=== PATIENT | male | born 1945 | race Caucasian/White ===

== ENCOUNTER 2018-01-04 12:03 | Day surgery (SDC) | payer MEDICARE, OTHER, SELFPAY ==
--- NOTE | 2018-01-04 | PATH_ITS ---
[facility] Accession Number: [id number] . 01 Material submitted: . PART A: TRANSVERSE COLON POLYP AT 80CM PART B: ANAL LESION BIOPSIES . 02 Diagnosis: A. Biopsy Transverse Colon Polyp at 80 cm: Sessile serrated adenoma. . B. Biopsy Designated Anal Lesion: Fragments of rectal mucosa with changes consistent with prolapsed inflammatory polyp, negative for atypia. MRV/01/05/2018 . 02 Electronically signed: . Austin Mojica MD, Pathologist NPI- [id number] . 01 Gross description: . Received two formalin-filled containers, both labeled with the patient's name: . A. In a container labeled transverse colon polyp at 80, are two 0.5-0.8 cm portions of tissue, entirely submitted in cassette A. B. In a container labeled anal, are five less than 0.1 cm to 0.4 cm portions of tissue, entirely submitted in cassette B. ([id number]) /FRR . 02 Pathologist provided ICD-10: D12.3 . 02 CPT . 286279, [id number] Performed at: 01 [facility] [address] [facility], [place], [place] [id number] MD Alfonso Briceño MD Phone: [phone] Performed at: 02 [facility] [address] [place], [place] [id number] MD Diego Bowers MD Phone: [phone]
[2018-01-04] MEDS: SODIUM CHLORIDE 0.9% 1,000 ML 200 ML IV (12:29)
[2018-01-04 12:36] VITALS: BP 153/82; PULSE 44; RESP 16; TEMP 36.8; O2SAT 97; BMI 33.2
--- NOTE | 2018-01-04 12:50 | PM.PREOP ---
Pre-operative Note Interval Note Pre-op Check: Yes History & Physical Reviewed by Physician and Yes Exam Performed Changes: No H&P completed within 30 days and has changed as indicated here:: Patient seen and examined once again today. History physical examination dated December 06, 2017 has not changed and is on the chart. INR today is 1.0. He has stopped the Lovenox as directed in time for the procedure. Proceed with colonoscopy today as planned. ASA Class (for procedural sedation): II
[2018-01-04 13:49] VITALS: BP 159/82; PULSE 45; RESP 16; TEMP 36.1; O2SAT 99
[2018-01-04] MEDS: MIDAZOLAM 5 MG/5 ML VIAL IV (13:49)
[2018-01-04] MEDS: fentaNYL 250 MCG/5 ML INJ IV (13:49)
--- NOTE | 2018-01-04 13:50 | P.OP.ENDO_ITS ---
Operative Date/Time/Diagnoses Date of procedure: 01/04/18 Time of procedure: 13:46 Pre-op diagnosis: Rectal bleeding and personal history colon polyps Post-op diagnosis: other (Pandiverticulosis and colon polyps) Procedure & Clinicians Study performed: 1. Sedation per surgeon 2. Colonoscopy with hot snare polypectomy and cold forceps biopsies Same procedure as scheduled: Yes Indications: 72-year-old male who recently presented with bright red blood per rectum on anticoagulation therapy. He also has a personal history of colon polyps. Colonoscopy was recommended. Surgeon: Elan Son Procedure Notes SCOAP/Timeout: Yes Procedure in detail: After obtaining informed consent, the patient was brought to the GI suite and placed in the left lateral decubitus position on the examination table. After placement of appropriate monitors, the patient was given incremental doses of Versed and Fentanyl until an appropriate level of sedation was achieved. A time out was held per SCOAP protocol. A digital rectal examination was performed and did not reveal any masses or obstructing lesions. The colonoscope was gently passed into the patient's anus and the entire colon navigated to the level of the cecum with minimal difficulty. Once in the cecum, the scope was withdrawn being sure to go before and beyond all mucosal folds and prominences and get an excellent examination. The findings are noted above. At the level of the rectal vault, the scope was retroflexed and the internal anal canal was examined. The scope was straightened and air aspirated from the colon. The instrument was removed from the patient's body and the procedure was concluded. The patient was allowed to awaken from sedation without difficulty and taken to the post-anesthesia care unit in good condition. Scope withdrawal time: 16:47 min Sedation minutes: 38 Findings: diverticulosis, internal hemorrhoids (Grade 2), polyp (Transverse colon polyp at 80 cm) and other findings (Polypoid lesion at anal canal, biopsied) Specimen(s): other (1. Transverse colon polyp at 80 cm 2. Anal lesion biopsies ) Complications: none Recommendations: Colonscopy in 5 years and High fiber diet Plan for aftercare: 1. Discharge home 2. Follow up in surgery Clinic in 1 week to review results 3. Restart anticoagulation tomorrow Follow up: weeks (One week with Dr. Son) Disposition: PACU
[2018-01-04 13:53] VITALS: BP 148/78; PULSE 43; RESP 11; O2SAT 99
[2018-01-04 14:01] VITALS: BP 145/71; PULSE 40; RESP 16; TEMP 36.1; O2SAT 99
== END 2018-01-04 14:17 | disposition home or self-care (01) ==
PROVIDERS: PCP Family Medicine; Visit Provider Surgery
PROC: 0DJD8ZZ Inspection of Lower Intestinal Tract, Via Natural or Artificial Opening Endoscopic (ICD-10-PCS; CPT 45378; principal; 2018-01-04 13:00)
DX: K62.1 Rectal polyp (principal); Z86.010 Personal history of colon polyps; K57.30 Diverticulosis of large intestine without perforation or abscess without bleeding; K64.1 Second degree hemorrhoids; D12.3 Benign neoplasm of transverse colon; Z79.01 Long term (current) use of anticoagulants; I48.91 Unspecified atrial fibrillation
CPT/HCPCS: 45385; 45380; 88305; 99152; 99153; J2250; J3010

== ENCOUNTER → 2018-02-06 09:17 | Outpatient (CLI) | payer MEDICARE, OTHER, SELFPAY ==
[2018-02-06 10:03] LABS: Add Manual Diff / Slide Review NO; Basophils Percent Auto 0.8 % (0-2); Eosinophils Percent Auto 3.4 % (2-4); Hematocrit 37.7 % (41-53); Hemoglobin 12.8 g/dL (13.5-17.5); Lymphocytes Percent Auto 29.5 % (25-40); Mean Corpuscular Hemoglobin 29.3 PG (26-34); Monocytes Percent Auto 8.3 % (3-14); Neutrophils Absolute Auto 3000 /uL (3000-5900); Platelet Count 179 X10^3/uL (150-400); Red Blood Cell Count 4.38 X10^6/uL (4.5-5.9); Red Cell Distribution Width 14.7 % (11.6-14.8); White Blood Cell Count 5.2 X10^3/uL (4.5-11.0)
[2018-02-06 10:47] LABS: Alanine Aminotransferase 37 IU/L (21-72); Albumin 3.9 g/dL (3.5-5.0); Albumin Globulin Ratio 1.6 (1.0-2.8); Alkaline Phosphatase 68 U/L (38-126); Aspartate Aminotransferase 38 IU/L (17-59); BUN Creatinine Ratio 22.5 (6-22); Bilirubin Total 0.7 mg/dL (0.2-1.3); Blood Urea Nitrogen 18 mg/dL (9-20); Calcium 9.1 mg/dL (8.4-10.2); Carbon Dioxide 29 mmol/L (22-32); Chloride 104 mmol/L (98-107); Cholesterol 107 mg/dL (140-199); Estimated Glomerular Filt Rate > 60.0 mL/min (>60); Globulin 2.5 g/dL (1.7-4.1); Glucose 94 mg/dL (80-110); HDL Cholesterol 61 mg/dL (40-60); HEMOLYSIS < 15 (0-50); LDL Cholesterol Calculated 38 mg/dL (<100); Potassium 4.2 mmol/L (3.4-5.1); Sodium 144 mmol/L (137-145); Total Protein 6.4 g/dL (6.3-8.2); Triglycerides 41 mg/dL (35-150)
[2018-02-06 11:12] LABS: Thyroid Stimulating Hormone 0.65 uIU/mL (0.47-4.68)
[2018-02-06 11:15] LABS: Prostate Specific Antigen Scrn 1.46 ng/mL (0.1-4.0)
== END ==
PROVIDERS: PCP Family Medicine; Visit Provider Family Medicine
DX: I10 Essential (primary) hypertension (principal)
CPT/HCPCS: 36415; 80053; 80061; 84443; 85025; G0103

== ENCOUNTER 2018-10-24 16:30 | Emergency (ER) | payer MEDICARE, OTHER, SELFPAY ==
[2018-10-24 16:42] VITALS: BP 132/94; PULSE 71; RESP 16; TEMP 37; O2SAT 97; BMI 34.7
--- NOTE | 2018-10-24 16:47 | ED.ABDPAIN ---
HPI - Abdominal Pain <NIC Matos - Last Filed: 10/24/18 21:05> General Chief Complaint: Abdominal Pain Stated Complaint: SAYS HIS KIDNEYS ARE SORE Time Seen by Provider: 10/24/18 16:47 Source: patient Limitations: no limitations History of Present Illness HPI narrative: 71-year-old male with a history of TIA and blood thinner use, presents to the emergency department complaining of dull achy 6/10 left flank pain for the past 3-4 days that is worse with bending over and going upstairs. Denies radiation of pain. Associated increased shortness of breath when walking up stairs. Patient also reports swelling in his lower legs however he states that this is normal for for him and has not increased over the past few days. Denies long trips or recent illness. Denies dysuria, chest pain, dizziness, syncope, cough, fevers, chills, blood in urine, nausea, vomiting, change in stools. Related Data Home Medications Medication Instructions Recorded Confirmed MULTIVITAMIN/MINERALS (ICAPS PLUS) 1 tab PO AMAC #0 04/04/17 02/13/18 calcium citrate [Calcitrate] 200 mg PO ACHS #0 04/04/17 02/13/18 cyanocobalamin (vitamin B-12) 1 tab PO SEE INSTRUCTIONS #0 04/04/17 02/13/18 [Vitamin B-12] vitamin B complex [B 1 tab PO AMAC #0 04/04/17 02/13/18 Complex-Vitamin B12] apixaban [Eliquis] 5 mg BID #0 08/15/17 02/13/18 lisinopril 10 mg PO QDAY #0 08/15/17 02/13/18 acetaminophen 500 mg tablet 1,000 mg PO BID #0 02/13/18 02/13/18 Previous Rx's Medication Instructions Recorded hydrocortisone acetate 25 mg 25 mg MT BID PRN #12 each 11/21/17 rectal suppository enoxaparin 100 mg/mL subcutaneous 100 mg SUBCUT .q 12 h #8 ml 12/06/17 syringe tamsulosin 0.4 mg PO DAILY #10 cap 10/24/18 Allergies Allergy/AdvReac Type Severity Reaction Status Date / Time No Known Drug Allergies Allergy Unknown Verified 10/24/18 16:42 [NO KNOWN DRUG ALLERGIES] Review of Systems <NIC Matos - Last Filed: 10/24/18 21:05> Review of Systems REVIEW OF SYSTEMS: GENERAL: Denies fever or chills. HENT: No head trauma, hearing loss or sore throat. EYES: No loss of vision, double vision, eye pain, or irritation. CARDIOVASCULAR: No chest pain or syncope. RESPIRATORY: See HPI. GASTROINTESTINAL: No nausea, vomiting, diarrhea, or constipation. GENITOURINARY: Complains of left foot pain, see HPI MUSCULOSKELETAL: No pain, weakness, or deformities. INTEGUMENTARY: No rash, lesions, or pruritus. NEURO: No numbness, tingling, memory loss, or confusion. PSYCH: No behavior or mood changes. PFSH <NIC Matos - Last Filed: 10/24/18 21:05> Medical History Constipation (Acute) Hemorrhoids (Acute) Personal history of colonic polyps (Acute) Transient ischemic attack (Acute) Afib (Chronic) HTN (hypertension) (Chronic) Hyperlipidemia (Chronic) Sleep apnea (Chronic) Anal fistula (Resolved) Surgical History History of colonoscopy (Acute) History of esophagogastroduodenoscopy (EGD) (Acute) History of angioplasty (~2013) History of gastric bypass History of knee replacement History of knee replacement Family History Father Hypertension Cancer Social History marital status: household members: spouse Smoking Status: Never smoker alcohol intake: never substance use type: does not use Family History Father Hypertension Cancer Social History marital status: household members: spouse Smoking Status: Never smoker alcohol intake: never substance use type: does not use Exam <NIC Matos - Last Filed: 10/24/18 21:05> Initial Vital Signs Initial Vital Signs: Vital Signs Temperature 98.6 F 10/24/18 16:42 Pulse Rate 71 10/24/18 16:42 Respiratory Rate 16 10/24/18 16:42 Blood Pressure 132/94 H 10/24/18 16:42 Pulse Oximetry 97 10/24/18 16:42 PHYSICAL EXAMINATION: GENERAL: Well groomed, alert, and cooperative Answers questions promptly and appropriately. Vital signs noted. HENT: Normocephalic, atraumatic. EYES: Conjunctiva pink, sclera white, no periorbital swelling. NECK: Full range of motion. CHEST: Normal to inspection and without deformities. CARDIOVASCULAR: S1 and S2 sounds normal. Regular rate and rhythm, no murmurs, clicks, or bruits. No pedal edema. RESPIRATORY: Normal respiratory rate, trachea midline, airway patent. No stridor, nasal flaring or accessory muscle use. Lungs are clear in all ramirez without wheeze, rhonchi, or crackles. GASTROINTESTINAL: Bowel sounds normoactive. Abdomen is soft and non-tender. No organomegaly. Left flank tenderness with palpation. MUSCULOSKELETAL: Normal gait and coordination. Equal tone and mass bilaterally. No spinal tenderness or deformities. EXTREMITIES: CMS intact. Full range of motion and 5/5 strength to upper and lower extremities SKIN: Warm, dry, soft, appropriate color for ethnicity. No lesions, rashes, or wounds. NEURO: Alert and Oriented X 3. Good coordination. No ataxia, or sensory deficits, or cognitive issues. PSYCH: Appropriate affect and mood. <Gutierrez Rankin DO - Last Filed: 10/29/18 19:23> Initial Vital Signs Initial Vital Signs: Vital Signs Temperature 98.6 F 10/24/18 16:42 Pulse Rate 71 10/24/18 16:42 Respiratory Rate 16 10/24/18 16:42 Blood Pressure 132/94 H 10/24/18 16:42 Pulse Oximetry 97 10/24/18 16:42 Course <NIC Matos - Last Filed: 10/24/18 21:05> Orders Ordered: ED Orders 10/24/18 16:41 B Type Natriuretic Peptide Stat Complete Blood Count AUTO DIFF Stat Comprehensive Metabolic Panel Stat Lipase Stat Partial Thromboplastin Time Stat Prothrombin Time INR Stat Troponin & CK Cardiac Panel Stat 10/24/18 16:53 CT kidney ureter bladder (KUB) Stat EKG-12 Lead Stat Consultations Consultation #1: Patient staffed Dr. Rankin. Vital Signs - 8 hr 10/24/18 16:42 Temperature 98.6 F Pulse Rate 71 Respiratory Rate 16 Blood Pressure 132/94 H Pulse Oximetry 97 <Gutierrez Rankin DO - Last Filed: 10/29/18 19:23> Orders Ordered: ED Orders 10/24/18 16:41 B Type Natriuretic Peptide Stat Complete Blood Count AUTO DIFF Stat Comprehensive Metabolic Panel Stat Lipase Stat Partial Thromboplastin Time Stat Prothrombin Time INR Stat Troponin & CK Cardiac Panel Stat 10/24/18 16:53 CT kidney ureter bladder (KUB) Stat EKG-12 Lead Stat Vital Signs - 8 hr 10/24/18 16:42 Temperature 98.6 F Pulse Rate 71 Respiratory Rate 16 Blood Pressure 132/94 H Pulse Oximetry 97 MDM - Abdominal Pain <NIC Matos - Last Filed: 10/24/18 21:05> Medical Records Attestation: I reviewed the patient's medical records. Lab Data Attestation: I reviewed the patient's lab results. Result diagrams: 10/24/18 16:41 10/24/18 16:41 Lab Results 10/24/18 10/24/18 10/24/18 Range/Units 16:41 16:41 16:41 WBC 6.0 (4.5-11.0) X10^3/uL RBC 4.43 L (4.5-5.9) X10^6/uL Hgb 12.5 L (13.5-17.5) g/dL Hct 37.6 L (41-53) % MCV 84.9 (80-100) fL MCH 28.1 (26-34) PG MCHC 33.1 (30-36) % RDW 15.9 H (11.6-14.8) % Plt Count 205 (150-400) X10^3/uL Neut % (Auto) 56.0 (50-75) % Lymph % (Auto) 32.1 (25-40) % Leslie % (Auto) 8.6 (3-14) % Eos % (Auto) 2.4 (2-4) % Baso % (Auto) 0.9 (0-2) % Neut # (Auto) 3400 (0186-8416) /uL Lymph # (Auto) 1900 (5461-6947) /uL Leslie # (Auto) 500 (0-900) /uL Eos # (Auto) 100 (0-450) /uL Baso # (Auto) 100 (0-100) /uL PT 12.1 (10.1-12.7) SECONDS INR 1.1 (0.9-1.3) APTT 35 (26.4-36.2) SECONDS Sodium 141 (137-145) mmol/L Potassium 4.4 (3.4-5.1) mmol/L Chloride 107 (98-107) mmol/L Carbon Dioxide 26 (22-32) mmol/L BUN 21 H (9-20) mg/dL Creatinine 0.90 (0.66-1.25) mg/dL Estimated GFR > 60.0 (>60) mL/min BUN/Creatinine Ratio 23.3 H (6-22) Glucose 96 (80-110) mg/dL Calcium 9.4 (8.4-10.2) mg/dL Total Bilirubin 0.7 (0.2-1.3) mg/dL AST 36 (17-59) IU/L ALT 31 (21-72) IU/L Alkaline Phosphatase 64 (38-126) U/L Total Creatine Kinase (55-170) U/L CK-MB (CK-2) (<2.37) ng/mL CK-MB (CK-2) Rel Index (1.5-5.0) % Troponin I (0.01-0.034) ng/mL B-Natriuretic Peptide < 100 (<100) Total Protein 6.8 (6.3-8.2) g/dL Albumin 4.2 (3.5-5.0) g/dL Globulin 2.6 (1.7-4.1) g/dL Albumin/Globulin Ratio 1.6 (1.0-2.8) Lipase 138 (23-300) U/L 10/24/18 Range/Units 16:41 WBC (4.5-11.0) X10^3/uL RBC (4.5-5.9) X10^6/uL Hgb (13.5-17.5) g/dL Hct (41-53) % MCV (80-100) fL MCH (26-34) PG MCHC (30-36) % RDW (11.6-14.8) % Plt Count (150-400) X10^3/uL Neut % (Auto) (50-75) % Lymph % (Auto) (25-40) % Leslie % (Auto) (3-14) % Eos % (Auto) (2-4) % Baso % (Auto) (0-2) % Neut # (Auto) (5624-3012) /uL Lymph # (Auto) (2213-7122) /uL Leslie # (Auto) (0-900) /uL Eos # (Auto) (0-450) /uL Baso # (Auto) (0-100) /uL PT (10.1-12.7) SECONDS INR (0.9-1.3) APTT (26.4-36.2) SECONDS Sodium (137-145) mmol/L Potassium (3.4-5.1) mmol/L Chloride (98-107) mmol/L Carbon Dioxide (22-32) mmol/L BUN (9-20) mg/dL Creatinine (0.66-1.25) mg/dL Estimated GFR (>60) mL/min BUN/Creatinine Ratio (6-22) Glucose (80-110) mg/dL Calcium (8.4-10.2) mg/dL Total Bilirubin (0.2-1.3) mg/dL AST (17-59) IU/L ALT (21-72) IU/L Alkaline Phosphatase (38-126) U/L Total Creatine Kinase 314 H (55-170) U/L CK-MB (CK-2) 2.19 (<2.37) ng/mL CK-MB (CK-2) Rel Index 0.7 L (1.5-5.0) % Troponin I < 0.012 (0.01-0.034) ng/mL B-Natriuretic Peptide (<100) Total Protein (6.3-8.2) g/dL Albumin (3.5-5.0) g/dL Globulin (1.7-4.1) g/dL Albumin/Globulin Ratio (1.0-2.8) Lipase (23-300) U/L Imaging Data CT KUB: Radiologist's impression: [address] [address] [address] Scan Report Signed Patient: Ian Rubin Jr [facility]#: [id number] : 6Acct:[id number] Age/Sex: 73 / MDate of Service: 10/24/18 Loc: ED Accession Number: [id number] Procedure: CT kidney ureter bladder (KUB) Ordering Provider: Maggi Hernandez PROCEDURE: CT KIDNEY URETER BLADDER (KUB) INDICATIONS: Significant Left flank tenderness. TECHNIQUE: Noncontrast 5 mm thick sections acquired from the diaphragms to the symphysis. 5 mm thick coronal and sagittal reformats were then performed. For radiation dose reduction, the following was used: automated exposure control, adjustment of mA and/or kV according to patient size. COMPARISON: None. FINDINGS: Image quality: Excellent. Lung bases: There is minimal dependent atelectasis. A pleural-based calcified nodule in the medial right lower lobe likely represents sequela of prior granulomatous disease. Heart size is normal. There is a small hiatal hernia. Urinary system: The kidneys demonstrate no hydronephrosis. No definite renal stones demonstrated along the expected course of the ureters. The ureters are normal in caliber. There are 2 small punctate nonobstructing left renal stones. The urinary bladder demonstrates mild bladder wall thickening and trabeculation with multiple bladder diverticula. The findings are compatible with sequelae of chronic bladder outlet obstruction. There are a few dependent calcifications within the bladder as well as within a right postero-lateral diverticulum compatible with bladder stones. There is enlargement of the prostate. Other solid organs: Noncontrast evaluation of the liver demonstrates no focal hepatic lesions. The gallbladder appears within normal limits without calcified gallstones. Pancreas is normal in contours. Spleen is normal in size. No adrenal nodules. Peritoneum and bowel: There are postsurgical changes along the stomach suggestive of a gastric bypass. Small bowel loops are normal in caliber and wall thickness. There is colonic diverticulosis with minimal fat stranding and wall thickening along the proximal sigmoid colon which may reflect a mild diverticulitis. There is mild concentric bowel wall thickening at the anorectal junction with distention of the lumen which is incompletely evaluated in the absence of intravenous contrast. There is mild adjacent fat stranding. No free fluid or air. Nodes and vessels: No retroperitoneal or mesenteric adenopathy by size criteria. Aorta and inferior vena cava are normal in caliber. Abdominal wall: No ventral hernias. Pelvis: No free pelvic fluid. No inguinal hernias or adenopathy. Bones: No suspicious bony lesions. No vertebral body compression fractures. IMPRESSION: 1. Left nephrolithiasis without evidence of obstructive uropathy. 2. Bladder wall thickening and trabeculation with bilateral bladder diverticula. The findings are compatible with sequela of chronic bladder outlet obstruction. Associated dependent calcifications within the bladder are suggestive of urinary stones related to stasis. 3. Colonic diverticulosis with suggestion of mild diverticulitis in the proximal sigmoid colon. 4. Concentric bowel wall thickening at the anorectal junction with distention of the lumen and mild associated fat stranding. The findings are equally evaluated in the absence of intravenous contrast. Recommend further evaluation with clinical exam and consider further evaluation with colonoscopy. Dictated by: Alfonso Torres M.D. on 10/24/2018 at 17:27 Approved by: Alfonso Torres M.D. on 10/24/2018 at 17:36 ECG Data Attestation: I personally reviewed and interpreted this ECG as follows: Interpretation: No axis deviation, rate 61, P are 182, QTC 395. Normal sinus rhythm no ST elevation or ST depression, no T-wave inversion. No ectopy. EKG also reviewed by Chucho. [facility] Narrative Medical decision making narrative: Suspect patient's pain is most likely caused from the kidney stones seen on CT due to location of pain of the left flank. However it is possible that musculoskeletal strain may also be causing pain as patient reports doing work on the bathtub while bending over for multiple hours. Spoke with patient about incidental finding of mild diverticulitis, however we did decide to treat patient as patient was not symptomatic (no abdominal pain, no change in stool pattern, no fever, no elevated white blood cells). Also discussed with patient about bladder outlet syndrome, prescribed tamsulosin to help with this as well. Shortness of breath is most likely due to increased pain while walking up the stairs as this exacerbates pain for history, less likely cardiac in nature due to normal enzymes and normal EKG as well as lack of other symptoms such as chest pain, diaphoresis, dizziness, also less likely PE due to lack of tachycardia, lack of tachypnea, lack of increasing risk factors such as long trips, and patient is currently on anticoagulation. Follow-up instructions given to discuss all of these findings with primary care provider. Strict return precautions given. <Gutierrez Rankin, - Last Filed: 10/29/18 19:23> Lab Data Lab Results 10/24/18 10/24/18 10/24/18 Range/Units 16:41 16:41 16:41 WBC 6.0 (4.5-11.0) X10^3/uL RBC 4.43 L (4.5-5.9) X10^6/uL Hgb 12.5 L (13.5-17.5) g/dL Hct 37.6 L (41-53) % MCV 84.9 (80-100) fL MCH 28.1 (26-34) PG MCHC 33.1 (30-36) % RDW 15.9 H (11.6-14.8) % Plt Count 205 (150-400) X10^3/uL Neut % (Auto) 56.0 (50-75) % Lymph % (Auto) 32.1 (25-40) % Leslie % (Auto) 8.6 (3-14) % Eos % (Auto) 2.4 (2-4) % Baso % (Auto) 0.9 (0-2) % Neut # (Auto) 3400 (9795-2732) /uL Lymph # (Auto) 1900 (9020-1091) /uL Leslie # (Auto) 500 (0-900) /uL Eos # (Auto) 100 (0-450) /uL Baso # (Auto) 100 (0-100) /uL PT 12.1 (10.1-12.7) SECONDS INR 1.1 (0.9-1.3) APTT 35 (26.4-36.2) SECONDS Sodium 141 (137-145) mmol/L Potassium 4.4 (3.4-5.1) mmol/L Chloride 107 (98-107) mmol/L Carbon Dioxide 26 (22-32) mmol/L BUN 21 H (9-20) mg/dL Creatinine 0.90 (0.66-1.25) mg/dL Estimated GFR > 60.0 (>60) mL/min BUN/Creatinine Ratio 23.3 H (6-22) Glucose 96 (80-110) mg/dL Calcium 9.4 (8.4-10.2) mg/dL Total Bilirubin 0.7 (0.2-1.3) mg/dL AST 36 (17-59) IU/L ALT 31 (21-72) IU/L Alkaline Phosphatase 64 (38-126) U/L Total Creatine Kinase (55-170) U/L CK-MB (CK-2) (<2.37) ng/mL CK-MB (CK-2) Rel Index (1.5-5.0) % Troponin I (0.01-0.034) ng/mL B-Natriuretic Peptide < 100 (<100) Total Protein 6.8 (6.3-8.2) g/dL Albumin 4.2 (3.5-5.0) g/dL Globulin 2.6 (1.7-4.1) g/dL Albumin/Globulin Ratio 1.6 (1.0-2.8) Lipase 138 (23-300) U/L 10/24/18 Range/Units 16:41 WBC (4.5-11.0) X10^3/uL RBC (4.5-5.9) X10^6/uL Hgb (13.5-17.5) g/dL Hct (41-53) % MCV (80-100) fL MCH (26-34) PG MCHC (30-36) % RDW (11.6-14.8) % Plt Count (150-400) X10^3/uL Neut % (Auto) (50-75) % Lymph % (Auto) (25-40) % Leslie % (Auto) (3-14) % Eos % (Auto) (2-4) % Baso % (Auto) (0-2) % Neut # (Auto) (4114-3995) /uL Lymph # (Auto) (4415-2727) /uL Leslie # (Auto) (0-900) /uL Eos # (Auto) (0-450) /uL Baso # (Auto) (0-100) /uL PT (10.1-12.7) SECONDS INR (0.9-1.3) APTT (26.4-36.2) SECONDS Sodium (137-145) mmol/L Potassium (3.4-5.1) mmol/L Chloride (98-107) mmol/L Carbon Dioxide (22-32) mmol/L BUN (9-20) mg/dL Creatinine (0.66-1.25) mg/dL Estimated GFR (>60) mL/min BUN/Creatinine Ratio (6-22) Glucose (80-110) mg/dL Calcium (8.4-10.2) mg/dL Total Bilirubin (0.2-1.3) mg/dL AST (17-59) IU/L ALT (21-72) IU/L Alkaline Phosphatase (38-126) U/L Total Creatine Kinase 314 H (55-170) U/L CK-MB (CK-2) 2.19 (<2.37) ng/mL CK-MB (CK-2) Rel Index 0.7 L (1.5-5.0) % Troponin I < 0.012 (0.01-0.034) ng/mL B-Natriuretic Peptide (<100) Total Protein (6.3-8.2) g/dL Albumin (3.5-5.0) g/dL Globulin (1.7-4.1) g/dL Albumin/Globulin Ratio (1.0-2.8) Lipase (23-300) U/L Discharge Plan Departure Patient Disposition: Home Clinical Impression: Renal calculi Discharge Date/Time: 10/24/18 18:39 Interventions: ED Discharge Assessment Last Done: 10/24/18 18:39 Instructions: DI for Kidney Stones Activity Restrictions/Additional Instructions: Thank you for entrusting me with your care today. As discussed, 2 very small kidney stones were found on her CT scan, this might be the cause your pain. I prescribed a medication to help you pass your kidney stones as well as to treat the incidental bladder outlet syndrome seen on CT. Please strain your urine to attempt to collect your stone. Follow up with your primary care provider in the next week. Also as discussed he did not want anything stronger for pain other than Tylenol, and monitor your bowel movements and continues to take your Metamucil as there were incidental findings diverticula on your CT. Return to the emergency department for fevers, chills, increased pain, uncontrollable vomiting, blood in her stool, shortness of breath that is worsening, or syncope. Prescriptions: New tamsulosin 0.4 mg capsule 0.4 mg PO DAILY Qty: 10 RF: 0 No Action calcium citrate [Calcitrate] 200 MG tablet 200 mg PO ACHS Qty: 0 RF: 0 MULTIVITAMIN/MINERALS (ICAPS PLUS) 1 tab PO AMAC Qty: 0 RF: 0 vitamin B complex [B Complex-Vitamin B12] 1 EACH tablet 1 tab PO AMAC Qty: 0 RF: 0 cyanocobalamin (vitamin B-12) [Vitamin B-12] 5,000 MCG tablet, sublingual 1 tab PO SEE INSTRUCTIONS Qty: 0 RF: 0 lisinopril 10 MG tablet 10 mg PO QDAY Qty: 0 RF: 0 apixaban [Eliquis] 5 MG tablet 5 mg BID Qty: 0 RF: 0 hydrocortisone acetate 25 mg suppository 25 mg MT BID PRN (Reason: hemorrhoids) Qty: 12 RF: 1 acetaminophen [Tylenol Extra Strength] 500 mg tablet 1,000 mg PO BID Qty: 0 RF: 0 enoxaparin [Lovenox] 100 mg/mL syringe 100 mg SUBCUT .q 12 h Qty: 8 RF: 0 Referrals: Alfredo Lu MD [Primary Care Provider] - <Gutierrez Rankin DO - Last Filed: 10/29/18 19:23> Cosign ED Attending Meeta Attestation: I was immediately available in the department for consultation. Documentation has been reviewed. I agree with assessment and plan.
--- NOTE | 2018-10-24 16:52 | ED_ITS ---
HPI - Abdominal Pain <NIC Matos - Last Filed: 10/24/18 21:05> General Chief Complaint: Abdominal Pain Stated Complaint: SAYS HIS KIDNEYS ARE SORE Time Seen by Provider: 10/24/18 16:47 Source: patient Limitations: no limitations History of Present Illness HPI narrative: 71-year-old male with a history of TIA and blood thinner use, presents to the emergency department complaining of dull achy 6/10 left flank pain for the past 3-4 days that is worse with bending over and going upstairs. Denies radiation of pain. Associated increased shortness of breath when walking up stairs. Patient also reports swelling in his lower legs however he states that this is normal for for him and has not increased over the past few days. Denies long trips or recent illness. Denies dysuria, chest pain, dizziness, syncope, cough, fevers, chills, blood in urine, nausea, vomiting, change in stools. Related Data Home Medications Medication Instructions Recorded Confirmed MULTIVITAMIN/MINERALS (ICAPS PLUS) 1 tab PO AMAC #0 04/04/17 02/13/18 calcium citrate [Calcitrate] 200 mg PO ACHS #0 04/04/17 02/13/18 cyanocobalamin (vitamin B-12) 1 tab PO SEE INSTRUCTIONS #0 04/04/17 02/13/18 [Vitamin B-12] vitamin B complex [B 1 tab PO AMAC #0 04/04/17 02/13/18 Complex-Vitamin B12] apixaban [Eliquis] 5 mg BID #0 08/15/17 02/13/18 lisinopril 10 mg PO QDAY #0 08/15/17 02/13/18 acetaminophen 500 mg tablet 1,000 mg PO BID #0 02/13/18 02/13/18 Previous Rx's Medication Instructions Recorded hydrocortisone acetate 25 mg 25 mg IL BID PRN #12 each 11/21/17 rectal suppository enoxaparin 100 mg/mL subcutaneous 100 mg SUBCUT .q 12 h #8 ml 12/06/17 syringe tamsulosin 0.4 mg PO DAILY #10 cap 10/24/18 Allergies Allergy/AdvReac Type Severity Reaction Status Date / Time No Known Drug Allergies Allergy Unknown Verified 10/24/18 16:42 [NO KNOWN DRUG ALLERGIES] Review of Systems <NIC Matos - Last Filed: 10/24/18 21:05> Review of Systems REVIEW OF SYSTEMS: GENERAL: Denies fever or chills. HENT: No head trauma, hearing loss or sore throat. EYES: No loss of vision, double vision, eye pain, or irritation. CARDIOVASCULAR: No chest pain or syncope. RESPIRATORY: See HPI. GASTROINTESTINAL: No nausea, vomiting, diarrhea, or constipation. GENITOURINARY: Complains of left foot pain, see HPI MUSCULOSKELETAL: No pain, weakness, or deformities. INTEGUMENTARY: No rash, lesions, or pruritus. NEURO: No numbness, tingling, memory loss, or confusion. PSYCH: No behavior or mood changes. PFSH <NIC Matos - Last Filed: 10/24/18 21:05> Medical History Constipation (Acute) Hemorrhoids (Acute) Personal history of colonic polyps (Acute) Transient ischemic attack (Acute) Afib (Chronic) HTN (hypertension) (Chronic) Hyperlipidemia (Chronic) Sleep apnea (Chronic) Anal fistula (Resolved) Surgical History History of colonoscopy (Acute) History of esophagogastroduodenoscopy (EGD) (Acute) History of angioplasty (~2013) History of gastric bypass History of knee replacement History of knee replacement Family History Father Hypertension Cancer Social History marital status: household members: spouse Smoking Status: Never smoker alcohol intake: never substance use type: does not use Family History Father Hypertension Cancer Social History marital status: household members: spouse Smoking Status: Never smoker alcohol intake: never substance use type: does not use Exam <NIC Matos - Last Filed: 10/24/18 21:05> Initial Vital Signs Initial Vital Signs: Vital Signs Temperature 98.6 F 10/24/18 16:42 Pulse Rate 71 10/24/18 16:42 Respiratory Rate 16 10/24/18 16:42 Blood Pressure 132/94 H 10/24/18 16:42 Pulse Oximetry 97 10/24/18 16:42 PHYSICAL EXAMINATION: GENERAL: Well groomed, alert, and cooperative Answers questions promptly and appropriately. Vital signs noted. HENT: Normocephalic, atraumatic. EYES: Conjunctiva pink, sclera white, no periorbital swelling. NECK: Full range of motion. CHEST: Normal to inspection and without deformities. CARDIOVASCULAR: S1 and S2 sounds normal. Regular rate and rhythm, no murmurs, clicks, or bruits. No pedal edema. RESPIRATORY: Normal respiratory rate, trachea midline, airway patent. No stridor, nasal flaring or accessory muscle use. Lungs are clear in all ramirez without wheeze, rhonchi, or crackles. GASTROINTESTINAL: Bowel sounds normoactive. Abdomen is soft and non-tender. No organomegaly. Left flank tenderness with palpation. MUSCULOSKELETAL: Normal gait and coordination. Equal tone and mass bilaterally. No spinal tenderness or deformities. EXTREMITIES: CMS intact. Full range of motion and 5/5 strength to upper and lower extremities SKIN: Warm, dry, soft, appropriate color for ethnicity. No lesions, rashes, or wounds. NEURO: Alert and Oriented X 3. Good coordination. No ataxia, or sensory deficits, or cognitive issues. PSYCH: Appropriate affect and mood. <Gutierrez Rankin DO - Last Filed: 10/29/18 19:23> Initial Vital Signs Initial Vital Signs: Vital Signs Temperature 98.6 F 10/24/18 16:42 Pulse Rate 71 10/24/18 16:42 Respiratory Rate 16 10/24/18 16:42 Blood Pressure 132/94 H 10/24/18 16:42 Pulse Oximetry 97 10/24/18 16:42 Course <NIC Matos - Last Filed: 10/24/18 21:05> Orders Ordered: ED Orders 10/24/18 16:41 B Type Natriuretic Peptide Stat Complete Blood Count AUTO DIFF Stat Comprehensive Metabolic Panel Stat Lipase Stat Partial Thromboplastin Time Stat Prothrombin Time INR Stat Troponin & CK Cardiac Panel Stat 10/24/18 16:53 CT kidney ureter bladder (KUB) Stat EKG-12 Lead Stat Consultations Consultation #1: Patient staffed Dr. Rankin. Vital Signs - 8 hr 10/24/18 16:42 Temperature 98.6 F Pulse Rate 71 Respiratory Rate 16 Blood Pressure 132/94 H Pulse Oximetry 97 <Gutierrez Rankin DO - Last Filed: 10/29/18 19:23> Orders Ordered: ED Orders 10/24/18 16:41 B Type Natriuretic Peptide Stat Complete Blood Count AUTO DIFF Stat Comprehensive Metabolic Panel Stat Lipase Stat Partial Thromboplastin Time Stat Prothrombin Time INR Stat Troponin & CK Cardiac Panel Stat 10/24/18 16:53 CT kidney ureter bladder (KUB) Stat EKG-12 Lead Stat Vital Signs - 8 hr 10/24/18 16:42 Temperature 98.6 F Pulse Rate 71 Respiratory Rate 16 Blood Pressure 132/94 H Pulse Oximetry 97 MDM - Abdominal Pain <NIC Matos - Last Filed: 10/24/18 21:05> Medical Records Attestation: I reviewed the patient's medical records. Lab Data Attestation: I reviewed the patient's lab results. Result diagrams: 10/24/18 16:41 10/24/18 16:41 Lab Results 10/24/18 10/24/18 10/24/18 Range/Units 16:41 16:41 16:41 WBC 6.0 (4.5-11.0) X10^3/uL RBC 4.43 L (4.5-5.9) X10^6/uL Hgb 12.5 L (13.5-17.5) g/dL Hct 37.6 L (41-53) % MCV 84.9 (80-100) fL MCH 28.1 (26-34) PG MCHC 33.1 (30-36) % RDW 15.9 H (11.6-14.8) % Plt Count 205 (150-400) X10^3/uL Neut % (Auto) 56.0 (50-75) % Lymph % (Auto) 32.1 (25-40) % [place] % (Auto) 8.6 (3-14) % Eos % (Auto) 2.4 (2-4) % Baso % (Auto) 0.9 (0-2) % Neut # (Auto) 3400 (2687-3488) /uL Lymph # (Auto) 1900 (4086-7568) /uL [place] # (Auto) 500 (0-900) /uL Eos # (Auto) 100 (0-450) /uL Baso # (Auto) 100 (0-100) /uL PT 12.1 (10.1-12.7) SECONDS INR 1.1 (0.9-1.3) APTT 35 (26.4-36.2) SECONDS Sodium 141 (137-145) mmol/L Potassium 4.4 (3.4-5.1) mmol/L Chloride 107 (98-107) mmol/L Carbon Dioxide 26 (22-32) mmol/L BUN 21 H (9-20) mg/dL Creatinine 0.90 (0.66-1.25) mg/dL Estimated GFR > 60.0 (>60) mL/min BUN/Creatinine Ratio 23.3 H (6-22) Glucose 96 (80-110) mg/dL Calcium 9.4 (8.4-10.2) mg/dL Total Bilirubin 0.7 (0.2-1.3) mg/dL AST 36 (17-59) IU/L ALT 31 (21-72) IU/L Alkaline Phosphatase 64 (38-126) U/L Total Creatine Kinase (55-170) U/L CK-MB (CK-2) (<2.37) ng/mL CK-MB (CK-2) Rel Index (1.5-5.0) % Troponin I (0.01-0.034) ng/mL B-Natriuretic Peptide < 100 (<100) Total Protein 6.8 (6.3-8.2) g/dL Albumin 4.2 (3.5-5.0) g/dL Globulin 2.6 (1.7-4.1) g/dL Albumin/Globulin Ratio 1.6 (1.0-2.8) Lipase 138 (23-300) U/L 10/24/18 Range/Units 16:41 WBC (4.5-11.0) X10^3/uL RBC (4.5-5.9) X10^6/uL Hgb (13.5-17.5) g/dL Hct (41-53) % MCV (80-100) fL MCH (26-34) PG MCHC (30-36) % RDW (11.6-14.8) % Plt Count (150-400) X10^3/uL Neut % (Auto) (50-75) % Lymph % (Auto) (25-40) % [place] % (Auto) (3-14) % Eos % (Auto) (2-4) % Baso % (Auto) (0-2) % Neut # (Auto) (9261-7802) /uL Lymph # (Auto) (2717-9262) /uL [place] # (Auto) (0-900) /uL Eos # (Auto) (0-450) /uL Baso # (Auto) (0-100) /uL PT (10.1-12.7) SECONDS INR (0.9-1.3) APTT (26.4-36.2) SECONDS Sodium (137-145) mmol/L Potassium (3.4-5.1) mmol/L Chloride (98-107) mmol/L Carbon Dioxide (22-32) mmol/L BUN (9-20) mg/dL Creatinine (0.66-1.25) mg/dL Estimated GFR (>60) mL/min BUN/Creatinine Ratio (6-22) Glucose (80-110) mg/dL Calcium (8.4-10.2) mg/dL Total Bilirubin (0.2-1.3) mg/dL AST (17-59) IU/L ALT (21-72) IU/L Alkaline Phosphatase (38-126) U/L Total Creatine Kinase 314 H (55-170) U/L CK-MB (CK-2) 2.19 (<2.37) ng/mL CK-MB (CK-2) Rel Index 0.7 L (1.5-5.0) % Troponin I < 0.012 (0.01-0.034) ng/mL B-Natriuretic Peptide (<100) Total Protein (6.3-8.2) g/dL Albumin (3.5-5.0) g/dL Globulin (1.7-4.1) g/dL Albumin/Globulin Ratio (1.0-2.8) Lipase (23-300) U/L Imaging Data CT KUB: Radiologist's impression: [address] [address] [address] Scan Report Signed Patient: Ian Rubin Jr [facility]#: [id number] : 6Acct:[id number] Age/Sex: 73 / MDate of Service: 10/24/18 Loc: ED Accession Number: [id number] Procedure: CT kidney ureter bladder (KUB) Ordering Provider: Maggi Hernandez PROCEDURE: CT KIDNEY URETER BLADDER (KUB) INDICATIONS: Significant Left flank tenderness. TECHNIQUE: Noncontrast 5 mm thick sections acquired from the diaphragms to the symphysis. 5 mm thick coronal and sagittal reformats were then performed. For radiation dose reduction, the following was used: automated exposure control, adjustment of mA and/or kV according to patient size. COMPARISON: None. FINDINGS: Image quality: Excellent. Lung bases: There is minimal dependent atelectasis. A pleural-based calcified nodule in the medial right lower lobe likely represents sequela of prior granulomatous disease. Heart size is normal. There is a small hiatal hernia. Urinary system: The kidneys demonstrate no hydronephrosis. No definite renal stones demonstrated along the expected course of the ureters. The ureters are normal in caliber. There are 2 small punctate nonobstructing left renal stones. The urinary bladder demonstrates mild bladder wall thickening and trabeculation with multiple bladder diverticula. The findings are compatible with sequelae of chronic bladder outlet obstruction. There are a few dependent calcifications within the bladder as well as within a right postero-lateral diverticulum compatible with bladder stones. There is enlargement of the prostate. Other solid organs: Noncontrast evaluation of the liver demonstrates no focal hepatic lesions. The gallbladder appears within normal limits without calcified gallstones. Pancreas is normal in contours. Spleen is normal in size. No adrenal nodules. Peritoneum and bowel: There are postsurgical changes along the stomach suggestive of a gastric bypass. Small bowel loops are normal in caliber and wall thickness. There is colonic diverticulosis with minimal fat stranding and wall thickening along the proximal sigmoid colon which may reflect a mild diverticulitis. There is mild concentric bowel wall thickening at the anorectal junction with distention of the lumen which is incompletely evaluated in the absence of intravenous contrast. There is mild adjacent fat stranding. No free fluid or air. Nodes and vessels: No retroperitoneal or mesenteric adenopathy by size criteria. Aorta and inferior vena cava are normal in caliber. Abdominal wall: No ventral hernias. Pelvis: No free pelvic fluid. No inguinal hernias or adenopathy. Bones: No suspicious bony lesions. No vertebral body compression fractures. IMPRESSION: 1. Left nephrolithiasis without evidence of obstructive uropathy. 2. Bladder wall thickening and trabeculation with bilateral bladder diverticula. The findings are compatible with sequela of chronic bladder outlet obstruction. Associated dependent calcifications within the bladder are suggestive of urinary stones related to stasis. 3. Colonic diverticulosis with suggestion of mild diverticulitis in the proximal sigmoid colon. 4. Concentric bowel wall thickening at the anorectal junction with distention of the lumen and mild associated fat stranding. The findings are equally evaluated in the absence of intravenous contrast. Recommend further evaluation with clinical exam and consider further evaluation with colonoscopy. Dictated by: Alfonso Torres M.D. on 10/24/2018 at 17:27 Approved by: Alfonso Torres M.D. on 10/24/2018 at 17:36 ECG Data Attestation: I personally reviewed and interpreted this ECG as follows: Interpretation: No axis deviation, rate 61, P are 182, QTC 395. Normal sinus rhythm no ST elevation or ST depression, no T-wave inversion. No ectopy. EKG also reviewed by Chucho. [facility] Narrative Medical decision making narrative: Suspect patient's pain is most likely caused from the kidney stones seen on CT due to location of pain of the left flank. However it is possible that musculoskeletal strain may also be causing pain as patient reports doing work on the bathtub while bending over for multiple hours. Spoke with patient about incidental finding of mild diverticulitis, however we did decide to treat patient as patient was not symptomatic (no abdominal pain, no change in stool pattern, no fever, no elevated white blood cells). Also discussed with patient about bladder outlet syndrome, prescribed tamsulosin to help with this as well. Shortness of breath is most likely due to increased pain while walking up the stairs as this exacerbates pain for history, less likely cardiac in nature due to normal enzymes and normal EKG as well as lack of other symptoms such as chest pain, diaphoresis, dizziness, also less likely PE due to lack of tachycardia, lack of tachypnea, lack of increasing risk factors such as long trips, and patient is currently on anticoagulation. Follow-up instructions given to discuss all of these findings with primary care provider. Strict return precautions given. <Gutierrez Rankin, - Last Filed: 10/29/18 19:23> Lab Data Lab Results 10/24/18 10/24/18 10/24/18 Range/Units 16:41 16:41 16:41 WBC 6.0 (4.5-11.0) X10^3/uL RBC 4.43 L (4.5-5.9) X10^6/uL Hgb 12.5 L (13.5-17.5) g/dL Hct 37.6 L (41-53) % MCV 84.9 (80-100) fL MCH 28.1 (26-34) PG MCHC 33.1 (30-36) % RDW 15.9 H (11.6-14.8) % Plt Count 205 (150-400) X10^3/uL Neut % (Auto) 56.0 (50-75) % Lymph % (Auto) 32.1 (25-40) % [place] % (Auto) 8.6 (3-14) % Eos % (Auto) 2.4 (2-4) % Baso % (Auto) 0.9 (0-2) % Neut # (Auto) 3400 (5573-5868) /uL Lymph # (Auto) 1900 (9911-9524) /uL [place] # (Auto) 500 (0-900) /uL Eos # (Auto) 100 (0-450) /uL Baso # (Auto) 100 (0-100) /uL PT 12.1 (10.1-12.7) SECONDS INR 1.1 (0.9-1.3) APTT 35 (26.4-36.2) SECONDS Sodium 141 (137-145) mmol/L Potassium 4.4 (3.4-5.1) mmol/L Chloride 107 (98-107) mmol/L Carbon Dioxide 26 (22-32) mmol/L BUN 21 H (9-20) mg/dL Creatinine 0.90 (0.66-1.25) mg/dL Estimated GFR > 60.0 (>60) mL/min BUN/Creatinine Ratio 23.3 H (6-22) Glucose 96 (80-110) mg/dL Calcium 9.4 (8.4-10.2) mg/dL Total Bilirubin 0.7 (0.2-1.3) mg/dL AST 36 (17-59) IU/L ALT 31 (21-72) IU/L Alkaline Phosphatase 64 (38-126) U/L Total Creatine Kinase (55-170) U/L CK-MB (CK-2) (<2.37) ng/mL CK-MB (CK-2) Rel Index (1.5-5.0) % Troponin I (0.01-0.034) ng/mL B-Natriuretic Peptide < 100 (<100) Total Protein 6.8 (6.3-8.2) g/dL Albumin 4.2 (3.5-5.0) g/dL Globulin 2.6 (1.7-4.1) g/dL Albumin/Globulin Ratio 1.6 (1.0-2.8) Lipase 138 (23-300) U/L 10/24/18 Range/Units 16:41 WBC (4.5-11.0) X10^3/uL RBC (4.5-5.9) X10^6/uL Hgb (13.5-17.5) g/dL Hct (41-53) % MCV (80-100) fL MCH (26-34) PG MCHC (30-36) % RDW (11.6-14.8) % Plt Count (150-400) X10^3/uL Neut % (Auto) (50-75) % Lymph % (Auto) (25-40) % [place] % (Auto) (3-14) % Eos % (Auto) (2-4) % Baso % (Auto) (0-2) % Neut # (Auto) (2338-4565) /uL Lymph # (Auto) (0915-4530) /uL [place] # (Auto) (0-900) /uL Eos # (Auto) (0-450) /uL Baso # (Auto) (0-100) /uL PT (10.1-12.7) SECONDS INR (0.9-1.3) APTT (26.4-36.2) SECONDS Sodium (137-145) mmol/L Potassium (3.4-5.1) mmol/L Chloride (98-107) mmol/L Carbon Dioxide (22-32) mmol/L BUN (9-20) mg/dL Creatinine (0.66-1.25) mg/dL Estimated GFR (>60) mL/min BUN/Creatinine Ratio (6-22) Glucose (80-110) mg/dL Calcium (8.4-10.2) mg/dL Total Bilirubin (0.2-1.3) mg/dL AST (17-59) IU/L ALT (21-72) IU/L Alkaline Phosphatase (38-126) U/L Total Creatine Kinase 314 H (55-170) U/L CK-MB (CK-2) 2.19 (<2.37) ng/mL CK-MB (CK-2) Rel Index 0.7 L (1.5-5.0) % Troponin I < 0.012 (0.01-0.034) ng/mL B-Natriuretic Peptide (<100) Total Protein (6.3-8.2) g/dL Albumin (3.5-5.0) g/dL Globulin (1.7-4.1) g/dL Albumin/Globulin Ratio (1.0-2.8) Lipase (23-300) U/L Discharge Plan Departure Patient Disposition: Home Clinical Impression: Renal calculi Discharge Date/Time: 10/24/18 18:39 Interventions: ED Discharge Assessment Last Done: 10/24/18 18:39 Instructions: DI for Kidney Stones Activity Restrictions/Additional Instructions: Thank you for entrusting me with your care today. As discussed, 2 very small kidney stones were found on her CT scan, this might be the cause your pain. I prescribed a medication to help you pass your kidney stones as well as to treat the incidental bladder outlet syndrome seen on CT. Please strain your urine to attempt to collect your stone. Follow up with your primary care provider in the next week. Also as discussed he did not want anything stronger for pain other than Tylenol, and monitor your bowel movements and continues to take your [place] mucil as there were incidental findings diverticula on your CT. Return to the emergency department for fevers, chills, increased pain, uncontrollable vomiting, blood in her stool, shortness of breath that is worsening, or syncope. Prescriptions: New tamsulosin 0.4 mg capsule 0.4 mg PO DAILY Qty: 10 RF: 0 No Action calcium citrate [Calcitrate] 200 MG tablet 200 mg PO ACHS Qty: 0 RF: 0 MULTIVITAMIN/MINERALS (ICAPS PLUS) 1 tab PO AMAC Qty: 0 RF: 0 vitamin B complex [B Complex-Vitamin B12] 1 EACH tablet 1 tab PO AMAC Qty: 0 RF: 0 cyanocobalamin (vitamin B-12) [Vitamin B-12] 5,000 MCG tablet, sublingual 1 tab PO SEE INSTRUCTIONS Qty: 0 RF: 0 lisinopril 10 MG tablet 10 mg PO QDAY Qty: 0 RF: 0 apixaban [Eliquis] 5 MG tablet 5 mg BID Qty: 0 RF: 0 hydrocortisone acetate 25 mg suppository 25 mg IL BID PRN (Reason: hemorrhoids) Qty: 12 RF: 1 acetaminophen [Tylenol Extra Strength] 500 mg tablet 1,000 mg PO BID Qty: 0 RF: 0 enoxaparin [Lovenox] 100 mg/mL syringe 100 mg SUBCUT .q 12 h Qty: 8 RF: 0 Referrals: Alfredo Lu MD [Primary Care Provider] - <Gutierrez Rankin DO - Last Filed: 10/29/18 19:23> Cosign ED Attending Meeta Attestation: I was immediately available in the department for consultation. Documentation has been reviewed. I agree with assessment and plan.
--- NOTE | 2018-10-24 16:54 | PC.NURSE ---
reports, left flank pain for 3 days, denies trauma, denies fever,vomiting. worsen with movement.
[2018-10-24 17:00] LABS: Add Manual Diff / Slide Review NO; Basophils Absolute Auto 100 /uL (0-100); Basophils Percent Auto 0.9 % (0-2); Eosinophils Absolute Auto 100 /uL (0-450); Eosinophils Percent Auto 2.4 % (2-4); Hematocrit 37.6 % (41-53); Hemoglobin 12.5 g/dL (13.5-17.5); Lymphocytes Absolute Auto 1900 /uL (1100-4500); Lymphocytes Percent Auto 32.1 % (25-40); Mean Corpuscular HGB Conc 33.1 % (30-36); Mean Corpuscular Hemoglobin 28.1 PG (26-34); Mean Corpuscular Volume 84.9 fL (80-100); Monocytes Absolute Auto 500 /uL (0-900); Monocytes Percent Auto 8.6 % (3-14); Neutrophils Absolute Auto 3400 /uL (1500-7000); Platelet Count 205 X10^3/uL (150-400); Red Blood Cell Count 4.43 X10^6/uL (4.5-5.9); Red Cell Distribution Width 15.9 % (11.6-14.8)
[2018-10-24 17:03] LABS: INR 1.1 (0.9-1.3); Prothrombin Time 12.1 SECONDS (10.1-12.7)
[2018-10-24 17:05] LABS: PTT Partial Thromboplastin Tim 35 SECONDS (26.4-36.2)
[2018-10-24 17:08] LABS: Alanine Aminotransferase 31 IU/L (21-72); Albumin 4.2 g/dL (3.5-5.0); Albumin Globulin Ratio 1.6 (1.0-2.8); Alkaline Phosphatase 64 U/L (38-126); Aspartate Aminotransferase 36 IU/L (17-59); BUN Creatinine Ratio 23.3 (6-22); Bilirubin Total 0.7 mg/dL (0.2-1.3); Blood Urea Nitrogen 21 mg/dL (9-20); Calcium 9.4 mg/dL (8.4-10.2); Carbon Dioxide 26 mmol/L (22-32); Chloride 107 mmol/L (98-107); Creatine Kinase 314 U/L (55-170); Estimated Glomerular Filt Rate > 60.0 mL/min (>60); Globulin 2.6 g/dL (1.7-4.1); Glucose 96 mg/dL (80-110); HEMOLYSIS < 15 (0-50); Lipase 138 U/L (23-300); Potassium 4.4 mmol/L (3.4-5.1); Sodium 141 mmol/L (137-145); Total Protein 6.8 g/dL (6.3-8.2)
[2018-10-24 17:21] LABS: Troponin I < 0.012 ng/mL (0.01-0.034)
[2018-10-24 17:24] LABS: CKMB % Relative Index 0.7 % (1.5-5.0); Creatine Kinase MB 2.19 ng/mL (<2.37)
[2018-10-24 17:26] LABS: B Type Natriuretic Peptide < 100 (<100)
== END 2018-10-24 18:39 | disposition home or self-care (01) ==
PROVIDERS: Emergency Provider Nurse Practitioner; PCP Family Medicine
DX: N20.0 Calculus of kidney (principal); R06.02 Shortness of breath; Z86.73 Personal history of transient ischemic attack (TIA), and cerebral infarction without residual deficits; Z79.01 Long term (current) use of anticoagulants
CPT/HCPCS: 36591; 74176; 80053; 82550; 82553; 83690; 83880; 84484; 85025; 85610; 85730; 93005; 99283; 99285

== ENCOUNTER → 2019-02-19 12:55 | Outpatient (CLI) | payer MEDICARE, OTHER, SELFPAY ==
[2019-02-19 13:16] LABS: Appearance Urine UA CLOUDY; Bilirubin Urine UA NEGATIVE (NEGATIVE); Color Urine UA YELLOW; Glucose Urine UA NEGATIVE (Negative); Ketones Urine UA NEGATIVE (NEGATIVE); Leukocyte Esterase Urine UA 3+ (NEGATIVE); Nitrite Urine UA POSITIVE (Negative); Occult Blood Urine UA TRACE-INTACT (Negative); Protein Urine UA NEGATIVE (Negative); Specific Gravity Urine UA <=1.005 (1.000-1.035); Urobilinogen Urine UA 0.2 E.U./dL (0.2); pH Urine UA 5.5 (4.5-8.0)
[2019-02-19 13:27] LABS: Bacteria Urine Many (>30); Culture Indicated Urine Specimen Cultured; RBC Urine 5-10/HPF (0-5/HPF); Squamous Epithelial Cell Urine 0-1 /HPF (0-5/HPF); WBC Urine >100/HPF (0-5/HPF)
== END ==
PROVIDERS: PCP Family Medicine; Visit Provider Physician Assistant
DX: N39.0 Urinary tract infection, site not specified (principal)
CPT/HCPCS: 81001; 87077; 87086; 87186

== ENCOUNTER → 2019-04-30 14:59 | Outpatient (CLI) | payer MEDICARE, OTHER, SELFPAY ==
[2019-04-30 15:07] LABS: RBC Urine None Seen (0-5/HPF)
[2019-04-30 15:42] LABS: Appearance Urine UA SL CLOUDY; Bilirubin Urine UA NEGATIVE (NEGATIVE); Color Urine UA YELLOW; Glucose Urine UA NEGATIVE (Negative); Ketones Urine UA NEGATIVE (NEGATIVE); Leukocyte Esterase Urine UA 3+ (NEGATIVE); Nitrite Urine UA POSITIVE (Negative); Occult Blood Urine UA NEGATIVE (Negative); Protein Urine UA NEGATIVE (Negative); Specific Gravity Urine UA <=1.005 (1.000-1.035); Urobilinogen Urine UA 0.2 E.U./dL (0.2)
[2019-04-30 16:06] LABS: Bacteria Urine Many (>30); Culture Indicated Urine Specimen Cultured; Squamous Epithelial Cell Urine None Seen (0-5/HPF); WBC Urine 10-30/HPF (0-5/HPF)
== END ==
PROVIDERS: PCP Family Medicine; Visit Provider Physician Assistant
DX: R39.9 Unspecified symptoms and signs involving the genitourinary system (principal)
CPT/HCPCS: 81001; 87077; 87086; 87186

== ENCOUNTER → 2019-06-07 09:54 | Outpatient (CLI) | payer MEDICARE, OTHER, SELFPAY ==
[2019-06-07 10:22] LABS: RBC Urine None Seen (0-5/HPF)
[2019-06-07 12:53] LABS: Appearance Urine UA CLEAR; Bilirubin Urine UA NEGATIVE (NEGATIVE); Color Urine UA YELLOW; Glucose Urine UA NEGATIVE (Negative); Ketones Urine UA NEGATIVE (NEGATIVE); Leukocyte Esterase Urine UA 1+ (NEGATIVE); Nitrite Urine UA POSITIVE (Negative); Occult Blood Urine UA NEGATIVE (Negative); Protein Urine UA NEGATIVE (Negative); Urobilinogen Urine UA 0.2 E.U./dL (0.2)
[2019-06-07 13:25] LABS: WBC Urine 1-5/HPF (0-5/HPF)
[2019-06-07 13:26] LABS: Bacteria Urine Many (>30); Culture Indicated Urine Specimen Cultured
== END ==
PROVIDERS: PCP Family Medicine; Referring Provider Family Medicine; Visit Provider Physician Assistant
DX: N39.0 Urinary tract infection, site not specified (principal)
CPT/HCPCS: 81001; 87077; 87086; 87186

== ENCOUNTER → 2019-07-10 11:31 | Outpatient (CLI) | payer MEDICARE, OTHER, SELFPAY ==
--- NOTE | 2019-07-10 | DI.US.S_ITS ---
PROCEDURE: US RENAL COMPLETE INDICATIONS: URINARY TRACT INFECTION TECHNIQUE: Real-time scanning was performed of the kidneys and bladder, with image documentation. COMPARISON: None. FINDINGS: Kidneys: Kidneys are normal in size. Right kidney measures 12.7 cm long; left kidney measures 12.2 cm long. Right renal cortical thickness is 1.6 cm; left renal cortical thickness is 1.9 cm. Renal cortical echotexture is normal. No hydronephrosis or nephrolithiasis. No suspicious solid mass lesions. Bladder: Pre-void bladder volume is 937 mL. Post-void residual is 56 mL. Catheterization was utilized to avoid. Pre-void images demonstrate no intraluminal masses or stones but there was a small amount of sludge and a moderate size right bladder diverticulum.. On pre-void images, bilateral ureteral jets are noted with color Doppler interrogation. (Of note, ureteral jets may not be detectable in up to 25% of cases due to insufficient differences in specific gravity between ureteral and bladder urine). Miscellaneous: No free pelvic fluid. IMPRESSION: No hydronephrosis or nephrolithiasis was found. There are several renal cortical cysts the largest of which measures 4.4 cm on the right. Bladder prevoid volume is 937 cc, there is a moderate sized bladder diverticulum on the right, post catheterization voiding yielded 56 cc residual urine within the bladder lumen. Dictated by: Gustabo Kenney M.D. on 07/10/2019 at 12:47 Approved by: Gustabo Kenney M.D. on 07/10/2019 at 12:50
[2019-07-10 13:10] LABS: Appearance Urine UA SL CLOUDY; Bilirubin Urine UA NEGATIVE (NEGATIVE); Color Urine UA YELLOW; Glucose Urine UA NEGATIVE (Negative); Ketones Urine UA NEGATIVE (NEGATIVE); Leukocyte Esterase Urine UA 3+ (NEGATIVE); Nitrite Urine UA POSITIVE (Negative); Occult Blood Urine UA TRACE-LYSED (Negative); Protein Urine UA TRACE (Negative); Urobilinogen Urine UA 0.2 E.U./dL (0.2)
[2019-07-10 13:44] LABS: Bacteria Urine Many (>30); Culture Indicated Urine Specimen Cultured; RBC Urine 0-1/HPF (0-5/HPF); Squamous Epithelial Cell Urine 0-1 /HPF (0-5/HPF); WBC Urine 30-100/HPF (0-5/HPF)
== END ==
PROVIDERS: PCP Physician Assistant; Referring Provider Physician Assistant; Visit Provider Physician Assistant
DX: N39.0 Urinary tract infection, site not specified (principal); N28.1 Cyst of kidney, acquired; N32.3 Diverticulum of bladder
CPT/HCPCS: 76770; 81001; 87077; 87086; 87186

== ENCOUNTER → 2019-08-01 10:04 | Outpatient (CLI) | payer MEDICARE, OTHER, SELFPAY ==
--- NOTE | 2019-08-01 | DI.CT.S_ITS ---
PROCEDURE: CT KIDNEY URETER BLADDER (KUB) INDICATIONS: urinary tract infection, site not specified TECHNIQUE: Noncontrast 5 mm thick sections acquired from the diaphragms to the symphysis. 5 mm thick coronal and sagittal reformats were then performed. For radiation dose reduction, the following was used: automated exposure control, adjustment of mA and/or kV according to patient size. COMPARISON: [facility], CT, CT KIDNEY URETER BLADDER (KUB), 10/24/2018, 17:11. FINDINGS: Image quality: Excellent. Lung bases: A couple of groundglass nodules are seen in the right middle lobe measuring 3 mm and 5 mm. Heart size is normal. Small hiatal hernia. Urinary system: There is a 2.5 x 1.7 cm parapelvic cyst. A cortical scar is seen in the mid left kidney. There is a 2 cm cortical cyst in the right kidney. A few of punctate calculi seen left kidney. No hydronephrosis. No right renal stone. Both kidneys are normal in size. Both ureters appear non-dilated throughout their expected courses. Bladder wall is concentrically thickened. There is a bladder diverticulum posterior to the right bladder base measuring 5.1 x 4.5 cm; no calcified bladder stones. Prostate is enlarged. Other solid organs: Liver is normal in size. Gallbladder contains small gallstones. Pancreas is normal in contours. Spleen is normal in size. No adrenal nodules. Peritoneum and bowel: There is gastric bypass. Unenhanced bowel loops demonstrate normal wall thickness and caliber. There is concentric thickening at the sigmoid rectal junction, unchanged. No free fluid or air. Nodes and vessels: No retroperitoneal or mesenteric adenopathy by size criteria. Aorta and inferior vena cava are normal in caliber. Abdominal wall: No ventral hernias. Pelvis: No free pelvic fluid. No inguinal hernias or adenopathy. Bones: No suspicious bony lesions. No vertebral body compression fractures. IMPRESSION: 1. A few nonobstructing left renal calculi. No hydronephrosis. 2. A cortical scar in left kidney. 3. Bilateral renal cysts. 4. Bladder wall is concentrically thickened, probably sequelae of chronic fat or oblique projection. The differential diagnosis is cystitis. 5. A bladder diverticulum right posterior to the bladder base. 6. Enlarged prostate. 7. A couple of groundglass nodules are seen in the right middle lobe. Please see enclosed followup recommendation. 8. Cholelithiasis. Fleischner Society criteria for SUB-SOLID lung nodule followup. Solitary pure ground-glass nodules5 mm or lessNo followup needed. >5 mm3 mo follow-up CT to confirm persistence. Then annual CT for 3 years. Part-solid nodules3 mo follow-up CT to confirm persistence. If persistent with solid component <5 mm, annual CT for at least 3 years. If solid component is 5 mm or more, biopsy or surgical resection. Consider PET-CT for lesions > 10 mm. Multiple sub-solid nodulesPure ground glass nodules [address] at 2 and 4 years. Pure ground glass nodules >5 mm without dominant lesion. [address] to confirm persistence, then annual followup CT for at least 3 years. Dominant nodule(s) with part-solid or solid component. [address] to confirm persistence. If persistent, consider biopsy or surgical resection, kiko if lesions have >5 mm solid component. Dictated by: Nlelie Dang M.D. on 08/01/2019 at 10:30 Approved by: Nellie Dang M.D. on 08/01/2019 at 11:50
== END ==
PROVIDERS: PCP Physician Assistant
DX: N39.0 Urinary tract infection, site not specified (principal); N20.0 Calculus of kidney; N28.1 Cyst of kidney, acquired; K44.9 Diaphragmatic hernia without obstruction or gangrene; R91.8 Other nonspecific abnormal finding of lung field; N40.0 Benign prostatic hyperplasia without lower urinary tract symptoms; K80.20 Calculus of gallbladder without cholecystitis without obstruction; N32.3 Diverticulum of bladder
CPT/HCPCS: 74176

== ENCOUNTER → 2019-08-19 17:25 | Outpatient (CLI) | payer MEDICARE, OTHER, SELFPAY ==
[2019-08-19 18:14] LABS: Bilirubin Urine UA NEGATIVE (NEGATIVE); Color Urine UA RED; Glucose Urine UA NEGATIVE (Negative); Ketones Urine UA NEGATIVE (NEGATIVE); Leukocyte Esterase Urine UA TRACE (NEGATIVE); Nitrite Urine UA NEGATIVE (Negative); Occult Blood Urine UA 3+ (Negative); Protein Urine UA 3+ (Negative); Urobilinogen Urine UA 0.2 E.U./dL (0.2)
[2019-08-19 18:15] LABS: Appearance Urine UA OTHER
[2019-08-19 18:16] LABS: Bacteria Urine Few (2-10); Culture Indicated Urine Specimen Cultured; RBC Urine >100/HPF (0-5/HPF); Squamous Epithelial Cell Urine 0-1 /HPF (0-5/HPF); WBC Urine 30-100/HPF (0-5/HPF)
== END ==
PROVIDERS: PCP Family Medicine; Referring Provider Physician Assistant; Visit Provider Physician Assistant
DX: N39.0 Urinary tract infection, site not specified (principal)
CPT/HCPCS: 81001; 87077; 87086; 87186

== ENCOUNTER → 2019-09-02 10:09 | Outpatient (CLI) | payer MEDICARE, OTHER, SELFPAY ==
[2019-09-02 13:15] LABS: BUN Creatinine Ratio 33.3 (6-22); Blood Urea Nitrogen 28 mg/dL (9-20); Calcium 9.5 mg/dL (8.4-10.2); Carbon Dioxide 26 mmol/L (22-32); Chloride 102 mmol/L (98-107); Estimated Glomerular Filt Rate > 60.0 mL/min (>60); Glucose 96 mg/dL (80-110); HEMOLYSIS < 15 (0-50); Potassium 5.3 mmol/L (3.4-5.1); Sodium 134 mmol/L (137-145)
== END ==
PROVIDERS: PCP Family Medicine; Referring Provider Physician Assistant; Visit Provider Physician Assistant
DX: N39.0 Urinary tract infection, site not specified (principal); R79.89 Other specified abnormal findings of blood chemistry
CPT/HCPCS: 36415; 80048

== ENCOUNTER → 2019-11-29 10:17 | Outpatient (CLI) | payer MEDICARE, OTHER, SELFPAY ==
[2019-11-29 11:27] LABS: Appearance Urine UA CLOUDY; Bilirubin Urine UA NEGATIVE (NEGATIVE); Color Urine UA YELLOW; Glucose Urine UA NEGATIVE (Negative); Ketones Urine UA NEGATIVE (NEGATIVE); Leukocyte Esterase Urine UA 3+ (NEGATIVE); Nitrite Urine UA NEGATIVE (Negative); Occult Blood Urine UA 2+ (Negative); Protein Urine UA 2+ (Negative); Specific Gravity Urine UA 1.015 (1.000-1.035); Urobilinogen Urine UA 0.2 E.U./dL (0.2); pH Urine UA 5.5 (4.5-8.0)
[2019-11-29 11:35] LABS: RBC Urine 30-100/HPF (0-5/HPF); WBC Urine >100/HPF (0-5/HPF)
[2019-11-29 11:36] LABS: Bacteria Urine Moderate (10-30); Culture Indicated Urine Specimen Cultured
== END ==
PROVIDERS: PCP Family Medicine; Referring Provider Physician Assistant; Visit Provider Physician Assistant
DX: N39.0 Urinary tract infection, site not specified (principal)
CPT/HCPCS: 81001; 87077; 87086

== ENCOUNTER → 2020-02-12 09:24 | Outpatient (CLI) | payer MEDICARE, OTHER, SELFPAY ==
[2020-02-12 10:31] LABS: Add Manual Diff / Slide Review NO; Basophils Absolute Auto 0 /uL (0-100); Basophils Percent Auto 1.1 % (0-2); Eosinophils Absolute Auto 200 /uL (0-450); Eosinophils Percent Auto 4.6 % (2-4); Hematocrit 32.9 % (41-53); Hemoglobin 10.6 g/dL (13.5-17.5); Lymphocytes Absolute Auto 1500 /uL (1100-4500); Lymphocytes Percent Auto 37.5 % (25-40); Mean Corpuscular HGB Conc 32.1 % (30-36); Mean Corpuscular Hemoglobin 25.5 PG (26-34); Mean Corpuscular Volume 79.4 fL (80-100); Monocytes Absolute Auto 400 /uL (0-900); Monocytes Percent Auto 9.4 % (3-14); Neutrophils Absolute Auto 1900 /uL (1500-7000); Neutrophils Percent Auto 47.4 % (50-75); Platelet Count 215 X10^3/uL (150-400); Red Blood Cell Count 4.14 X10^6/uL (4.5-5.9); Red Cell Distribution Width 17.2 % (11.6-14.8)
[2020-02-12 11:30] LABS: Alanine Aminotransferase 13 IU/L (<50); Albumin 3.7 g/dL (3.5-5.0); Albumin Globulin Ratio 1.4 (1.0-2.8); Alkaline Phosphatase 70 U/L (38-126); Aspartate Aminotransferase 23 IU/L (17-59); BUN Creatinine Ratio 20.5 (6-22); Bilirubin Total 0.6 mg/dL (0.2-1.3); Blood Urea Nitrogen 18 mg/dL (9-20); Calcium 9.2 mg/dL (8.4-10.2); Carbon Dioxide 28 mmol/L (22-32); Chloride 104 mmol/L (98-107); Cholesterol 103 mg/dL (140-199); Estimated Glomerular Filt Rate > 60.0 mL/min (>60); Globulin 2.6 g/dL (1.7-4.1); Glucose 94 mg/dL (80-110); HDL Cholesterol 57 mg/dL (40-60); HEMOLYSIS < 15 (0-50); LDL Cholesterol Calculated 36 mg/dL (<100); Potassium 4.6 mmol/L (3.4-5.1); Sodium 138 mmol/L (137-145); Total Protein 6.3 g/dL (6.3-8.2); Triglycerides 48 mg/dL (35-150)
[2020-02-12 11:51] LABS: TSH w/ Reflex to FT4 0.53 uIU/mL (0.47-4.68)
== END ==
PROVIDERS: PCP Family Medicine; Referring Provider Family Medicine; Visit Provider Family Medicine
DX: E78.5 Hyperlipidemia, unspecified (principal); I10 Essential (primary) hypertension; N40.0 Benign prostatic hyperplasia without lower urinary tract symptoms
CPT/HCPCS: 36415; 80053; 80061; 84443; 85025

== ENCOUNTER → 2020-03-17 14:19 | Outpatient (CLI) | payer MEDICARE, OTHER, SELFPAY ==
[2020-03-17 17:36] LABS: Appearance Urine UA CLEAR; Bilirubin Urine UA NEGATIVE (NEGATIVE); Color Urine UA YELLOW; Glucose Urine UA NEGATIVE (Negative); Ketones Urine UA NEGATIVE (NEGATIVE); Leukocyte Esterase Urine UA 2+ (NEGATIVE); Nitrite Urine UA NEGATIVE (Negative); Occult Blood Urine UA 3+ (Negative); Protein Urine UA NEGATIVE (Negative); Specific Gravity Urine UA <=1.005 (1.000-1.035); Urobilinogen Urine UA 0.2 E.U./dL (0.2); pH Urine UA 5.5 (4.5-8.0)
[2020-03-17 17:50] LABS: Bacteria Urine Many (>30); Culture Indicated Urine Specimen Cultured; RBC Urine 5-10/HPF (0-5/HPF); WBC Urine >100/HPF (0-5/HPF)
== END ==
PROVIDERS: PCP Family Medicine; Referring Provider Urology; Visit Provider Urology
DX: N39.0 Urinary tract infection, site not specified (principal)
CPT/HCPCS: 81001; 87077; 87086; 87186

== ENCOUNTER → 2020-04-14 11:42 | Outpatient (CLI) | payer MEDICARE, OTHER, SELFPAY ==
[2020-04-14 12:57] LABS: Add Manual Diff / Slide Review NO; Basophils Absolute Auto 0 /uL (0-100); Basophils Percent Auto 0.7 % (0-2); Eosinophils Absolute Auto 100 /uL (0-450); Eosinophils Percent Auto 2.3 % (2-4); Hematocrit 31.6 % (41-53); Hemoglobin 10.2 g/dL (13.5-17.5); Lymphocytes Absolute Auto 1500 /uL (1100-4500); Lymphocytes Percent Auto 29.5 % (25-40); Mean Corpuscular HGB Conc 32.3 % (30-36); Mean Corpuscular Hemoglobin 25.5 PG (26-34); Mean Corpuscular Volume 78.9 fL (80-100); Monocytes Absolute Auto 500 /uL (0-900); Monocytes Percent Auto 9.2 % (3-14); Neutrophils Absolute Auto 2900 /uL (1500-7000); Neutrophils Percent Auto 58.3 % (50-75); Platelet Count 201 X10^3/uL (150-400); Red Cell Distribution Width 17.4 % (11.6-14.8)
[2020-04-14 13:31] LABS: BUN Creatinine Ratio 27.8 (6-22); Blood Urea Nitrogen 22 mg/dL (9-20); Carbon Dioxide 26 mmol/L (22-32); Chloride 103 mmol/L (98-107); Estimated Glomerular Filt Rate > 60.0 mL/min (>60); Glucose 103 mg/dL (80-110); HEMOLYSIS < 15 (0-50); Potassium 4.4 mmol/L (3.4-5.1); Sodium 133 mmol/L (137-145)
== END ==
PROVIDERS: PCP Family Medicine; Referring Provider Orthopaedic Surgery Adult Reconstructive Orthopaedic Surgery; Visit Provider Orthopaedic Surgery Adult Reconstructive Orthopaedic Surgery
DX: Z01.812 Encounter for preprocedural laboratory examination (principal); Z01.818 Encounter for other preprocedural examination; R73.9 Hyperglycemia, unspecified
CPT/HCPCS: 36415; 80048; 83036; 85025; 93005; 93010

== ENCOUNTER → 2020-05-07 09:35 | Outpatient (CLI) | payer MEDICARE, OTHER, SELFPAY ==
[2020-05-07 09:47] LABS: RBC Urine None Seen (0-5/HPF)
[2020-05-07 10:02] LABS: Add Manual Diff / Slide Review NO; Basophils Absolute Auto 100 /uL (0-100); Basophils Percent Auto 1.2 % (0-2); Eosinophils Absolute Auto 200 /uL (0-450); Eosinophils Percent Auto 3.7 % (2-4); Hematocrit 32.2 % (41-53); Hemoglobin 10.2 g/dL (13.5-17.5); Lymphocytes Absolute Auto 1800 /uL (1100-4500); Mean Corpuscular HGB Conc 31.7 % (30-36); Mean Corpuscular Volume 78.7 fL (80-100); Monocytes Absolute Auto 500 /uL (0-900); Monocytes Percent Auto 10.4 % (3-14); Neutrophils Absolute Auto 2300 /uL (1500-7000); Neutrophils Percent Auto 47.7 % (50-75); Platelet Count 238 X10^3/uL (150-400); Red Blood Cell Count 4.09 X10^6/uL (4.5-5.9); Red Cell Distribution Width 17.2 % (11.6-14.8); White Blood Cell Count 4.8 X10^3/uL (4.5-11.0)
[2020-05-07 10:26] LABS: HEMOLYSIS < 15 (0-50); Iron 22 ug/dL (49-181)
[2020-05-07 10:38] LABS: Percent Iron Saturation 5 % (20-50); Total Iron Binding Capacity 442 ug/dL (261-462); Transferrin 338 mg/dL (206-381)
[2020-05-07 11:01] LABS: Ferritin 9 ng/mL (18-464)
[2020-05-07 11:14] LABS: Vitamin B12 952 pg/mL (239-931)
[2020-05-07 12:20] LABS: Appearance Urine UA SL CLOUDY; Bilirubin Urine UA NEGATIVE (NEGATIVE); Color Urine UA YELLOW; Glucose Urine UA NEGATIVE (Negative); Ketones Urine UA NEGATIVE (NEGATIVE); Leukocyte Esterase Urine UA 3+ (NEGATIVE); Nitrite Urine UA POSITIVE (Negative); Occult Blood Urine UA NEGATIVE (Negative); Protein Urine UA NEGATIVE (Negative); Specific Gravity Urine UA 1.015 (1.000-1.035); Urobilinogen Urine UA 0.2 E.U./dL (0.2)
[2020-05-07 12:51] LABS: Bacteria Urine Many (>30); Culture Indicated Urine Specimen Cultured; WBC Urine >100/HPF (0-5/HPF)
== END ==
PROVIDERS: PCP Family Medicine; Referring Provider Family Medicine; Visit Provider Family Medicine
DX: D64.9 Anemia, unspecified (principal); N39.0 Urinary tract infection, site not specified; Z78.9 Other specified health status
CPT/HCPCS: 36415; 81001; 82607; 82728; 83540; 83550; 85025; 87077; 87086; 87186

== ENCOUNTER → 2020-06-07 16:26 | Outpatient (CLI) | payer MEDICARE, OTHER, SELFPAY | PROVIDERS: PCP Family Medicine; Visit Provider Physician Assistant | DX: R30.0 Dysuria (principal) | CPT/HCPCS: 87077; 87086; 87186 ==

== ENCOUNTER → 2020-06-10 09:41 | Outpatient (CLI) | payer MEDICARE, OTHER, SELFPAY ==
[2020-06-10 11:03] LABS: COVID19 -Nasal RAPID Negative (Negative)
== END ==
PROVIDERS: PCP Family Medicine; Visit Provider Nurse Practitioner Family
DX: Z01.812 Encounter for preprocedural laboratory examination (principal); Z20.822 Contact with and (suspected) exposure to COVID-19
CPT/HCPCS: 87635; C9803

== ENCOUNTER → 2020-06-11 10:41 | Outpatient (CLI) | payer MEDICARE, OTHER, SELFPAY ==
--- NOTE | 2020-06-11 11:48 | PM.TREADMILL ---
Cardiac Stress Test Report Referral & Results Date Patient Seen: 06/11/20 Time Patient Seen: 11:48 Requesting provider: Ben Penn Indication: chest pain Rest ECG: sinus rhythm Procedure Note: After Lexiscan injection has minimal dyspnea; no chest discomfort No significant ST changes after Lexiscan injection Occasional PVCs Impression: Normal Lexiscan stress test Please note: Actual ECG tracings can be found in the PACS system.
--- NOTE | 2020-06-12 14:34 | DI.NM.S_ITS ---
DATE OF SERVICE: 06/11/2020 PROCEDURE: Pharmacological perfusion study. INDICATION: Exertional chest tightness, paroxysmal AFib, hypertension, hyperlipidemia. RADIOPHARMACEUTICAL: 26.4 millicurie technetium-99m Myoview IV was injected at stress and 23.5 millicurie technetium-99m Myoview IV was injected at rest. CARDIAC STRESS: The patient underwent IV Lexiscan perfusion study under the supervision of an attending staff using standard intravenous Lexiscan, as per protocol. The patient remained hemodynamically stable. Baseline rhythm was sinus. During stress, there were no convincing ischemic changes. There were some nonspecific ST changes. The patient also has some occasional PVCs without any ventricular tachycardia, as well as occasional PACs. RAW DATA: There was increased subdiaphragmatic activity. GATED STUDY: Stress LV ejection fraction 73 percent without any obvious wall motion abnormalities. Resting end-diastolic volume 152 mL. TID ratio 1.14, which is within normal limits. Lung/heart ratio 0.29, which is within normal limits. MYOCARDIAL PERFUSION: Stress supine, resting supine and stress prone images were compared to each other. It appears to be that patient has small reversible ischemia of base to mid anterior wall and apex. CONCLUSION: This is an abnormal myocardial perfusion study consistent with small size mild reversible ischemia of base to mid anterior wall and apex. Overall left ventricular function is preserved. No transient ischemic dilatation. No significant sustained arrhythmias. Ian Rubin Jr - ZA/ari/conchis doc#: [id number]/job#: [id number] dd: 06/12/2020 12:59:00 dt: 06/12/2020 14:12:00 DICTATING MD/COPIES TO: Ben Penn MD COPIES MNE: QUETA;
== END ==
PROVIDERS: PCP Family Medicine; Referring Provider Internal Medicine Cardiovascular Disease; Visit Provider Internal Medicine Cardiovascular Disease
DX: R94.39 Abnormal result of other cardiovascular function study (principal); R07.89 Other chest pain; I48.0 Paroxysmal atrial fibrillation; I10 Essential (primary) hypertension; E78.5 Hyperlipidemia, unspecified
CPT/HCPCS: 78452; 93017; A9502; J2785

== ENCOUNTER → 2020-07-01 13:38 | Outpatient (CLI) | payer MEDICARE, OTHER, SELFPAY ==
[2020-07-01 14:23] LABS: Add Manual Diff / Slide Review NO; Basophils Absolute Auto 0 /uL (0-100); Basophils Percent Auto 0.6 % (0-2); Eosinophils Absolute Auto 200 /uL (0-450); Eosinophils Percent Auto 2.6 % (2-4); Hemoglobin 10.8 g/dL (13.5-17.5); Lymphocytes Absolute Auto 1900 /uL (1100-4500); Mean Corpuscular HGB Conc 31.8 % (30-36); Mean Corpuscular Hemoglobin 25.6 PG (26-34); Mean Corpuscular Volume 80.5 fL (80-100); Monocytes Absolute Auto 400 /uL (0-900); Monocytes Percent Auto 7.4 % (3-14); Neutrophils Absolute Auto 3500 /uL (1500-7000); Neutrophils Percent Auto 57.4 % (50-75); Platelet Count 248 X10^3/uL (150-400); Red Blood Cell Count 4.22 X10^6/uL (4.5-5.9); Red Cell Distribution Width 19.3 % (11.6-14.8)
[2020-07-01 15:41] LABS: HEMOLYSIS < 15 (0-50); Iron 23 ug/dL (49-181)
[2020-07-01 15:52] LABS: Percent Iron Saturation 5 % (20-50); Total Iron Binding Capacity 430 ug/dL (261-462); Transferrin 319 mg/dL (206-381)
[2020-07-01 17:00] LABS: BUN Creatinine Ratio 26.9 (6-22); Blood Urea Nitrogen 21 mg/dL (9-20); Calcium 9.2 mg/dL (8.4-10.2); Carbon Dioxide 30 mmol/L (22-32); Chloride 103 mmol/L (98-107); Estimated Glomerular Filt Rate > 60.0 mL/min (>60); Glucose 90 mg/dL (80-110); HEMOLYSIS < 15 (0-50); Potassium 4.4 mmol/L (3.4-5.1); Sodium 136 mmol/L (137-145)
[2020-07-01 17:24] LABS: Ferritin 11 ng/mL (18-464)
== END ==
PROVIDERS: PCP Family Medicine; Referring Provider Internal Medicine Cardiovascular Disease; Visit Provider Internal Medicine Cardiovascular Disease
DX: D50.8 Other iron deficiency anemias (principal); D64.9 Anemia, unspecified
CPT/HCPCS: 36415; 80048; 82728; 83540; 83550; 85025; 85045

== ENCOUNTER → 2020-07-02 11:47 | Outpatient (CLI) | payer MEDICARE, OTHER, SELFPAY ==
[2020-07-03 13:37] LABS: Fecal Immunochemical Test Positive (Negative)
== END ==
PROVIDERS: PCP Family Medicine; Referring Provider Internal Medicine Cardiovascular Disease; Visit Provider Internal Medicine Cardiovascular Disease
DX: D50.8 Other iron deficiency anemias (principal)
CPT/HCPCS: 82274

== ENCOUNTER → 2020-07-08 07:26 | Outpatient (CLI) | payer MEDICARE, OTHER, SELFPAY ==
[2020-07-09 10:09] LABS: Fecal Immunochemical Test Positive (Negative)
== END ==
PROVIDERS: PCP Family Medicine; Referring Provider Family Medicine; Visit Provider Family Medicine
DX: D50.8 Other iron deficiency anemias (principal); Z12.11 Encounter for screening for malignant neoplasm of colon
CPT/HCPCS: 82274

== ENCOUNTER → 2020-07-24 14:00 | Outpatient (CLI) | payer MEDICARE, OTHER, SELFPAY ==
[2020-07-24 15:07] LABS: Appearance Urine UA CLOUDY; Bilirubin Urine UA NEGATIVE (NEGATIVE); Color Urine UA YELLOW; Glucose Urine UA NEGATIVE (Negative); Ketones Urine UA NEGATIVE (NEGATIVE); Leukocyte Esterase Urine UA 3+ (NEGATIVE); Nitrite Urine UA NEGATIVE (Negative); Occult Blood Urine UA 1+ (Negative); Protein Urine UA TRACE (Negative); Urobilinogen Urine UA 0.2 E.U./dL (0.2); pH Urine UA 5.5 (4.5-8.0)
[2020-07-24 15:11] LABS: Bacteria Urine Many (>30); Culture Indicated Urine Specimen Cultured; RBC Urine 5-10/HPF (0-5/HPF); WBC Urine 30-100/HPF (0-5/HPF)
== END ==
PROVIDERS: PCP Family Medicine; Referring Provider Urology; Visit Provider Urology
DX: N39.0 Urinary tract infection, site not specified (principal)
CPT/HCPCS: 81001; 87086

== ENCOUNTER → 2020-07-31 09:33 | Outpatient (CLI) | payer MEDICARE, OTHER, SELFPAY ==
[2020-07-31 10:50] LABS: COVID19 -Nasal RAPID Negative (Negative)
== END ==
PROVIDERS: PCP Family Medicine; Visit Provider Surgery
DX: Z20.822 Contact with and (suspected) exposure to COVID-19 (principal)
CPT/HCPCS: 87635; C9803

== ENCOUNTER 2020-08-03 09:47 | Day surgery (SDC) | payer MEDICARE, OTHER, SELFPAY ==
[2020-08-03] VITALS (8 sets, daily range): BP systolic 124–146; BP diastolic 69–79; PULSE 52–69; RESP 12–19; TEMP 36.5–36.8; O2SAT 97–100; BMI 33.9
--- NOTE | 2020-08-03 | PATH_ITS ---
[facility] Accession Number: [id number] . 01 Material submitted: . anus - ANAL MASS . 01 Clinical history: . EGD/COLONOSCOPY . 02 Diagnosis: Anal Mass, Biopsies: Invasive adenocarcinoma, poorly differentiated. Please see comment. MRV 08/07/2020 1243 Local . 02 Comment: The anal mass biopsies show two separate morphologies including fragments of moderately differentiated adenocarcinoma adjacent to a more poorly differentiated area. Immunohistochemical stains will be performed to confirm the site of origin and to perform mismatch repair IHC testing. . As part of routine quality compliance coordinator, Dr. Bowers also reviewed the H/E slides and agrees with the diagnosis. Dr. Bardales gave preliminary results of poorly differentiated adenocarcinoma to Rosalva in Dr. Doan's office on 08/07/2020. . 02 Electronically signed: . Stephany Bardales MD, Pathologist NPI- [id number] . 01 Gross description: . The specimen is received in formalin, labeled anal mass and consists of multiple wirght-pink fragments of soft tissue measuring 2.5 x 2.0 x 1.2 cm in aggregate. The larger fragments are serially sectioned and the specimen is entirely submitted. . A1: larger fragments. A2: smaller fragments, filtered. (EA:[id number]) /MRV 08/05/2020 1149 Local . 02 Pathologist provided ICD-10: D50.9, C20 . 02 CPT . 515135, P17550, [id number] Performed at: 01 [facility] include 234 beds at the [facility] [address] [facility], [place], [place] [id number] MD Alfonso Briceño MD Phone: [phone] Performed at: 02 [facility] [address] [place] [id number] MD Stephany Bardales MD Phone: [phone]
[2020-08-03] MEDS: LACTATED RINGERS 1,000 ML 200 ML IV (10:39)
--- NOTE | 2020-08-03 11:27 | PM.PREOP ---
Pre-operative Note Interval Note History & Physical reviewed/Exam performed by Physician: Yes Changes to H&P: No
[2020-08-03] MEDS: LIDOCAINE 4% SOLN 50 ML 20 ML TOP (11:29)
[2020-08-03] MEDS: fentaNYL 250 MCG/5 ML INJ IV (11:33)
[2020-08-03] MEDS: MIDAZOLAM 5 MG/5 ML VIAL IV (11:34)
--- NOTE | 2020-08-03 11:51 | SUR.OPER ---
colonoscopy aborted due to incomplete prep, anal mass biopeis were obtained
[2020-08-03] MEDS: DIBUCAINE 1% OINT 28 GM 1 APPLIC TOP (12:02)
--- NOTE | 2020-08-03 12:22 | PM.OP.ENDO ---
Operative Date/Time/Diagnoses Date of procedure: 08/03/20 Time of procedure: 12:22 Pre-op diagnosis: anemia Post-op diagnosis: other (gastritis, anal canal mass) Procedure & Clinicians Study performed: aborted colonoscopy esophagoduodenoscopy Same procedure as scheduled: Yes Indications: 75 M with intermitient rectal bleeding history of gastric bypass Surgeon: Norris Doan Procedure Notes Procedure in detail: Patient placed in left lateral decubitus position. Time out was performed. Procedural sedation was administered with Versed and Fentanyl. A bite block was placed. the scope was inserted into the mouth and advanced through the esophagus and into the stomach. There was mild gastritis within the stomach the gastro jejunostomy was observed and was transversed there was no evidence of marginal ulcer. There were small blood clots within the stomach no active hemorrhage. The scope was withdrawn into the esophagus the Z line was seen at 40 cm from the incisions. . Stomach was desufflated and scope removed. Patient tolerated procedure well. The patient was placed in the left lateral recumbent position. Procedural sedation was administered. Examination began with a thorough inspection of the perianal area there was no evidence of fissures, fistulae, external hemorrhoids or cutaneous malignancy. The colonoscopy scope was then placed into the anal canal. There was fresh bright red blood per rectum. The scope was advanced forward the quality of prep was quite poor and I was unable to visualize the lumen adequately despite copious irrigation. The colonoscopy was aborted at approximately level of the sigmoid colon. The scope was then withdrawn. Within the rectum the scope was retroflexed and there was a circumferential mass within the anal canal approximately 1-2 cm from the verge. Mass was extremely friable appearance concerning for squamous cell carcinoma. Multiple biopsies were taken using a combination biopsy forceps and the hot snare. Hemostasis was observed. The sedation time was 45 minutes. Specimen-Anal canal mass Plan -Will ravi estrada in clinic to discuss result of biopsy 2 weeks and start protonix for gastritis Specimen(s): other (anal canal mass) Complications: none Impression: anal canal mass Post-procedure Follow up: weeks (2) Disposition: same day surgery
== END 2020-08-03 13:20 | disposition home or self-care (01) ==
PROVIDERS: PCP Family Medicine; Referring Provider Family Medicine; Visit Provider Surgery
PROC: 0DJ08ZZ Inspection of Upper Intestinal Tract, Via Natural or Artificial Opening Endoscopic (ICD-10-PCS; CPT 43235; principal; 2020-08-03 10:45)
PROC: 0DJD8ZZ Inspection of Lower Intestinal Tract, Via Natural or Artificial Opening Endoscopic (ICD-10-PCS; CPT 45378; 2020-08-03 10:45)
DX: C20 Malignant neoplasm of rectum (principal); D50.9 Iron deficiency anemia, unspecified; Z79.01 Long term (current) use of anticoagulants; Z86.73 Personal history of transient ischemic attack (TIA), and cerebral infarction without residual deficits; Z98.84 Bariatric surgery status; E66.9 Obesity, unspecified; Z68.35 Body mass index [BMI] 35.0-35.9, adult; I10 Essential (primary) hypertension; Z53.09 Procedure and treatment not carried out because of other contraindication; K29.70 Gastritis, unspecified, without bleeding
CPT/HCPCS: 45385; 45380; 43235; 99152; 99153; J2250; J3010

== ENCOUNTER → 2020-08-07 09:55 | Outpatient (CLI) | payer MEDICARE, OTHER, SELFPAY ==
[2020-08-07 10:51] LABS: Hematocrit 35.9 % (41-53); Hemoglobin 11.6 g/dL (13.5-17.5)
[2020-08-07 11:37] LABS: Ferritin 14 ng/mL (18-464)
== END ==
PROVIDERS: PCP Family Medicine; Referring Provider Family Medicine; Visit Provider Family Medicine
DX: D50.8 Other iron deficiency anemias (principal)
CPT/HCPCS: 36415; 82728; 85014; 85018

== ENCOUNTER → 2020-08-20 09:34 | Outpatient (CLI) | payer MEDICARE, OTHER, SELFPAY ==
[2020-08-20 10:46] LABS: BUN Creatinine Ratio 20.5 (6-22); Blood Urea Nitrogen 16 mg/dL (9-20); Calcium 9.6 mg/dL (8.4-10.2); Carbon Dioxide 27 mmol/L (22-32); Chloride 101 mmol/L (98-107); Estimated Glomerular Filt Rate > 60.0 mL/min (>60); Glucose 97 mg/dL (80-110); HEMOLYSIS < 15 (0-50); Potassium 4.7 mmol/L (3.4-5.1); Sodium 137 mmol/L (137-145)
== END ==
PROVIDERS: PCP Family Medicine; Referring Provider Surgery; Visit Provider Surgery
DX: C20 Malignant neoplasm of rectum (principal)
CPT/HCPCS: 36415; 80048

== ENCOUNTER → 2020-08-21 12:54 | Outpatient (CLI) | payer MEDICARE, OTHER, SELFPAY ==
--- NOTE | 2020-08-21 12:56 | DI.CT.S_ITS ---
PROCEDURE: CT CHEST ABD PEL W CON INDICATIONS: rectal cancer TECHNIQUE: After the administration of oral and intravenous contrast, 5 mm thick sections acquired from the lung apices to the symphysis. 5 mm coronal and sagittal reformats were performed, with additional 7 mm coronal MIP reformats through the lungs. For radiation dose reduction, the following was used: automated exposure control, adjustment of mA and/or kV according to patient size. COMPARISON: [facility], CT, CT KIDNEY URETER BLADDER (KUB), 08/01/2019, 10:06. FINDINGS: Image quality: Excellent. CHEST: Lungs and pleura: No acute airspace opacities. 2 mm pulmonary nodule, right middle lobe, image 185/2. This was present on the previous CT, and is likely stable based on differences in technique. Previous imaging utilized 5 mm thick slices. Current imaging utilizes 1 mm thick slices. Stable 3 mm pleural based nodule, extreme right lung base medially, image No pleural effusions or pneumothorax. Central and peripheral airways appear patent and normal in caliber. Mediastinum: Heart size is normal. No pericardial effusion. No mediastinal or hilar adenopathy by size criteria. Thoracic aorta and central pulmonary arteries are normal in size. Esophagus is normal in caliber. No hiatal hernia. Chest wall: No axillary or supraclavicular adenopathy by size criteria. Thyroid gland is unremarkable as visualized . ABDOMEN: Solid organs: Liver is normal in size and enhancement. Gallbladder is unremarkable . Biliary system is non dilated. Pancreas enhances normally. Spleen is normal in size and enhancement. No adrenal nodules. Kidneys demonstrate normal size and enhancement, without hydronephrosis. Peritoneum and bowel: Remote gastric bypass surgery. There is a low-density area within the wall of the distal rectum, posteriorly, to the left of midline. It is of uncertain etiology. It measures approximately 1.3 cm. Bowel loops demonstrate normal wall thickness and caliber. No free fluid or air. Nodes and vessels: Interval development of multiple enlarged pelvic lymph nodes. Fashion Artist lymph nodes are as follows: Interval development of an enlarged left common iliac chain lymph node measuring approximately 2.2 x 1.8 cm. Reference image 99/4. Right pelvic sidewall lymph node adjacent to the acetabulum on image 117/4 measures 1.2 x 2.5 cm. Right external iliac chain lymph node on image 115/4 measures 1.8 x 2.2 cm. Additionally, multiple mildly prominent left external iliac lymph nodes are present, as well as prominent bilateral internal iliac lymph nodes. Aorta and inferior vena cava are normal in size. Miscellaneous: No ventral hernias. PELVIS: Genitourinary: Diffuse bladder wall thickening with a large right bladder diverticulum is again noted. The prostate is enlarged. Miscellaneous: There is an enlarged left inguinal lymph node, not previously identified, measuring 2.4 x 3.0 cm. There is been interval enlargement of a right inguinal lymph node, not definitely malignant, measuring 1.4 x 2.1 cm. Reference image 133/4. Bones: No suspicious bony lesions. No vertebral body compression fractures. IMPRESSION: 1. A low-density mural structure in the posterior lateral distal rectum measuring 1.3 cm is of uncertain etiology. 2. Interval development of bilateral inguinal adenopathy, left greater than right, as well as bilateral pelvic adenopathy, as described above. This is suspicious for metastatic spread of disease to lymph nodes. 3. Chronic thickening of the bladder wall with known large right-sided bladder diverticulum. 4. Stable small pulmonary nodules. No findings suspicious for malignancy in the chest. Comment: Consider ultrasound evaluation of the left inguinal lymph node. If it looks frankly malignant, it would be amenable to ultrasound-guided fine-needle aspiration. Additionally, rectal protocol MRI may be helpful to help stage malignancy. Dictated by: Diaz Resendiz M.D. on 08/21/2020 at 14:09 Approved by: Diaz Resendiz M.D. on 08/21/2020 at 14:27
--- NOTE | 2020-09-14 13:31 | ONC.MSW ---
Description: New Referral Navigation T/C Reason for Referral: Rectal Cancer Activity: Reviewed the EMR. Called pt to confirm that we have his referral, assessed medical status, acuity, and immediate needs. Pt recently diagnosed with rectal cancer after experiencing rectal bleeding, imaging confirmed with both a CT and MRI. He's been seen at [facility] and had the MRI at [facility], and is wanting to move forward now with completing his staging work-up and tx here. Confirmed an initial consult time for 09/23 at 11:00am. No further needs identified at this time.
== END ==
PROVIDERS: PCP Family Medicine; Referring Provider Surgery; Visit Provider Surgery
DX: C20 Malignant neoplasm of rectum (principal); R59.0 Localized enlarged lymph nodes; N32.3 Diverticulum of bladder; R91.8 Other nonspecific abnormal finding of lung field
CPT/HCPCS: 71260; 74177

== ENCOUNTER → 2020-09-24 16:51 | Outpatient (CLI) | payer MEDICARE, OTHER, SELFPAY ==
[2020-09-24 17:14] LABS: RBC Urine None Seen (0-5/HPF)
[2020-09-24 18:00] LABS: Appearance Urine UA CLOUDY; Bilirubin Urine UA NEGATIVE (NEGATIVE); Color Urine UA YELLOW; Glucose Urine UA NEGATIVE (Negative); Ketones Urine UA TRACE (NEGATIVE); Leukocyte Esterase Urine UA 3+ (NEGATIVE); Nitrite Urine UA NEGATIVE (Negative); Occult Blood Urine UA 2+ (Negative); Protein Urine UA 2+ (Negative); Urobilinogen Urine UA 0.2 E.U./dL (0.2)
[2020-09-24 18:19] LABS: Bacteria Urine Many (>30); Culture Indicated Urine Specimen Cultured; WBC Urine >100/HPF (0-5/HPF)
== END ==
PROVIDERS: PCP Family Medicine; Referring Provider Family Medicine; Visit Provider Family Medicine
DX: N39.0 Urinary tract infection, site not specified (principal)
CPT/HCPCS: 81001; 87077; 87086

== ENCOUNTER → 2020-11-02 11:23 | Outpatient (CLI) | payer MEDICARE, OTHER, SELFPAY | PROVIDERS: PCP Family Medicine; Referring Provider Internal Medicine; Visit Provider Internal Medicine | DX: C20 Malignant neoplasm of rectum (principal); Z53.8 Procedure and treatment not carried out for other reasons ==

== ENCOUNTER → 2020-11-03 11:58 | Outpatient (CLI) | payer MEDICARE, OTHER, SELFPAY ==
[2020-11-03 12:40] LABS: COVID19 -Nasal RAPID Negative (Negative)
== END ==
PROVIDERS: PCP Family Medicine; Visit Provider Specialist
DX: Z20.822 Contact with and (suspected) exposure to COVID-19 (principal)
CPT/HCPCS: 87635; C9803

== ENCOUNTER → 2020-11-03 13:11 | Outpatient (CLI) | payer MEDICARE, OTHER, SELFPAY ==
--- NOTE | 2020-11-03 13:42 | DI.CT.S_ITS ---
PROCEDURE: CT CHEST ABD PEL W CON INDICATIONS: Follow-up after neoadjuvant chemo TECHNIQUE: After the administration of oral and intravenous contrast, axial sections acquired from the supraclavicular neck to the pubic symphysis. Coronal and sagittal reformats were performed. For radiation dose reduction, the following was used: automated exposure control, adjustment of mA and/or kV according to patient size. COMPARISON: [facility], MR, MR PELVIS WITH/WITHOUT CONTRAST, 09/03/2020, 13:26. [facility], [place], [place] PET CT FUSION SKULL 2 THIGH, 09/30/2020, 8:40. [facility], CT, CT CHEST ABD PEL W CON, 08/21/2020, 13:30. FINDINGS: Image quality: Excellent. CHEST: Lower Neck: No enlarged lymph nodes. Thyroid: Within normal limits. Axillae: No enlarged lymph nodes. Chest Wall: Unremarkable. Lungs and Airways: No consolidation or suspicious nodules. Pleura: No pneumothorax or pleural effusions. Heart: Heart size is normal. No pericardial effusion. Thoracic Vessels: The aorta and pulmonary arteries demonstrate normal size. Mediastinum and Mckenzie: No enlarged lymph nodes. Esophagus: No wall thickening. Small hiatal hernia and there is a pattern of surgical clips suggestive of prior gastric reduction surgery.. ABDOMEN: Liver: Unremarkable. Gallbladder: Appears normal. Biliary ducts: Unremarkable. Pancreas: Unremarkable. Spleen: Unremarkable. Adrenal Glands: Unremarkable. Kidneys and Ureters: Unremarkable. Stomach and Bowel: Stomach, small bowel loops, and colon are unremarkable. Peritoneum: No abnormal intraperitoneal fluid. No free air. Ventral Wall: No hernia. Abdominal Nodes: No retroperitoneal or mesenteric adenopathy by size criteria. Several slightly prominent lymph nodes seen along the periaortic retroperitoneum on PET-CT scanning 09/30/20 were identified as abnormal only by the associated increased isotope deposition. These lymph nodes have diminished in size and no lymph nodes are seen to have enlarged. Vessels: Aorta and inferior vena cava are normal in size. PELVIS: Pelvic Organs: Unremarkable. Bladder: Noted to be thick-walled and to be associated with a right posterolateral bladder diverticulum. Chronic cystitis would be suspected. Pelvic Nodes: No enlarged lymph nodes within the peritoneal space. Several mildly prominent lymph nodes that had demonstrated abnormal elevated isotope uptake on 09/25 PET-CT scanning are no longer seen. A rectal mass is not identified. Note is made of a 1.3 cm maximal transverse dimension lymph node at the left groin which previously during PET-CT scanning had measured 2.3 cm. No new abnormal lymph nodes are identified. . Miscellaneous: No inguinal hernias are seen. Bones: Unremarkable except for a thoracolumbar junction vertebral body compression fracture treated with bone cement. IMPRESSION: 1. With reference to prior PET CT scanning 09/30/20 there has been interval reduction in size of several lymph nodes that were slightly enlarged in size at that time, now normal in short axis dimension except at the left groin where a lymph node which had measured 2.2 cm in short axis dimension now measures 1.2 cm. No new adenopathy is seen. 2. Thick-walled bladder, with associated right posterolateral bladder wall diverticulum. This has been previously present and has not appear to represent a manifestation of bladder neoplasm. Dictated by: Gustabo Kenney M.D. on 11/03/2020 at 16:51 Approved by: Gustabo Kenney M.D. on 11/03/2020 at 17:13
== END ==
PROVIDERS: PCP Family Medicine; Referring Provider Internal Medicine; Visit Provider Internal Medicine
DX: C20 Malignant neoplasm of rectum (principal); N32.3 Diverticulum of bladder; Z92.21 Personal history of antineoplastic chemotherapy
CPT/HCPCS: 71260; 74177; 87635; C9803

== ENCOUNTER 2020-11-04 06:34 | Day surgery (SDC) | payer MEDICARE, OTHER, SELFPAY ==
[2020-11-02 09:27] VITALS: BMI 33.0
[2020-11-04 07:20] VITALS: BP 113/73; PULSE 65; RESP 16; TEMP 36.7; O2SAT 99; BMI 33.0
[2020-11-04] MEDS: LACTATED RINGERS 1,000 ML 42 ML IV (07:40)
--- NOTE | 2020-11-04 08:00 | PM.PREOP ---
Pre-operative Note COVID-19 COVID-19 status: Negative Result date/Date tested (Pos, Neg/Pending): 11/03/20 Interval Note History & Physical reviewed/Exam performed by Physician: Yes Changes to H&P: No
[2020-11-04] MEDS: CEFAZOLIN 1 GM VIAL 2 GM IV (08:30)
--- NOTE | 2020-11-04 08:49 | SUR.OPER ---
Addendum entered by Abigail Baker R.N. 11/04/20 09:10: Rolled towl placed between Shoulder Blades, Head on round gel donut instead of pillow during procedure. Original Note: Supine on padded OR bed, head on pillow, Left arm padded and tucked at side, right arm padded and tucked at side on arm board < 90 degrees, legs uncrossed, safety belt at thigh, pillow under knees, gel pad under heels, tape over blanket over lower legs .
[2020-11-04] MEDS: LIDOCAINE 1% 30 ML INJ (08:55)
[2020-11-04] MEDS: HEPARIN 5,000 UNIT, SODIUM CHLORIDE 0.9% 50 ML IV (08:55)
[2020-11-04 09:23] VITALS: BP 117/70; PULSE 57; RESP 99; TEMP 36.1; O2SAT 99
[2020-11-04 09:27] VITALS: BP 121/67; PULSE 54; RESP 16; O2SAT 97
--- NOTE | 2020-11-04 09:27 | DI.RAD.S_ITS ---
PROCEDURE: XR CHEST 1V INDICATIONS: portacath placement TECHNIQUE: One view of the chest was acquired. COMPARISON: [facility], , CHEST 1 VIEW, 04/04/2017, 19:00. FINDINGS: Surgical changes and devices: Left chest wall Port-A-Cath tip is in SVC. Lungs and pleura: Lungs are clear. No pleural effusions or pneumothorax. Mediastinum: Mediastinal contours appear normal. Heart size is normal. Bones and chest wall: No suspicious bony lesions. Overlying soft tissues appear unremarkable. IMPRESSION: Left chest wall Port-A-Cath tip is in SVC. No focal infiltrate, pleural effusion or pneumothorax. Dictated by: Jah Herbert M.D. on 11/04/2020 at 9:44 Approved by: Jah Herbert M.D. on 11/04/2020 at 9:44
[2020-11-04 09:33] VITALS: BP 122/67; PULSE 54; RESP 15; O2SAT 99
[2020-11-04 09:37] VITALS: BP 125/69; PULSE 55; RESP 16; TEMP 36.5; O2SAT 98
[2020-11-04 09:43] VITALS: BP 131/66; PULSE 57; RESP 14; TEMP 36.6; O2SAT 98
--- NOTE | 2020-11-04 09:45 | SUR.PHASEI ---
DR. BARBOUR STATES HE HAS SEEN XRAY REPORT, AND IS WNL. OKAY TO GIVE PATIENT FLUIDS.
--- NOTE | 2020-11-04 09:53 | PM.OP.1 ---
Operative Date/Time/Diagnoses Date of procedure: 11/04/20 Time of procedure: 09:53 Pre-op diagnosis: Rectal cancer in need of central access for chemotherapy Post-op diagnosis: same Procedure & Clinicians Procedure: Placement of left subclavian Port-A-Cath Same procedure as scheduled: Yes Indications: Need for IV access. Not tolerating peripheral infusions. Surgeon: Martín Underwood Click Yes if Unassisted: Yes Anesthesia Type: MAC +/- Operative Notes Findings: Port in good position no evidence of pneumothorax. Tip in the distal SVC. Closure Type: primary Specimen(s): none sent Prosthetic devices, grafts, tissues, transplants, or devices: Slim Port-A-Cath Estimated Blood Loss (mL): 10 Blood products transfused: none Procedure in detail: Patient is placed supine on the operating room table with a roll between his shoulders and he underwent monitored anesthesia care. He was prepped and draped in the usual fashion. Local anesthetic was infiltrated in field block fashion beneath the left clavicle. Transverse incision was made a pocket created inferior to it. Needle was inserted into the subclavian vein and a guidewire passed. Needle removed. The port was placed in the pocket and tapered to appropriate length. Observing on fluoroscopy the dilator and introducer passed over the guidewire. The guidewire and dilator were removed leaving the introducer in place. The catheter which had been flushed with heparinized saline was passed through the introducer and the introducer peeled away leaving the tip in the distal SVC. The port was secured to the chest wall and it was aspirated and flushed with additional heparinized saline. The subcu was closed with interrupted 3-0 Vicryl and skin was closed running 4-0 Vicryl subcuticular stitch and Steri-Strips. Dressing was applied the patient was wakened and taken the recovery room good condition. Postprocedure x-ray showed the tip in good location and there was no evidence of pneumothorax. Complications: none Post-operative Condition: stable Disposition: PACU
== END 2020-11-04 10:15 | disposition home or self-care (01) ==
PROVIDERS: PCP Family Medicine; Referring Provider Specialist; Visit Provider Specialist
PROC: (CPT 36561; principal; 2020-11-04 07:45)
DX: Z45.2 Encounter for adjustment and management of vascular access device; C20 Malignant neoplasm of rectum; C77.5 Secondary and unspecified malignant neoplasm of intrapelvic lymph nodes; Z20.822 Contact with and (suspected) exposure to COVID-19; D50.9 Iron deficiency anemia, unspecified; I10 Essential (primary) hypertension; I25.10 Atherosclerotic heart disease of native coronary artery without angina pectoris; I48.91 Unspecified atrial fibrillation; G47.33 Obstructive sleep apnea (adult) (pediatric); Z86.73 Personal history of transient ischemic attack (TIA), and cerebral infarction without residual deficits
CPT/HCPCS: 36561; 36415; 71045; 85025; 99215; C1788; J0690; J1644; J2704

== ENCOUNTER 2020-11-05 12:17 | Observation (INO) | payer MEDICARE, OTHER, SELFPAY ==
[2020-11-05] VITALS (11 sets, daily range): BP systolic 107–140; BP diastolic 57–71; PULSE 59–78; RESP 15–19; TEMP 36.3–37; O2SAT 98–100; BMI 32.1
--- NOTE | 2020-11-05 12:19 | DI.RAD.S_ITS ---
PROCEDURE: XR CHEST 1V INDICATIONS: chest pain TECHNIQUE: One view of the chest was acquired. COMPARISON: [facility], [facility], XR CHEST 1V, 11/04/2020, 9:30. [facility], ZEN, CHEST 1 VIEW, 04/04/2017, 19:00. FINDINGS: Surgical changes and devices: Port-A-Cath from left-sided approach extends with tip at the azygos arch area of the superior vena cava. Lungs and pleura: Lungs are clear. No pleural effusions or pneumothorax. Mediastinum: Mediastinal contours appear normal. Heart size is normal. Bones and chest wall: No suspicious bony lesions. Overlying soft tissues appear unremarkable. IMPRESSION: No pneumothorax after normal positioning of Port-A-Cath from left-sided approach. Dictated by: Gustabo Kenney M.D. on 11/05/2020 at 13:21 Approved by: Gustabo Kenney M.D. on 11/05/2020 at 13:21
[2020-11-05 12:41] LABS: Add Manual Diff / Slide Review NO; Basophils Absolute Auto 100 /uL (0-100); Basophils Percent Auto 1.2 % (0-2); Eosinophils Absolute Auto 400 /uL (0-450); Eosinophils Percent Auto 4.3 % (2-4); Hematocrit 26.7 % (41-53); Hemoglobin 8.8 g/dL (13.5-17.5); Lymphocytes Absolute Auto 2400 /uL (1100-4500); Lymphocytes Percent Auto 27.5 % (25-40); Mean Corpuscular HGB Conc 32.9 % (30-36); Mean Corpuscular Hemoglobin 29.1 PG (26-34); Mean Corpuscular Volume 88.4 fL (80-100); Monocytes Absolute Auto 800 /uL (0-900); Monocytes Percent Auto 9.1 % (3-14); Neutrophils Absolute Auto 5100 /uL (1500-7000); Neutrophils Percent Auto 57.9 % (50-75); Platelet Count 296 X10^3/uL (150-400); Red Blood Cell Count 3.02 X10^6/uL (4.5-5.9); Red Cell Distribution Width 16.5 % (11.6-14.8); White Blood Cell Count 8.7 X10^3/uL (4.5-11.0)
--- NOTE | 2020-11-05 12:44 | PC.NURSE ---
Patient very lightheaded and dizzy with attempt to get to restroom. Placed in wheelchair and moved to room 13, assisted to toilet, incontinent of black stool. Occult POC + provider Andrés cain.
[2020-11-05 12:45] LABS: Alanine Aminotransferase 12 IU/L (<50); Albumin 3.2 g/dL (3.5-5.0); Albumin Globulin Ratio 1.1 (1.0-2.8); Alkaline Phosphatase 77 U/L (38-126); Aspartate Aminotransferase 25 IU/L (17-59); BUN Creatinine Ratio 31.2 (6-22); Bilirubin Total 0.3 mg/dL (0.2-1.3); Blood Urea Nitrogen 29 mg/dL (9-20); Calcium 8.7 mg/dL (8.4-10.2); Carbon Dioxide 25 mmol/L (22-32); Chloride 106 mmol/L (98-107); Creatine Kinase 56 U/L (55-170); Estimated Glomerular Filt Rate > 60.0 mL/min (>60); Globulin 2.8 g/dL (1.7-4.1); Glucose 140 mg/dL (80-110); HEMOLYSIS < 15 (0-50); Lipase 184 U/L (23-300); Potassium 4.4 mmol/L (3.4-5.1); Sodium 135 mmol/L (137-145)
--- NOTE | 2020-11-05 12:48 | PC.NURSE ---
Patient reports becoming diaphoretic and feeling like I was going to pass out Has been having dark stools since last night, lost control of bowels on the way here. Dark black stool present in underwear. Patient reports recently stopped Iron. Patient had port placed early this week. Currently under treatment for anal cancer. Next round of chemo to start on .
[2020-11-05 12:56] LABS: Troponin I < 0.012 ng/mL (0.01-0.034)
--- NOTE | 2020-11-05 16:12 | ED_ITS ---
HPI - GI Bleed General Chief complaint: GI Bleed Stated complaint: possible heart attack Time Seen by Provider: 11/05/20 16:12 Source: patient Mode of arrival: Family Vehicle Limitations: no limitations History of Present Illness HPI Narrative: This is a 75-year-old male comes emergency department with complaint of black stools for the last 2 days. Patient states that he has known anorectal cancer, he is currently on chemotherapy. Patient follows with oncology locally in his primary care is Dr. Lu. Patient is not currently on any anticoagulation. He did note that he was driving today he felt very lighth eaded, diaphoretic and felt like he was going to pass out. He denies any chest pain or pressure he felt short of breath but he to contusive nitro and it resolved. Patient was states that he has had chronic UTIs he does not currently have any symptoms and takes oral medication help prevent this. He did use to take Eliquis that was stopped approximately a month ago but he does have a history of atrial fibrillation, he also had his beta-camilo stopped and his lisinopril decreased as well as takes atorvastatin daily. Patient prior surgeries include chronic self catheterization, urology surgery, patient had recent kyphoplasty for compression fracture. He is not allergic to any medications, no tobacco, alcohol or illicit. Related Data Home Medications Medication Instructions Recorded Confirmed lisinopril 10 mg tablet 5 mg PO QDAY #0 08/15/17 11/04/20 acetaminophen 650 mg 1,300 mg PO Q8H PRN 10/31/18 11/04/20 tablet,extended release atorvastatin 20 mg tablet 20 mg PO DAILY 10/31/18 11/04/20 cyanocobalamin-methylcobalamin 600 1 tab SL Q OTHER DAY tab 10/31/18 11/04/20 mcg-600 mcg sublingual tablet iron,carbonyl 30 mg-folic acid 800 1 tab PO DAILY 10/31/18 11/04/20 [id number] chewable tablet (Opurity Multivitamin) turmeric root extract 500 mg 1,000 mg PO DAILY 10/31/18 11/04/20 capsule vit C 250 mg-vit E 90 mg-zinc 40 2 cap PO BID cap 10/31/18 11/04/20 mg-copper 1 [id number] capsule (PreserVision AREDS-2) finasteride 5 mg tablet 5 mg PO DAILY 06/17/19 11/04/20 vitamin B complex 2 tab PO DAILY tab 06/17/19 11/04/20 calcium carbonate 500 mg (1,250 1 tab PO DAILY 08/03/20 11/04/20 mg)-vitamin D3 400 unit tablet (Calcium 500 With D) metoprolol succinate 25 mg 25 mg PO DAILY 09/23/20 11/04/20 tablet,extended release 24 hr d-mannose 500 mg capsule 2,100 mg PO TID 11/04/20 11/04/20 oxaliplatin 50 mg/10 mL (5 mg/mL) See Rx Instructions .ROUTE .COMPLEX 11/04/20 11/04/20 intravenous solution polyethylene glycol 3350 17 17 g PO DAILY 11/04/20 11/04/20 gram/dose oral powder (Miralax) Previous Rx's Medication Instructions Recorded tamsulosin 0.4 mg capsule 0.4 mg PO DAILY #10 cap 10/24/18 capecitabine 500 mg tablet 2,000 mg PO BID 14 Days #112 tab 09/23/20 olanzapine 5 mg tablet 5 mg PO Q12H PRN #30 tab 09/23/20 ondansetron 8 mg disintegrating 8 mg PO Q8H PRN #30 tab 09/23/20 tablet oxycodone 5 mg tablet 5 mg PO Q4H PRN #7 tab 11/04/20 Allergies Allergy/AdvReac Type Severity Reaction Status Date / Time No Known Drug Allergies Allergy Unknown Verified 11/05/20 12:24 [NO KNOWN DRUG ALLERGIES] Review of Systems Review of Systems ROS Unobtainable: All systems reviewed & are unremarkable except as noted in HPI and below Patient History Medical History Acute cystitis Afib Anal fistula Cellulitis Constipation Hemorrhoids HTN (hypertension) Hyperlipidemia Laceration of finger of left hand Personal history of colonic polyps Sleep apnea Transient cerebral ischemia (08/15/17) Transient ischemic attack (~2016) Surgical History History of angioplasty (~2013) History of colonoscopy History of esophagogastroduodenoscopy (EGD) History of gastric bypass (2013) History of knee replacement History of knee replacement History of kyphoplasty History of loop recorder (06/2017) Family History Father Hypertension Cancer Social History marital status: household members: spouse occupational status: previously employed Smoking Status: Former smoker alcohol intake: current substance use type: does not use Smoking Status: Former smoker alcohol intake frequency: a few times a month Substance Use Type: does not use Exam Narrative Exam Narrative: GENERAL: Alert and oriented x three, male in mild distress. HEENT: Head normocephalic, atraumatic, EOMI, pupils reactive, face symmetric, moist mucous membranes NECK: Supple, full range of motion CARDIOVASCULAR: Regular rate and rhythm without murmurs, rubs or gallops. RESPIRATORY: Breath sounds equal bilaterally, no wheezes rales or rhonchi. ABDOMEN: Soft, nontender. Normoactive bowel sounds all 4 quadrants. No guarding or rebound, rigidity, patient has grossly positive stool occult as well as black stool here in the department. : No CVA tenderness EXTREMITIES: Normal range of motion, no clubbing or edema. Neurovascularly intact NEUROLOGICAL: Cranial nerves II through XII grossly intact. Moving all extremities SKIN: Warm, dry, no petechiae, no rashes or lesions. Initial Vital Signs Initial Vital Signs: Vital Signs Temperature 97.3 F L 11/05/20 12:20 Pulse Rate 67 11/05/20 12:20 Respiratory Rate 16 11/05/20 12:20 Blood Pressure 107/60 11/05/20 12:20 Pulse Oximetry 98 11/05/20 12:20 Course Orders Ordered: ED Orders 11/05/20 12:19 XR chest 1V Stat 11/05/20 12:20 Complete Blood Count AUTO DIFF Stat Comprehensive Metabolic Panel Stat Lipase Stat Troponin & CK Cardiac Panel Stat Type and Screen Stat 11/05/20 12:24 EKG-12 Lead Stat 11/05/20 17:00 COVID19 - ADMIT ([facility] swab/PCR) Stat Acetaminophen (Acetaminophen 325 Mg Tablet) 650 mg PO Q6HR PRN PRN Reason: Fever/Mild Pain (1-3) Atorvastatin Calcium (Atorvastatin 20 Mg Tablet) 20 mg PO DAILY ROLA Finasteride (Finasteride 5 Mg Tablet) 5 mg PO DAILY ROLA Dextrose/Sodium Chloride (Dextrose 5%-0.45% Ns) 1,000 mls @ 125 mls/hr IV CONT ROLA Lutein (Vit C/E/Zn/Coppr/Lutein/Zeaxan Capsule) 2 cap PO BID [facility] Metoprolol Succinate (Metoprolol Er 25 Mg Tablet) 25 mg PO DAILY ROLA Naloxone HCl (Naloxone 0.4 Mg/Ml Vial) 0.2 mg IV Q2MIN PRN PRN Reason: Opiate Reversal Nf - Capecitabine (500 Mg Tablet) 2,000 mg PO BID ROLA Ondansetron HCl (Ondansetron 4 Mg/2 Ml Inj) 4 mg IV Q8HR PRN PRN Reason: Nausea And Vomiting Oxycodone HCl (Oxycodone Ir 10 Mg Tablet) 10 mg PO Q6HR PRN PRN Reason: Pain, Severe (7-10) Oxycodone HCl (Oxycodone Ir 5 Mg Tablet) 5 mg PO Q6HR PRN PRN Reason: Pain, Moderate (4-6) Tamsulosin HCl (Tamsulosin 0.4 Mg Capsule) 0.4 mg PO DAILY ROLA Discontinued Medications Pantoprazole Sodium (Pantoprazole 40 Mg Vial) 80 mg IV NOW ONE Stop: 11/05/20 17:49 Last Admin: 11/05/20 17:54 Dose: 80 mg Documented by: ELINA Vital Signs Vital signs: Vital Signs - 8 hr 11/05/20 12:20 11/05/20 13:00 11/05/20 13:22 Temperature 97.3 F L Pulse Rate 67 59 L 60 Respiratory Rate 16 17 17 Blood Pressure 107/60 109/57 L 110/57 L Pulse Oximetry 98 100 99 11/05/20 14:07 11/05/20 16:00 11/05/20 17:30 Temperature Pulse Rate 62 62 78 Respiratory Rate 15 16 18 Blood Pressure 126/64 126/67 115/71 Pulse Oximetry 99 99 98 MDM - GI Bleed Lab Data Result diagrams: 11/05/20 12:20 11/05/20 12:20 Labs: Lab Results 11/05/20 11/05/20 11/05/20 Range/Units 12:20 12:20 12:20 WBC 8.7 (4.5-11.0) X10^3/uL RBC 3.02 L (4.5-5.9) X10^6/uL Hgb 8.8 L (13.5-17.5) g/dL Hct 26.7 L (41-53) % MCV 88.4 (80-100) fL MCH 29.1 (26-34) PG MCHC 32.9 (30-36) % RDW 16.5 H (11.6-14.8) % Plt Count 296 (150-400) X10^3/uL Neut % (Auto) 57.9 (50-75) % Lymph % (Auto) 27.5 (25-40) % [place] % (Auto) 9.1 (3-14) % Eos % (Auto) 4.3 H (2-4) % Baso % (Auto) 1.2 (0-2) % Neut # (Auto) 5100 (2753-7674) /uL Lymph # (Auto) 2400 (4608-6663) /uL [place] # (Auto) 800 (0-900) /uL Eos # (Auto) 400 (0-450) /uL Baso # (Auto) 100 (0-100) /uL Sodium 135 L (137-145) mmol/L Potassium 4.4 (3.4-5.1) mmol/L Chloride 106 (98-107) mmol/L Carbon Dioxide 25 (22-32) mmol/L BUN 29 H (9-20) mg/dL Creatinine 0.93 (0.66-1.25) mg/dL Estimated GFR > 60.0 (>60) mL/min BUN/Creatinine Ratio 31.2 H (6-22) Glucose 140 H (80-110) mg/dL Calcium 8.7 (8.4-10.2) mg/dL Total Bilirubin 0.3 (0.2-1.3) mg/dL AST 25 (17-59) IU/L ALT 12 (<50) IU/L Alkaline Phosphatase 77 (38-126) U/L Total Creatine Kinase 56 (55-170) U/L CK-MB (CK-2) TNP CK-MB (CK-2) Rel Index TNP Troponin I < 0.012 (0.01-0.034) ng/mL Total Protein 6.0 L (6.3-8.2) g/dL Albumin 3.2 L (3.5-5.0) g/dL Globulin 2.8 (1.7-4.1) g/dL Albumin/Globulin Ratio 1.1 (1.0-2.8) Lipase 184 (23-300) U/L SARS-CoV-2 (PCR) (Negative) Blood Type O Positive Antibody Screen Negative 11/05/20 Range/Units 17:00 WBC (4.5-11.0) X10^3/uL RBC (4.5-5.9) X10^6/uL Hgb (13.5-17.5) g/dL Hct (41-53) % MCV (80-100) fL MCH (26-34) PG MCHC (30-36) % RDW (11.6-14.8) % Plt Count (150-400) X10^3/uL Neut % (Auto) (50-75) % Lymph % (Auto) (25-40) % [place] % (Auto) (3-14) % Eos % (Auto) (2-4) % Baso % (Auto) (0-2) % Neut # (Auto) (2111-9393) /uL Lymph # (Auto) (6129-5520) /uL [place] # (Auto) (0-900) /uL Eos # (Auto) (0-450) /uL Baso # (Auto) (0-100) /uL Sodium (137-145) mmol/L Potassium (3.4-5.1) mmol/L Chloride (98-107) mmol/L Carbon Dioxide (22-32) mmol/L BUN (9-20) mg/dL Creatinine (0.66-1.25) mg/dL Estimated GFR (>60) mL/min BUN/Creatinine Ratio (6-22) Glucose (80-110) mg/dL Calcium (8.4-10.2) mg/dL Total Bilirubin (0.2-1.3) mg/dL AST (17-59) IU/L ALT (<50) IU/L Alkaline Phosphatase (38-126) U/L Total Creatine Kinase (55-170) U/L CK-MB (CK-2) CK-MB (CK-2) Rel Index Troponin I (0.01-0.034) ng/mL Total Protein (6.3-8.2) g/dL Albumin (3.5-5.0) g/dL Globulin (1.7-4.1) g/dL Albumin/Globulin Ratio (1.0-2.8) Lipase (23-300) U/L SARS-CoV-2 (PCR) Negative (Negative) Blood Type Antibody Screen Point of Care Testing Stool Occult Blood Positive Imaging Data CT scan - abdomen/pelvis: Radiologist's Impression: [address] [id number] Scan ReportSigned Patient: Ian Rubin Jr [facility]#: [id number]: 6Acct:[id number]/Sex: 75 / MDate of Service: 11/03/20Loc: CTAccession Number: [id number] Procedure: CT chest abd pel w con Ordering Provider: Ian Yancey MD PROCEDURE: CT CHEST ABD PEL W CON INDICATIONS: Follow-up after neoadjuvant chemo TECHNIQUE: After the administration of oral and intravenous contrast, axial sections acquired from the supraclavicular neck to the pubic symphysis. Coronal and sagittal reformats were performed. For radiation dose reduction, the following was used: automated exposure control, adjustment of mA and/or kV according to patient size. COMPARISON: Outside Film, MR, MR PELVIS WITH/WITHOUT CONTRAST, 09/03/2020, 13:26. [facility], NM, NM PET CT FUSION SKULL 2 THIGH, 09/30/2020, 8:40. [facility], CT, CT CHEST ABD PEL W CON, 08/21/2020, 13:30. FINDINGS: Image quality: Excellent. CHEST: Lower Neck: No enlarged lymph nodes. Thyroid: Within normal limits. Axillae: No enlarged lymph nodes. Chest Wall: Unremarkable. Lungs and Airways: No consolidation or suspicious nodules. Pleura: No pneumothorax or pleural effusions. Heart: Heart size is normal. No pericardial effusion. Thoracic Vessels: The aorta and pulmonary arteries demonstrate normal size. Mediastinum and Mckenzie: No enlarged lymph nodes. Esophagus: No wall thickening. Small hiatal hernia and there is a pattern of surgical clips suggestive of prior gastric reduction surgery.. ABDOMEN: Liver: Unremarkable. Gallbladder: Appears normal. Biliary ducts: Unremarkable. Pancreas: Unremarkable. Spleen: Unremarkable. Adrenal Glands: Unremarkable. Kidneys and Ureters: Unremarkable. Stomach and Bowel: Stomach, small bowel loops, and colon are unremarkable. Peritoneum: No abnormal intraperitoneal fluid. No free air. Ventral Wall: No hernia. Abdominal Nodes: No retroperitoneal or mesenteric adenopathy by size criteria. Several slightly prominent lymph nodes seen along the periaortic retroperitoneum on PET- CT scanning 09/30/20 were identified as abnormal only by the associated increased isotope deposition. These lymph nodes have diminished in size and no lymph nodes are seen to have enlarged. Vessels: Aorta and inferior vena cava are normal in size. PELVIS: Pelvic Organs: Unremarkable. Bladder: Noted to be thick-walled and to be associated with a right posterolate ral bladder diverticulum. Chronic cystitis would be suspected. Pelvic Nodes: No enlarged lymph nodes within the peritoneal space. Several mildly prominent lymph nodes that had demonstrated abnormal elevated isotope uptake on 09/25 PET-CT scanning are no longer seen. A rectal mass is not identified. Note is made of a 1.3 cm maximal transverse dimension lymph node at the left groin which previ ously during PET-CT scanning had measured 2.3 cm. No new abnormal lymph nodes are identified. . Miscellaneous: No inguinal hernias are seen. Bones: Unremarkable except for a thoracolumbar junction vertebral body compression fracture treated with bone cement. IMPRESSION: 1. With reference to prior PET CT scanning 09/30/20 there has been interval reduction in size of several lymph nodes that were slightly enlarged in size at that time, now normal in short axis dimension except at the left groin where a lymph node which had measured 2.2 cm in short axis dimension now measures 1.2 cm. No new adenopathy is seen. 2. Thick-walled bladder, with associated right posterolateral bladder wall diverticulum. This has been previously present and has not appear to represent a man ifestation of bladder neoplasm. Dictated by: Gustabo Kenney M.D. on 11/03/2020 at 16:51 Approved by: Gustabo Kenney M.D. on 11/03/2020 at 17:13 ECG Data Interpretation: There sinus rhythm, rate of 63 P are 168 QRS of [address] No acute [address] elevation depression noted MDM Narrative Medical decision making narrative: This is a 75-year-old male who comes with rectal bleeding, drop in his hemoglobin of 2 points with known anal rectal cancer. Patient has melanotic stool so this seems less likely to be bleeding from his cancer. Patient did have a scope with Dr. Underwood which is how his cancer was noted. He to feel quite lightheaded and likely had symptoms secondary to his edema, but cardiac enzymes and EKG did not show acute changes. CT imaging was not reperformed is he had CT of his chest abdomen pelvis on 11/03/2020 which showed reduction in lymph node size in the groin, thick-walled bladder with associated diverticulum that was present on prior and no additional changes. I spoke with Dr. Cheema who is covering for his primary care who kindly accepts for observation. Discharge Plan Departure Patient Disposition: Admitted as Observation Clinical Impression: Acute GI bleeding Admit Date/Time: 11/05/20 17:52 Admit Provider: Jordan Cheema
[2020-11-05] MEDS: PANTOPRAZOLE 40 MG VIAL 80 MG IV (17:54)
[2020-11-05 18:11] LABS: COVID19 - ADMIT (NP swab/PCR) Negative (Negative)
[2020-11-05] MEDS: DEXTROSE 5%-0.45% NS 1,000 ML 125 ML IV (18:40)
[2020-11-05 20:43] LABS: Hematocrit 23.9 % (41-53)
[2020-11-05] MEDS: ACETAMINOPHEN 325 MG TABLET 650 MG PO (21:52)
[2020-11-06] VITALS (20 sets, daily range): BP systolic 99–146; BP diastolic 53–72; PULSE 55–86; RESP 15–17; TEMP 36.2–37; O2SAT 96–100; BMI 32.1
--- NOTE | 2020-11-06 | PATH_ITS ---
[facility] Accession Number: [id number] . 01 Material submitted: . gastrointestinal site - GASTRIC BIOPSY . 01 Clinical history: . POSSIBLE HEART ATTACK . 02 Diagnosis: Gastric Biopsy: Portion of enteric mucosa with chronic active inflammation. Negative for dysplasia or malignancy. A separate portion of fibrinopurulent exudate, suggestive of possible nearby ulcer. Changes are consistent with anastomotic site. MRV 11/12/2020 1536 Local . 02 Comment: As part of routine quality associate, this case was also reviewed by Dr. Bardales, who agrees with the interpretation. . 02 Electronically signed: . Felicity Salas MD, Pathologist NPI- [id number] . 01 Gross description: . GASTRIC BIOPSY: Received in formalin are 2 fragment(s) of wright, soft tissue measuring 0.1 x 0.1 x 0.1 cm to 0.1 x 0.1 x 0.1 cm submitted entirely in 1 cassette(s) /PATRICIO 11/07/2020 0659 Local . 02 Pathologist provided ICD-10: Z98.84 . 02 CPT . 352593 Performed at: 01 [facility] [address] [facility] [address], [place], [place] [id number] MD Alfonso Briceño MD Phone: [phone] Performed at: 02 [facility] [address] [place], [place] [id number] MD Stephany Bardales MD Phone: [phone]
--- NOTE | 2020-11-06 07:48 | P.HP_ITS ---
History of Present Illness History of Present Illness Date Patient Seen: 11/06/20 Time Patient Seen: 07:48 Chief complaint: posssible heart attack Narrative: 75-year-old male who normally sees Dr. Alfredo Lu who presented to [facility] Emergency Department on day of admission with a report of black stools for the last couple of days. Patient with known anorectal cancer currently on chemotherapy through Dr. Yancey. He had reported this to his oncologist the day prior to admission was felt to be due to the iron replacement therapy he is on. However what prompted him to come to the ER was an episode of feeling lightheaded and syncopal while driving. Denies any chest pain maybe did feel somewhat short of breath took a nitro and everything got better. Has longstanding history of iron deficiency anemia worked up earlier in the year with upper and lower endoscopy at which point his rectal cancer was discovered. At that time (July 2020) he had upper endoscopy which showed gastritis and evidence of blood within the stomach. He is status post bariatric surgery/gastric bypass. He was found to be somewhat more anemic than usual in the emergency department and admitted for continued monitoring. He has been hemodynamically stable throughout his hospital stay. Patient History Medical History (Updated 11/06/20 @ 08:17 by Jordan Cheema MD) Anal fistula Bladder atony (~2017) BPH (benign prostatic hyperplasia) Cellulitis Constipation Coronary artery disease CVA (cerebral vascular accident) Essential hypertension (08/15/17) Hemorrhoids Hyperlipidemia Iron deficiency anemia Kidney stones Laceration of finger of left hand Paroxysmal atrial fibrillation Personal history of colonic polyps Rectal cancer Self-catheterizes urinary bladder Sleep apnea Transient ischemic attack (~2016) Surgical History History of angioplasty (~2013) History of colonoscopy History of esophagogastroduodenoscopy (EGD) History of gastric bypass (2013) History of knee replacement History of knee replacement History of kyphoplasty History of loop recorder (06/2017) Family & Social History Family History Father Hypertension Cancer Social History: household members spouse Prior Living Arrangements House Safety & Behavioral: Feels Safe in Current Yes Environment Been Physically Hurt or No Threatened By a Person Suicidal Ideation Description None Suicide Plan Description No Plan Tobacco & Substance use: Smoking Status Former smoker alcohol intake current alcohol intake frequency a few times a month Substance Use Type does not use Meds Home Medications and Allergies Home Medications Medication Instructions Recorded Confirmed Type lisinopril 10 mg tablet 5 mg PO QDAY #0 08/15/17 11/06/20 History tamsulosin 0.4 mg capsule 0.4 mg PO DAILY #10 cap 10/24/18 11/06/20 Rx acetaminophen 650 mg 1,300 mg PO Q8H PRN 10/31/18 11/06/20 History tablet,extended release atorvastatin 20 mg tablet 20 mg PO DAILY 10/31/18 11/06/20 History cyanocobalamin-methylcobalamin 600 1 tab SL Q OTHER DAY tab 10/31/18 11/04/20 History mcg-600 mcg sublingual tablet iron,carbonyl 30 mg-folic acid 800 1 tab PO DAILY 10/31/18 11/06/20 History wmt-cttnjzzb-eril chewable tablet (Opurity Multivitamin) turmeric root extract 500 mg 1,500 mg PO BID 10/31/18 11/06/20 History capsule vit C 250 mg-vit E 90 mg-zinc 40 2 cap PO BID cap 10/31/18 11/06/20 History mg-copper 1 rm-obasfi-xuaakp capsule (PreserVision AREDS-2) finasteride 5 mg tablet 5 mg PO DAILY 06/17/19 11/06/20 History vitamin B complex 2 tab PO DAILY tab 06/17/19 11/04/20 History calcium carbonate 500 mg (1,250 1 tab PO DAILY 08/03/20 11/06/20 History mg)-vitamin D3 400 unit tablet (Calcium 500 With D) capecitabine 500 mg tablet 2,000 mg PO BID 14 Days #112 tab 09/23/20 11/06/20 Rx metoprolol succinate 25 mg 25 mg PO DAILY 09/23/20 11/06/20 History tablet,extended release 24 hr olanzapine 5 mg tablet 5 mg PO Q12H PRN #30 tab 09/23/20 11/02/20 Rx ondansetron 8 mg disintegrating 8 mg PO Q8H PRN #30 tab 09/23/20 11/02/20 Rx tablet d-mannose 500 mg capsule 2,100 mg PO TID 11/04/20 11/06/20 History oxaliplatin 50 mg/10 mL (5 mg/mL) See Rx Instructions .ROUTE .COMPLEX 11/04/20 11/04/20 History intravenous solution oxycodone 5 mg tablet 5 mg PO Q4H PRN #7 tab 11/04/20 Rx polyethylene glycol 3350 17 17 g PO DAILY 11/04/20 11/06/20 History gram/dose oral powder (Miralax) pantoprazole 20 mg tablet,delayed 20 mg PO BID #90 tab 11/06/20 Rx release (Protonix) sucralfate 1 gram tablet (Carafate) 1 g PO BID #42 tab 11/06/20 Rx Allergies Allergy/AdvReac Type Severity Reaction Status Date / Time No Known Drug Allergies Allergy Unknown Verified 11/06/20 10:17 [NO KNOWN DRUG ALLERGIES] Review of Systems Constitutional Constitutional: Denies excessive sweating, Denies fever(s), Denies headache(s), Denies weakness, Denies weight gain and Denies weight loss Eyes Eyes: Denies change in vision, Denies itchy eyes, Denies loss of vision and Denies other visual disturbances ENT Ears, Nose, Mouth, and Throat: No change in voice, No dysphagia, No dizziness, No otalgia, No headache(s), No hoarseness, No lip swelling, No neck pain, No sore throat, No throat swelling and No tongue swelling Cardiovascular Cardiovascular: Denies chest pain, Denies syncope, Denies rapid heart rate, Denies irregular heart rhythm, Denies palpitations, Denies dyspnea, Denies dyspnea on exertion and Denies slow heart rate Respiratory Respiratory: Denies chest congestion, Denies cough, Denies hemoptysis, Denies dyspnea, Denies dyspnea on exertion, Denies stridor and Denies wheezing Gastrointestinal Gastrointestinal: Denies abdominal pain, Denies bloating, Denies change in bowel habits, Denies change in stool character, Denies dysphagia, Denies nausea, Denies vomiting and Denies hematemesis Genitourinary Genitourinary: Denies hematuria, Denies difficulty urinating and Denies urinary frequency Musculoskeletal Musculoskeletal: Denies abnormal gait, Denies myalgias, Denies arthralgias, Denies limited range of motion and Denies neck pain Integumentary/Breasts Skin/Breast: Denies bleeding lesions, Denies change in pigmentation, Denies changing lesions, Denies new lesions, Denies rash, Denies skin swelling, Denies sores and Denies jaundice Neurologic Neurologic: Denies abnormal speech, Denies abnormal gait, Denies behavioral changes, Denies confusion, Denies dizziness, Denies syncope, Denies headache(s), Denies loss of vision, Denies memory loss, Denies seizure-like activity, Denies paresthesias and Denies weakness Psychiatric Psychiatric: Denies behavioral changes, Denies change in appetite, Denies confusion, Denies difficulty concentrating, Denies auditory hallucinations, Denies memory loss, Denies mood swings and Denies suicidal ideation Endocrine Endocrine: Denies excessive sweating, Denies flushing, Denies polyuria and Denies palpitations Hematologic/Lymphatic Hematologic/Lymphatic: Denies easy bleeding, Denies easy bruising and Denies lymphadenopathy Allergic/Immunologic Allergic/Immunologic: Denies urticaria, Denies itchy eyes, Denies lip swelling, Denies throat swelling, Denies tongue swelling and Denies wheezing Exam Vital Signs (past 8 hours): - 11/06/20 00:03 11/06/20 00:08 11/06/20 00:15 Temperature 98.1 F 97.4 F L 97.4 F L Pulse Rate 60 61 56 L Respiratory Rate 16 16 16 Blood Pressure 121/67 121/67 123/70 Pulse Oximetry 98 98 11/06/20 03:14 11/06/20 03:49 11/06/20 03:57 Temperature 98 F 97.1 F L 97.1 F L Pulse Rate 62 58 L 61 Respiratory Rate 17 17 16 Blood Pressure 126/64 120/70 126/64 Pulse Oximetry 97 11/06/20 04:04 11/06/20 07:05 Temperature 98.6 F Pulse Rate 56 L 60 Respiratory Rate 17 16 Blood Pressure 136/66 121/53 L Pulse Oximetry 97 Oxygen Delivery Method Room Air Oxygen Flow Rate 0 Narrative Exam Narrative: Non acutely ill appearing adult male lying in his hospital bed in no obvious distress HEENT-unremarkable, normocephalic atraumatic Neck-no lymphadenopathy no bruits Lungs-clear anteriorly and posteriorly no wheezes no crackles good breath sounds Heart-regular rate and rhythm, no murmur, rub, or gallop. normal S1-S2 Abdomen-positive bowel tones, soft, nontender, nondistended, no hepatosplenomegaly, no masses palpable. The may be some very mild discomfort in the mid epigastrium Neuro-normal to screening exam, gait not tested Extremities-no cyanosis clubbing or edema Objective Labs Result Diagrams: 11/06/20 08:05 11/06/20 08:05 Labs: Laboratory Results - last 24 hr 11/05/20 11/05/20 11/05/20 12:20 12:20 12:20 WBC 8.7 RBC 3.02 L Hgb 8.8 L Hct 26.7 L MCV 88.4 MCH 29.1 MCHC 32.9 RDW 16.5 H Plt Count 296 Neut % (Auto) 57.9 Lymph % (Auto) 27.5 [place] % (Auto) 9.1 Eos % (Auto) 4.3 H Baso % (Auto) 1.2 Neut # (Auto) 5100 Lymph # (Auto) 2400 [place] # (Auto) 800 Eos # (Auto) 400 Baso # (Auto) 100 Sodium 135 L Potassium 4.4 Chloride 106 Carbon Dioxide 25 BUN 29 H Creatinine 0.93 Estimated GFR > 60.0 BUN/Creatinine Ratio 31.2 H Glucose 140 H Calcium 8.7 Total Bilirubin 0.3 AST 25 ALT 12 Alkaline Phosphatase 77 Total Creatine Kinase 56 CK-MB (CK-2) TNP CK-MB (CK-2) Rel Index TNP Troponin I < 0.012 Total Protein 6.0 L Albumin 3.2 L Globulin 2.8 Albumin/Globulin Ratio 1.1 Lipase 184 SARS-CoV-2 (PCR) Blood Type O Positive Antibody Screen Negative Crossmatch See Detail 11/05/20 11/05/20 17:00 20:37 WBC RBC Hgb 8.0 L Hct 23.9 L MCV MCH MCHC RDW Plt Count Neut % (Auto) Lymph % (Auto) [place] % (Auto) Eos % (Auto) Baso % (Auto) Neut # (Auto) Lymph # (Auto) [place] # (Auto) Eos # (Auto) Baso # (Auto) Sodium Potassium Chloride Carbon Dioxide BUN Creatinine Estimated GFR BUN/Creatinine Ratio Glucose Calcium Total Bilirubin AST ALT Alkaline Phosphatase Total Creatine Kinase CK-MB (CK-2) CK-MB (CK-2) Rel Index Troponin I Total Protein Albumin Globulin Albumin/Globulin Ratio Lipase SARS-CoV-2 (PCR) Negative Blood Type Antibody Screen Crossmatch Assessment & Plan Assessment & Plan narrative: 1. Possible acute upper GI bleeding-patient's numbers have slowly drifted down. He was started on proton pump inhibitor in the ER appropriately. Endoscopy performed on August 03, 2020, showed mild gastritis with small clots in the stomach but no evidence of active hemorrhage. Patient has been taking iron although did not note any change in his stool apparently. Patient has remained hemodynamically stable Numbers have not fallen off dramatically . However given patient's ongoing symptoms and his need for continued chemotherapy etcetera I think he definitely needs upper endoscopy to re-evaluate his current status. We need to know if he has a gastric ulcer and what his risk of recurrent small versus large volume bleeding is etcetera. I will contact General surgery, it appears Dr. Doan is the 1 who is on-call today and he is the 1 who performed the prior upper endoscopy at the end of July. For now continue to monitor his numbers and continue with proton pump inhibitor. Patient will be kept on clear liquids in preparation for upper endoscopy 2. Coronary disease-patient with no active coronary symptoms at this point. Recent workup by Cardiology apparently show some area of ischemia on noninvasive stress testing. Therefore would try to maintain hematocrit at a level greater than 25% to protect cardiac blood flow 3. Rectal carcinoma-patient undergoing chemotherapy through Oncology. Uncertain as to whether his chemo may be a contributing factor to his ongoing anemia. 4. Hypertension-patient seems stable. He has been stable without evidence of large volume bleeding as noted by tachycardia and or hypotension. Patient should be okay to continue his usual oral antihypertensive therapy. 5. VTE prophylaxis-SCDs, not a candidate for anticoagulation given his evidence of GI bleeding 6. Code status-patient desires full code in the event of sudden cardiac or respiratory arrest, which is not seem at all likely at this time and we discussed that. Quality VTE Deep Vein Thrombosis/Pulmonary Embolism Present on Admission: No
[2020-11-06 08:16] LABS: Hematocrit 27.6 % (41-53); Hemoglobin 9.2 g/dL (13.5-17.5)
[2020-11-06 08:31] LABS: BUN Creatinine Ratio 34.4 (6-22); Blood Urea Nitrogen 22 mg/dL (9-20); Calcium 8.8 mg/dL (8.4-10.2); Carbon Dioxide 24 mmol/L (22-32); Chloride 106 mmol/L (98-107); Estimated Glomerular Filt Rate > 60.0 mL/min (>60); Glucose 111 mg/dL (80-110); HEMOLYSIS < 15 (0-50); Sodium 135 mmol/L (137-145)
[2020-11-06] MEDS: TAMSULOSIN 0.4 MG CAPSULE PO (08:57)
[2020-11-06] MEDS: ATORVASTATIN 20 MG TABLET PO (08:57)
[2020-11-06] MEDS: FINASTERIDE 5 MG TABLET PO (08:58)
[2020-11-06] MEDS: PANTOPRAZOLE 40 MG VIAL IV (08:59)
[2020-11-06] MEDS: METOPROLOL ER 25 MG TABLET PO (08:59)
[2020-11-06] MEDS: LACTATED RINGERS 1,000 ML 42 ML IV (10:45)
--- NOTE | 2020-11-06 11:26 | PM.CN ---
History of Present Illness Consult details Date Patient Seen: 11/06/20 Time Patient Seen: 11:26 Chief complaint: posssible heart attack Narrative: 75-year-old male with a history rectal cancer undergoing neoadjuvant therapy admitted to the hospital for anemia and GI bleed. For the past several days he has been having black tarry stools hematocrit admission 28. History of prior gastritis as well as a Diane-en-Y gastric bypass. Not on anticoagulation. Meds Home Medications and Allergies Home Medications Medication Instructions Recorded Confirmed Type lisinopril 10 mg tablet 5 mg PO QDAY #0 08/15/17 11/06/20 History tamsulosin 0.4 mg capsule 0.4 mg PO DAILY #10 cap 10/24/18 11/06/20 Rx acetaminophen 650 mg 1,300 mg PO Q8H PRN 10/31/18 11/06/20 History tablet,extended release atorvastatin 20 mg tablet 20 mg PO DAILY 10/31/18 11/06/20 History cyanocobalamin-methylcobalamin 600 1 tab SL Q OTHER DAY tab 10/31/18 11/04/20 History mcg-600 mcg sublingual tablet iron,carbonyl 30 mg-folic acid 800 1 tab PO DAILY 10/31/18 11/06/20 History jpo-jffcgafe-esik chewable tablet (Opurity Multivitamin) turmeric root extract 500 mg 1,500 mg PO BID 10/31/18 11/06/20 History capsule vit C 250 mg-vit E 90 mg-zinc 40 2 cap PO BID cap 10/31/18 11/06/20 History mg-copper 1 jk-ytyqhx-oqrhmm capsule (PreserVision AREDS-2) finasteride 5 mg tablet 5 mg PO DAILY 06/17/19 11/06/20 History vitamin B complex 2 tab PO DAILY tab 06/17/19 11/04/20 History calcium carbonate 500 mg (1,250 1 tab PO DAILY 08/03/20 11/06/20 History mg)-vitamin D3 400 unit tablet (Calcium 500 With D) capecitabine 500 mg tablet 2,000 mg PO BID 14 Days #112 tab 09/23/20 11/06/20 Rx metoprolol succinate 25 mg 25 mg PO DAILY 09/23/20 11/06/20 History tablet,extended release 24 hr olanzapine 5 mg tablet 5 mg PO Q12H PRN #30 tab 09/23/20 11/02/20 Rx ondansetron 8 mg disintegrating 8 mg PO Q8H PRN #30 tab 09/23/20 11/02/20 Rx tablet d-mannose 500 mg capsule 2,100 mg PO TID 11/04/20 11/06/20 History oxaliplatin 50 mg/10 mL (5 mg/mL) See Rx Instructions .ROUTE .COMPLEX 11/04/20 11/04/20 History intravenous solution oxycodone 5 mg tablet 5 mg PO Q4H PRN #7 tab 11/04/20 Rx polyethylene glycol 3350 17 17 g PO DAILY 11/04/20 11/06/20 History gram/dose oral powder (Miralax) Allergies Allergy/AdvReac Type Severity Reaction Status Date / Time No Known Drug Allergies Allergy Unknown Verified 11/06/20 10:17 [NO KNOWN DRUG ALLERGIES] Review of Systems Review of Systems ROS: Yes All systems reviewed with the patient and are negative except as otherwise documented Exam Vital Signs (past 8 hours): - 11/06/20 03:49 11/06/20 03:57 11/06/20 04:04 Temperature 97.1 F L 97.1 F L 98.6 F Pulse Rate 58 L 61 56 L Respiratory Rate 17 16 17 Blood Pressure 120/70 126/64 136/66 Pulse Oximetry 97 11/06/20 07:05 11/06/20 08:00 11/06/20 08:59 Temperature 97.4 F L Pulse Rate 60 56 L 70 Respiratory Rate 16 17 Blood Pressure 121/53 L 120/72 121/53 L Pulse Oximetry 97 98 Oxygen Delivery Method Room Air Oxygen Flow Rate 0 Narrative Exam Narrative: GENERAL-well developed elderly male, no acute distress HEENT-no scleral icterus, hearing intact NECK-no JVD, trachea midline CVS- regular rate, no peripheral edema RESP-unlabored respiratory effort, no audible wheezing GI-soft, nontender nondistended MSK-no cyanosis or clubbing, extremities without deformity SKIN-warm, dry NEURO-alert and oriented, no focal deficits PYSCH-Appropriate mood and affect Objective Labs Result Diagrams: 11/06/20 08:05 11/06/20 08:05 Labs: Laboratory Results - last 24 hr 11/05/20 11/05/20 11/05/20 12:20 12:20 12:20 WBC 8.7 RBC 3.02 L Hgb 8.8 L Hct 26.7 L MCV 88.4 MCH 29.1 MCHC 32.9 RDW 16.5 H Plt Count 296 Neut % (Auto) 57.9 Lymph % (Auto) 27.5 [place] % (Auto) 9.1 Eos % (Auto) 4.3 H Baso % (Auto) 1.2 Neut # (Auto) 5100 Lymph # (Auto) 2400 [place] # (Auto) 800 Eos # (Auto) 400 Baso # (Auto) 100 Sodium 135 L Potassium 4.4 Chloride 106 Carbon Dioxide 25 BUN 29 H Creatinine 0.93 Estimated GFR > 60.0 BUN/Creatinine Ratio 31.2 H Glucose 140 H Calcium 8.7 Total Bilirubin 0.3 AST 25 ALT 12 Alkaline Phosphatase 77 Total Creatine Kinase 56 CK-MB (CK-2) TNP CK-MB (CK-2) Rel Index TNP Troponin I < 0.012 Total Protein 6.0 L Albumin 3.2 L Globulin 2.8 Albumin/Globulin Ratio 1.1 Lipase 184 SARS-CoV-2 (PCR) Blood Type O Positive Antibody Screen Negative Crossmatch See Detail 11/05/20 11/05/20 11/06/20 17:00 20:37 08:05 WBC RBC Hgb 8.0 L 9.2 L Hct 23.9 L 27.6 L MCV MCH MCHC RDW Plt Count Neut % (Auto) Lymph % (Auto) [place] % (Auto) Eos % (Auto) Baso % (Auto) Neut # (Auto) Lymph # (Auto) [place] # (Auto) Eos # (Auto) Baso # (Auto) Sodium Potassium Chloride Carbon Dioxide BUN Creatinine Estimated GFR BUN/Creatinine Ratio Glucose Calcium Total Bilirubin AST ALT Alkaline Phosphatase Total Creatine Kinase CK-MB (CK-2) CK-MB (CK-2) Rel Index Troponin I Total Protein Albumin Globulin Albumin/Globulin Ratio Lipase SARS-CoV-2 (PCR) Negative Blood Type Antibody Screen Crossmatch 11/06/20 08:05 WBC RBC Hgb Hct MCV MCH MCHC RDW Plt Count Neut % (Auto) Lymph % (Auto) [place] % (Auto) Eos % (Auto) Baso % (Auto) Neut # (Auto) Lymph # (Auto) [place] # (Auto) Eos # (Auto) Baso # (Auto) Sodium 135 L Potassium 4.0 Chloride 106 Carbon Dioxide 24 BUN 22 H Creatinine 0.64 L Estimated GFR > 60.0 BUN/Creatinine Ratio 34.4 H Glucose 111 H Calcium 8.8 Total Bilirubin AST ALT Alkaline Phosphatase Total Creatine Kinase CK-MB (CK-2) CK-MB (CK-2) Rel Index Troponin I Total Protein Albumin Globulin Albumin/Globulin Ratio Lipase SARS-CoV-2 (PCR) Blood Type Antibody Screen Crossmatch Assessment & Plan Assessment and plan (1) Acute GI bleeding: Status: Acute Assessment & Plan narrative: 75-year-old man history rectal cancer and Diane-en-Y gastric bypass he here with the GI bleed. Suspect bleed is upper in origin and will proceed with a esophagoduodenoscopy for diagnostic and therapeutic purpose. Technical details were discussed. Risks, benefits, alternatives explained. Risks including but not limited to myocardial infarction, aspiration, bleeding, pain, missed lesion, incomplete examination, need for further radiographic studies, colonic perforation, and need for major abdominal surgery were discussed. All questions were answered to their satisfaction, and they are in agreement with this plan.
[2020-11-06] MEDS: MIDAZOLAM 5 MG/5 ML VIAL IV (11:33)
[2020-11-06] MEDS: fentaNYL 250 MCG/5 ML INJ IV (11:33)
--- NOTE | 2020-11-06 11:39 | PM.OP.ENDO ---
Operative Date/Time/Diagnoses Date of procedure: 11/06/20 Time of procedure: 11:40 Pre-op diagnosis: GI bleed Post-op diagnosis: other (Marginal ulcer) Procedure & Clinicians Study performed: Esophagoduodenoscopy Same procedure as scheduled: Yes Indications: GI bleed Surgeon: Norris Doan Procedure Notes Procedure in detail: Patient placed in left lateral decubitus position. Time out was performed. Procedural sedation was administered with Versed and Fentanyl. A bite block was placed. The scope was inserted into the mouth and advanced through the esophagus and into the stomach. At the gastrojejunostomy there was a small marginal ulcer no active bleeding or visible vessel. Biopsy was taken. The small bowel was transversed was normal. The scope was withdrawn into the esophagus the Z line was seen at 40 cm from the incisions. . Stomach was desufflated and scope removed. Patient tolerated procedure well. Specimen(s): other (gastric) Complications: none Impression: marginal ulcer Post-procedure Plan for aftercare: continue omeprazole and 3 weeks of Carafate
--- NOTE | 2020-11-06 12:20 | SUR.PHASEI ---
Report called to Floor Nurse and Report from sent up with Patient. pt returned to room 216.
--- NOTE | 2020-11-06 13:44 | CM.IDA ---
Initial DCP Assessment Note Pt is a 75 yo male, resident of [place], patient arrives to the ED w/black stools x2 days, patient w/known anorectal cancer currently on chemotherapy through Dr. Yancey PCP: Alfredo Lu Payer: [employer] Reviewed chart, patient off the floor this morning for EGD which showed Marginal ulcer. met w/patient and spouse Omaira, introduced role. Patient/spouse explain they are very hopeful patient can return home soon, they expect a DC order, and deny needs from this [employer] D[employer] ASSISTANT today. Patient/spouse appreciative for the visit. Plan: DC home w/supportive spouse once medically cleared. No needs anticipated from DCP team Stephany Gonzáles [employer] D[employer] DENTAL ASSISTANT
--- NOTE | 2020-11-06 16:34 | PM.DS.1 ---
History of Present Illness History of Present Illness Date Patient Seen: 11/06/20 Time Patient Seen: 16:34 Chief complaint: posssible heart attack Narrative: 75-year-old male who normally sees Dr. Alfredo Lu who presented to [facility] Emergency Department on day of admission with a report of black stools for the last couple of days. Patient with known anorectal cancer currently on chemotherapy through Dr. Yancey. He had reported this to his oncologist the day prior to admission was felt to be due to the iron replacement therapy he is on. However what prompted him to come to the ER was an episode of feeling lightheaded and syncopal while driving. Denies any chest pain maybe did feel somewhat short of breath took a nitro and everything got better. Has longstanding history of iron deficiency anemia worked up earlier in the year with upper and lower endoscopy at which point his rectal cancer was discovered. At that time (July 2020) he had upper endoscopy which showed gastritis and evidence of blood within the stomach. He is status post bariatric surgery/gastric bypass. He was found to be somewhat more anemic than usual in the emergency department and admitted for continued monitoring. He has been hemodynamically stable throughout his hospital stay. Discharge Providers Provider Date of admission: 11/05/20 17:52 Discharge Date: 11/06/20 Primary care physician: Alfredo Lu MD Consults: 11/06/20 08:15 Consult to Physician Routine Comment: Consulting Provider: Norris Doan Reason for consultation: UGI Bleed Has provider been notified: Yes Discharge provider: Jordan Cheema MD Summary Hospital Course Discharge Diagnosis: 1. Gastric ulcer 2. Acute blood loss anemia 3. Upper GI bleeding 4. Rectal cancer 5. Bladder atony requiring patient self catheterization 6. Coronary artery disease, stable this hospitalization 7. Paroxysmal atrial fibrillation 8. Essential hypertension 9. Obstructive sleep apnea Hospital Course: Patient was admitted with evidence of her GI bleeding. That his blood counts did drift down due to the acute blood loss. He was transfused 2 units of packed red cells with stability in his blood counts. He was seen by General surgery and upper endoscopy was performed with small gastric ulcer was identified. Please see endoscopy report for full details Patient remained hemodynamically stable. Modestly hypotensive prior to discharge but repeat blood pressure was improved and patient was completely asymptomatic. He had bowel movement and was able to urinate without difficulty (he self caths to ensure emptying of his bladder) There were no cardiac symptoms at all even with his anemia Patient will continue on a proton pump inhibitor as well as Carafate to promote healing of his gastric ulcer Patient's ulcer findings on endoscopy were not felt to be high risk for recurrent bleeding or large volume bleeding anyway and so was felt to be safe for discharge Exam Vital Signs (past 8 hours): - 11/06/20 08:59 11/06/20 11:45 11/06/20 11:50 Temperature 98.2 F Pulse Rate 70 59 L 56 L Respiratory Rate 15 16 Blood Pressure 121/53 L 117/64 106/61 Pulse Oximetry 96 97 11/06/20 11:55 11/06/20 12:08 11/06/20 12:30 Temperature 98.6 F 97.3 F L Pulse Rate 55 L 56 L 58 L Respiratory Rate 15 16 17 Blood Pressure 115/62 110/63 121/71 Pulse Oximetry 97 97 99 11/06/20 13:00 11/06/20 13:30 11/06/20 14:30 Temperature Pulse Rate 86 69 61 Respiratory Rate 16 17 16 Blood Pressure 119/62 146/58 H 121/62 Pulse Oximetry 100 99 98 11/06/20 15:30 Temperature 98.6 F Pulse Rate 59 L Respiratory Rate 16 Blood Pressure 99/63 Pulse Oximetry 99 Oxygen Delivery Method Room Air Oxygen Flow Rate 0 Objective Labs Result Diagrams: 11/06/20 08:05 11/06/20 08:05 Labs: Laboratory Results - last 24 hr 11/05/20 11/05/20 11/05/20 12:20 17:00 20:37 Hgb 8.0 L Hct 23.9 L Sodium Potassium Chloride Carbon Dioxide BUN Creatinine Estimated GFR BUN/Creatinine Ratio Glucose Calcium SARS-CoV-2 (PCR) Negative Blood Type O Positive Antibody Screen Negative Crossmatch See Detail 11/06/20 11/06/20 08:05 08:05 Hgb 9.2 L Hct 27.6 L Sodium 135 L Potassium 4.0 Chloride 106 Carbon Dioxide 24 BUN 22 H Creatinine 0.64 L Estimated GFR > 60.0 BUN/Creatinine Ratio 34.4 H Glucose 111 H Calcium 8.8 SARS-CoV-2 (PCR) Blood Type Antibody Screen Crossmatch [facility] Medical History (Updated 11/06/20 @ 08:17 by Jordan Cheema MD) Anal fistula Bladder atony (~2017) BPH (benign prostatic hyperplasia) Cellulitis Constipation Coronary artery disease CVA (cerebral vascular accident) Essential hypertension (08/15/17) Hemorrhoids Hyperlipidemia Iron deficiency anemia Kidney stones Laceration of finger of left hand Paroxysmal atrial fibrillation Personal history of colonic polyps Rectal cancer Self-catheterizes urinary bladder Sleep apnea Transient ischemic attack (~2016) Surgical History History of angioplasty (~2013) History of colonoscopy History of esophagogastroduodenoscopy (EGD) History of gastric bypass (2013) History of knee replacement History of knee replacement History of kyphoplasty History of loop recorder (06/2017) Family History Father Hypertension Cancer Social History marital status: household members: spouse occupational status: previously employed Smoking Status: Former smoker alcohol intake: current substance use type: does not use Discharge Assessment & Plan Assessment and Plan Plan of Treatment: Patient should be seen by his PCP Dr. Alfredo Lu in approximately 10-14 days time Patient should continue follow-up with Oncology for continued treatment of his rectal cancer as well Discharge Plan Discharge Plan Patient Disposition: Home Discharge orders & Medications Prescriptions: New sucralfate [Carafate] 1 gram tablet 1 g PO BID Qty: 42 RF: 0 pantoprazole [Protonix] 20 mg tablet,delayed release (DR/EC) 20 mg PO BID Qty: 90 RF: 0 Continued acetaminophen 650 mg tablet extended release 1,300 mg PO Q8H PRN (Reason: Pain (Scale Score 4-6)) RF: 0 atorvastatin 20 mg tablet 20 mg PO DAILY RF: 0 turmeric root extract 500 mg capsule 1,500 mg PO BID RF: 0 Opurity Multivitamin 30 mg iron- 800 mcg tablet,chewable 1 tab PO DAILY RF: 0 cyanocobalamin-methylcobalamin 600-600 mcg tablet, sublingual 1 tab SL Q OTHER DAY RF: 0 PreserVision AREDS-2 [id number] kv-agci-dg-mg capsule 2 cap PO BID RF: 0 finasteride 5 mg tablet 5 mg PO DAILY RF: 0 vitamin B complex Tablet 2 tab PO DAILY RF: 0 lisinopril 10 MG tablet 5 mg PO QDAY Qty: 0 RF: 0 tamsulosin 0.4 mg capsule 0.4 mg PO DAILY Qty: 10 RF: 0 calcium carbonate-vitamin D3 [Calcium 500 With D] 500 mg(1,250mg) -400 unit Tablet 1 tab PO DAILY RF: 0 metoprolol succinate 25 mg Tablet Extended Release 24 Hr 25 mg PO DAILY RF: 0 capecitabine 500 mg Tablet 2,000 mg PO BID 14 Days Qty: 112 RF: 5 ondansetron 8 mg Tablet,Disintegrating 8 mg PO Q8H PRN (Reason: Nausea) Qty: 30 RF: 2 olanzapine 5 mg Tablet 5 mg PO Q12H PRN (Reason: Nausea) Qty: 30 RF: 2 polyethylene glycol 3350 [Miralax] 17 gram/dose Powder 17 g PO DAILY RF: 0 d-mannose 500 mg Capsule 2,100 mg PO TID RF: 0 oxaliplatin 50 mg/10 mL (5 mg/mL) Solution See Rx Instructions .ROUTE .COMPLEX RF: 0 oxycodone 5 mg tablet 5 mg PO Q4H PRN (Reason: pain) Qty: 7 RF: 0 Follow up/Referrals: Alfredo Lu MD [Primary Care Provider] - 2 Weeks Discharge Health Status Multidrug resistant organism: No MDRO Diet/Activity/Treatments Diet: Diet as Tolerated Visit Report/Discharge Packet Instructions: DI for Gastroesophageal Reflux Disease (GERD), DI for Gastric Ulcer Discharge Data Primary Care Provider: Alfredo Lu Quality VTE Deep Vein Thrombosis/Pulmonary Embolism Present on Admission: No
--- NOTE | 2020-11-06 16:59 | PC.NURSE ---
Discharge note: Patient left via wheelchair accompanied by [employer] LIBRARY CLERK. Bilateral IV sites removed, tele removed, ICU notified. Discharge instructions given for GERD and gastric ulcer, diet recommendations, new medications and when to take them, when to f/u with provider, s/sx of a stroke, and when to return to the ED if necessary. All education acknowledged.
== END 2020-11-06 17:12 | disposition home or self-care (01) ==
LOC: ED 17:47 → AC 18:05
PROVIDERS: Surgery; Admitting Provider Internal Medicine; Emergency Provider Emergency Medicine; PCP Family Medicine; Referring Provider Emergency Medicine; Visit Provider Internal Medicine
PROC: 0DJ08ZZ Inspection of Upper Intestinal Tract, Via Natural or Artificial Opening Endoscopic (ICD-10-PCS; CPT 43235; principal; 2020-11-06 10:45)
DX: K29.50 Unspecified chronic gastritis without bleeding (principal); K28.9 Gastrojejunal ulcer, unspecified as acute or chronic, without hemorrhage or perforation; D62 Acute posthemorrhagic anemia; D50.9 Iron deficiency anemia, unspecified; C20 Malignant neoplasm of rectum; N31.2 Flaccid neuropathic bladder, not elsewhere classified; I25.10 Atherosclerotic heart disease of native coronary artery without angina pectoris; I48.0 Paroxysmal atrial fibrillation; I10 Essential (primary) hypertension; G47.33 Obstructive sleep apnea (adult) (pediatric); Z98.84 Bariatric surgery status; Z86.73 Personal history of transient ischemic attack (TIA), and cerebral infarction without residual deficits; N32.3 Diverticulum of bladder; Z20.822 Contact with and (suspected) exposure to COVID-19
CPT/HCPCS: 43239; 36415; 36430; 71045; 71260; 74177; 80048; 80053; 82272; 82550; 83690; 84484; 85014; 85018; 85025; 86850; 86900; 86901; 87635; 93005; 96361; 96374; 96376; 99219; 99284; C9803; G0378; P9016; C9113; J2250; J3010

== ENCOUNTER → 2020-12-11 10:03 | Outpatient (CLI) | payer MEDICARE, OTHER, SELFPAY ==
[2020-11-05 18:19] VITALS: BMI 32.1
[2020-12-11 11:09] LABS: Appearance Urine UA CLOUDY; Bilirubin Urine UA NEGATIVE (NEGATIVE); Color Urine UA BROWN; Glucose Urine UA NEGATIVE (Negative); Ketones Urine UA NEGATIVE (NEGATIVE); Leukocyte Esterase Urine UA 2+ (NEGATIVE); Nitrite Urine UA POSITIVE (Negative); Occult Blood Urine UA 3+ (Negative); Protein Urine UA 3+ (Negative); Urobilinogen Urine UA 0.2 E.U./dL (0.2)
[2020-12-11 11:16] LABS: RBC Urine >100/HPF (0-5/HPF); WBC Urine >100/HPF (0-5/HPF)
[2020-12-11 11:17] LABS: Bacteria Urine Many (>30); Culture Indicated Urine Specimen Cultured
== END ==
PROVIDERS: PCP Family Medicine; Referring Provider Family Medicine; Visit Provider Family Medicine
DX: N34.3 Urethral syndrome, unspecified (principal)
CPT/HCPCS: 81001; 87077; 87086; 87186

== ENCOUNTER 2020-12-14 15:39 | Emergency (ER) | payer MEDICARE, OTHER, SELFPAY ==
[2020-11-05 18:19] VITALS: BMI 32.1
[2020-12-14] VITALS (9 sets, daily range): BP systolic 103–136; BP diastolic 60–65; PULSE 55–87; RESP 12–22; TEMP 35.9; O2SAT 97–99; BMI 29.8
--- NOTE | 2020-12-14 15:47 | PC.NURSE ---
Patient under going treatment for colorectal cancer, on chemo. Has been having diarrhea today, concerns of dehydration. 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 Unable to stand without syncope. Denies chest pain or SOB at present, feels better after 400ml bolus by EMS
[2020-12-14] MEDS: SODIUM CHLORIDE 0.9% 1,000 ML 1000 ML IV (15:56)
[2020-12-14 16:06] LABS: Add Manual Diff / Slide Review NO; Basophils Absolute Auto 0 /uL (0-100); Basophils Percent Auto 0.6 % (0-2); Eosinophils Absolute Auto 200 /uL (0-450); Eosinophils Percent Auto 3.2 % (2-4); Hematocrit 30.3 % (41-53); Hemoglobin 10.3 g/dL (13.5-17.5); Lymphocytes Absolute Auto 2900 /uL (1100-4500); Lymphocytes Percent Auto 40.4 % (25-40); Mean Corpuscular Hemoglobin 32.9 PG (26-34); Mean Corpuscular Volume 96.5 fL (80-100); Monocytes Absolute Auto 700 /uL (0-900); Neutrophils Absolute Auto 3400 /uL (1500-7000); Neutrophils Percent Auto 46.8 % (50-75); Platelet Count 266 X10^3/uL (150-400); Red Blood Cell Count 3.14 X10^6/uL (4.5-5.9); Red Cell Distribution Width 29.3 % (11.6-14.8); White Blood Cell Count 7.3 X10^3/uL (4.5-11.0)
--- NOTE | 2020-12-14 16:06 | ED_ITS ---
HPI - General Adult General Chief complaint: Syncope Stated complaint: Syncope Time Seen by Provider: 12/14/20 15:50 Source: EMS Mode of arrival: EMS History of Present Illness HPI narrative: Patient is a 75-year-old male who is currently undergoing chemotherapy was here for evaluation of a presyncope/syncopal episode. Patient states that he is at his normal state health. He states they been having some water issues at their house. The repair man was over their house and the patient walked outside to talk to the repair min. He states that as he was standing outside he became very lightheaded. He did not fall. He was able to sit down on to the ground but there does appear to be a short period of time where he potentially had some loss of conscious. There was no shaking episodes. He was not confused afterwards. He did have an episode of diarrhea after the event. He has had diarrhea off and on mostly because of his oral chemotherapy so he did not think much of the diarrhea episode during this event. He did not have any chest pain. No shortness of breath. No headache. No palpitations. No vomiting. He states that he does not think that he hit his head. Related Data Home Medications Medication Instructions Recorded Confirmed lisinopril 10 mg tablet 5 mg PO QDAY #0 08/15/17 11/11/20 acetaminophen 650 mg 1,300 mg PO Q8H PRN 10/31/18 11/11/20 tablet,extended release atorvastatin 20 mg tablet 20 mg PO DAILY 10/31/18 11/11/20 cyanocobalamin-methylcobalamin 600 1 tab SL Q OTHER DAY tab 10/31/18 11/11/20 mcg-600 mcg sublingual tablet iron,carbonyl 30 mg-folic acid 800 1 tab PO DAILY 10/31/18 11/11/20 [id number] chewable tablet (Opurity Multivitamin) turmeric root extract 500 mg 1,500 mg PO BID 10/31/18 11/11/20 capsule vit C 250 mg-vit E 90 mg-zinc 40 2 cap PO BID cap 10/31/18 11/11/20 mg-copper 1 [id number]-vminai capsule (PreserVision AREDS-2) finasteride 5 mg tablet 5 mg PO DAILY 06/17/19 11/11/20 vitamin B complex 2 tab PO DAILY tab 06/17/19 11/11/20 calcium carbonate 500 mg (1,250 1 tab PO DAILY 08/03/20 11/11/20 mg)-vitamin D3 400 unit tablet (Calcium 500 With D) metoprolol succinate 25 mg 25 mg PO DAILY 09/23/20 11/11/20 tablet,extended release 24 hr d-mannose 500 mg capsule 1,500 mg PO BID 11/04/20 11/17/20 oxaliplatin 50 mg/10 mL (5 mg/mL) See Rx Instructions .ROUTE .COMPLEX 11/04/20 11/11/20 intravenous solution polyethylene glycol 3350 17 17 g PO DAILY 11/04/20 11/11/20 gram/dose oral powder (Miralax) docusate sodium 50 mg capsule 50 mg PO DAILY 11/17/20 11/17/20 ferrous gluconate 325 mg (36 mg 650 mg PO DAILY 11/17/20 11/17/20 iron) tablet Previous Rx's Medication Instructions Recorded tamsulosin 0.4 mg capsule 0.4 mg PO DAILY #10 cap 10/24/18 capecitabine 500 mg tablet 2,000 mg PO BID 14 Days #112 tab 09/23/20 olanzapine 5 mg tablet 5 mg PO Q12H PRN #30 tab 09/23/20 ondansetron 8 mg disintegrating 8 mg PO Q8H PRN #30 tab 09/23/20 tablet oxycodone 5 mg tablet 5 mg PO Q4H PRN #7 tab 11/04/20 sucralfate 1 gram tablet (Carafate) 1 g PO BID #42 tab 11/06/20 famotidine 40 mg tablet (Pepcid) 40 mg PO DAILY #60 tab 11/11/20 ciprofloxacin HCl 500 mg tablet 500 mg PO BID 7 Days #14 tab 12/14/20 Allergies Allergy/AdvReac Type Severity Reaction Status Date / Time No Known Drug Allergies Allergy Unknown Verified 12/14/20 15:45 [NO KNOWN DRUG ALLERGIES] Review of Systems Constitutional Constitutional: Reports as per HPI and Reports system reviewed and no additional complaints, except as documented Eyes Eyes: Reports system reviewed and no additional complaints, except as documented Cardiovascular Cardiovascular: Reports system reviewed and no additional complaints, except as documented Respiratory Respiratory: Reports system reviewed and no additional complaints, except as documented Gastrointestinal Gastrointestinal: Reports as per HPI Musculoskeletal Musculoskeletal: Reports system reviewed and no additional complaints, except as documented Integumentary/Breasts Skin/Breast: Reports system reviewed and no additional complaints, except as documented Neurologic Neurologic: Reports as per HPI Endocrine Endocrine: Reports system reviewed and no additional complaints, except as documented Hematologic/Lymphatic On Anticoagulants: No Allergic/Immunologic Allergic/Immunologic: Reports system reviewed and no additional complaints, except as documented Patient History Medical History Anal fistula Bladder atony (~2017) BPH (benign prostatic hyperplasia) Cellulitis Constipation Coronary artery disease CVA (cerebral vascular accident) Essential hypertension (08/15/17) Hemorrhoids Hyperlipidemia Iron deficiency anemia Kidney stones Laceration of finger of left hand Paroxysmal atrial fibrillation Personal history of colonic polyps Rectal cancer Self-catheterizes urinary bladder Sleep apnea Transient ischemic attack (~2016) Surgical History History of angioplasty (~2013) History of colonoscopy History of esophagogastroduodenoscopy (EGD) History of gastric bypass (2013) History of knee replacement History of knee replacement History of kyphoplasty History of loop recorder (06/2017) Family History Father Hypertension Cancer Social History marital status: household members: spouse occupational status: previously employed Smoking Status: Former smoker alcohol intake: current substance use type: does not use Smoking Status: Former smoker alcohol intake frequency: a few times a month Substance Use Type: does not use Exam Initial Vital Signs Initial Vital Signs: Vital Signs Temperature 96.6 F L 12/14/20 15:42 Pulse Rate 60 12/14/20 15:42 Respiratory Rate 12 12/14/20 15:42 Blood Pressure 103/60 12/14/20 15:42 Pulse Oximetry 98 12/14/20 15:42 Const General: cooperative and healthy appearing HENMT Head: normal to inspection and normocephalic Eyes General: appearance normal, both eyes and all related structures Resp Effort & Inspection: normal respiratory effort Auscultation: clear to auscultation bilaterally Cardio Rate: regular rate Rhythm: regular rhythm GI Inspection: normal to inspection Back/Spine/Pelvis Cervical Spine: No cervical spinal tenderness Skin General: no rashes or lesions noted Neuro General: patient alert, patient awake, patient oriented x3 and moves all extremities Extrem General: normal to inspection and capillary refill normal Psych Appearance: grossly normal and well kempt Scores GCS Sundar coma scale eye opening: Spontaneous [place] coma scale verbal response: Orientated [place] coma scale motor response: Obey commands [place] coma scale total score: 15 Course Orders Ordered: ED Orders 12/14/20 15:46 EKG-12 Lead Stat 12/14/20 16:02 Complete Blood Count AUTO DIFF Stat Comprehensive Metabolic Panel Stat Lipase Stat Troponin & CK Cardiac Panel Stat Discontinued Medications Sodium Chloride (Normal Saline 0.9%) 1,000 mls @ 1,000 mls/hr IV BOLUS ONE Stop: 12/14/20 16:49 Last Infusion: 12/14/20 17:15 Dose: 0 mls/hr Documented by: Admin: 12/14/20 15:56 Dose: 1,000 mls/hr Documented by: ELINA Vital Signs Vital signs: Vital Signs - 8 hr 12/14/20 15:42 12/14/20 15:46 12/14/20 16:00 Temperature 96.6 F L Pulse Rate 60 66 66 Respiratory Rate 12 16 22 Blood Pressure 103/60 104/65 Pulse Oximetry 98 97 98 12/14/20 17:17 12/14/20 17:45 Temperature Pulse Rate 55 L 78 Respiratory Rate 12 Blood Pressure 119/63 Pulse Oximetry 98 98 Medical Decision Making Lab Data Lab results reviewed: Yes I reviewed the patient's lab results. Result diagrams: 12/14/20 16:02 12/14/20 16:02 Labs: Lab Results 12/14/20 12/14/20 Range/Units 16:02 16:02 WBC 7.3 (4.5-11.0) X10^3/uL RBC 3.14 L (4.5-5.9) X10^6/uL Hgb 10.3 L (13.5-17.5) g/dL Hct 30.3 L (41-53) % MCV 96.5 (80-100) fL MCH 32.9 (26-34) PG MCHC 34.0 (30-36) % RDW 29.3 H (11.6-14.8) % Plt Count 266 (150-400) X10^3/uL Neut % (Auto) 46.8 L (50-75) % Lymph % (Auto) 40.4 H (25-40) % [place] % (Auto) 9.0 (3-14) % Eos % (Auto) 3.2 (2-4) % Baso % (Auto) 0.6 (0-2) % Neut # (Auto) 3400 (4517-9251) /uL Lymph # (Auto) 2900 (2397-2810) /uL [place] # (Auto) 700 (0-900) /uL Eos # (Auto) 200 (0-450) /uL Baso # (Auto) 0 (0-100) /uL RBC Morphology See below Anisocytosis 3+ H Macrocytosis 1+ H Sodium 133 L (137-145) mmol/L Potassium 3.7 (3.4-5.1) mmol/L Chloride 105 (98-107) mmol/L Carbon Dioxide 19 L (22-32) mmol/L BUN 13 (9-20) mg/dL Creatinine 0.71 (0.66-1.25) mg/dL Estimated GFR > 60.0 (>60) mL/min BUN/Creatinine Ratio 18.3 (6-22) Glucose 131 H (80-110) mg/dL Calcium 8.9 (8.4-10.2) mg/dL Total Bilirubin 0.5 (0.2-1.3) mg/dL AST 30 (17-59) IU/L ALT 14 (<50) IU/L Alkaline Phosphatase 73 (38-126) U/L Total Creatine Kinase 50 L (55-170) U/L CK-MB (CK-2) TNP CK-MB (CK-2) Rel Index TNP Troponin I < 0.012 (0.01-0.034) ng/mL Total Protein 5.5 L (6.3-8.2) g/dL Albumin 2.9 L (3.5-5.0) g/dL Globulin 2.6 (1.7-4.1) g/dL Albumin/Globulin Ratio 1.1 (1.0-2.8) Lipase 357 H (23-300) U/L ECG Data Attestation: I personally reviewed and interpreted this ECG as follows: Interpretation: Sinus rhythm Ventricular rate is 66 One Pac Normal QRS Normal QTC No ST T wave changes MDM Narrative Medical decision making narrative: Patient is alert oriented x3. GCS of 15. Has a unremarkable exam. I have low suspicion for seizure. Low suspicion for electrolyte issues/hypoglycemia. He has been having diarrhea off and on because of his chemotherapy any potentially has been having issues with dehydration. He was able to stand at bedside and walk around. He does feel much better after receiving fluids. Feel that we can hold on further workup for now. Patient was given strict return precautions and follow-up instructions. He expressed understanding and agreement. Discharge Plan Departure Patient Disposition: Home Clinical Impression: Syncope Instructions: DI for Syncope in Adults (Fainting) Activity Restrictions/Additional Instructions: Recommend that you continue all of your medications as directed. Be sure to increase your fluid intake. Contact your primary doctor for a follow-up. Return to the emergency department for any new or worsening symptoms Prescriptions: No Action acetaminophen 650 mg tablet extended release 1,300 mg PO Q8H PRN (Reason: Pain (Scale Score 4-6)) RF: 0 atorvastatin 20 mg tablet 20 mg PO DAILY RF: 0 turmeric root extract 500 mg capsule 1,500 mg PO BID RF: 0 Opurity Multivitamin 30 mg iron- 800 mcg tablet,chewable 1 tab PO DAILY RF: 0 cyanocobalamin-methylcobalamin 600-600 mcg tablet, sublingual 1 tab SL Q OTHER DAY RF: 0 PreserVision AREDS-2 [id number] tp-gqwu-qw-mg capsule 2 cap PO BID RF: 0 finasteride 5 mg tablet 5 mg PO DAILY RF: 0 vitamin B complex Tablet 2 tab PO DAILY RF: 0 lisinopril 10 MG tablet 5 mg PO QDAY Qty: 0 RF: 0 ciprofloxacin HCl 500 mg tablet 500 mg PO BID 7 Days Qty: 14 RF: 0 famotidine [Pepcid] 40 mg tablet 40 mg PO DAILY Qty: 60 RF: 4 tamsulosin 0.4 mg capsule 0.4 mg PO DAILY Qty: 10 RF: 0 calcium carbonate-vitamin D3 [Calcium 500 With D] 500 mg(1,250mg) -400 unit Tablet 1 tab PO DAILY RF: 0 metoprolol succinate 25 mg Tablet Extended Release 24 Hr 25 mg PO DAILY RF: 0 capecitabine 500 mg Tablet 2,000 mg PO BID 14 Days Qty: 112 RF: 5 ondansetron 8 mg Tablet,Disintegrating 8 mg PO Q8H PRN (Reason: Nausea) Qty: 30 RF: 2 olanzapine 5 mg Tablet 5 mg PO Q12H PRN (Reason: Nausea) Qty: 30 RF: 2 Colace 50 mg Capsule 50 mg PO DAILY RF: 0 ferrous gluconate 325 mg (36 mg iron) Tablet 650 mg PO DAILY RF: 0 polyethylene glycol 3350 [Miralax] 17 gram/dose Powder 17 g PO DAILY RF: 0 d-mannose 500 mg Capsule 1,500 mg PO BID RF: 0 oxaliplatin 50 mg/10 mL (5 mg/mL) Solution See Rx Instructions .ROUTE .COMPLEX RF: 0 oxycodone 5 mg tablet 5 mg PO Q4H PRN (Reason: pain) Qty: 7 RF: 0 sucralfate [Carafate] 1 gram tablet 1 g PO BID Qty: 42 RF: 0 Referrals: Alfredo Lu MD [Primary Care Provider] -
[2020-12-14 16:13] LABS: Alanine Aminotransferase 14 IU/L (<50); Albumin 2.9 g/dL (3.5-5.0); Albumin Globulin Ratio 1.1 (1.0-2.8); Alkaline Phosphatase 73 U/L (38-126); Aspartate Aminotransferase 30 IU/L (17-59); BUN Creatinine Ratio 18.3 (6-22); Bilirubin Total 0.5 mg/dL (0.2-1.3); Blood Urea Nitrogen 13 mg/dL (9-20); Calcium 8.9 mg/dL (8.4-10.2); Carbon Dioxide 19 mmol/L (22-32); Chloride 105 mmol/L (98-107); Creatine Kinase 50 U/L (55-170); Estimated Glomerular Filt Rate > 60.0 mL/min (>60); Globulin 2.6 g/dL (1.7-4.1); Glucose 131 mg/dL (80-110); HEMOLYSIS < 15 (0-50); Lipase 357 U/L (23-300); Potassium 3.7 mmol/L (3.4-5.1); Sodium 133 mmol/L (137-145); Total Protein 5.5 g/dL (6.3-8.2)
[2020-12-14 16:25] LABS: Troponin I < 0.012 ng/mL (0.01-0.034)
[2020-12-14 16:47] LABS: Anisocytosis 3+
[2020-12-14 16:48] LABS: Macrocytosis 1+
== END 2020-12-14 18:17 | disposition home or self-care (01) ==
PROVIDERS: Emergency Provider Emergency Medicine; PCP Family Medicine
DX: R55 Syncope and collapse (principal)
CPT/HCPCS: 36415; 80053; 82550; 83690; 84484; 85025; 93005; 96360; 99284

== ENCOUNTER 2021-01-06 10:43 | Emergency (ER) | payer MEDICARE, OTHER, SELFPAY ==
[2020-11-05 18:19] VITALS: BMI 32.1
[2021-01-06] VITALS (13 sets, daily range): BP systolic 108–139; BP diastolic 64–78; PULSE 61–95; RESP 16; TEMP 36.3–36.4; O2SAT 100; BMI 27.4
--- NOTE | 2021-01-06 11:11 | PC.NURSE ---
pt arrived to ER from his chemotherapy appointment. B/L feet are discolored and peeling. left great toe is erythematous. b/l hands are peeling as well. skin condition is from the chemotherapy his is receiving.
--- NOTE | 2021-01-06 12:00 | ED.EXTPRO ---
HPI - Extremity Problem <Sridevi Sue PA-C - Last Filed: 01/06/21 15:16> General Chief complaint: Extremity Problem,Nontraumatic Stated complaint: Both feet have infection from chemo x4 weeks Time Seen by Provider: 01/06/21 12:00 Source: patient Mode of arrival: Wheelchair Limitations: no limitations Related Data Home Medications Medication Instructions Recorded Confirmed lisinopril 10 mg tablet 5 mg PO QDAY #0 08/15/17 12/21/20 acetaminophen 650 mg 1,300 mg PO Q8H PRN 10/31/18 12/21/20 tablet,extended release atorvastatin 20 mg tablet 20 mg PO DAILY 10/31/18 12/21/20 cyanocobalamin-methylcobalamin 600 1 tab SL Q OTHER DAY tab 10/31/18 12/21/20 mcg-600 mcg sublingual tablet iron,carbonyl 30 mg-folic acid 800 1 tab PO DAILY 10/31/18 12/21/20 [id number] chewable tablet (Opurity Multivitamin) turmeric root extract 500 mg 1,500 mg PO BID 10/31/18 12/21/20 capsule vit C 250 mg-vit E 90 mg-zinc 40 2 cap PO BID cap 10/31/18 12/21/20 mg-copper 1 [id number]-ihfvdt capsule (PreserVision AREDS-2) finasteride 5 mg tablet 5 mg PO DAILY 06/17/19 12/21/20 vitamin B complex 2 tab PO DAILY tab 06/17/19 12/21/20 calcium carbonate 500 mg (1,250 1 tab PO DAILY 08/03/20 12/21/20 mg)-vitamin D3 400 unit tablet (Calcium 500 With D) metoprolol succinate 25 mg 25 mg PO DAILY 09/23/20 12/21/20 tablet,extended release 24 hr d-mannose 500 mg capsule 1,500 mg PO BID 11/04/20 12/21/20 oxaliplatin 50 mg/10 mL (5 mg/mL) See Rx Instructions .ROUTE .COMPLEX 11/04/20 12/21/20 intravenous solution polyethylene glycol 3350 17 17 g PO DAILY 11/04/20 12/21/20 gram/dose oral powder (Miralax) docusate sodium 50 mg capsule 50 mg PO DAILY 11/17/20 12/21/20 ferrous gluconate 325 mg (36 mg 650 mg PO DAILY 11/17/20 12/21/20 iron) tablet Previous Rx's Medication Instructions Recorded tamsulosin 0.4 mg capsule 0.4 mg PO DAILY #10 cap 10/24/18 olanzapine 5 mg tablet 5 mg PO Q12H PRN #30 tab 09/23/20 ondansetron 8 mg disintegrating 8 mg PO Q8H PRN #30 tab 09/23/20 tablet famotidine 40 mg tablet (Pepcid) 40 mg PO DAILY #60 tab 11/11/20 capecitabine 500 mg tablet 2,000 mg PO BID 14 Days #112 tab 12/22/20 cephalexin 500 mg capsule 500 mg PO Q6H 7 Days #28 cap NS 01/06/21 mouthwashes See Rx Instructions .ROUTE 01/06/21 .COMPLEX PRN #480 ml mouthwashes See Rx Instructions .ROUTE 01/06/21 .COMPLEX PRN #480 ml Allergies Allergy/AdvReac Type Severity Reaction Status Date / Time No Known Drug Allergies Allergy Unknown Verified 12/14/20 15:45 [NO KNOWN DRUG ALLERGIES] <She Bowen DO - Last Filed: 01/06/21 15:20> History of Present Illness HPI Narrative: 75-year-old male comes with concern for infection in both toes. Patient has currently been on chemo for 4 weeks for colorectal cancer. He states that he has had redness and cracking of the bilateral palms as well as soles of his feet and that has had not changed or worsened. Patient History <Sridevi Sue PA-C - Last Filed: 01/06/21 15:16> Medical History Anal fistula Bladder atony (~2017) BPH (benign prostatic hyperplasia) Cellulitis Constipation Coronary artery disease CVA (cerebral vascular accident) Essential hypertension (08/15/17) Hemorrhoids Hyperlipidemia Iron deficiency anemia Kidney stones Laceration of finger of left hand Paroxysmal atrial fibrillation Personal history of colonic polyps Rectal cancer Self-catheterizes urinary bladder Sleep apnea Transient ischemic attack (~2016) Surgical History History of angioplasty (~2013) History of colonoscopy History of esophagogastroduodenoscopy (EGD) History of gastric bypass (2013) History of knee replacement History of knee replacement History of kyphoplasty History of loop recorder (06/2017) Family History Father Hypertension Cancer Social History marital status: household members: spouse occupational status: previously employed Smoking Status: Former smoker alcohol intake: current substance use type: does not use Smoking Status: Former smoker alcohol intake frequency: a few times a month Substance Use Type: does not use Exam <Sridevi Sue PA-C - Last Filed: 01/06/21 15:16> Initial Vital Signs Initial Vital Signs: Vital Signs Pulse Rate 61 01/06/21 10:57 Blood Pressure 130/68 01/06/21 10:57 Pulse Oximetry 100 01/06/21 10:57 <She Bowen DO - Last Filed: 01/06/21 15:20> Initial Vital Signs Initial Vital Signs: Vital Signs Pulse Rate 61 01/06/21 10:57 Blood Pressure 130/68 01/06/21 10:57 Pulse Oximetry 100 01/06/21 10:57 Course <Sridevi Sue PA-C - Last Filed: 01/06/21 15:16> Orders Ordered: ED Orders 01/06/21 14:10 XR foot LT min 3V Stat XR foot RT min 3V Stat 01/06/21 14:59 Wound Culture and Gram Stain Stat Vital Signs Vital signs: Vital Signs - 8 hr 01/06/21 10:57 01/06/21 11:00 01/06/21 11:30 Temperature 97.4 F L Pulse Rate 61 89 81 Respiratory Rate 16 Blood Pressure 130/68 120/75 115/73 Pulse Oximetry 100 100 100 01/06/21 12:00 01/06/21 12:30 01/06/21 13:00 Temperature Pulse Rate 83 79 82 Respiratory Rate Blood Pressure 108/64 117/67 117/71 Pulse Oximetry 100 100 100 01/06/21 13:30 01/06/21 14:00 01/06/21 14:30 Temperature Pulse Rate 76 76 79 Respiratory Rate Blood Pressure 115/64 116/71 Pulse Oximetry 100 100 100 01/06/21 14:40 01/06/21 14:56 01/06/21 15:00 Temperature 97.5 F L Pulse Rate 78 77 Respiratory Rate Blood Pressure 116/65 121/64 Pulse Oximetry 100 100 <She Bowen, - Last Filed: 01/06/21 15:20> Orders Ordered: ED Orders 01/06/21 14:10 XR foot LT min 3V Stat XR foot RT min 3V Stat 01/06/21 14:59 Wound Culture and Gram Stain Stat Vital Signs Vital signs: Vital Signs - 8 hr 01/06/21 10:57 01/06/21 11:00 01/06/21 11:30 Temperature 97.4 F L Pulse Rate 61 89 81 Respiratory Rate 16 Blood Pressure 130/68 120/75 115/73 Pulse Oximetry 100 100 100 01/06/21 12:00 01/06/21 12:30 01/06/21 13:00 Temperature Pulse Rate 83 79 82 Respiratory Rate Blood Pressure 108/64 117/67 117/71 Pulse Oximetry 100 100 100 01/06/21 13:30 01/06/21 14:00 01/06/21 14:30 Temperature Pulse Rate 76 76 79 Respiratory Rate Blood Pressure 115/64 116/71 Pulse Oximetry 100 100 100 01/06/21 14:40 01/06/21 14:56 01/06/21 15:00 Temperature 97.5 F L Pulse Rate 78 77 Respiratory Rate Blood Pressure 116/65 121/64 Pulse Oximetry 100 100 Discharge Plan Departure Patient Disposition: Home Clinical Impression: Infection of toe Activity Restrictions/Additional Instructions: Follow-up with your physician for recheck this week. I do think you would benefit from a podiatry consult. One is included today. Take antibiotics until completely gone. There is no obvious sign of infection on your xray today. I do believe you have a localized infection but my suspicion for osteomyelitis is low. Culture of from your right toe has been sent. [facility] [place]. Wound Care: Keep wound(s) clean and dry. Wash daily with soap and water only. Please return for fevers, rapidly worsening redness, warmth or drainage from the foot, new pain or worsening pain, fevers, new chest pain shortness of breath, lightheadedness or passing out, nausea or vomiting or other new or concerning symptoms. Prescriptions: New cephalexin 500 mg capsule 500 mg PO Q6H 7 Days Qty: 28 RF: 0 No Action acetaminophen 650 mg tablet extended release 1,300 mg PO Q8H PRN (Reason: Pain (Scale Score 4-6)) RF: 0 atorvastatin 20 mg tablet 20 mg PO DAILY RF: 0 turmeric root extract 500 mg capsule 1,500 mg PO BID RF: 0 Opurity Multivitamin 30 mg iron- 800 mcg tablet,chewable 1 tab PO DAILY RF: 0 cyanocobalamin-methylcobalamin 600-600 mcg tablet, sublingual 1 tab SL Q OTHER DAY RF: 0 PreserVision AREDS-2 [id number] tk-utmk-kf-mg capsule 2 cap PO BID RF: 0 finasteride 5 mg tablet 5 mg PO DAILY RF: 0 vitamin B complex Tablet 2 tab PO DAILY RF: 0 lisinopril 10 MG tablet 5 mg PO QDAY Qty: 0 RF: 0 famotidine [Pepcid] 40 mg tablet 40 mg PO DAILY Qty: 60 RF: 4 tamsulosin 0.4 mg capsule 0.4 mg PO DAILY Qty: 10 RF: 0 calcium carbonate-vitamin D3 [Calcium 500 With D] 500 mg(1,250mg) -400 unit Tablet 1 tab PO DAILY RF: 0 metoprolol succinate 25 mg Tablet Extended Release 24 Hr 25 mg PO DAILY RF: 0 ondansetron 8 mg Tablet,Disintegrating 8 mg PO Q8H PRN (Reason: Nausea) Qty: 30 RF: 2 olanzapine 5 mg Tablet 5 mg PO Q12H PRN (Reason: Nausea) Qty: 30 RF: 2 Colace 50 mg Capsule 50 mg PO DAILY RF: 0 ferrous gluconate 325 mg (36 mg iron) Tablet 650 mg PO DAILY RF: 0 capecitabine 500 mg Tablet 2,000 mg PO BID 14 Days Qty: 112 RF: 5 mouthwashes Kit See Rx Instructions .ROUTE .COMPLEX PRN (Reason: Mouth Irritation) Qty: 480 RF: 0 mouthwashes Kit See Rx Instructions .ROUTE .COMPLEX PRN (Reason: Mouth Irritation) Qty: 480 RF: 0 polyethylene glycol 3350 [Miralax] 17 gram/dose Powder 17 g PO DAILY RF: 0 d-mannose 500 mg Capsule 1,500 mg PO BID RF: 0 oxaliplatin 50 mg/10 mL (5 mg/mL) Solution See Rx Instructions .ROUTE .COMPLEX RF: 0 Referrals: Alfredo Lu MD [Primary Care Provider] -
--- NOTE | 2021-01-06 13:58 | ED_ITS ---
HPI - Extremity Problem General Chief complaint: Extremity Problem,Nontraumatic Stated complaint: Both feet have infection from chemo x4 weeks Time Seen by Provider: 01/06/21 12:00 Source: patient Mode of arrival: Wheelchair Limitations: no limitations History of Present Illness HPI Narrative: 75-year-old male comes with concern for infection in both toes. Patient has currently been on chemo for 4 weeks for colorectal cancer. He states that he has had redness and cracking of the bilateral palms as well as soles of his feet and that has had not changed or worsened. Patient notes that he also dropped a weight on his right foot about a week ago and has continued to have increased pain on that side. He has had pain in both great toes. He has not had increasing redness. He has noted that his toenail seem to be lifting up off the toes. He also notes there has been a little bit of drainage on the right toe. There is a little bit of dried blood on the outside. He notes he saw his primary care physician who is referring him to Podiatry. Today he was at some chemotherapy and saw the providers there who referred him to the emergency department. Patient has not had any fevers he has not had any new chest pain or shortness of breath. He has had fatigue and some nausea and occasional diarrhea hours she relates therapy patient has not had any new sensation changes. He does have sensation to touch. He does take medication for hypertension, dyslipidemia as well as for urination including Flomax. He was on Eliquis but this was changed to an alternate medication. Related Data Home Medications Medication Instructions Recorded Confirmed lisinopril 10 mg tablet 5 mg PO QDAY #0 08/15/17 12/21/20 acetaminophen 650 mg 1,300 mg PO Q8H PRN 10/31/18 12/21/20 tablet,extended release atorvastatin 20 mg tablet 20 mg PO DAILY 10/31/18 12/21/20 cyanocobalamin-methylcobalamin 600 1 tab SL Q OTHER DAY tab 10/31/18 12/21/20 mcg-600 mcg sublingual tablet iron,carbonyl 30 mg-folic acid 800 1 tab PO DAILY 10/31/18 12/21/20 [id number]-iryvwvgs-nlbk chewable tablet (Opurity Multivitamin) turmeric root extract 500 mg 1,500 mg PO BID 10/31/18 12/21/20 capsule vit C 250 mg-vit E 90 mg-zinc 40 2 cap PO BID cap 10/31/18 12/21/20 mg-copper 1 [id number]-mtabfg capsule (PreserVision AREDS-2) finasteride 5 mg tablet 5 mg PO DAILY 06/17/19 12/21/20 vitamin B complex 2 tab PO DAILY tab 06/17/19 12/21/20 calcium carbonate 500 mg (1,250 1 tab PO DAILY 08/03/20 12/21/20 mg)-vitamin D3 400 unit tablet (Calcium 500 With D) metoprolol succinate 25 mg 25 mg PO DAILY 09/23/20 12/21/20 tablet,extended release 24 hr d-mannose 500 mg capsule 1,500 mg PO BID 11/04/20 12/21/20 oxaliplatin 50 mg/10 mL (5 mg/mL) See Rx Instructions .ROUTE .COMPLEX 11/04/20 12/21/20 intravenous solution polyethylene glycol 3350 17 17 g PO DAILY 11/04/20 12/21/20 gram/dose oral powder (Miralax) docusate sodium 50 mg capsule 50 mg PO DAILY 11/17/20 12/21/20 ferrous gluconate 325 mg (36 mg 650 mg PO DAILY 11/17/20 12/21/20 iron) tablet Previous Rx's Medication Instructions Recorded tamsulosin 0.4 mg capsule 0.4 mg PO DAILY #10 cap 10/24/18 olanzapine 5 mg tablet 5 mg PO Q12H PRN #30 tab 09/23/20 ondansetron 8 mg disintegrating 8 mg PO Q8H PRN #30 tab 09/23/20 tablet famotidine 40 mg tablet (Pepcid) 40 mg PO DAILY #60 tab 11/11/20 capecitabine 500 mg tablet 2,000 mg PO BID 14 Days #112 tab 12/22/20 cephalexin 500 mg capsule 500 mg PO Q6H 7 Days #28 cap NS 01/06/21 mouthwashes See Rx Instructions .ROUTE 01/06/21 .COMPLEX PRN #480 ml mouthwashes See Rx Instructions .ROUTE 01/06/21 .COMPLEX PRN #480 ml Allergies Allergy/AdvReac Type Severity Reaction Status Date / Time No Known Drug Allergies Allergy Unknown Verified 12/14/20 15:45 [NO KNOWN DRUG ALLERGIES] Review of Systems Review of Systems ROS Unobtainable: All systems reviewed & are unremarkable except as noted in HPI and below Patient History Medical History Anal fistula Bladder atony (~2017) BPH (benign prostatic hyperplasia) Cellulitis Constipation Coronary artery disease CVA (cerebral vascular accident) Essential hypertension (08/15/17) Hemorrhoids Hyperlipidemia Iron deficiency anemia Kidney stones Laceration of finger of left hand Paroxysmal atrial fibrillation Personal history of colonic polyps Rectal cancer Self-catheterizes urinary bladder Sleep apnea Transient ischemic attack (~2016) Surgical History History of angioplasty (~2013) History of colonoscopy History of esophagogastroduodenoscopy (EGD) History of gastric bypass (2013) History of knee replacement History of knee replacement History of kyphoplasty History of loop recorder (06/2017) Family History Father Hypertension Cancer Social History marital status: household members: spouse occupational status: previously employed Smoking Status: Former smoker alcohol intake: current substance use type: does not use Smoking Status: Former smoker alcohol intake frequency: a few times a month Substance Use Type: does not use Exam Narrative Exam Narrative: GENERAL: Alert and oriented x three, male in mild distress. HEENT: Head normocephalic, atraumatic, EOMI, pupils reactive, face symmetric, moist mucous membranes NECK: Supple, full range of motion CARDIOVASCULAR: Regular rate and rhythm without murmurs, rubs or gallops. RESPIRATORY: Breath sounds equal bilaterally, no wheezes rales or rhonchi. ABDOMEN: Soft, nontender. Normoactive bowel sounds all 4 quadrants. No guarding or rebound, rigidity, no mass EXTREMITIES: Normal range of motion, no clubbing or edema. Neurovascularly intact. Patient has erythema, cracking with dried skin but no obvious open wounds on the palms and soles of all 4 limbs. Patient has bilateral great toenails have been lifted up. On the right there is a small amount of liquidy discharge underneath. Patient has some tenderness of both toes right greater than left. No obvious deformity. Patient has normal cap refill on the tops of both toes but seems decreased bilateral lower soles of the feet. Patient does have sensation to touch. NEUROLOGICAL: Cranial nerves II through XII grossly intact. Moving all extremities SKIN: Warm, dry, no petechiae, no rashes or lesions. Initial Vital Signs Initial Vital Signs: Vital Signs Pulse Rate 61 01/06/21 10:57 Blood Pressure 130/68 01/06/21 10:57 Pulse Oximetry 100 01/06/21 10:57 Course Orders Ordered: ED Orders 01/06/21 14:10 XR foot LT min 3V Stat XR foot RT min 3V Stat 01/06/21 14:59 Wound Culture and Gram Stain Stat 01/06/21 15:12 Urine Culture Stat Urine Microscopic Stat Vital Signs Vital signs: Vital Signs - 8 hr 01/06/21 12:00 01/06/21 12:30 01/06/21 13:00 Temperature Pulse Rate 83 79 82 Respiratory Rate Blood Pressure 108/64 117/67 117/71 Pulse Oximetry 100 100 100 01/06/21 13:30 01/06/21 14:00 01/06/21 14:30 Temperature Pulse Rate 76 76 79 Respiratory Rate Blood Pressure 115/64 116/71 Pulse Oximetry 100 100 100 01/06/21 14:40 01/06/21 14:56 01/06/21 15:00 Temperature 97.5 F L Pulse Rate 78 77 Respiratory Rate Blood Pressure 116/65 121/64 Pulse Oximetry 100 100 01/06/21 15:42 Temperature Pulse Rate 82 Respiratory Rate 16 Blood Pressure 138/78 Pulse Oximetry 100 MDM - Extremity (Nontraumatic) Lab Data Labs: Lab Results 01/06/21 Range/Units 15:12 Urine RBC 5-10/hpf H (0-5/HPF) Urine WBC 10-30/hpf H (0-5/HPF) Amorphous Sediment 2+ Urine Bacteria Many (>30) H (None) Ur Culture Indicated? Specimen cultured Urine Dip Bedside Urine Glucose Negative Bedside Urine Bilirubin + 1 Bedside Urine Ketone +/- 5 Urine Specific [place] 1.025 Bedside Urine Occult Blood ++ Bedside Urine pH 6.0 Bedside Urine Protein +++ 300 Bedside Urine Urobilinogen - Negative Bedside Urine Nitrite - Negative Bedside Urine Leukocytes ++ 125 Esterase Imaging Data Extremity x-ray #1: Radiologist's Impression: [address] [id number] ReportSigned Patient: Ian Rubin Jr [facility]#: [id number]: [id number]:[id number]/Sex: 75 / MDate of Service: 01/06/21Loc: EDAccession Number: [id number] Procedure: XR foot LT min 3V Ordering Provider: She Bowen D.O. PROCEDURE: XR FOOT LT MIN 3V INDICATIONS: great toe pain TECHNIQUE: 3 views of the foot were acquired. COMPARISON: None. FINDINGS: Bones: No fractures or dislocations. No suspicious bony lesions. Plantar calcaneal bone spur. Mild midfoot osteoarthritis. Incidental note made of accessory ossicle adjacent to the navicular bone. Soft tissues: No tibiotalar joint effusion. Achilles tendon appears normal. IMPRESSION: No fracture. No acute osseous lesion. If symptoms and/or clinical suspicion for pathology persists, further assessment with repeat radiographs (7-10 days) or advanced imaging (e.g. CT, MRI or bone scan) should be considered. Dictated by: More Joy MD, PhD on 01/06/2021 at 14:37 Approved by: More Joy MD, PhD on 01/06/2021 at 14:38 Extremity x-ray #2: Radiologist's Impression: Ian Rubin Jr ([facility]) 75 M [address] [id number] ReportSigned Patient: Ian Rubin Jr [facility]#: [id number]: [id number]:[id number]/Sex: 75 / MDate of Service: 01/06/21Loc: EDAccession Number: [id number] Procedure: XR foot RT min 3V Ordering Provider: She Bowen D.O. PROCEDURE: XR FOOT RT MIN 3V INDICATIONS: great toe pain, injury right, discharge TECHNIQUE: 3 views of the foot were acquired. COMPARISON: None. FINDINGS: Bones: No fractures or dislocations. No suspicious bony lesions. Plantar calcaneal bone spur. Mild midfoot osteoarthritis. Soft tissues: No tibiotalar joint effusion. Achilles tendon appears normal. No soft tissue gas. IMPRESSION: No fracture. No acute osseous lesion. If symptoms and/or clinical suspicion for pathology persists, further assessment with repeat radiographs (7-10 days) or advanced imaging (e.g. CT, MRI or bone scan) should be considered. Dictated by: More Joy MD, PhD on 01/06/2021 at 14:38 Approved by: More Joy MD, PhD on 01/06/2021 at 14:39 [facility] Narrative Medical decision making narrative: This is a 75-year-old male sent from Oncology for possible infection in both his great toes. Patient has chronically erythematous and cracked palms and soles secondary to his chemotherapy which have not changed. Did drop heavy piece of metal his right foot and appears to have had some bleeding from the edge of the toe. Both nails are beginning to lift on bilateral great toes. X-rays are negative for infection, fracture. Patient appeared to have a little bit of discharge and a culture was obtained. Patient was started on oral antibiotic with plan to your gait the toe but there is no obvious wound otherwise. And patient is in process of getting referral to Podiatry through his primary care Discharge Plan Departure Patient Disposition: Home Clinical Impression: Infection of toe Activity Restrictions/Additional Instructions: Follow-up with your physician for recheck this week. I do think you would benefit from a podiatry consult. One is included today. Take antibiotics until completely gone. There is no obvious sign of infection on your xray today. I do believe you have a localized infection but my suspicion for osteomyelitis is low. Culture of from your right toe has been sent. [facility] [place]. Wound Care: Keep wound(s) clean and dry. Wash daily with soap and water only. Please return for fevers, rapidly worsening redness, warmth or drainage from the foot, new pain or worsening pain, fevers, new chest pain shortness of breath, lightheadedness or passing out, nausea or vomiting or other new or concerning symptoms. Prescriptions: New cephalexin 500 mg capsule 500 mg PO Q6H 7 Days Qty: 28 RF: 0 No Action acetaminophen 650 mg tablet extended release 1,300 mg PO Q8H PRN (Reason: Pain (Scale Score 4-6)) RF: 0 atorvastatin 20 mg tablet 20 mg PO DAILY RF: 0 turmeric root extract 500 mg capsule 1,500 mg PO BID RF: 0 Opurity Multivitamin 30 mg iron- 800 mcg tablet,chewable 1 tab PO DAILY RF: 0 cyanocobalamin-methylcobalamin 600-600 mcg tablet, sublingual 1 tab SL Q OTHER DAY RF: 0 PreserVision AREDS-2 [id number] sm-rydb-cx-mg capsule 2 cap PO BID RF: 0 finasteride 5 mg tablet 5 mg PO DAILY RF: 0 vitamin B complex Tablet 2 tab PO DAILY RF: 0 lisinopril 10 MG tablet 5 mg PO QDAY Qty: 0 RF: 0 famotidine [Pepcid] 40 mg tablet 40 mg PO DAILY Qty: 60 RF: 4 tamsulosin 0.4 mg capsule 0.4 mg PO DAILY Qty: 10 RF: 0 calcium carbonate-vitamin D3 [Calcium 500 With D] 500 mg(1,250mg) -400 unit Tablet 1 tab PO DAILY RF: 0 metoprolol succinate 25 mg Tablet Extended Release 24 Hr 25 mg PO DAILY RF: 0 ondansetron 8 mg Tablet,Disintegrating 8 mg PO Q8H PRN (Reason: Nausea) Qty: 30 RF: 2 olanzapine 5 mg Tablet 5 mg PO Q12H PRN (Reason: Nausea) Qty: 30 RF: 2 Colace 50 mg Capsule 50 mg PO DAILY RF: 0 ferrous gluconate 325 mg (36 mg iron) Tablet 650 mg PO DAILY RF: 0 capecitabine 500 mg Tablet 2,000 mg PO BID 14 Days Qty: 112 RF: 5 mouthwashes Kit See Rx Instructions .ROUTE .COMPLEX PRN (Reason: Mouth Irritation) Qty: 480 RF: 0 mouthwashes Kit See Rx Instructions .ROUTE .COMPLEX PRN (Reason: Mouth Irritation) Qty: 480 RF: 0 polyethylene glycol 3350 [Miralax] 17 gram/dose Powder 17 g PO DAILY RF: 0 d-mannose 500 mg Capsule 1,500 mg PO BID RF: 0 oxaliplatin 50 mg/10 mL (5 mg/mL) Solution See Rx Instructions .ROUTE .COMPLEX RF: 0 Referrals: Alfredo Lu MD [Primary Care Provider] - Neva Goddard DPM [Physician] -
--- NOTE | 2021-01-06 14:10 | DI.RAD.S_ITS ---
PROCEDURE: XR FOOT LT MIN 3V INDICATIONS: great toe pain TECHNIQUE: 3 views of the foot were acquired. COMPARISON: None. FINDINGS: Bones: No fractures or dislocations. No suspicious bony lesions. Plantar calcaneal bone spur. Mild midfoot osteoarthritis. Incidental note made of accessory ossicle adjacent to the navicular bone. Soft tissues: No tibiotalar joint effusion. Achilles tendon appears normal. IMPRESSION: No fracture. No acute osseous lesion. If symptoms and/or clinical suspicion for pathology persists, further assessment with repeat radiographs (7-10 days) or advanced imaging (e.g. CT, MRI or bone scan) should be considered. Dictated by: More Joy MD, PhD on 01/06/2021 at 14:37 Approved by: More Joy MD, PhD on 01/06/2021 at 14:38
--- NOTE | 2021-01-06 14:10 | DI.RAD.S_ITS ---
PROCEDURE: XR FOOT RT MIN 3V INDICATIONS: great toe pain, injury right, discharge TECHNIQUE: 3 views of the foot were acquired. COMPARISON: None. FINDINGS: Bones: No fractures or dislocations. No suspicious bony lesions. Plantar calcaneal bone spur. Mild midfoot osteoarthritis. Soft tissues: No tibiotalar joint effusion. Achilles tendon appears normal. No soft tissue gas. IMPRESSION: No fracture. No acute osseous lesion. If symptoms and/or clinical suspicion for pathology persists, further assessment with repeat radiographs (7-10 days) or advanced imaging (e.g. CT, MRI or bone scan) should be considered. Dictated by: More Joy MD, PhD on 01/06/2021 at 14:38 Approved by: More Joy MD, PhD on 01/06/2021 at 14:39
[2021-01-06 15:42] LABS: Amorphous Sediment Urine 2+; Bacteria Urine Many (>30); Culture Indicated Urine Specimen Cultured; RBC Urine 5-10/HPF (0-5/HPF); WBC Urine 10-30/HPF (0-5/HPF)
== END 2021-01-06 15:42 | disposition home or self-care (01) ==
PROVIDERS: Emergency Provider Emergency Medicine; PCP Family Medicine
DX: L08.9 Local infection of the skin and subcutaneous tissue, unspecified (principal); C19 Malignant neoplasm of rectosigmoid junction
CPT/HCPCS: 36591; 73630; 80053; 81003; 81015; 82378; 85007; 85025; 87070; 87075; 87077; 87086; 87186; 87205; 99215; 99283; J1642

== ENCOUNTER → 2021-01-29 13:05 | Outpatient (CLI) | payer MEDICARE, OTHER, SELFPAY ==
[2020-11-05 18:19] VITALS: BMI 32.1
--- NOTE | 2021-01-29 13:06 | DI.MRI.S_ITS ---
PROCEDURE: MR ABDOME PELVIS WWO CON INDICATIONS: restaging rectal cancer after chemo TECHNIQUE: Coronal HASTE, axial 2D FLASH in- and [id number]; axial breath-hold T2 FSE; dynamic axial VIBE during IV gadolinium administration; postgadolinium coronal VIBE or 2D FLASH with fat saturation from the hepatic dome to the iliac crests. COMPARISON: [facility], CT, CT KIDNEY URETER BLADDER (KUB), 08/01/2019, 10:06. [facility], NM, NM PET CT FUSION SKULL 2 THIGH, 09/30/2020, 8:40. Outside Film, MR, MR PELVIS WITH/WITHOUT CONTRAST, 09/03/2020, 13:26. [facility], CT, CT CHEST ABD PEL W CON, 11/03/2020, 13:52. FINDINGS: Image quality: Good. Lung bases: Small bilateral pleural effusions. Solid organs: Liver: No focal lesion. Gallbladder: Not significantly distended. Fluid fluid level likely due to gallbladder sludge. No definite kidney stones. Bile ducts: No dilatation. Pancreas: No mass. No pancreatic ductal dilatation. Spleen: No splenomegaly. Adrenal glands: No nodule. Kidneys: No hydronephrosis. Small bilateral a simple T2 hyperintense cysts. Largest at the inferior pole of the right kidney measuring 4.1 cm. Nodes and vessels: Enlarged left groin node measuring 2.3 cm (previously 1.8 cm). The previously seen enlarged mesorectal , pelvic sidewall, and superior or rectal lymph nodes are no longer identified. Bowel and peritoneum: There is decreased thickening at the lower rectum and anorectal junction compared to rectal MRI 08/31/2020. The previously seen restricted diffusion is no longer apparent. The upper rectum is patulous in there may be stenosis. Pelvis: Bladder wall is thickened. Large right bladder diverticulum with fluid fluid level. Small left bladder diverticulum. Prostatomegaly. Bones and soft tissues: L1 compression fracture. Prior vertebroplasty. IMPRESSION: 1. Low rectal/anorectal junction mass is decreased in size. 2. Mesorectal, pelvic sidewall, superior rectal nodes are no longer apparent. These findings are suggestive of response to treatment. 3. However, there is a enlarging left groin lymph node measuring 2.3 cm which is consistent with persistent disease. 4. The upper rectum is mildly dilated. The lower active M is narrowed. There may be a underlying stenosis. 5. Thickened bladder wall with bladder diverticuli. 6. No focal liver lesion. Gallbladder sludge. Dictated by: Олег Rooney M.D. on 01/29/2021 at 15:22 Approved by: Олег Rooney M.D. on 01/29/2021 at 15:48
== END ==
PROVIDERS: PCP Family Medicine; Referring Provider Internal Medicine Medical Oncology; Visit Provider Internal Medicine Medical Oncology
DX: C20 Malignant neoplasm of rectum (principal); R59.0 Localized enlarged lymph nodes
CPT/HCPCS: 72197

== ENCOUNTER 2021-02-08 14:09 | Emergency (ER) | payer MEDICARE, OTHER, SELFPAY ==
[2020-11-05 18:19] VITALS: BMI 32.1
[2021-02-08 14:16] VITALS: BP 121/71; PULSE 64; RESP 18; TEMP 36.4; O2SAT 98
--- NOTE | 2021-02-08 14:21 | DI.RAD.S_ITS ---
PROCEDURE: XR CHEST 1V INDICATIONS: chest pain TECHNIQUE: One view of the chest was acquired. COMPARISON: [facility], CT, CT CHEST ABD PEL W CON, 11/03/2020, 13:52. [facility], CR, XR CHEST 1V, 11/04/2020, 9:30. [facility], CR, XR CHEST 1V, 11/05/2020, 12:29. FINDINGS: Surgical changes and devices: A stable left-sided chest port is seen. Lungs and pleura: An incomplete inspiratory result is noted, causing a crowded appearance to the lung markings. No focal infiltrates are seen. No pneumothorax or significant pleural effusions are seen. Mediastinum: The cardiac contours are within normal limits. The aorta demonstrates calcification and tortuosity. Bones and chest wall: No suspicious bony lesions. Age-appropriate bony degenerative changes are seen. Overlying soft tissues appear unremarkable. IMPRESSION: Limited portable chest examination, without a significant cardiopulmonary abnormality identified. Dictated by: Mumtaz Hobson M.D. on 02/08/2021 at 13:45 Approved by: Mumtaz Hobson M.D. on 02/08/2021 at 13:46
[2021-02-08 14:55] LABS: Add Manual Diff / Slide Review NO; Basophils Absolute Auto 200 /uL (0-100); Eosinophils Absolute Auto 200 /uL (0-450); Eosinophils Percent Auto 5.1 % (2-4); Hematocrit 29.6 % (41-53); Hemoglobin 9.7 g/dL (13.5-17.5); Lymphocytes Absolute Auto 1900 /uL (1100-4500); Lymphocytes Percent Auto 40.3 % (25-40); Mean Corpuscular HGB Conc 32.7 % (30-36); Mean Corpuscular Hemoglobin 33.2 PG (26-34); Mean Corpuscular Volume 101.5 fL (80-100); Monocytes Absolute Auto 400 /uL (0-900); Monocytes Percent Auto 7.9 % (3-14); Neutrophils Absolute Auto 2000 /uL (1500-7000); Neutrophils Percent Auto 41.7 % (50-75); Platelet Count 257 X10^3/uL (150-400); Red Blood Cell Count 2.92 X10^6/uL (4.5-5.9); Red Cell Distribution Width 22.7 % (11.6-14.8); White Blood Cell Count 4.7 X10^3/uL (4.5-11.0)
[2021-02-08 15:00] LABS: Alanine Aminotransferase 13 IU/L (<50); Albumin 2.3 g/dL (3.5-5.0); Albumin Globulin Ratio 0.9 (1.0-2.8); Alkaline Phosphatase 108 U/L (38-126); Aspartate Aminotransferase 29 IU/L (17-59); BUN Creatinine Ratio 28.4 (6-22); Bilirubin Total 0.4 mg/dL (0.2-1.3); Blood Urea Nitrogen 19 mg/dL (9-20); Calcium 7.9 mg/dL (8.4-10.2); Carbon Dioxide 23 mmol/L (22-32); Chloride 110 mmol/L (98-107); Creatine Kinase 62 U/L (55-170); Estimated Glomerular Filt Rate > 60.0 mL/min (>60); Globulin 2.6 g/dL (1.7-4.1); Glucose 90 mg/dL (80-110); HEMOLYSIS < 15 (0-50); Lipase 133 U/L (23-300); Potassium 3.7 mmol/L (3.4-5.1); Sodium 139 mmol/L (137-145); Total Protein 4.9 g/dL (6.3-8.2)
--- NOTE | 2021-02-08 15:07 | ED_ITS ---
HPI - Extremity Problem <Jordyn Lima PA-C - Last Filed: 02/15/21 08:56> General Chief complaint: Extremity Problem,Nontraumatic Stated complaint: Edema X over a week Time Seen by Provider: 02/08/21 14:47 Source: patient Mode of arrival: Ambulatory History of Present Illness HPI Narrative: 75-year-old male with past medical history coronary artery disease, bladder atony, BPH, AFib, hyperlipidemia, hypertension, anal cancer presents to the ED with bilateral leg swelling for 1 week. Patient denies fever, chills, leg pain, shortness of breath, chest pain, cough, hemoptysis, abdominal pain, nausea, vomiting, dysuria, lightheadedness, dizziness, syncope. Patient endorses history of atrial fibrillation, was on Eliquis, but Eliquis is cuurently stopped for chemo. denies history of DVT/PE. denies history of c ongestive heart failure. Related Data Home Medications Medication Instructions Recorded Confirmed acetaminophen 650 mg 1,300 mg PO Q8H PRN 10/31/18 02/16/21 tablet,extended release atorvastatin 20 mg tablet 20 mg PO DAILY 10/31/18 02/16/21 turmeric root extract 500 mg 1,500 mg PO BID 10/31/18 02/16/21 capsule vit C 250 mg-vit E 90 mg-zinc 40 2 cap PO BID cap 10/31/18 02/16/21 mg-copper 1 [id number] capsule (PreserVision AREDS-2) finasteride 5 mg tablet 5 mg PO DAILY 06/17/19 02/16/21 vitamin B complex 2 tab PO DAILY tab 06/17/19 02/16/21 metoprolol succinate 25 mg 12.5 mg PO DAILY 09/23/20 02/16/21 tablet,extended release 24 hr d-mannose 500 mg capsule 1,500 mg PO BID 11/04/20 02/16/21 oxaliplatin 50 mg/10 mL (5 mg/mL) See Rx Instructions .ROUTE .COMPLEX 11/04/20 12/21/20 intravenous solution furosemide 40 mg tablet (Lasix) 40 mg PO DAILY 02/16/21 02/16/21 Previous Rx's Medication Instructions Recorded tamsulosin 0.4 mg capsule 0.4 mg PO DAILY #10 cap 10/24/18 olanzapine 5 mg tablet 5 mg PO Q12H PRN #30 tab 09/23/20 ondansetron 8 mg disintegrating 8 mg PO Q8H PRN #30 tab 09/23/20 tablet famotidine 40 mg tablet (Pepcid) 40 mg PO DAILY #60 tab 11/11/20 capecitabine 500 mg tablet 2,000 mg PO BID 14 Days #112 tab 12/22/20 mouthwashes See Rx Instructions .ROUTE 01/06/21 .COMPLEX PRN #480 ml mouthwashes See Rx Instructions .ROUTE 01/06/21 .COMPLEX PRN #480 ml apixaban 5 mg (74 tabs) tablets in See Rx Instructions .ROUTE 02/08/21 a dose pack (EliquJustin.TV DVT-PE Treat .COMPLEX #74 ea 30D Start) cefpodoxime 200 mg tablet 200 mg PO BID 14 Days #28 tab 02/08/21 Allergies Allergy/AdvReac Type Severity Reaction Status Date / Time No Known Drug Allergies Allergy Unknown Verified 12/14/20 15:45 [NO KNOWN DRUG ALLERGIES] Review of Systems <Jordyn Lima PA-C - Last Filed: 02/15/21 08:56> Constitutional Constitutional: Denies chills, Denies fatigue, Denies fever(s), Denies frequent falls, Denies lethargy and Denies weakness Eyes Eyes: Denies change in vision, Denies eye discharge, Denies irritation and Oscar es loss of vision ENT Ears, Nose, Mouth, and Throat: Denies change in voice, Denies dizziness, Denies neck pain, Denies sore throat and Denies throat swelling Cardiovascular Cardiovascular: Denies chest pain, Denies irregular heart rhythm, Reports leg edema, Denies lightheadedness, Denies palpitations, Denies dyspnea, Denies dyspnea on exertion and Denies orthopnea Comments: Bilateral leg swelling without erythema, pain. Respiratory Respiratory: Denies cough, Denies dyspnea, Denies dyspnea on exertion and Denies wheezing Gastrointestinal Gastrointestinal: Denies abdominal pain, Denies change in bowel habits, Denies diarrhea, Denies nausea and Denies vomiting Musculoskeletal Musculoskeletal: Denies neck pain and Denies numbness Integumentary/Breasts Skin/Breast: Denies pruritus, Denies erythema, Denies rash and Denies wounds Neurologic Neurologic: Denies behavioral changes, Denies confusion, Denies dizziness, Denies frequent falls, Denies loss of vision, Denies numbness and Denies weakness Psychiatric Psychiatric: Denies anxiety, Denies behavioral changes, Denies confusion, Denies depression, Denies homicidal ideation and Denies suicidal ideation Endocrine Endocrine: Denies fatigue, Denies flushing and Denies palpitations Hematologic/Lymphatic Hematologic/Lymphatic: Denies easy bruising Allergic/Immunologic Allergic/Immunologic: Denies urticaria, Denies throat swelling and Denies wheezing Patient History <Jordyn Lima PA-C - Last Filed: 02/15/21 08:56> Medical History Anal fistula Bladder atony (~2017) BPH (benign prostatic hyperplasia) Cellulitis Constipation Coronary artery disease CVA (cerebral vascular accident) Essential hypertension (08/15/17) Hemorrhoids Hyperlipidemia Iron deficiency anemia Kidney stones Laceration of finger of left hand Paroxysmal atrial fibrillation Personal history of colonic polyps Rectal cancer Self-catheterizes urinary bladder Sleep apnea Transient ischemic attack (~2016) Surgical History History of angioplasty (~2013) History of colonoscopy History of esophagogastroduodenoscopy (EGD) History of gastric bypass (2013) History of knee replacement History of knee replacement History of kyphoplasty History of loop recorder (06/2017) Family History Father Hypertension Cancer Social History marital status: household members: spouse occupational status: previously employed Smoking Status: Former smoker alcohol intake: current substance use type: does not use Smoking Status: Former smoker alcohol intake frequency: a few times a month Substance Use Type: does not use Exam <Jordyn Lima PA-C - Last Filed: 02/15/21 08:56> Initial Vital Signs Initial Vital Signs: Vital Signs Temperature 97.5 F L 02/08/21 14:16 Pulse Rate 64 02/08/21 14:16 Respiratory Rate 18 02/08/21 14:16 Blood Pressure 121/71 02/08/21 14:16 Pulse Oximetry 98 02/08/21 14:16 Const General: cooperative HENMT Head: normocephalic and atraumatic Ears: external ears normal and TM's normal bilaterally Nose: external nose normal and No nasal discharge Face and sinus: sinuses nontender, face symmetric, no sinus tenderness and No dry mucous membranes Mouth: oral mucosae normal and moist mucous membranes Teeth and gingiva: dentition normal Throat: tonsils normal and uvula midline Eyes General: appearance normal, both eyes and all related structures Eyelids: eyelids normal Conjunctivae: conjunctivae normal Sclera: sclerae normal Pupils: PERRL EOM: EOM intact bilaterally Neck Neck: normal visual inspection, trachea midline, No lymphadenopathy, No midline deformity and No JVD Lymphatic: No lymphedema Chest Chest: normal inspection of the chest Resp Effort & Inspection: normal respiratory effort, able to speak in complete sentences, no respiratory distress and no use of accessory muscles Auscultation: clear to auscultation bilaterally, no rales, no rhonchi and no wheezes Cardio Rate: regular rate Rhythm: regular rhythm Heart Sounds: no click, no gallops, no murmurs and no rubs Pulses: normal peripheral pulses GI Inspection: non-distended Palpation: soft, no hepatosplenomegaly, No guarding, No pulsatile mass and No tender Auscultation: normal bowel sounds Back/Spine/Pelvis Back: No CVA tenderness Cervical Spine: cervical ROM normal and No pain with cervical ROM Thoracic/Lumbar Spine: thoracic and lumbar spine normal to inspection Skin General: no rashes or lesions noted, No jaundice and No petechiae Neuro General: patient alert, patient oriented x3, gait normal and no focal motor deficits Speech: speech normal Extrem General: full ROM, no clubbing, cyanosis or edema and no calf tenderness Psych Appearance: well kempt Mental Status: mental status grossly normal Attitude: cooperative Thought Content: normal and suicidality Judgment: judgment good Other: bilateral pitting edema, no erythema, not tender to palpation. <Abril Crespo DO - Last Filed: 02/19/21 21:47> Initial Vital Signs Initial Vital Signs: Vital Signs Temperature 97.5 F L 02/08/21 14:16 Pulse Rate 64 02/08/21 14:16 Respiratory Rate 18 02/08/21 14:16 Blood Pressure 121/71 02/08/21 14:16 Pulse Oximetry 98 02/08/21 14:16 Course <Jordyn Lima PA-C - Last Filed: 02/15/21 08:56> Course Course Narrative: NT proBNP 1780. troponin negative. No acute changes on EKG . Lasix 40 mg IV given. Patient is urine was noted to be significantly cloudy, UA shows UTI. Bilateral DVTs on ultrasound. Will restart anticoagulation with Eliquis. Will send home prescription for Eliquis and cefpodoxime for the UTI. Discharge home with oncologist and cardiology follow-up. ED return precautions discussed. Orders Ordered: Discontinued Medications Apixaban (Apixaban 5 Mg Tablet) 10 mg PO NOW ONE Stop: 02/08/21 18:13 Last Admin: 02/08/21 18:23 Dose: 10 mg Documented by: JACKIE Furosemide (Furosemide 40 Mg/4 Ml Vial) 40 mg IV NOW ONE Stop: 02/08/21 16:09 Last Admin: 02/08/21 16:59 Dose: 40 mg Documented by: FRANCO Vital Signs Vital signs: Vital Signs - 8 hr 02/08/21 14:16 Temperature 97.5 F L Pulse Rate 64 Respiratory Rate 18 Blood Pressure 121/71 Pulse Oximetry 98 <Abril Crespo DO - Last Filed: 02/19/21 21:47> Orders Ordered: Discontinued Medications Apixaban (Apixaban 5 Mg Tablet) 10 mg PO NOW ONE Stop: 02/08/21 18:13 Last Admin: 02/08/21 18:23 Dose: 10 mg Documented by: JACKIE Furosemide (Furosemide 40 Mg/4 Ml Vial) 40 mg IV NOW ONE Stop: 02/08/21 16:09 Last Admin: 02/08/21 16:59 Dose: 40 mg Documented by: FRANCO Vital Signs Vital signs: Vital Signs - 8 hr 02/08/21 14:16 Temperature 97.5 F L Pulse Rate 64 Respiratory Rate 18 Blood Pressure 121/71 Pulse Oximetry 98 MDM - Extremity (Nontraumatic) <Jordyn Lima PA-C - Last Filed: 02/15/21 08:56> Medical Records Attestation: I reviewed the patient's medical records. Lab Data Lab results narrative: NT proBNP elevated to 1780. Trop negative Result diagrams: 02/08/21 14:30 02/08/21 14:30 Labs: Lab Results 02/08/21 02/08/21 02/08/21 Range/Units 14:30 14:30 14:30 WBC 4.7 (4.5-11.0) X10^3/uL RBC 2.92 L (4.5-5.9) X10^6/uL Hgb 9.7 L (13.5-17.5) g/dL Hct 29.6 L (41-53) % MCV 101.5 H (80-100) fL MCH 33.2 (26-34) PG MCHC 32.7 (30-36) % RDW 22.7 H (11.6-14.8) % Plt Count 257 (150-400) X10^3/uL Neut % (Auto) 41.7 L (50-75) % Lymph % (Auto) 40.3 H (25-40) % [place] % (Auto) 7.9 (3-14) % Eos % (Auto) 5.1 H (2-4) % Baso % (Auto) 5.0 H (0-2) % Neut # (Auto) 2000 (4091-8085) /uL Lymph # (Auto) 1900 (2400-0408) /uL [place] # (Auto) 400 (0-900) /uL Eos # (Auto) 200 (0-450) /uL Baso # (Auto) 200 H (0-100) /uL RBC Morphology See below Poikilocytosis 1+ H Anisocytosis 2+ H Sodium 139 (137-145) mmol/L Potassium 3.7 (3.4-5.1) mmol/L Chloride 110 H (98-107) mmol/L Carbon Dioxide 23 (22-32) mmol/L BUN 19 (9-20) mg/dL Creatinine 0.67 (0.66-1.25) mg/dL Estimated GFR > 60.0 (>60) mL/min BUN/Creatinine Ratio 28.4 H (6-22) Glucose 90 (80-110) mg/dL Calcium 7.9 L (8.4-10.2) mg/dL Total Bilirubin 0.4 (0.2-1.3) mg/dL AST 29 (17-59) IU/L ALT 13 (<50) IU/L Alkaline Phosphatase 108 (38-126) U/L Total Creatine Kinase 62 (55-170) U/L CK-MB (CK-2) TNP CK-MB (CK-2) Rel Index TNP Troponin I < 0.012 (0.01-0.034) ng/mL NT-Pro-B Natriuret Pep 1780 H (<125) pg/mL Total Protein 4.9 L (6.3-8.2) g/dL Albumin 2.3 L (3.5-5.0) g/dL Globulin 2.6 (1.7-4.1) g/dL Albumin/Globulin Ratio 0.9 L (1.0-2.8) Lipase 133 (23-300) U/L Urine RBC (0-5/HPF) Urine WBC (0-5/HPF) Urine Bacteria (None) Ur Culture Indicated? 02/08/21 Range/Units 18:36 WBC (4.5-11.0) X10^3/uL RBC (4.5-5.9) X10^6/uL Hgb (13.5-17.5) g/dL Hct (41-53) % MCV (80-100) fL MCH (26-34) PG MCHC (30-36) % RDW (11.6-14.8) % Plt Count (150-400) X10^3/uL Neut % (Auto) (50-75) % Lymph % (Auto) (25-40) % [place] % (Auto) (3-14) % Eos % (Auto) (2-4) % Baso % (Auto) (0-2) % Neut # (Auto) (4369-0391) /uL Lymph # (Auto) (8321-6960) /uL [place] # (Auto) (0-900) /uL Eos # (Auto) (0-450) /uL Baso # (Auto) (0-100) /uL RBC Morphology Poikilocytosis Anisocytosis Sodium (137-145) mmol/L Potassium (3.4-5.1) mmol/L Chloride (98-107) mmol/L Carbon Dioxide (22-32) mmol/L BUN (9-20) mg/dL Creatinine (0.66-1.25) mg/dL Estimated GFR (>60) mL/min BUN/Creatinine Ratio (6-22) Glucose (80-110) mg/dL Calcium (8.4-10.2) mg/dL Total Bilirubin (0.2-1.3) mg/dL AST (17-59) IU/L ALT (<50) IU/L Alkaline Phosphatase (38-126) U/L Total Creatine Kinase (55-170) U/L CK-MB (CK-2) CK-MB (CK-2) Rel Index Troponin I (0.01-0.034) ng/mL NT-Pro-B Natriuret Pep (<125) pg/mL Total Protein (6.3-8.2) g/dL Albumin (3.5-5.0) g/dL Globulin (1.7-4.1) g/dL Albumin/Globulin Ratio (1.0-2.8) Lipase (23-300) U/L Urine RBC 10-30/hpf H (0-5/HPF) Urine WBC >100/hpf H (0-5/HPF) Urine Bacteria None seen (None) Ur Culture Indicated? Culture not indicate Urine Dip Bedside Urine Glucose Negative Bedside Urine Bilirubin - Negative Bedside Urine Ketone - Negative Urine Specific [place] 1.020 Bedside Urine Occult Blood +++ Bedside Urine pH 6.0 Bedside Urine Protein ++ 100 Bedside Urine Urobilinogen - Negative Bedside Urine Nitrite - Negative Bedside Urine Leukocytes +++ 500 Esterase Imaging Data Chest x-ray: Radiologist's Impression: PROCEDURE:? XR CHEST 1V ? INDICATIONS:? chest pain ? TECHNIQUE:? One view of the chest was acquired.? ? COMPARISON:? [facility], CT, CT CHEST ABD PEL W CON, 11/03/2020, 13:52.? [facility], CR, XR CHEST 1V, 11/04/2020, 9:30.? [facility], CR, XR CHEST 1V, 11/05/2020, 12:29. ? FINDINGS:? ? Surgical changes and devices:? A stable left-sided chest port is seen. ? Lungs and pleura:? An incomplete inspiratory result is noted, causing a crowded appearance to the lung markings.? No focal infiltrates are seen.? No pneumothorax or significant pleural effusions are seen. ? ? Mediastinum:? The cardiac contours are within normal limits. The aorta demonstrates calcification and tortuosity. ? Bones and chest wall:? No suspicious bony lesions.? Age-appropriate bony degenerative changes are seen. ? Overlying soft tissues appear unremarkable.? ? ? IMPRESSION:? ? Limited portable chest examination, without a significant cardiopulmonary abnormality identified.? ? ? Dictated by: Mumtaz Hobson M.D. on 02/08/2021 at 13:45 ? ? Approved by: Mumtaz Hobson M.D. on 02/08/2021 at 13:46 ? US - DVT: Radiologist's Impression: PROCEDURE:? US PERIPH VENOUS LOW EXTREM BI ? INDICATIONS:? SWELLING. RECTAL CANCER. ? TECHNIQUE:? Real-time imaging, as well as color and pulse Doppler interrogation, were performed of the deep veins of both legs from the inguinal ligament to the popliteal fossa.? ? COMPARISON:? None. ? FINDINGS:? ? Right:? On the right, there is occlusive deep venous thrombosis seen involving the mid to distal femoral vein, with occlusive thrombus also seen within the right popliteal vein. ? Left:? On the left, there is nonocclusive thrombus seen within the popliteal vein, with the remainder of the left deep venous system free of thrombus. ? Soft tissue edema can be seen involving both lower extremities. ? Within the right groin, there is a likely enlarged lymph node seen. ? On the left, prominent enlarged lymph nodes are seen, with the largest solitary lymph nodes measuring 2.9 x 2.7 x 2 cm and 3.8 x 2.3 x 0.8 cm respectively. ? ? IMPRESSION:? Bilateral deep venous thrombosis can be seen, including moderate to prominent areas of occlusive thrombus seen on the right. ? ? Dictated by: Mumtaz Hobson M.D. on 02/08/2021 at 17:04 ? ? Approved by: Mumtaz Hobson M.D. on 02/08/2021 at 17:05 ? ECG Data Interpretation: Normal sinus rhythm with premature supraventricular complexes, no ST-T changes, no axis deviation. MDM Narrative Medical decision making narrative: 75-year-old male with past medical history coronary artery disease, bladder atony, BPH, AFib, hyperlipidemia, hypertension, anal cancer presents to the ED with bilateral leg swelling for 1 week. concern for acute CHF, DVT, ACS. Will order EKG, chest x-ray, troponin, labs, NT proBNP, bilateral lower extremity ultrasound. consider Lasix 40 mg IV. Will reassess. <Abril Crespo, - Last Filed: 02/19/21 21:47> Lab Data Labs: Lab Results 02/08/21 02/08/21 02/08/21 Range/Units 14:30 14:30 14:30 WBC 4.7 (4.5-11.0) X10^3/uL RBC 2.92 L (4.5-5.9) X10^6/uL Hgb 9.7 L (13.5-17.5) g/dL Hct 29.6 L (41-53) % MCV 101.5 H (80-100) fL MCH 33.2 (26-34) PG MCHC 32.7 (30-36) % RDW 22.7 H (11.6-14.8) % Plt Count 257 (150-400) X10^3/uL Neut % (Auto) 41.7 L (50-75) % Lymph % (Auto) 40.3 H (25-40) % [place] % (Auto) 7.9 (3-14) % Eos % (Auto) 5.1 H (2-4) % Baso % (Auto) 5.0 H (0-2) % Neut # (Auto) 2000 (4506-2871) /uL Lymph # (Auto) 1900 (4965-1066) /uL [place] # (Auto) 400 (0-900) /uL Eos # (Auto) 200 (0-450) /uL Baso # (Auto) 200 H (0-100) /uL RBC Morphology See below Poikilocytosis 1+ H Anisocytosis 2+ H Sodium 139 (137-145) mmol/L Potassium 3.7 (3.4-5.1) mmol/L Chloride 110 H (98-107) mmol/L Carbon Dioxide 23 (22-32) mmol/L BUN 19 (9-20) mg/dL Creatinine 0.67 (0.66-1.25) mg/dL Estimated GFR > 60.0 (>60) mL/min BUN/Creatinine Ratio 28.4 H (6-22) Glucose 90 (80-110) mg/dL Calcium 7.9 L (8.4-10.2) mg/dL Total Bilirubin 0.4 (0.2-1.3) mg/dL AST 29 (17-59) IU/L ALT 13 (<50) IU/L Alkaline Phosphatase 108 (38-126) U/L Total Creatine Kinase 62 (55-170) U/L CK-MB (CK-2) TNP CK-MB (CK-2) Rel Index TNP Troponin I < 0.012 (0.01-0.034) ng/mL NT-Pro-B Natriuret Pep 1780 H (<125) pg/mL Total Protein 4.9 L (6.3-8.2) g/dL Albumin 2.3 L (3.5-5.0) g/dL Globulin 2.6 (1.7-4.1) g/dL Albumin/Globulin Ratio 0.9 L (1.0-2.8) Lipase 133 (23-300) U/L Urine RBC (0-5/HPF) Urine WBC (0-5/HPF) Urine Bacteria (None) Ur Culture Indicated? 02/08/21 Range/Units 18:36 WBC (4.5-11.0) X10^3/uL RBC (4.5-5.9) X10^6/uL Hgb (13.5-17.5) g/dL Hct (41-53) % MCV (80-100) fL MCH (26-34) PG MCHC (30-36) % RDW (11.6-14.8) % Plt Count (150-400) X10^3/uL Neut % (Auto) (50-75) % Lymph % (Auto) (25-40) % [place] % (Auto) (3-14) % Eos % (Auto) (2-4) % Baso % (Auto) (0-2) % Neut # (Auto) (9569-7068) /uL Lymph # (Auto) (4922-5459) /uL [place] # (Auto) (0-900) /uL Eos # (Auto) (0-450) /uL Baso # (Auto) (0-100) /uL RBC Morphology Poikilocytosis Anisocytosis Sodium (137-145) mmol/L Potassium (3.4-5.1) mmol/L Chloride (98-107) mmol/L Carbon Dioxide (22-32) mmol/L BUN (9-20) mg/dL Creatinine (0.66-1.25) mg/dL Estimated GFR (>60) mL/min BUN/Creatinine Ratio (6-22) Glucose (80-110) mg/dL Calcium (8.4-10.2) mg/dL Total Bilirubin (0.2-1.3) mg/dL AST (17-59) IU/L ALT (<50) IU/L Alkaline Phosphatase (38-126) U/L Total Creatine Kinase (55-170) U/L CK-MB (CK-2) CK-MB (CK-2) Rel Index Troponin I (0.01-0.034) ng/mL NT-Pro-B Natriuret Pep (<125) pg/mL Total Protein (6.3-8.2) g/dL Albumin (3.5-5.0) g/dL Globulin (1.7-4.1) g/dL Albumin/Globulin Ratio (1.0-2.8) Lipase (23-300) U/L Urine RBC 10-30/hpf H (0-5/HPF) Urine WBC >100/hpf H (0-5/HPF) Urine Bacteria None seen (None) Ur Culture Indicated? Culture not indicate Urine Dip Bedside Urine Glucose Negative Bedside Urine Bilirubin - Negative Bedside Urine Ketone - Negative Urine Specific [place] 1.020 Bedside Urine Occult Blood +++ Bedside Urine pH 6.0 Bedside Urine Protein ++ 100 Bedside Urine Urobilinogen - Negative Bedside Urine Nitrite - Negative Bedside Urine Leukocytes +++ 500 Esterase ECG Data Interpretation: Normal sinus rhythm with premature supraventricular complexes, no ST-T changes, no axis deviation. BOTNICK sinus rhythm rate [address] changes no signs of ischemia at this time Discharge Plan Departure Patient Disposition: Home Clinical Impression: DVT (deep venous thrombosis) Qualifiers: DVT location: lower extremity Affected thrombotic vein of extremity: femoral Chronicity: acute Laterality: bilateral Qualified Code(s): I82.413 - Acute embolism and thrombosis of femoral vein, bilateral Instructions: DI for Deep Vein Thrombosis Activity Restrictions/Additional Instructions: You were evaluated for bilateral leg swelling in the ED today. Your NT pro BNP was elevated to [id number], which is likely due to congestive heart failure. You were given 40 mg of Lasix the ED today for it. Your ultrasound of the legs showed DVTs in both legs. You have been restarted on anticoagulation with Eliquis. You will take 10 mg by mouth twice a day for 7 days. Thereafter you will take 5 mg by mouth twice a day until you see your director dietetics department. Please follow-up with your director dietetics department and oncologist as soon as possible. You were also diagnosed with a urinary tract infection today, for which you will start taking cefpodoxime 200 mg twice a day by mouth for 14 days. Prescriptions: New [place] DVT-PE Treat 30D Start 5 mg (74 tabs) tablets,dose pack See Rx Instructions .ROUTE .COMPLEX Qty: 74 RF: 0 cefpodoxime 200 mg tablet 200 mg PO BID 14 Days Qty: 28 RF: 0 No Action acetaminophen 650 mg tablet extended release 1,300 mg PO Q8H PRN (Reason: Pain (Scale Score 4-6)) RF: 0 atorvastatin 20 mg tablet 20 mg PO DAILY RF: 0 turmeric root extract 500 mg capsule 1,500 mg PO BID RF: 0 PreserVision AREDS-2 [id number]-mg capsule 2 cap PO BID RF: 0 finasteride 5 mg tablet 5 mg PO DAILY RF: 0 vitamin B complex Tablet 2 tab PO DAILY RF: 0 famotidine [Pepcid] 40 mg tablet 40 mg PO DAILY Qty: 60 RF: 4 tamsulosin 0.4 mg capsule 0.4 mg PO DAILY Qty: 10 RF: 0 metoprolol succinate 25 mg Tablet Extended Release 24 Hr 12.5 mg PO DAILY RF: 0 ondansetron 8 mg Tablet,Disintegrating 8 mg PO Q8H PRN (Reason: Nausea) Qty: 30 RF: 2 olanzapine 5 mg Tablet 5 mg PO Q12H PRN (Reason: Nausea) Qty: 30 RF: 2 capecitabine 500 mg Tablet 2,000 mg PO BID 14 Days Qty: 112 RF: 5 mouthwashes Kit See Rx Instructions .ROUTE .COMPLEX PRN (Reason: Mouth Irritation) Qty: 480 RF: 0 mouthwashes Kit See Rx Instructions .ROUTE .COMPLEX PRN (Reason: Mouth Irritation) Qty: 480 RF: 0 furosemide [Lasix] 40 mg Tablet 40 mg PO DAILY RF: 0 d-mannose 500 mg Capsule 1,500 mg PO BID RF: 0 oxaliplatin 50 mg/10 mL (5 mg/mL) Solution See Rx Instructions .ROUTE .COMPLEX RF: 0 Referrals: Alfredo Lu MD [Primary Care Provider] - <Abril Crespo DO - Last Filed: 02/19/21 21:47> Cosign ED Attending Cosignature Attestation: I was immediately available in the department for consultation. Documentation has been reviewed. I agree with assessment and plan.
[2021-02-08 15:08] LABS: NT-proBNP (BNP-Adult 18+) 1780 pg/mL (<125)
[2021-02-08 15:12] LABS: Troponin I < 0.012 ng/mL (0.01-0.034)
[2021-02-08 15:18] LABS: Anisocytosis 2+; Poikilocytosis 1+
--- NOTE | 2021-02-08 15:58 | DI.US.S_ITS ---
PROCEDURE: US PERIPH VENOUS LOW EXTREM BI INDICATIONS: SWELLING. RECTAL CANCER. TECHNIQUE: Real-time imaging, as well as color and pulse Doppler interrogation, were performed of the deep veins of both legs from the inguinal ligament to the popliteal fossa. COMPARISON: None. FINDINGS: Right: On the right, there is occlusive deep venous thrombosis seen involving the mid to distal femoral vein, with occlusive thrombus also seen within the right popliteal vein. Left: On the left, there is nonocclusive thrombus seen within the popliteal vein, with the remainder of the left deep venous system free of thrombus. Soft tissue edema can be seen involving both lower extremities. Within the right groin, there is a likely enlarged lymph node seen. On the left, prominent enlarged lymph nodes are seen, with the largest solitary lymph nodes measuring 2.9 x 2.7 x 2 cm and 3.8 x 2.3 x 0.8 cm respectively. IMPRESSION: Bilateral deep venous thrombosis can be seen, including moderate to prominent areas of occlusive thrombus seen on the right. Dictated by: Mumtaz Hobson M.D. on 02/08/2021 at 17:04 Approved by: Mumtaz Hobson M.D. on 02/08/2021 at 17:05
[2021-02-08] MEDS: FUROSEMIDE 40 MG/4 ML VIAL IV (16:59)
[2021-02-08] MEDS: APIXABAN 5 MG TABLET 10 MG PO (18:23)
[2021-02-08 18:53] VITALS: BP 123/73; PULSE 60; RESP 16; O2SAT 100
[2021-02-08 19:23] LABS: Bacteria Urine None Seen; RBC Urine 10-30/HPF (0-5/HPF); WBC Urine >100/HPF (0-5/HPF)
== END 2021-02-08 20:01 | disposition home or self-care (01) ==
PROVIDERS: Emergency Medicine; Emergency Provider Student in an Organized Health Care Education/Training Program; PCP Family Medicine
DX: I82.413 Acute embolism and thrombosis of femoral vein, bilateral (principal); N39.0 Urinary tract infection, site not specified; I25.10 Atherosclerotic heart disease of native coronary artery without angina pectoris; I48.91 Unspecified atrial fibrillation; Z79.01 Long term (current) use of anticoagulants; N31.2 Flaccid neuropathic bladder, not elsewhere classified
CPT/HCPCS: 36415; 71045; 80053; 81003; 81015; 82550; 83690; 83880; 84484; 85025; 87086; 93005; 93970; 96374; 99284; J1940

== ENCOUNTER → 2021-02-11 08:00 | Outpatient (CLI) | payer MEDICARE, OTHER, SELFPAY ==
[2020-11-05 18:19] VITALS: BMI 32.1
--- NOTE | 2021-02-11 08:01 | DI.ECHO.S_ITS ---
[facility] +---------+ : : [address] [place] : : : : [id number] : : : : Phone: [phone]+ Echocardiogram Report + + :Name: PAUL LAWRENCE Study Date: 02/11/2021 Height: 69 in : :[facility] ReadingLocation: Weight: 220 lb: : Gender: Male BSA: 2.2 m2 : :: 1945 Age: 75 yrs BP: 97/55 mmHg: :Reason For Study: Malignant neoplasm of rectum, edema of legs : : Performed By: GUERO PEREA : :Referring: NOEL PRASAD : + + Interpretation Summary The left ventricle is normal in size. The ejection fraction is estimated to be 60-65%. The right ventricle is normal in size and function. There is mild to moderate tricuspid regurgitation. Compared to the prior echo exam, there has been an increase in TR severity. Right ventricular systolic pressure is estimated to be 26 mmHg plus the clinically estimated CVP which cannot be estimated on this exam. Procedure: A two-dimensional transthoracic echocardiogram with color flow and Doppler was performed. The study quality was technically adequate. Comparison is made with the echocardiogram of 04/05/2017. The subcostal views were difficult to obtain and are suboptimal in quality. The patient was in atrial fibrillation with heart rates between 74 - 103 bpm during the exam. Left Ventricle: The left ventricle is normal in size. Proximal septal thickening is noted. There is no echo evidence for significant left ventricular outflow tract obstruction. There is no thrombus. The ejection fraction is estimated to be 60-65%. There are no obvious focal wall motion abnormalities noted but poor endocardial definition reduces the sensitivity for the detection of such. Diastolic function could not be accurately assessed due to atrial fibrillation. Right Ventricle: The right ventricle is normal in size and function. Atria: The left atrium is mildly dilated. The left atrium has mildly decreased in size since the prior echo exam. Right atrial size is normal. There is no Doppler evidence for an interatrial shunt. The atrial septum is aneurysmal. Mitral Valve: The mitral valve leaflets appear borderline thickened, but open well. There is systolic anterior motion of the chordal apparatus. The mitral valve leaflets are slightly calcified. The mitral valve chordae are thickened and/or calcified. There is mild mitral regurgitation. Aortic Valve: The aortic valve is trileaflet. The aortic valve opens well. The aortic valve is slightly calcified. There is discrete nodular thickening of the non- coronary cusp. There is no aortic valve stenosis. There is trace aortic regurgitation. Tricuspid Valve: The tricuspid valve is normal. There is mild to moderate tricuspid regurgitation. Right ventricular systolic pressure is estimated to be 26 mmHg plus the clinically estimated CVP which cannot be estimated on this exam. Compared to the prior echo exam, there has been an increase in TR severity. Pulmonic Valve: The pulmonic valve is not well visualized. There is trace pulmonic regurgitation. Great Vessels: The aortic root is normal size. The ascending aorta is normal in size. The aortic arch is normal in size. The inferior vena cava was not visualized. Pericardium/ Pleura There is an anterior echo-free space consistent with a fat pad. There is a trivial pericardial effusion noted. There are no echocardiographic indications of cardiac tamponade. There is no pleural effusion. MMode/2D Measurements & Calculations LVIDd: 4.2 cm LVOT diam: 2.2 cm LVIDs: 2.5 cm Ao root diam: 3.7 cm FS: 39.8 % asc Aorta Diam: 3.5 cm IVSd: 1.4 cm Ao Arch Diam (Prox Trans): 2.6 cm LVPWd: 1.1 cm LV mcintosh. diameter/BSA (cm/m^2): 1.9 LV sys. diameter/BSA (cm/m^2): 1.2 LA A2 area: 22.4 cm2 RA long axis: 6.4 cm LA A4 area: 22.2 cm2 RA area: 15.8 cm2 LA length (vol): 6.0 cm RA vol: 33.1 ml LA vol: 70.2 ml RA : 15.4 ml/m2 LA vol index: 32.6 ml/m2 TAPSE: 3.0 cm Doppler Measurements & Calculations Ao V2 max: 153.6 cm/sec LVOT Max Warren: 123.1 cm/sec Ao V2 mean: 103.6 cm/sec LV V1 max P.1 mmHg Ao max P.4 mmHg LV V1 VTI: 21.8 cm Ao mean P.7 mmHg PATRICIO(I,D): 2.8 cm2 Ao V2 VTI: 30.4 cm PATRICIO(V,D): 3.2 cm2 sev ratio: 0.72 PATRICIO indexed to BSA (cm^2/m^2): 1.3 Med Peak E' Warren: 8.2 cm/sec TR max warren: 255.2 cm/sec Lat Peak E' Warren: 10.2 cm/sec TR max P.0 mmHg PA V2 max: 81.0 cm/sec PA V2 mean: 62.1 cm/sec PA mean P.6 mmHg SV(LVOT): 86.4 ml Reading Physician:02:47 PM
== END ==
PROVIDERS: PCP Family Medicine; Referring Provider Internal Medicine Medical Oncology; Visit Provider Internal Medicine Medical Oncology
DX: C20 Malignant neoplasm of rectum (principal); R60.0 Localized edema; I07.1 Rheumatic tricuspid insufficiency
CPT/HCPCS: 93306

== ENCOUNTER → 2021-02-23 10:27 | Outpatient (CLI) | payer MEDICARE, OTHER, SELFPAY ==
[2020-11-05 18:19] VITALS: BMI 32.1
[2021-02-23 11:37] LABS: BUN Creatinine Ratio 17.4 (6-22); Blood Urea Nitrogen 15 mg/dL (9-20); Calcium 8.5 mg/dL (8.4-10.2); Carbon Dioxide 29 mmol/L (22-32); Chloride 106 mmol/L (98-107); Estimated Glomerular Filt Rate > 60.0 mL/min (>60); Glucose 88 mg/dL (80-110); HEMOLYSIS < 15 (0-50); Potassium 3.7 mmol/L (3.4-5.1); Sodium 139 mmol/L (137-145)
== END ==
PROVIDERS: PCP Family Medicine; Referring Provider Internal Medicine Cardiovascular Disease; Visit Provider Internal Medicine Cardiovascular Disease
DX: I10 Essential (primary) hypertension (principal)
CPT/HCPCS: 36415; 80048

== ENCOUNTER → 2021-02-24 14:50 | Outpatient (CLI) | payer MEDICARE, OTHER, SELFPAY ==
[2020-11-05 18:19] VITALS: BMI 32.1
== END ==
PROVIDERS: PCP Family Medicine; Referring Provider Family Medicine; Visit Provider Family Medicine
DX: R30.0 Dysuria (principal)
CPT/HCPCS: 87086

== ENCOUNTER → 2021-04-07 16:12 | Outpatient (CLI) | payer MEDICARE, OTHER, SELFPAY ==
[2020-11-05 18:19] VITALS: BMI 32.1
[2021-04-07 18:16] LABS: Appearance Urine UA SL CLOUDY; Bilirubin Urine UA NEGATIVE (NEGATIVE); Color Urine UA YELLOW; Glucose Urine UA NEGATIVE (Negative); Ketones Urine UA NEGATIVE (NEGATIVE); Leukocyte Esterase Urine UA 3+ (NEGATIVE); Nitrite Urine UA POSITIVE (Negative); Occult Blood Urine UA 1+ (Negative); Protein Urine UA 2+ (Negative); Urobilinogen Urine UA 0.2 E.U./dL (0.2); pH Urine UA 5.5 (4.5-8.0)
[2021-04-07 18:52] LABS: Bacteria Urine Many (>30); Culture Indicated Urine Specimen Cultured; RBC Urine None Seen (0-5/HPF); WBC Urine >100/HPF (0-5/HPF)
== END ==
PROVIDERS: PCP Family Medicine; Referring Provider Family Medicine; Visit Provider Family Medicine
DX: R30.0 Dysuria (principal)
CPT/HCPCS: 81001; 87077; 87086; 87186

== ENCOUNTER → 2021-05-21 13:13 | Outpatient (CLI) | payer MEDICARE, OTHER, SELFPAY ==
[2020-11-05 18:19] VITALS: BMI 32.1
[2021-05-21 14:01] LABS: Appearance Urine UA CLOUDY; Bilirubin Urine UA NEGATIVE (NEGATIVE); Color Urine UA YELLOW; Glucose Urine UA NEGATIVE (Negative); Ketones Urine UA TRACE (NEGATIVE); Leukocyte Esterase Urine UA 2+ (NEGATIVE); Nitrite Urine UA NEGATIVE (Negative); Occult Blood Urine UA 3+ (Negative); Protein Urine UA 3+ (Negative); Specific Gravity Urine UA >=1.030 (1.000-1.035); Urobilinogen Urine UA 0.2 E.U./dL (0.2)
[2021-05-21 14:12] LABS: RBC Urine >100/HPF (0-5/HPF)
[2021-05-21 14:13] LABS: Bacteria Urine None Seen; Culture Indicated Urine Specimen Cultured; WBC Urine >100/HPF (0-5/HPF)
== END ==
PROVIDERS: PCP Family Medicine; Referring Provider Family Medicine; Visit Provider Family Medicine
DX: N34.3 Urethral syndrome, unspecified (principal)
CPT/HCPCS: 81001; 87086

== ENCOUNTER → 2021-05-31 10:06 | Outpatient (CLI) | payer MEDICARE, OTHER, SELFPAY ==
[2021-05-27 14:22] VITALS: BMI 32.1
[2021-05-31 11:31] LABS: Blood Urea Nitrogen 12 mg/dL (9-20); Calcium 8.7 mg/dL (8.4-10.2); Carbon Dioxide 27 mmol/L (22-32); Chloride 105 mmol/L (98-107); Cholesterol 88 mg/dL (140-199); Estimated Glomerular Filt Rate > 60.0 mL/min (>60); Glucose 87 mg/dL (80-110); HDL Cholesterol 48 mg/dL (40-60); HEMOLYSIS < 15 (0-50); LDL Cholesterol Calculated 26 mg/dL (<100); Potassium 4.3 mmol/L (3.4-5.1); Sodium 135 mmol/L (137-145); Triglycerides 72 mg/dL (35-150)
== END ==
PROVIDERS: PCP Family Medicine; Referring Provider Internal Medicine Cardiovascular Disease; Visit Provider Internal Medicine Cardiovascular Disease
DX: E78.5 Hyperlipidemia, unspecified (principal); R60.0 Localized edema
CPT/HCPCS: 36415; 80048; 80061

== ENCOUNTER → 2021-06-03 10:45 | Outpatient (CLI) | payer MEDICARE, OTHER, SELFPAY ==
[2020-11-05 18:19] VITALS: BMI 32.1
[2021-05-27 14:22] VITALS: BMI 32.1
--- NOTE | 2021-06-03 10:48 | DI.MRI.S_ITS ---
PROCEDURE: MR ABDOME PELVIS WWO CON INDICATIONS: rectal cancer TECHNIQUE: Coronal HASTE, axial 2D FLASH in- and [id number]; axial breath-hold T2 FSE; dynamic axial VIBE during IV gadolinium administration; postgadolinium coronal VIBE or 2D FLASH with fat saturation from the hepatic dome to the iliac crests. COMPARISON: [facility], MR, MR PELVIS WITH/WITHOUT CONTRAST, 09/03/2020, 13:26. [facility], NM, NM PET CT FUSION SKULL 2 THIGH, 09/30/2020, 8:40. [facility], CT, CT CHEST ABD PEL W CON, 11/03/2020, 13:52. [facility], MR, MR ABDOMEN PELVIS WWO CON, 01/29/2021, 13:39. FINDINGS: Image quality: There is motion artifact limiting evaluation. Lung bases: No basal pleural effusions. Heart size is borderline enlarged. Solid organs: No hepatic mass lesions. Gallbladder appears within normal limits without gallstones. No biliary ductal dilatation. No pancreatic mass identified. The spleen is normal in size. No adrenal nodules. Kidneys demonstrate no hydronephrosis. There are bilateral renal cysts. Nodes and vessels: There is interval increase in size of a few retroperitoneal lymph nodes. These include a left para-aortic node on series 18, image 75 measuring up to 1.4 cm increased from 0.5 cm previously. An enlarged left inguinal lymph node measures up to 1.4 cm on series 23, image 129, decreased from 2.2 cm on the prior study. No definite iliac or mesial rectal lymphadenopathy by size criteria. Bowel and peritoneum: There is increased lobulated concentric wall thickening and enhancement within the inferior rectum extending into the anus compared to the prior study. Findings suggest mild progression of disease compared to the prior study. A minimal residual intersphincteric collection is redemonstrated within the anus consistent with sequelae of prior tumor perforation. There is mild enhancement of the left puborectalis muscle also redemonstrated. There is persistent fat stranding within the posterior mesorectal fat. There is mild presacral edema and small amount of free fluid in the pelvis. More proximal loops of bowel are normal in caliber. Pelvis: Marked bladder wall thickening and enhancement redemonstrated with a right posterolateral bladder diverticulum. Bones and soft tissues: There is a fracture line within the left sacrum extending to the sacroiliac joint with extensive associated bone marrow edema and enhancement. There are small curvilinear areas of T2 hyperintensity and enhancement within the right sacrum extending to the sacroiliac joint suggestive of developing nondisplaced fractures. There is a new right hip joint effusion with periarticular soft tissue enhancement. There is severe joint space narrowing superiorly in the right hip with subchondral edema and enhancement with a suspected subchondral impaction fracture or possibly a vascular necrosis. Indistinct edema is demonstrated within the right femoral head and neck. IMPRESSION: 1. Increased lobulated concentric wall thickening and enhancement at the anorectal junction suggestive of disease progression compared to the prior study. A minimal residual intersphincteric collection is redemonstrated within the anus consistent with sequelae of prior intersphincteric tumor perforation. Mild enhancement of the left puborectalis muscle is redemonstrated, similar in appearance to the prior study. 2. Decrease in size of an enlarged left inguinal lymph nodes compared to the prior study compatible with response to therapy. However, there is new retroperitoneal para-aortic lymphadenopathy suggestive of progressive metastatic disease. 3. Extensive bladder wall thickening and enhancement redemonstrated suggestive of a cystitis. A right bladder diverticulum is again noted. 4. New fracture of the left sacrum and suspected nondisplaced fracture of the right sacrum with associated bone marrow edema and enhancement but no discrete mass. Findings likely reflect insufficiency fractures. 5. New marrow edema and enhancement within the right femoral head and neck with suspected subchondral impaction fracture or a vascular necrosis of the right femoral head superiorly which is not well evaluated on the current study. There is a new right hip joint effusion. Dictated by: Alfonso Torres M.D. on 06/03/2021 at 15:48 Approved by: Alfonso Torres M.D. on 06/03/2021 at 16:16
== END ==
PROVIDERS: PCP Family Medicine; Referring Provider Internal Medicine Medical Oncology; Visit Provider Internal Medicine Medical Oncology
DX: C20 Malignant neoplasm of rectum (principal); C77.5 Secondary and unspecified malignant neoplasm of intrapelvic lymph nodes; N32.3 Diverticulum of bladder; M84.48XA Pathological fracture, other site, initial encounter for fracture; M25.451 Effusion, right hip
CPT/HCPCS: 72197; A9579

== ENCOUNTER → 2021-06-15 10:39 | Outpatient (CLI) | payer MEDICARE, OTHER, SELFPAY ==
[2021-05-27 14:22] VITALS: BMI 32.1
--- NOTE | 2021-06-15 | DI.US.S_ITS ---
PROCEDURE: US RENAL COMPLETE INDICATIONS: URINARY RETENTION TECHNIQUE: Real-time scanning was performed of the kidneys and bladder, with image documentation. COMPARISON: [facility], NM, NM PET CT FUSION SKULL 2 THIGH, 09/30/2020, 8:40. [facility], MR, MR ABDOMEN PELVIS WWO CON, 01/29/2021, 13:39. [facility], CT, CT CHEST ABD PEL W CON, 11/03/2020, 13:52. [facility], CT, CT CHEST ABD PEL W CON, 08/21/2020, 13:30. [facility], MR, MR ABDOMEN PELVIS WWO CON, 06/03/2021, 10:54. [facility], US, US RENAL COMPLETE, 07/10/2019, 11:51. FINDINGS: Kidneys: Kidneys are normal in size. Right kidney measures 11.9 cm long; left kidney measures 12.1 cm long. Right renal cortical thickness is 1.2 cm; left renal cortical thickness is 2.0 cm. Renal cortical echotexture is normal. No hydronephrosis or nephrolithiasis. No suspicious solid mass lesions. Bilateral renal cysts. The largest cyst in the right kidney involving the inferior pole measuring 3.8 x 3.1 x 3.8 cm. A 2.8 x 1.7 x 2.4 cm cyst is seen in the inferior pole of the left kidney. Bladder: There is marked diffuse bladder wall thickening. A large bladder diverticulum is noted with an air-fluid level. Pre-void bladder volume is 245 mL. Post-void residual is 79 mL. neither ureteral jets are noted with color Doppler interrogation.differences in specific gravity between ureteral and bladder urine). Miscellaneous: No free pelvic fluid. IMPRESSION: 1. Bilateral renal cortical cysts. No renal stones or hydronephrosis. 2. A bladder diverticulum is present. There is marked diffuse bladder wall thickening. 3. 78 mL postvoid residual. Dictated by: Nellie Dang M.D. on 06/15/2021 at 15:19 Approved by: Nellie Dang M.D. on 06/15/2021 at 15:27
== END ==
PROVIDERS: PCP Family Medicine; Referring Provider Urology; Visit Provider Urology
DX: R33.9 Retention of urine, unspecified (principal); N28.1 Cyst of kidney, acquired; N32.3 Diverticulum of bladder
CPT/HCPCS: 76770

== ENCOUNTER → 2021-06-17 13:52 | Outpatient (CLI) | payer MEDICARE, OTHER, SELFPAY ==
[2021-05-27 14:22] VITALS: BMI 32.1
[2021-06-17 15:53] LABS: Appearance Urine UA SL CLOUDY; Bilirubin Urine UA NEGATIVE (NEGATIVE); Color Urine UA YELLOW; Glucose Urine UA NEGATIVE (Negative); Ketones Urine UA NEGATIVE (NEGATIVE); Leukocyte Esterase Urine UA 1+ (NEGATIVE); Nitrite Urine UA NEGATIVE (Negative); Occult Blood Urine UA 3+ (Negative); Protein Urine UA 2+ (Negative); Urobilinogen Urine UA 0.2 E.U./dL (0.2)
[2021-06-17 16:41] LABS: RBC Urine 30-100/HPF (0-5/HPF); WBC Urine 5-10/HPF (0-5/HPF)
[2021-06-17 16:42] LABS: Amorphous Sediment Urine 2+; Bacteria Urine Few (2-10); Culture Indicated Urine Specimen Cultured; Mucus Urine 1+ (Negative); Squamous Epithelial Cell Urine 0-1 /HPF (0-5/HPF)
== END ==
PROVIDERS: PCP Family Medicine; Referring Provider Urology; Visit Provider Urology
DX: N39.0 Urinary tract infection, site not specified (principal)
CPT/HCPCS: 81001; 87086

== ENCOUNTER → 2021-07-08 14:13 | Outpatient (CLI) | payer MEDICARE, OTHER, SELFPAY ==
[2021-05-27 14:22] VITALS: BMI 32.1
[2021-07-08 14:37] LABS: Add Manual Diff / Slide Review NO; Basophils Absolute Auto 0 /uL (0-100); Basophils Percent Auto 0.9 % (0-2); Eosinophils Absolute Auto 100 /uL (0-450); Eosinophils Percent Auto 2.2 % (2-4); Hematocrit 30.7 % (41-53); Hemoglobin 9.9 g/dL (13.5-17.5); Lymphocytes Absolute Auto 900 /uL (1100-4500); Lymphocytes Percent Auto 16.9 % (25-40); Mean Corpuscular HGB Conc 32.4 % (30-36); Mean Corpuscular Hemoglobin 28.6 PG (26-34); Mean Corpuscular Volume 88.3 fL (80-100); Monocytes Absolute Auto 400 /uL (0-900); Monocytes Percent Auto 8.2 % (3-14); Neutrophils Absolute Auto 3700 /uL (1500-7000); Neutrophils Percent Auto 71.8 % (50-75); Platelet Count 209 X10^3/uL (150-400); Red Blood Cell Count 3.47 X10^6/uL (4.5-5.9); Red Cell Distribution Width 19.1 % (11.6-14.8); White Blood Cell Count 5.1 X10^3/uL (4.5-11.0)
[2021-07-08 14:52] LABS: Alanine Aminotransferase 23 IU/L (<50); Albumin 3.9 g/dL (3.5-5.0); Albumin Globulin Ratio 1.3 (1.0-2.8); Alkaline Phosphatase 86 U/L (38-126); Aspartate Aminotransferase 33 IU/L (17-59); Bilirubin Total 0.5 mg/dL (0.2-1.3); Blood Urea Nitrogen 18 mg/dL (9-20); Calcium 8.9 mg/dL (8.4-10.2); Carbon Dioxide 29 mmol/L (22-32); Chloride 104 mmol/L (98-107); Estimated Glomerular Filt Rate > 60.0 mL/min (>60); Glucose 100 mg/dL (80-110); HEMOLYSIS < 15 (0-50); Potassium 4.1 mmol/L (3.4-5.1); Sodium 137 mmol/L (137-145); Total Protein 6.9 g/dL (6.3-8.2)
[2021-07-08 15:27] LABS: Ferritin 18 ng/mL (18-464)
[2021-07-08 15:58] LABS: Folate > 20.0 ng/mL (2.76-20.0); Vitamin B12 996 pg/mL (239-931)
[2021-07-09 12:38] LABS: Fecal Immunochemical Test Negative (Negative)
== END ==
PROVIDERS: Internal Medicine Medical Oncology; PCP Family Medicine; Referring Provider Family Medicine; Visit Provider Family Medicine
DX: D64.9 Anemia, unspecified (principal); C20 Malignant neoplasm of rectum
CPT/HCPCS: 36415; 80053; 82274; 82607; 82728; 82746; 85025

== ENCOUNTER → 2021-07-12 13:52 | Outpatient (CLI) | payer MEDICARE, OTHER, SELFPAY ==
[2021-05-27 14:22] VITALS: BMI 32.1
[2021-07-12 14:50] LABS: Add Manual Diff / Slide Review NO; Basophils Absolute Auto 0 /uL (0-100); Basophils Percent Auto 0.6 % (0-2); Eosinophils Absolute Auto 100 /uL (0-450); Eosinophils Percent Auto 2.3 % (2-4); Hematocrit 30.6 % (41-53); Hemoglobin 9.9 g/dL (13.5-17.5); Lymphocytes Absolute Auto 800 /uL (1100-4500); Lymphocytes Percent Auto 15.6 % (25-40); Mean Corpuscular HGB Conc 32.2 % (30-36); Mean Corpuscular Hemoglobin 28.6 PG (26-34); Mean Corpuscular Volume 88.7 fL (80-100); Monocytes Absolute Auto 400 /uL (0-900); Monocytes Percent Auto 7.9 % (3-14); Neutrophils Absolute Auto 3700 /uL (1500-7000); Neutrophils Percent Auto 73.6 % (50-75); Platelet Count 208 X10^3/uL (150-400); Red Blood Cell Count 3.45 X10^6/uL (4.5-5.9); Red Cell Distribution Width 19.1 % (11.6-14.8)
[2021-07-12 15:27] LABS: Alanine Aminotransferase 53 IU/L (<50); Albumin 3.8 g/dL (3.5-5.0); Albumin Globulin Ratio 1.3 (1.0-2.8); Alkaline Phosphatase 88 U/L (38-126); Aspartate Aminotransferase 63 IU/L (17-59); BUN Creatinine Ratio 25.7 (6-22); Bilirubin Total 0.4 mg/dL (0.2-1.3); Blood Urea Nitrogen 19 mg/dL (9-20); Calcium 8.7 mg/dL (8.4-10.2); Carbon Dioxide 28 mmol/L (22-32); Chloride 105 mmol/L (98-107); Estimated Glomerular Filt Rate > 60.0 mL/min (>60); Glucose 80 mg/dL (80-110); HEMOLYSIS < 15 (0-50); Potassium 4.2 mmol/L (3.4-5.1); Sodium 137 mmol/L (137-145); Total Protein 6.8 g/dL (6.3-8.2)
== END ==
PROVIDERS: Internal Medicine Medical Oncology; PCP Family Medicine; Referring Provider Nurse Practitioner; Visit Provider Nurse Practitioner
DX: I10 Essential (primary) hypertension (principal); D64.9 Anemia, unspecified; C20 Malignant neoplasm of rectum
CPT/HCPCS: 36415; 80053; 85025

== ENCOUNTER 2021-10-09 10:55 | Emergency (ER) | payer MEDICARE, OTHER, SELFPAY ==
[2021-05-27 14:22] VITALS: BMI 32.1
[2021-10-09 11:04] VITALS: BP 185/95; PULSE 75; RESP 18; TEMP 36.7; O2SAT 97; BMI 26.6
--- NOTE | 2021-10-09 11:37 | ED_ITS ---
HPI - GI Bleed General Chief complaint: GI Bleed Stated complaint: rectal bleeding has cancer Time Seen by Provider: 10/09/21 11:20 Source: patient and family Mode of arrival: Ambulatory History of Present Illness HPI Narrative: 76-year-old male. Known history of rectal cancer. Is being followed by Oncology. Is currently undergoing chemotherapy. Has not had surgery for this. Is here for evaluation of rectal bleeding. He has noticed this over the past 24 hours. He did have some pain with bowel movement this morning but this is not new for him. He is also on Eliquis for atrial fibrillation. He is not incontinent of stool. No abdominal pain. No urinary symptoms. No fevers. Related Data Home Medications Medication Instructions Recorded Confirmed acetaminophen 650 mg 1,300 mg PO Q8H PRN 10/31/18 09/15/21 tablet,extended release atorvastatin 20 mg tablet 20 mg PO DAILY 10/31/18 09/15/21 turmeric root extract 500 mg 1,500 mg PO BID 10/31/18 09/15/21 capsule vit C 250 mg-vit E 90 mg-zinc 40 2 cap PO BID cap 10/31/18 09/15/21 mg-copper 1 es-wealma-kfylis capsule (PreserVision AREDS-2) finasteride 5 mg tablet 5 mg PO DAILY 06/17/19 09/15/21 vitamin B complex 2 tab PO DAILY tab 06/17/19 09/15/21 metoprolol succinate 25 mg 12.5 mg PO DAILY 09/23/20 09/15/21 tablet,extended release 24 hr d-mannose 500 mg capsule 1,500 mg PO BID 11/04/20 09/15/21 calcium 500 mg tablet 500 mg DAILY 07/28/21 09/15/21 multivitamin 1 tab PO DAILY 07/28/21 09/15/21 Previous Rx's Medication Instructions Recorded tamsulosin 0.4 mg capsule 0.4 mg PO DAILY #10 cap 10/24/18 olanzapine 5 mg tablet 5 mg PO Q12H PRN #30 tab 09/23/20 ondansetron 8 mg disintegrating 8 mg PO Q8H PRN #30 tab 09/23/20 tablet famotidine 40 mg tablet (Pepcid) 40 mg PO DAILY #60 tab 11/11/20 Disabled Parking Permit #1 ea 04/07/21 hydrocodone 10 mg-acetaminophen 1 tab PO Q6H PRN #60 tab 09/29/21 325 mg tablet lidocaine-prilocaine 2.5 %-2.5 % See Rx Instructions .ROUTE 09/29/21 topical cream .COMPLEX PRN #30 g morphine 15 mg tablet,extended 15 mg PO Q12H 30 Days #60 tab 09/29/21 release (MS Contin) Allergies Allergy/AdvReac Type Severity Reaction Status Date / Time No Known Drug Allergies Allergy Unknown Verified 07/08/21 13:31 [NO KNOWN DRUG ALLERGIES] Review of Systems Constitutional Constitutional: Denies fever(s) Cardiovascular Cardiovascular: Reports system reviewed and no additional complaints, except as documented Respiratory Respiratory: Reports system reviewed and no additional complaints, except as documented Gastrointestinal Gastrointestinal: Denies abdominal pain, Reports hematochezia, Denies cramping, Denies nausea and Denies vomiting Genitourinary Genitourinary: Denies hematuria Integumentary/Breasts Skin/Breast: Reports system reviewed and no additional complaints, except as documented Neurologic Neurologic: Reports system reviewed and no additional complaints, except as documented Hematologic/Lymphatic On Anticoagulants: Yes Patient History Medical History Acute GI bleeding Anal fistula Bladder atony (~2017) BPH (benign prostatic hyperplasia) Cellulitis Constipation Coronary artery disease CVA (cerebral vascular accident) Essential hypertension (08/15/17) Hemorrhoids Hyperlipidemia Iron deficiency anemia Kidney stones Laceration of finger of left hand Paroxysmal atrial fibrillation Personal history of colonic polyps Rectal cancer Self-catheterizes urinary bladder Sleep apnea Transient ischemic attack (~2016) Surgical History History of angioplasty (~2013) History of colonoscopy History of esophagogastroduodenoscopy (EGD) History of gastric bypass (2013) History of knee replacement History of knee replacement History of kyphoplasty History of loop recorder (06/2017) Family History Father Hypertension Cancer Social History marital status: household members: spouse occupational status: previously employed Smoking Status: Former smoker alcohol intake: current substance use type: does not use Smoking Status: Former smoker alcohol intake frequency: a few times a month Substance Use Type: does not use Exam Initial Vital Signs Initial Vital Signs: Vital Signs Temperature 98.1 F 10/09/21 11:04 Pulse Rate 75 10/09/21 11:04 Respiratory Rate 18 10/09/21 11:04 Blood Pressure 185/95 H 10/09/21 11:04 Pulse Oximetry 97 10/09/21 11:04 HENMT Head: normal to inspection and normocephalic Resp Effort & Inspection: normal respiratory effort Auscultation: clear to auscultation bilaterally Cardio Rate: regular rate Rhythm: regular rhythm GI Inspection: normal to inspection Palpation: soft Other: No external nor internal hemorrhoids felt. Does have bright red blood per rectum. Skin General: no rashes or lesions noted Neuro General: patient alert, patient awake and moves all extremities Extrem General: normal to inspection and capillary refill normal Psych Appearance: grossly normal and well kempt Course Orders Ordered: ED Orders 10/09/21 11:42 Basic Metabolic Panel Stat Complete Blood Count AUTO DIFF Stat Vital Signs Vital signs: Vital Signs - 8 hr 10/09/21 11:04 Temperature 98.1 F Pulse Rate 75 Respiratory Rate 18 Blood Pressure 185/95 H Pulse Oximetry 97 MDM - GI Bleed Lab Data Result diagrams: 10/09/21 11:42 10/09/21 11:42 Labs: Lab Results 10/09/21 10/09/21 Range/Units 11:42 11:42 WBC 3.7 L (4.5-11.0) X10^3/uL RBC 3.52 L (4.5-5.9) X10^6/uL Hgb 10.2 L (13.5-17.5) g/dL Hct 30.9 L (41-53) % MCV 87.8 (80-100) fL MCH 29.1 (26-34) PG MCHC 33.1 (30-36) % RDW 26.4 H (11.6-14.8) % Plt Count 195 (150-400) X10^3/uL Neut % (Auto) 69.7 (50-75) % Lymph % (Auto) 16.4 L (25-40) % Stephens % (Auto) 11.2 (3-14) % Eos % (Auto) 2.0 (2-4) % Baso % (Auto) 0.7 (0-2) % Neut # (Auto) 2600 (0044-5330) /uL Lymph # (Auto) 600 L (3312-3891) /uL Stephens # (Auto) 400 (0-900) /uL Eos # (Auto) 100 (0-450) /uL Baso # (Auto) 0 (0-100) /uL RBC Morphology See Anisocytosis 3+ H Target Cells 1+ H Sodium 136 L (137-145) mmol/L Potassium 4.3 (3.4-5.1) mmol/L Chloride 102 (98-107) mmol/L Carbon Dioxide 27 (22-32) mmol/L BUN 20 (9-20) mg/dL Creatinine 0.74 (0.66-1.25) mg/dL Estimated GFR > 60 (>60) mL/min BUN/Creatinine Ratio 27.0 H (6-22) Glucose 100 (80-110) mg/dL Calcium 8.4 (8.4-10.2) mg/dL MDM Narrative Medical decision making narrative: Patient is somewhat anemic but is baseline for him. He is not tachycardic. Not hypotensive. Is having rectal bleeding. No external hemorrhoids are seen. He potentially has an internal hemorrhoid but I am not convinced of this. He also can be bleeding just because he is on Eliquis or also bleeding from his tumor. Do not feel that any imaging studies today would be helpful. CT scan would not necessarily show whether not the tumor is bleeding. X-rays or ultrasound to be unhelpful. Currently given his normal vital signs and baseline labs I not feel that admission to the hospital was warranted. I did give him strict return precautions with regard to blood loss. He has a follow-up with his oncologist the beginning next week. Patient is not currently in AFib. He has a regular rhythm. He states that he is going to stop his Eliquis until he follows up with his oncologist. I do not feel this is unreasonable as right now the risk of continued rectal bleeding is most likely higher than the risk of developing a clot from what appears to be paroxysmal AFib. Discharge Plan Departure Patient Disposition: Home Clinical Impression: Rectal bleeding Instructions: Gastrointestinal Bleeding Activity Restrictions/Additional Instructions: I do recommend that you continue with your current bowel regiment in order to maintain soft regular bowel movements. Keep all of your scheduled medical appointments. Return to the emergency department for any new symptoms to include chest pain, shortness of breath, fevers or any other new or worsening symptoms. Prescriptions: No Action acetaminophen 650 mg tablet extended release 1,300 mg PO Q8H PRN (Reason: Pain (Scale Score 4-6)) 0RF atorvastatin 20 mg tablet 20 mg PO DAILY 0RF turmeric root extract 500 mg capsule 1,500 mg PO BID 0RF PreserVision AREDS-2 [id number] em-[id number]-[id number]-mg capsule 2 cap PO BID 0RF finasteride 5 mg tablet 5 mg PO DAILY 0RF vitamin B complex Tablet 2 tab PO DAILY 0RF Rx Instructions: VITAMIN B-50 COMPLEX (DME) Disabled Parking Permit See Rx Instructions .ROUTE .MEDSUPPLY Qty: 1 0RF Rx Instructions: I certify that this patient has a condition which qualifies them for disabled parking privileges. famotidine [Pepcid] 40 mg tablet 40 mg PO DAILY Qty: 60 4RF tamsulosin 0.4 mg capsule 0.4 mg PO DAILY Qty: 10 0RF metoprolol succinate 25 mg Tablet Extended Release 24 Hr 12.5 mg PO DAILY 0RF ondansetron 8 mg Tablet,Disintegrating 8 mg PO Q8H PRN (Reason: Nausea) Qty: 30 2RF olanzapine 5 mg Tablet 5 mg PO Q12H PRN (Reason: Nausea) Qty: 30 2RF Label Comments: Hasn't started taking yet multivitamin Tablet 1 tab PO DAILY 0RF calcium 500 mg Tablet 500 mg DAILY 0RF morphine [MS Contin] 15 mg Tablet Extended Release 15 mg PO Q12H 30 Days Qty: 60 0RF Rx Instructions: Take one tablet every 12 hours hydrocodone-acetaminophen 10-325 mg Tablet 1 tab PO Q6H PRN (Reason: Pain (Scale Score 4-6)) Qty: 60 0RF Rx Instructions: take 1 tab every 6-8 hours as needed for pain lidocaine-prilocaine 2.5-2.5 % Cream See Rx Instructions .ROUTE .COMPLEX PRN (Reason: skin discomfort) Qty: 30 3RF Rx Instructions: Apply small amount (about the size of a quarter) onto your skin twice a day as needed for lucita anal pain d-mannose 500 mg Capsule 1,500 mg PO BID 0RF Referrals: Alfredo Lu MD [Primary Care Provider] -
[2021-10-09 11:55] LABS: Basophils Absolute Auto 0 /uL (0-100); Basophils Percent Auto 0.7 % (0-2); Eosinophils Absolute Auto 100 /uL (0-450); Hematocrit 30.9 % (41-53); Hemoglobin 10.2 g/dL (13.5-17.5); Lymphocytes Absolute Auto 600 /uL (1100-4500); Lymphocytes Percent Auto 16.4 % (25-40); Mean Corpuscular HGB Conc 33.1 % (30-36); Mean Corpuscular Hemoglobin 29.1 PG (26-34); Mean Corpuscular Volume 87.8 fL (80-100); Monocytes Absolute Auto 400 /uL (0-900); Monocytes Percent Auto 11.2 % (3-14); Neutrophils Absolute Auto 2600 /uL (1500-7000); Neutrophils Percent Auto 69.7 % (50-75); Platelet Count 195 X10^3/uL (150-400); Red Blood Cell Count 3.52 X10^6/uL (4.5-5.9); Red Cell Distribution Width 26.4 % (11.6-14.8); White Blood Cell Count 3.7 X10^3/uL (4.5-11.0)
[2021-10-09 11:56] LABS: Add Manual Diff / Slide Review SLIDE REVIEW
[2021-10-09 12:04] LABS: Blood Urea Nitrogen 20 mg/dL (9-20); Calcium 8.4 mg/dL (8.4-10.2); Carbon Dioxide 27 mmol/L (22-32); Chloride 102 mmol/L (98-107); Estimated Glomerular Filt Rate > 60 mL/min (>60); Glucose 100 mg/dL (80-110); HEMOLYSIS < 15 (0-50); Potassium 4.3 mmol/L (3.4-5.1); Sodium 136 mmol/L (137-145)
[2021-10-09 12:15] LABS: Anisocytosis 3+; Target Cells 1+
[2021-10-09 12:16] LABS: RBC Morphology See
[2021-10-09 12:58] VITALS: BP 164/80; PULSE 65; RESP 18; O2SAT 99
--- NOTE | 2021-10-09 12:58 | PC.NURSE ---
Provided discharge instructions to pt and family, denied further questions. When pt stood to leave, pt noted blood from rectum leaking through pt depends and pants. Small amount of bright red blood assessed, Dr. Pemberton notified, new orders received.
--- NOTE | 2021-10-09 14:07 | PC.NURSE ---
Pt had a loose BM, light brown, no blood streaking through. Bright red blood noted in water. Large amount of blood in diaper, no clots. aware, awaiting repeat H&H
[2021-10-09 14:13] LABS: Hematocrit 32.1 % (41-53); Hemoglobin 10.7 g/dL (13.5-17.5)
== END 2021-10-09 14:38 | disposition home or self-care (01) ==
PROVIDERS: Emergency Provider Emergency Medicine; PCP Family Medicine
DX: K62.5 Hemorrhage of anus and rectum (principal); C20 Malignant neoplasm of rectum; Z79.01 Long term (current) use of anticoagulants
CPT/HCPCS: 36415; 80048; 85014; 85018; 85025; 99281; 99282

== ENCOUNTER 2021-10-10 10:03 | Emergency (ER) | payer MEDICARE, OTHER, SELFPAY ==
[2021-05-27 14:22] VITALS: BMI 32.1
[2021-10-10] VITALS (36 sets, daily range): BP systolic 106–180; BP diastolic 62–94; PULSE 47–82; RESP 20; TEMP 36.4; O2SAT 92–100
--- NOTE | 2021-10-10 10:38 | ED.GIBLEED ---
HPI - GI Bleed General Chief complaint: GI Bleed Stated complaint: Rectal bleeding & pain Time Seen by Provider: 10/10/21 10:04 Source: patient and EMS Mode of arrival: EMS History of Present Illness HPI Narrative: Patient is a 76-year-old male. I evaluated him in the emergency department yesterday for rectal bleeding. He does have a history of rectal cancer. Yesterday his hemoglobin and hematocrit were stable, vital signs stable, was discharged home with instructions for follow-up. He also at baseline does self urinary catheterizations. He states that overnight the bleeding has continued. Potentially somewhat worse the yesterday. No fevers. He also states that now he has the sensation that he has to urinate but is unable to. He is also having rectal pain that is somewhat worse than yesterday. Related Data Home Medications Medication Instructions Recorded Confirmed acetaminophen 650 mg 1,300 mg PO Q8H PRN 10/31/18 09/15/21 tablet,extended release atorvastatin 20 mg tablet 20 mg PO DAILY 10/31/18 09/15/21 turmeric root extract 500 mg 1,500 mg PO BID 10/31/18 09/15/21 capsule vit C 250 mg-vit E 90 mg-zinc 40 2 cap PO BID cap 10/31/18 09/15/21 mg-copper 1 [id number] capsule (PreserVision AREDS-2) finasteride 5 mg tablet 5 mg PO DAILY 06/17/19 09/15/21 vitamin B complex 2 tab PO DAILY tab 06/17/19 09/15/21 metoprolol succinate 25 mg 12.5 mg PO DAILY 09/23/20 09/15/21 tablet,extended release 24 hr d-mannose 500 mg capsule 1,500 mg PO BID 11/04/20 09/15/21 calcium 500 mg tablet 500 mg DAILY 07/28/21 09/15/21 multivitamin 1 tab PO DAILY 07/28/21 09/15/21 Previous Rx's Medication Instructions Recorded tamsulosin 0.4 mg capsule 0.4 mg PO DAILY #10 cap 10/24/18 olanzapine 5 mg tablet 5 mg PO Q12H PRN #30 tab 09/23/20 ondansetron 8 mg disintegrating 8 mg PO Q8H PRN #30 tab 09/23/20 tablet famotidine 40 mg tablet (Pepcid) 40 mg PO DAILY #60 tab 11/11/20 Disabled Parking Permit #1 ea 04/07/21 hydrocodone 10 mg-acetaminophen 1 tab PO Q6H PRN #60 tab 09/29/21 325 mg tablet lidocaine-prilocaine 2.5 %-2.5 % See Rx Instructions .ROUTE 09/29/21 topical cream .COMPLEX PRN #30 g morphine 15 mg tablet,extended 15 mg PO Q12H 30 Days #60 tab 09/29/21 release (MS Contin) Allergies Allergy/AdvReac Type Severity Reaction Status Date / Time No Known Drug Allergies Allergy Unknown Verified 07/08/21 13:31 [NO KNOWN DRUG ALLERGIES] Review of Systems Constitutional Constitutional: Reports system reviewed and no additional complaints, except as documented Cardiovascular Cardiovascular: Reports system reviewed and no additional complaints, except as documented Respiratory Respiratory: Reports system reviewed and no additional complaints, except as documented Gastrointestinal Gastrointestinal: Reports as per HPI and Reports system reviewed and no additional complaints, except as documented Genitourinary Genitourinary: Reports system reviewed and no additional complaints, except as documented and Reports as per HPI Musculoskeletal Musculoskeletal: Reports system reviewed and no additional complaints, except as documented and Reports as per HPI Hematologic/Lymphatic On Anticoagulants: No Patient History Medical History Acute GI bleeding Anal fistula Bladder atony (~2017) BPH (benign prostatic hyperplasia) Cellulitis Constipation Coronary artery disease CVA (cerebral vascular accident) Essential hypertension (08/15/17) Hemorrhoids Hyperlipidemia Iron deficiency anemia Kidney stones Laceration of finger of left hand Paroxysmal atrial fibrillation Personal history of colonic polyps Rectal cancer Self-catheterizes urinary bladder Sleep apnea Transient ischemic attack (~2016) Surgical History History of angioplasty (~2013) History of colonoscopy History of esophagogastroduodenoscopy (EGD) History of gastric bypass (2013) History of knee replacement History of knee replacement History of kyphoplasty History of loop recorder (06/2017) Family History Father Hypertension Cancer Social History marital status: household members: spouse occupational status: previously employed Smoking Status: Former smoker alcohol intake: current substance use type: does not use Smoking Status: Former smoker alcohol intake frequency: a few times a month Substance Use Type: does not use Exam Initial Vital Signs Initial Vital Signs: Vital Signs Pulse Rate 76 10/10/21 10:13 Pulse Oximetry 99 10/10/21 10:13 Const General: cooperative and healthy appearing HENHI Head: normal to inspection and normocephalic Resp Effort & Inspection: normal respiratory effort Cardio Rate: regular rate GI Inspection: normal to inspection and non-distended Palpation: soft and tender (Lower abdomen) Other: Rectal exam deferred since I just evaluated him yesterday. Skin General: no rashes or lesions noted Neuro General: patient alert, patient awake and moves all extremities Extrem General: normal to inspection and capillary refill normal Psych Appearance: grossly normal and well kempt Scores GCS Sundar coma scale eye opening: Spontaneous Sundar coma scale verbal response: Orientated Sundar coma scale motor response: Obey commands Sundar coma scale total score: 15 Course Orders Ordered: ED Orders 10/10/21 10:40 Basic Metabolic Panel Stat Complete Blood Count AUTO DIFF Stat Type and Screen Stat 10/10/21 10:50 Urinalysis and Microscopic Stat Urine Culture Stat 10/10/21 15:11 Hemoglobin and Hematocrit Stat 10/11/21 06:00 Basic Metabolic Panel Stat Complete Blood Count AUTO DIFF Stat Hydrocodone Bitart/Acetaminophen (Hydrocodone/Acet 5/325 Tablet) 2 tab PO Q4HR PRN PRN Reason: Pain, Mild (1-3) Atorvastatin Calcium (Atorvastatin 20 Mg Tablet) 20 mg PO DAILY [facility] Metoprolol Succinate (Metoprolol Er 25 Mg Tablet) 12.5 mg PO DAILY [facility] Stop: 10/21/21 08:59 Morphine Sulfate (Morphine Er 15 Mg Tablet) 15 mg PO BID [facility] Tamsulosin HCl (Tamsulosin 0.4 Mg Capsule) 0.4 mg PO DAILY [facility] Discontinued Medications Ceftriaxone Sodium 1,000 mg/ (Sodium Chloride) 100 mls @ 200 mls/hr IV NOW ONE Stop: 10/10/21 12:01 Last Infusion: 10/10/21 13:15 Dose: 0 mls/hr Documented by: Admin: 10/10/21 12:22 Dose: 200 mls/hr Documented by: LYLY Lidocaine HCl (Lidocaine 2% (Glydo) 6 Ml Gel) 6 ml TOP NOW ONE Stop: 10/10/21 10:36 Last Admin: 10/10/21 10:39 Dose: 6 ml Documented by: JUN Lorazepam (Lorazepam 2 Mg/Ml Inj) 0.5 mg IV NOW ONE Stop: 10/10/21 11:10 Last Admin: 10/10/21 11:19 Dose: 0.5 mg Documented by: PRABHAYLYEHUDA Morphine Sulfate (Morphine 4 Mg/Ml Inj) 4 mg IV NOW ONE Stop: 10/10/21 10:54 Last Admin: 10/10/21 10:57 Dose: 4 mg Documented by: JUN Vital Signs Vital signs: Vital Signs - 8 hr 10/10/21 10:13 10/10/21 10:27 10/10/21 10:30 Temperature 97.6 F Pulse Rate 76 76 80 Respiratory Rate 20 Blood Pressure 151/94 H Pulse Oximetry 99 99 100 10/10/21 11:00 10/10/21 11:23 10/10/21 11:30 Temperature Pulse Rate 79 77 64 Respiratory Rate Blood Pressure 171/76 H Pulse Oximetry 100 100 99 10/10/21 11:57 10/10/21 12:00 10/10/21 12:30 Temperature Pulse Rate 51 L 53 L 52 L Respiratory Rate Blood Pressure 106/73 Pulse Oximetry 98 99 98 10/10/21 12:53 10/10/21 13:00 10/10/21 13:30 Temperature Pulse Rate 52 L 55 L 47 L Respiratory Rate Blood Pressure 166/75 H Pulse Oximetry 98 98 99 10/10/21 14:00 10/10/21 14:18 10/10/21 14:30 Temperature Pulse Rate 53 L 50 L 52 L Respiratory Rate Blood Pressure 151/70 H Pulse Oximetry 99 100 100 10/10/21 15:00 Temperature Pulse Rate 49 L Respiratory Rate Blood Pressure Pulse Oximetry 100 MDM - GI Bleed Lab Data Result diagrams: 10/10/21 15:11 10/10/21 10:40 Labs: Lab Results 10/10/21 10/10/21 10/10/21 Range/Units 10:40 10:40 10:40 WBC 3.9 L (4.5-11.0) X10^3/uL RBC 3.64 L (4.5-5.9) X10^6/uL Hgb 10.7 L (13.5-17.5) g/dL Hct 32.0 L (41-53) % MCV 87.8 (80-100) fL MCH 29.3 (26-34) PG MCHC 33.4 (30-36) % RDW 26.2 H (11.6-14.8) % Plt Count 214 (150-400) X10^3/uL Neut % (Auto) 62.0 (50-75) % Lymph % (Auto) 25.1 (25-40) % Sargent % (Auto) 9.6 (3-14) % Eos % (Auto) 2.1 (2-4) % Baso % (Auto) 1.2 (0-2) % Neut # (Auto) 2400 (3325-2160) /uL Lymph # (Auto) 1000 L (1603-0962) /uL Sargent # (Auto) 400 (0-900) /uL Eos # (Auto) 100 (0-450) /uL Baso # (Auto) 0 (0-100) /uL RBC Morphology See below Poikilocytosis 2+ H Anisocytosis 2+ H Ovalocytes 1+ H Sodium 135 L (137-145) mmol/L Potassium 4.3 (3.4-5.1) mmol/L Chloride 103 (98-107) mmol/L Carbon Dioxide 26 (22-32) mmol/L BUN 19 (9-20) mg/dL Creatinine 0.81 (0.66-1.25) mg/dL Estimated GFR > 60 (>60) mL/min BUN/Creatinine Ratio 23.5 H (6-22) Glucose 107 (80-110) mg/dL Calcium 8.8 (8.4-10.2) mg/dL Urine Color Urine Appearance Urine pH (4.5-8.0) Ur Specific Parrish (1.000-1.035) Urine Protein (Negative) Urine Glucose (UA) (Negative) g/dL Urine Ketones (NEGATIVE) Urine Occult Blood (Negative) Urine Nitrate (Negative) Urine Bilirubin (NEGATIVE) Urine Urobilinogen (0.2) E.U./dL Ur Leukocyte Esterase (NEGATIVE) Urine RBC (0-5/HPF) Urine WBC (0-5/HPF) Ur Squamous Epith Cells (0-5/HPF) Amorphous Sediment Urine Bacteria (None) Ur Culture Indicated? Blood Type O Positive Antibody Screen Negative 10/10/21 10/10/21 Range/Units 10:50 15:11 WBC (4.5-11.0) X10^3/uL RBC (4.5-5.9) X10^6/uL Hgb 9.9 L (13.5-17.5) g/dL Hct 29.5 L (41-53) % MCV (80-100) fL MCH (26-34) PG MCHC (30-36) % RDW (11.6-14.8) % Plt Count (150-400) X10^3/uL Neut % (Auto) (50-75) % Lymph % (Auto) (25-40) % Sargent % (Auto) (3-14) % Eos % (Auto) (2-4) % Baso % (Auto) (0-2) % Neut # (Auto) (3537-9997) /uL Lymph # (Auto) (5268-7771) /uL Sargent # (Auto) (0-900) /uL Eos # (Auto) (0-450) /uL Baso # (Auto) (0-100) /uL RBC Morphology Poikilocytosis Anisocytosis Ovalocytes Sodium (137-145) mmol/L Potassium (3.4-5.1) mmol/L Chloride (98-107) mmol/L Carbon Dioxide (22-32) mmol/L BUN (9-20) mg/dL Creatinine (0.66-1.25) mg/dL Estimated GFR (>60) mL/min BUN/Creatinine Ratio (6-22) Glucose (80-110) mg/dL Calcium (8.4-10.2) mg/dL Urine Color Yellow Urine Appearance Cloudy Urine pH 6.0 (4.5-8.0) Ur Specific Parrish 1.015 (1.000-1.035) Urine Protein 1+ H (Negative) Urine Glucose (UA) Negative (Negative) g/dL Urine Ketones Negative (NEGATIVE) Urine Occult Blood 3+ H (Negative) Urine Nitrate Negative (Negative) Urine Bilirubin Negative (NEGATIVE) Urine Urobilinogen 0.2 (0.2) E.U./dL Ur Leukocyte Esterase 3+ H (NEGATIVE) Urine RBC 1-5/hpf D (0-5/HPF) Urine WBC 30-100/hpf H (0-5/HPF) Ur Squamous Epith Cells 0-1 /hpf (0-5/HPF) Amorphous Sediment 1+ Urine Bacteria Many (>30) H (None) Ur Culture Indicated? Specimen cultured Blood Type Antibody Screen MDM Narrative Medical decision making narrative: Continues to have rectal bleeding. Not hypotensive. Initial H&H stable from yesterday. Symptoms much improved after medications. Urinary catheter placed and patient tolerated this well. Urinalysis does show white blood cells and bacteria. Given his history of self-catheterizations and also chemotherapy status will treat with antibiotics. Urine culture was obtained. Patient not septic. Repeat H&H somewhat lower. Discussed the case with on-call Oncology who recommends patient be admitted for further evaluation of what is most likely bleeding from his rectal tumor. Discussed the case with Dr. Doan on-call for General surgery who feels the patient should be transferred to a facility that has more extensive specialist support. Did inform the patient of this. Facilities in [facility] are all full. Care turned over to Dr. Rankin to continue to evaluate and disposition. Discharge Plan Departure Clinical Impression: Rectal bleeding, Rectal cancer, Acute UTI, Acute urinary retention Prescriptions: No Action acetaminophen 650 mg tablet extended release 1,300 mg PO Q8H PRN (Reason: Pain (Scale Score 4-6)) 0RF atorvastatin 20 mg tablet 20 mg PO DAILY 0RF turmeric root extract 500 mg capsule 1,500 mg PO BID 0RF PreserVision AREDS-2 [id number] tp-ogva-mi-mg capsule 2 cap PO BID 0RF finasteride 5 mg tablet 5 mg PO DAILY 0RF vitamin B complex Tablet 2 tab PO DAILY 0RF Rx Instructions: VITAMIN B-50 COMPLEX (DME) Disabled Parking Permit See Rx Instructions .ROUTE .MEDSUPPLY Qty: 1 0RF Rx Instructions: I certify that this patient has a condition which qualifies them for disabled parking privileges. famotidine [Pepcid] 40 mg tablet 40 mg PO DAILY Qty: 60 4RF tamsulosin 0.4 mg capsule 0.4 mg PO DAILY Qty: 10 0RF metoprolol succinate 25 mg Tablet Extended Release 24 Hr 12.5 mg PO DAILY 0RF ondansetron 8 mg Tablet,Disintegrating 8 mg PO Q8H PRN (Reason: Nausea) Qty: 30 2RF olanzapine 5 mg Tablet 5 mg PO Q12H PRN (Reason: Nausea) Qty: 30 2RF Label Comments: Hasn't started taking yet multivitamin Tablet 1 tab PO DAILY 0RF calcium 500 mg Tablet 500 mg DAILY 0RF morphine [MS Contin] 15 mg Tablet Extended Release 15 mg PO Q12H 30 Days Qty: 60 0RF Rx Instructions: Take one tablet every 12 hours hydrocodone-acetaminophen 10-325 mg Tablet 1 tab PO Q6H PRN (Reason: Pain (Scale Score 4-6)) Qty: 60 0RF Rx Instructions: take 1 tab every 6-8 hours as needed for pain lidocaine-prilocaine 2.5-2.5 % Cream See Rx Instructions .ROUTE .COMPLEX PRN (Reason: skin discomfort) Qty: 30 3RF Rx Instructions: Apply small amount (about the size of a quarter) onto your skin twice a day as needed for lucita anal pain d-mannose 500 mg Capsule 1,500 mg PO BID 0RF Referrals: Alfredo Lu MD [Primary Care Provider] -
[2021-10-10] MEDS: LIDOCAINE 2% (GLYDO) 6 ML GEL TOP (10:39)
[2021-10-10] MEDS: MORPHINE 4 MG/ML INJ IV (10:57)
[2021-10-10 11:02] LABS: Add Manual Diff / Slide Review NO; Basophils Absolute Auto 0 /uL (0-100); Basophils Percent Auto 1.2 % (0-2); Eosinophils Absolute Auto 100 /uL (0-450); Eosinophils Percent Auto 2.1 % (2-4); Hemoglobin 10.7 g/dL (13.5-17.5); Lymphocytes Absolute Auto 1000 /uL (1100-4500); Lymphocytes Percent Auto 25.1 % (25-40); Mean Corpuscular HGB Conc 33.4 % (30-36); Mean Corpuscular Hemoglobin 29.3 PG (26-34); Mean Corpuscular Volume 87.8 fL (80-100); Monocytes Absolute Auto 400 /uL (0-900); Monocytes Percent Auto 9.6 % (3-14); Neutrophils Absolute Auto 2400 /uL (1500-7000); Platelet Count 214 X10^3/uL (150-400); Red Blood Cell Count 3.64 X10^6/uL (4.5-5.9); Red Cell Distribution Width 26.2 % (11.6-14.8); White Blood Cell Count 3.9 X10^3/uL (4.5-11.0)
[2021-10-10 11:10] LABS: Appearance Urine UA CLOUDY; Bilirubin Urine UA NEGATIVE (NEGATIVE); Color Urine UA YELLOW; Glucose Urine UA NEGATIVE (Negative); Ketones Urine UA NEGATIVE (NEGATIVE); Leukocyte Esterase Urine UA 3+ (NEGATIVE); Nitrite Urine UA NEGATIVE (Negative); Occult Blood Urine UA 3+ (Negative); Protein Urine UA 1+ (Negative); Specific Gravity Urine UA 1.015 (1.000-1.035); Urobilinogen Urine UA 0.2 E.U./dL (0.2)
[2021-10-10 11:11] LABS: BUN Creatinine Ratio 23.5 (6-22); Blood Urea Nitrogen 19 mg/dL (9-20); Calcium 8.8 mg/dL (8.4-10.2); Carbon Dioxide 26 mmol/L (22-32); Chloride 103 mmol/L (98-107); Estimated Glomerular Filt Rate > 60 mL/min (>60); Glucose 107 mg/dL (80-110); HEMOLYSIS < 15 (0-50); Potassium 4.3 mmol/L (3.4-5.1); Sodium 135 mmol/L (137-145)
[2021-10-10 11:13] LABS: Anisocytosis 2+; Ovalocytes 1+; Poikilocytosis 2+
[2021-10-10 11:18] LABS: Amorphous Sediment Urine 1+; RBC Urine 1-5/HPF (0-5/HPF); Squamous Epithelial Cell Urine 0-1 /HPF (0-5/HPF); WBC Urine 30-100/HPF (0-5/HPF)
[2021-10-10 11:19] LABS: Bacteria Urine Many (>30); Culture Indicated Urine Specimen Cultured
[2021-10-10] MEDS: LORazepam 2 MG/ML INJ 0.5 MG IV (11:19)
--- NOTE | 2021-10-10 11:32 | PC.NURSE ---
After morphine administration, pt heard grunting in room, states his feet are numb, has sensation of something wet on his leg, and dry mouth. Dr. Pemberton assessed pt and new orders were received.
[2021-10-10] MEDS: cefTRIAXone 1,000 MG in SODIUM CHLORIDE 0.9% 100 ML 200 MG IV (12:22)
[2021-10-10 15:23] LABS: Hematocrit 29.5 % (41-53); Hemoglobin 9.9 g/dL (13.5-17.5)
--- NOTE | 2021-10-10 16:40 | PC.NURSE ---
Assisted pt to change brief, small amount of blood assessed on previous brief and small amount wiped from rectum. Pt stood and ambulatory, denies dizziness or SOB, denies pain.
--- NOTE | 2021-10-10 20:12 | PC.NURSE ---
pt ambulated to bathroom with a steady gate
[2021-10-10] MEDS: MORPHINE ER 15 MG TABLET PO (20:36)
[2021-10-10] MEDS: HYDROCODONE/ACET 5/325 TABLET 2 TAB PO (22:43)
[2021-10-11] VITALS (12 sets, daily range): BP systolic 118–172; BP diastolic 62–79; PULSE 49–57; O2SAT 96–99
[2021-10-11] MEDS: TRANEXAMIC ACID 1,000 MG in SODIUM CHLORIDE 0.9% 100 ML 200 MG IV (00:56)
[2021-10-11 05:39] LABS: Basophils Absolute Auto 0 /uL (0-100); Basophils Percent Auto 0.8 % (0-2); Eosinophils Absolute Auto 100 /uL (0-450); Hematocrit 28.8 % (41-53); Hemoglobin 9.6 g/dL (13.5-17.5); Lymphocytes Absolute Auto 800 /uL (1100-4500); Lymphocytes Percent Auto 21.5 % (25-40); Mean Corpuscular HGB Conc 33.5 % (30-36); Mean Corpuscular Hemoglobin 29.5 PG (26-34); Monocytes Absolute Auto 400 /uL (0-900); Monocytes Percent Auto 11.4 % (3-14); Neutrophils Absolute Auto 2300 /uL (1500-7000); Neutrophils Percent Auto 62.3 % (50-75); Platelet Count 195 X10^3/uL (150-400); Red Blood Cell Count 3.27 X10^6/uL (4.5-5.9); White Blood Cell Count 3.7 X10^3/uL (4.5-11.0)
[2021-10-11 05:41] LABS: Add Manual Diff / Slide Review SLIDE REVIEW; BUN Creatinine Ratio 29.7 (6-22); Blood Urea Nitrogen 19 mg/dL (9-20); Calcium 8.2 mg/dL (8.4-10.2); Carbon Dioxide 27 mmol/L (22-32); Chloride 103 mmol/L (98-107); Estimated Glomerular Filt Rate > 60 mL/min (>60); Glucose 100 mg/dL (80-110); HEMOLYSIS < 15 (0-50); Potassium 4.2 mmol/L (3.4-5.1); Sodium 134 mmol/L (137-145)
[2021-10-11 07:34] LABS: Anisocytosis 2+
== END 2021-10-11 05:45 | disposition short-term general hospital (02) ==
PROVIDERS: Emergency Medicine; Emergency Provider Emergency Medicine; PCP Family Medicine
DX: C20 Malignant neoplasm of rectum (principal); K62.5 Hemorrhage of anus and rectum; N39.0 Urinary tract infection, site not specified; R33.8 Other retention of urine
CPT/HCPCS: 36415; 80048; 81001; 85014; 85018; 85025; 86850; 86900; 86901; 87077; 87086; 87186; 96365; 96367; 96375; 99284; 99291; J0696; J2060; J2270

== ENCOUNTER → 2021-10-27 16:35 | Outpatient (CLI) | payer MEDICARE, OTHER, SELFPAY ==
[2021-05-27 14:22] VITALS: BMI 32.1
[2021-10-27 18:09] LABS: BUN Creatinine Ratio 22.5 (6-22); Blood Urea Nitrogen 18 mg/dL (9-20); Calcium 8.5 mg/dL (8.4-10.2); Carbon Dioxide 27 mmol/L (22-32); Chloride 100 mmol/L (98-107); Estimated Glomerular Filt Rate > 60 mL/min (>60); Glucose 100 mg/dL (80-110); HEMOLYSIS < 15 (0-50); Potassium 4.4 mmol/L (3.4-5.1); Sodium 133 mmol/L (137-145)
== END ==
PROVIDERS: PCP Family Medicine; Referring Provider Internal Medicine Cardiovascular Disease; Visit Provider Internal Medicine Cardiovascular Disease
DX: I10 Essential (primary) hypertension (principal)
CPT/HCPCS: 36415; 80048

== ENCOUNTER → 2021-11-19 10:30 | Outpatient (CLI) | payer MEDICARE, OTHER, SELFPAY ==
[2021-05-27 14:22] VITALS: BMI 32.1
--- NOTE | 2021-11-19 10:31 | DI.CT.S_ITS ---
PROCEDURE: CT ABDOMEN PELVIS W CON INDICATIONS: monitoring colon cancer on treatment TECHNIQUE: After the administration of oral and intravenous contrast, axial sections were acquired from the lung bases to the pubic symphysis. Coronal and sagittal reformats were performed. For radiation dose reduction, the following was used: automated exposure control, adjustment of mA and/or kV according to patient size. COMPARISON:[place], [place], [place] PET CT FUSION SKULL 2 THIGH, 06/16/2021, 8:38. FINDINGS: Image quality: Excellent. Lung bases: Unremarkable. Heart: No significant findings. ABDOMEN: Liver: Unremarkable. Gallbladder: The gallbladder is distended. No gallbladder wall thickening. Biliary ducts: Unremarkable. Pancreas: Unremarkable. Spleen: Unremarkable. Adrenal Glands: Unremarkable. Kidneys and Ureters: Unremarkable. Stomach and Bowel: Patient is status post gastric surgery. There is a small hiatal hernia. The small bowel demonstrates normal caliber and wall thickness. The colon demonstrates overall normal caliber and wall thickness. At the level of the rectosigmoid there is circumferential wall thickening which is increased in extent when compared with the study dated June 16, 2021 suggesting progression of disease. There is extension of enhancing soft tissue into the mesorectal fat which is a new finding from the prior study. Peritoneum: No abnormal intraperitoneal fluid. No free air. Ventral Wall: No hernia. Abdominal Nodes: An 8 mm diameter enlarged left retroperitoneal lymph node previously measured 1.7 cm in diameter. No other retroperitoneal or mesenteric adenopathy. Vessels: Aorta and inferior vena cava are normal in size. PELVIS: Pelvic Organs: Unremarkable. Bladder: There is marked circumferential bladder wall thickening and a large posterior right bladder diverticulum, as before. Pelvic Nodes: No enlarged lymph nodes. Miscellaneous: No inguinal hernias are seen. Bones: Unremarkable. IMPRESSION: 1. Increase in the circumferential soft tissue thickening of the rectosigmoid when compared with the study dated June 16, 2021, which now extends into the mesorectal fat suggesting progression of disease. 2. Stable circumferential bladder wall thickening and large bladder diverticulum. Dictated by: Tabatha Whittington M.D. on 11/19/2021 at 14:08 Approved by: Tabatha Whittington M.D. on 11/19/2021 at 14:17
== END ==
PROVIDERS: PCP Family Medicine; Referring Provider Internal Medicine Medical Oncology; Visit Provider Internal Medicine Medical Oncology
DX: C20 Malignant neoplasm of rectum (principal)
CPT/HCPCS: 74177

== ENCOUNTER → 2021-12-02 12:53 | Outpatient (CLI) | payer MEDICARE, OTHER, SELFPAY ==
[2021-05-27 14:22] VITALS: BMI 32.1
--- NOTE | 2021-12-02 12:55 | DI.ECHO.S_ITS ---
[place] [facility]---------+ [facility] +---------+ : : [address] : : : : [id number] : : : : Phone: [phone] Echocardiogram Report + + :Name: PAUL LAWRENCE Study Date: 12/02/2021 Height: 69 in : :[facility] ReadingLocation: Weight: 163 lb : : Gender: Male BSA: 1.9 m2 : :: 1945 Age: 76 yrs BP: 122/77 mmHg: :Reason For Study: Atrial fibrillation : :Ordering Physician: CLAUDIO, : :AJ Keith Performed By: Maciej Leong : :Referring: AJ SNYDER : + + Interpretation Summary The left ventricle is normal in size and wall thickness. Left ventricular systolic function is normal. The ejection fraction is estimated to be 60-65%. LVEF has not changed. There has been no significant change since the previous exam. There are no focal wall motion abnormalities. Diastolic function could not be accurately assessed due to unobtainable data. The right ventricle is normal in size and function. Pulmonary artery pressures cannot be estimated because of the lack of a measurable TR jet velocity. Both atria are normal in size. There is mild mitral regurgitation. The mitral regurgitant jet is eccentrically directed. There is a new small pericardial effusion noted. Procedure: A two-dimensional transthoracic echocardiogram with color flow and Doppler was performed. The study quality was technically difficult. Comparison is made with the echocardiogram of 02/11/2021. The patient was in sinus bradycardia with heart rates between 58 bpm during the exam. Left Ventricle: The left ventricle is normal in size and wall thickness. Left ventricular systolic function is normal. The ejection fraction is estimated to be 60-65%. There has been no significant change since the previous exam. There are no focal wall motion abnormalities. Diastolic function could not be accurately assessed due to unobtainable data. Right Ventricle: The right ventricle is normal in size and function. Atria: Both atria are normal in size. Mitral Valve: The mitral valve leaflets appear mildly thickened, but open well. There is mild mitral regurgitation. The mitral regurgitant jet is eccentrically directed. Aortic Valve: There is mild aortic valve sclerosis. No aortic regurgitation is present. Tricuspid Valve: The tricuspid valve is normal in structure and function. There is mild tricuspid regurgitation. Pulmonary artery pressures cannot be estimated because of the lack of a measurable TR jet velocity. Pulmonic Valve: The pulmonic valve is not well seen, but is grossly normal. There is mild pulmonic regurgitation. Great Vessels: The aortic root is not well visualized. The ascending aorta could not be visualized. The inferior vena cava was not visualized. Pericardium/ Pleura There is a small pericardial effusion noted. There are no echocardiographic indications of cardiac tamponade. There is no pleural effusion. MMode/2D Measurements & Calculations LVIDd: 4.9 cm LVOT diam: 2.3 cm LVIDs: 3.0 cm FS: 38.8 % IVSd: 1.0 cm LVPWd: 1.0 cm LV mcintosh. diameter/BSA (cm/m^2): 2.6 LV sys. diameter/BSA (cm/m^2): 1.6 LA dimension: 4.3 cm RA long axis: 6.1 cm LA A2 area: 22.0 cm2 LA A4 area: 18.7 cm2 LA length (vol): 5.7 cm LA vol: 61.8 ml LA vol index: 32.6 ml/m2 TAPSE_phl: 2.2 cm Doppler Measurements & Calculations Ao V2 max: 125.0 cm/sec LVOT Max Warren: 107.0 cm/sec Ao V2 mean: 89.7 cm/sec LV V1 max P.6 mmHg Ao max P.0 mmHg LV V1 VTI: 22.1 cm Ao mean P.0 mmHg PATRICIO(I,D): 3.8 cm2 Ao V2 VTI: 24.4 cm PATRICIO(V,D): 3.6 cm2 sev ratio: 0.91 PATRICIO indexed to BSA (cm^2/m^2): 2.0 MV E max warren: 81.8 cm/sec SV(LVOT): 91.8 ml MV A max warren: 86.5 cm/sec MV E/A: 0.95 Med Peak E' Warren: 8.1 cm/sec E/E' med: 10.1 Lat Peak E' Warren: 9.2 cm/sec E/E' lat: 8.9 E/e' average: 9.5 MV dec time: 0.24 sec AV VR_phl: 0.86 MV P1/2t-pr_phl: 71.0 msec PATRICIO(VTI)/BSA_phl: 2.0 Reading Physician:08:02 PM
== END ==
PROVIDERS: PCP Family Medicine; Referring Provider Nurse Practitioner; Visit Provider Nurse Practitioner
DX: I48.0 Paroxysmal atrial fibrillation (principal); I08.3 Combined rheumatic disorders of mitral, aortic and tricuspid valves; I31.3 Pericardial effusion (noninflammatory)
CPT/HCPCS: 93306

== ENCOUNTER → 2022-04-04 13:00 | Outpatient (CLI) | payer MEDICARE, OTHER, SELFPAY ==
[2021-05-27 14:22] VITALS: BMI 32.1
== END ==
PROVIDERS: PCP Family Medicine; Referring Provider General Practice; Visit Provider Surgery
DX: C20 Malignant neoplasm of rectum (principal); T81.31XA Disruption of external operation (surgical) wound, not elsewhere classified, initial encounter; R21 Rash and other nonspecific skin eruption; Y84.2 Radiological procedure and radiotherapy as the cause of abnormal reaction of the patient, or of later complication, without mention of misadventure at the time of the procedure
CPT/HCPCS: 97605; 99205; 99213

== ENCOUNTER → 2022-04-07 10:23 | Outpatient (CLI) | payer MEDICARE, OTHER, SELFPAY ==
[2021-05-27 14:22] VITALS: BMI 32.1
== END ==
PROVIDERS: PCP Family Medicine; Referring Provider Family Medicine; Visit Provider Surgery
DX: C20 Malignant neoplasm of rectum (principal); T81.31XS Disruption of external operation (surgical) wound, not elsewhere classified, sequela; Y84.2 Radiological procedure and radiotherapy as the cause of abnormal reaction of the patient, or of later complication, without mention of misadventure at the time of the procedure
CPT/HCPCS: 97605

== ENCOUNTER → 2022-04-11 15:13 | Outpatient (CLI) | payer MEDICARE, OTHER, SELFPAY ==
[2021-05-27 14:22] VITALS: BMI 32.1
== END ==
PROVIDERS: PCP Family Medicine; Referring Provider Family Medicine; Visit Provider Surgery
DX: T81.31XA Disruption of external operation (surgical) wound, not elsewhere classified, initial encounter (principal); S31.839A Unspecified open wound of anus, initial encounter; S31.109A Unspecified open wound of abdominal wall, unspecified quadrant without penetration into peritoneal cavity, initial encounter; Y84.2 Radiological procedure and radiotherapy as the cause of abnormal reaction of the patient, or of later complication, without mention of misadventure at the time of the procedure; C20 Malignant neoplasm of rectum
CPT/HCPCS: 11043; 97605

== ENCOUNTER → 2022-04-14 14:37 | Outpatient (CLI) | payer MEDICARE, OTHER, SELFPAY ==
[2021-05-27 14:22] VITALS: BMI 32.1
== END ==
PROVIDERS: PCP Family Medicine; Referring Provider Family Medicine; Visit Provider Surgery
DX: S31.839A Unspecified open wound of anus, initial encounter (principal); S31.109A Unspecified open wound of abdominal wall, unspecified quadrant without penetration into peritoneal cavity, initial encounter; T81.31XA Disruption of external operation (surgical) wound, not elsewhere classified, initial encounter; Y84.2 Radiological procedure and radiotherapy as the cause of abnormal reaction of the patient, or of later complication, without mention of misadventure at the time of the procedure
CPT/HCPCS: 97605

== ENCOUNTER → 2022-04-18 14:47 | Outpatient (CLI) | payer MEDICARE, OTHER, SELFPAY ==
[2021-05-27 14:22] VITALS: BMI 32.1
== END ==
PROVIDERS: PCP Family Medicine; Referring Provider Family Medicine; Visit Provider Surgery
DX: C20 Malignant neoplasm of rectum (principal); T81.31XS Disruption of external operation (surgical) wound, not elsewhere classified, sequela; Y84.2 Radiological procedure and radiotherapy as the cause of abnormal reaction of the patient, or of later complication, without mention of misadventure at the time of the procedure
CPT/HCPCS: 17250; 97605; 99212

== ENCOUNTER → 2022-04-21 13:53 | Outpatient (CLI) | payer MEDICARE, OTHER, SELFPAY ==
[2021-05-27 14:22] VITALS: BMI 32.1
== END ==
PROVIDERS: PCP Family Medicine; Referring Provider Family Medicine; Visit Provider Surgery
DX: C20 Malignant neoplasm of rectum (principal); T81.31XS Disruption of external operation (surgical) wound, not elsewhere classified, sequela; Y84.2 Radiological procedure and radiotherapy as the cause of abnormal reaction of the patient, or of later complication, without mention of misadventure at the time of the procedure
CPT/HCPCS: 97605; 99213

== ENCOUNTER → 2022-04-25 14:00 | Outpatient (CLI) | payer MEDICARE, OTHER, SELFPAY ==
[2021-05-27 14:22] VITALS: BMI 32.1
== END ==
PROVIDERS: PCP Family Medicine; Referring Provider Family Medicine; Visit Provider Surgery
DX: C20 Malignant neoplasm of rectum (principal); Y84.2 Radiological procedure and radiotherapy as the cause of abnormal reaction of the patient, or of later complication, without mention of misadventure at the time of the procedure; T81.31XA Disruption of external operation (surgical) wound, not elsewhere classified, initial encounter
CPT/HCPCS: 97605; 99213

== ENCOUNTER → 2022-04-28 15:22 | Outpatient (CLI) | payer MEDICARE, OTHER, SELFPAY ==
[2021-05-27 14:22] VITALS: BMI 32.1
== END ==
PROVIDERS: PCP Family Medicine; Referring Provider Family Medicine; Visit Provider Surgery
DX: T81.31XA Disruption of external operation (surgical) wound, not elsewhere classified, initial encounter (principal); S31.109A Unspecified open wound of abdominal wall, unspecified quadrant without penetration into peritoneal cavity, initial encounter; S31.839A Unspecified open wound of anus, initial encounter
CPT/HCPCS: 99213

== ENCOUNTER → 2022-05-03 10:30 | Outpatient (CLI) | payer MEDICARE, OTHER, SELFPAY ==
[2021-05-27 14:22] VITALS: BMI 32.1
== END ==
PROVIDERS: PCP Family Medicine; Referring Provider Family Medicine; Visit Provider Surgery
DX: S31.839A Unspecified open wound of anus, initial encounter (principal); S31.109A Unspecified open wound of abdominal wall, unspecified quadrant without penetration into peritoneal cavity, initial encounter; T81.31XA Disruption of external operation (surgical) wound, not elsewhere classified, initial encounter; L08.9 Local infection of the skin and subcutaneous tissue, unspecified
CPT/HCPCS: 36415; 80053; 84134; 97605

== ENCOUNTER → 2022-05-03 11:47 | Outpatient (CLI) | payer MEDICARE, OTHER, SELFPAY ==
[2021-05-27 14:22] VITALS: BMI 32.1
[2022-05-03 12:30] LABS: Alanine Aminotransferase 703 IU/L (<50); Albumin 2.7 g/dL (3.5-5.0); Albumin Globulin Ratio 0.9 (1.0-2.8); Alkaline Phosphatase 968 U/L (38-126); Bilirubin Total 2.6 mg/dL (0.2-1.3); Blood Urea Nitrogen 26 mg/dL (9-20); Calcium 8.1 mg/dL (8.4-10.2); Carbon Dioxide 26 mmol/L (22-32); Chloride 99 mmol/L (98-107); Estimated Glomerular Filt Rate > 60 mL/min (>60); Globulin 3.1 g/dL (1.7-4.1); Glucose 92 mg/dL (80-110); HEMOLYSIS < 15 (0-50); Potassium 3.9 mmol/L (3.4-5.1); Sodium 134 mmol/L (137-145); Total Protein 5.8 g/dL (6.3-8.2)
[2022-05-03 12:37] LABS: Prealbumin 13.1 mg/dL (17.6-36.0)
[2022-05-03 12:57] LABS: Aspartate Aminotransferase 1098 IU/L (17-59)
== END ==
PROVIDERS: PCP Family Medicine; Referring Provider Surgery; Visit Provider Surgery
DX: L08.9 Local infection of the skin and subcutaneous tissue, unspecified (principal)
CPT/HCPCS: 36415; 80053; 84134

== ENCOUNTER → 2022-05-06 10:01 | Outpatient (CLI) | payer MEDICARE, OTHER, SELFPAY ==
[2021-05-27 14:22] VITALS: BMI 32.1
== END ==
PROVIDERS: PCP Family Medicine; Referring Provider Family Medicine; Visit Provider Surgery
DX: L08.9 Local infection of the skin and subcutaneous tissue, unspecified (principal); T81.31XA Disruption of external operation (surgical) wound, not elsewhere classified, initial encounter; S31.109A Unspecified open wound of abdominal wall, unspecified quadrant without penetration into peritoneal cavity, initial encounter; S31.839A Unspecified open wound of anus, initial encounter; Y84.2 Radiological procedure and radiotherapy as the cause of abnormal reaction of the patient, or of later complication, without mention of misadventure at the time of the procedure; C20 Malignant neoplasm of rectum
CPT/HCPCS: 36415; 82378; 85025; 97605; 99212; 99214

== ENCOUNTER → 2022-05-06 11:37 | Outpatient (CLI) | payer MEDICARE, OTHER, SELFPAY ==
[2021-05-27 14:22] VITALS: BMI 32.1
[2022-05-06 13:37] LABS: Basophils Absolute Auto 0 /uL (0-100); Basophils Percent Auto 0.6 % (0-2); Eosinophils Absolute Auto 100 /uL (0-450); Eosinophils Percent Auto 1.7 % (2-4); Hematocrit 30.9 % (41-53); Lymphocytes Absolute Auto 600 /uL (1100-4500); Lymphocytes Percent Auto 15.1 % (25-40); Mean Corpuscular HGB Conc 32.5 % (30-36); Mean Corpuscular Hemoglobin 23.8 PG (26-34); Mean Corpuscular Volume 73.2 fL (80-100); Monocytes Absolute Auto 400 /uL (0-900); Monocytes Percent Auto 9.8 % (3-14); Neutrophils Absolute Auto 3100 /uL (1500-7000); Neutrophils Percent Auto 72.8 % (50-75); Platelet Count 250 X10^3/uL (150-400); Red Blood Cell Count 4.22 X10^6/uL (4.5-5.9); White Blood Cell Count 4.3 X10^3/uL (4.5-11.0)
[2022-05-06 13:38] LABS: Add Manual Diff / Slide Review SLIDE REVIEW
[2022-05-06 14:03] LABS: Anisocytosis 2+; Hypochromasia 1+; Microcytosis 1+
== END ==
PROVIDERS: PCP Family Medicine; Referring Provider Surgery; Visit Provider Surgery
DX: L08.9 Local infection of the skin and subcutaneous tissue, unspecified (principal)
CPT/HCPCS: 36415; 82378; 85025

== ENCOUNTER → 2022-05-10 13:48 | Outpatient (CLI) | payer MEDICARE, OTHER, SELFPAY ==
[2021-05-27 14:22] VITALS: BMI 32.1
== END ==
PROVIDERS: PCP Family Medicine; Referring Provider Family Medicine; Visit Provider Surgery
DX: T81.31XA Disruption of external operation (surgical) wound, not elsewhere classified, initial encounter (principal); Y84.2 Radiological procedure and radiotherapy as the cause of abnormal reaction of the patient, or of later complication, without mention of misadventure at the time of the procedure; S31.109A Unspecified open wound of abdominal wall, unspecified quadrant without penetration into peritoneal cavity, initial encounter; C20 Malignant neoplasm of rectum
CPT/HCPCS: 97605; 99214

== ENCOUNTER → 2022-05-12 14:09 | Outpatient (CLI) | payer MEDICARE, OTHER, SELFPAY ==
[2021-05-27 14:22] VITALS: BMI 32.1
--- NOTE | 2022-05-12 14:10 | DI.CT.S_ITS ---
PROCEDURE: CT ABDOMEN PELVIS W CON INDICATIONS: neoplasm of rectum follow-up TECHNIQUE: After the administration of oral and IV contrast, axial sections were acquired from the lung bases to the pubic symphysis. Coronal and sagittal reformats were performed. For radiation dose reduction, the following was used: automated exposure control, adjustment of mA and/or kV according to patient size. COMPARISON: [facility], [place], [place] PET CT FUSION SKULL 2 THIGH, 06/16/2021, 8:38. [facility], CT, CT ABDOMEN PELVIS WITH CONTRAST, 02/21/2022, 22:26. [facility], CT, CT ABDOMEN PELVIS W CON, 11/19/2021, 12:04. FINDINGS: Image quality: Excellent. Lung bases: No pleural effusion. Heart: No significant findings. ABDOMEN: Liver: No focal lesion seen. Gallbladder: Distended. No stones seen. Biliary ducts: Unremarkable. Pancreas: Unremarkable. Spleen: Unremarkable. Adrenal Glands: Unremarkable. Kidneys and Ureters: No hydronephrosis. Low-density renal cysts bilaterally. 1 of the cysts in the left kidney demonstrates rim calcification and is minimally complex. Small nonobstructing left kidney stones x2. Stomach and Bowel: Rectum and anus are resected. Prominent stool in the colon. Left abdomen colostomy. No small bowel obstruction. Gastric bypass. Peritoneum: Presacral collection measuring 9.6 x 4.4 x 3.1 cm, estimated volume of 68 cc. (Previously remeasured 15.6 x 6 x 3.3 cm on 02/21/2022). There is thickening surrounding this collection and enhancement. Likely contiguous collection extending into the anal resection site. There is thickening anterior to the presacral collection which is similar. There is trace free fluid. No pneumoperitoneum. Ventral Wall: No hernia. Anasarca. Abdominal Nodes: Intra aortocaval node measuring 1.2 cm, (2/34), previously 1.1 cm. Intra-aortic caval node measuring 1.3 cm, (2/39), previously 0.8 cm. These are just inferior to the right renal artery. Vessels: Aorta and inferior vena cava are normal in size. PELVIS: Pelvic Organs: Unremarkable. Bladder: Bladder is mostly decompressed with Al catheter. Bladder wall thickening. Right bladder diverticulum with excreted contrast. Pelvic Nodes: No enlarged lymph nodes. Miscellaneous: No inguinal hernias are seen. Gluteal cleft wound is decreased. Bones: No suspicious lesion. L1 compression fracture with prior vertebroplasty. Scoliosis. Severe hip DJD. IMPRESSION: 1. Retroperitoneal adenopathy is slightly increased. 2. Similar bladder wall thickening. Large right bladder diverticulum. Al catheter. 3. Presacral fluid collection is decreased in size. There is thickening surrounding the collection with enhancement which could be due to fibrosis. 4. Rectum and anus are surgically absent. Left abdominal colostomy. Prominent stool in the colon. Dictated by: Олег Rooney M.D. on 05/12/2022 at 16:29 Approved by: Олег Rooney M.D. on 05/12/2022 at 16:54
== END ==
PROVIDERS: PCP Family Medicine; Referring Provider Surgery; Visit Provider Surgery
DX: C20 Malignant neoplasm of rectum (principal); R59.0 Localized enlarged lymph nodes; N28.1 Cyst of kidney, acquired; N20.0 Calculus of kidney; N32.3 Diverticulum of bladder; Z93.3 Colostomy status
CPT/HCPCS: 74177; Q9967

== ENCOUNTER → 2022-05-13 13:24 | Outpatient (CLI) | payer MEDICARE, OTHER, SELFPAY ==
[2021-05-27 14:22] VITALS: BMI 32.1
== END ==
PROVIDERS: PCP Family Medicine; Referring Provider Family Medicine; Visit Provider Nurse Practitioner Family
DX: S31.839A Unspecified open wound of anus, initial encounter (principal); S31.109A Unspecified open wound of abdominal wall, unspecified quadrant without penetration into peritoneal cavity, initial encounter; T81.31XA Disruption of external operation (surgical) wound, not elsewhere classified, initial encounter; S31.000A Unspecified open wound of lower back and pelvis without penetration into retroperitoneum, initial encounter
CPT/HCPCS: 97605

== ENCOUNTER → 2022-05-17 12:57 | Outpatient (CLI) | payer MEDICARE, OTHER, SELFPAY ==
[2021-05-27 14:22] VITALS: BMI 32.1
== END ==
PROVIDERS: PCP Family Medicine; Referring Provider Family Medicine; Visit Provider Surgery
DX: T81.31XS Disruption of external operation (surgical) wound, not elsewhere classified, sequela (principal); Y84.2 Radiological procedure and radiotherapy as the cause of abnormal reaction of the patient, or of later complication, without mention of misadventure at the time of the procedure; S31.109A Unspecified open wound of abdominal wall, unspecified quadrant without penetration into peritoneal cavity, initial encounter; S31.000A Unspecified open wound of lower back and pelvis without penetration into retroperitoneum, initial encounter; S31.839A Unspecified open wound of anus, initial encounter; C20 Malignant neoplasm of rectum
CPT/HCPCS: 17250; 99214

== ENCOUNTER → 2022-05-20 13:01 | Outpatient (CLI) | payer MEDICARE, OTHER, SELFPAY ==
[2021-05-27 14:22] VITALS: BMI 32.1
== END ==
PROVIDERS: PCP Family Medicine; Referring Provider Family Medicine; Visit Provider Nurse Practitioner Family
DX: S31.839A Unspecified open wound of anus, initial encounter (principal); S31.000A Unspecified open wound of lower back and pelvis without penetration into retroperitoneum, initial encounter
CPT/HCPCS: 99212

== ENCOUNTER → 2022-05-24 13:08 | Outpatient (CLI) | payer MEDICARE, OTHER, SELFPAY ==
[2021-05-27 14:22] VITALS: BMI 32.1
== END ==
PROVIDERS: PCP Family Medicine; Referring Provider Family Medicine; Visit Provider Surgery
DX: S31.000A Unspecified open wound of lower back and pelvis without penetration into retroperitoneum, initial encounter (principal); L59.8 Other specified disorders of the skin and subcutaneous tissue related to radiation; Y84.2 Radiological procedure and radiotherapy as the cause of abnormal reaction of the patient, or of later complication, without mention of misadventure at the time of the procedure; C20 Malignant neoplasm of rectum
CPT/HCPCS: 97605; 99213

== ENCOUNTER → 2022-05-26 | Outpatient (CLI) | payer MEDICARE, OTHER, SELFPAY ==
[2021-05-27 14:22] VITALS: BMI 32.1
--- NOTE | 2022-06-03 16:16 | DI.ECHO.S_ITS ---
Interpretation Summary 1) Normal left ventricular thickness, size, wall motion, and systolic function (EF 60-65%). 2) Normal right ventricular size and function. 3) Borderline prolapse of the posterior leaflet. 4) There is moderate mitral regurgitation that is very anteriorly directed. 5) There is mild to moderate tricuspid regurgitation. 6) Compared to the Edcho done 12/02/2021, mitral regurgitation appears to be have worsened from mild to moderate on this study. Procedure: A two-dimensional transthoracic echocardiogram with color flow and Doppler was performed. The patient was in sinus bradycardia with heart rates between 56-65 bpm during the exam. Left Ventricle: The left ventricle is normal in size and wall thickness. The ejection fraction is estimated to be 60-65%. Diastolic parameters suggest a relaxation abnormality of the left ventricle, consistent with probable normal filling pressures. Right Ventricle: The right ventricle is normal in size and function. Atria: The left atrium is moderately dilated. The right atrium is mild to moderately dilated. There is no Doppler evidence for an interatrial shunt. Mitral Valve: The mitral valve leaflets appear mildly thickened, but open well. Borderline prolapse of the posterior leaflet. There is moderate mitral regurgitation. Compared to the prior echo study, there has been an increase in the severity of mitral regurgitation. Aortic Valve: The aortic valve is normal in structure and function. There is trace aortic regurgitation. Tricuspid Valve: The tricuspid valve is normal in structure and function. There is mild to moderate tricuspid regurgitation. Right ventricular systolic pressure is estimated to be 27 mmHg plus the clinically estimated CVP which cannot be estimated on this exam. Pulmonic Valve: The pulmonic valve leaflets are thin and pliable; valve motion is normal. There is mild pulmonic regurgitation. Great Vessels: The ascending aorta is mildly enlarged. The IVC was not well visualized secondary to technical limitations making central venous pressures difficult to estimate. Pericardium/ Pleura There is a small pericardial effusion noted. There is no pleural effusion. MMode/2D Measurements & Calculations LVIDd: 4.5 cm LVOT diam: 2.2 cm LVIDs: 2.7 cm Ao root diam: 3.6 cm FS: 40.0 % asc Aorta Diam: 3.7 cm EPSS: 0.20 cm IVSd: 1.1 cm LVPWd: 0.80 cm LV mcintosh. diameter/BSA (cm/m^2): 2.3 LV sys. diameter/BSA (cm/m^2): 1.4 LA dimension: 4.1 cm RA long axis: 6.1 cm LA A2 area: 21.9 cm2 RA area: 24.2 cm2 LA A4 area: 19.3 cm2 RA vol: 81.9 ml LA length (vol): 5.4 cm RA : 42.2 ml/m2 LA vol: 66.0 ml LA vol index: 34.0 ml/m2 RVD1 (basal): 3.3 cm LVLs ap4: 7.1 cm LVLd ap2: 8.0 cm TAPSE_phl: 1.2 cm LVLs ap2: 6.6 cm Doppler Measurements & Calculations Ao V2 max: 104.0 cm/sec LVOT Max Warren: 92.0 cm/sec Ao V2 mean: 76.4 cm/sec LV V1 max P.4 mmHg Ao max P.0 mmHg LV V1 VTI: 21.9 cm Ao mean P.0 mmHg PATRICIO(I,D): 3.9 cm2 Ao V2 VTI: 21.6 cm PATRICIO(V,D): 3.4 cm2 sev ratio: 1.0 PATRICIO indexed to BSA (cm^2/m^2): 2.0 MV E max warren: 72.8 cm/sec TR max warren: 258.5 cm/sec MV A max warren: 85.3 cm/sec TR max P.7 mmHg MV E/A: 0.85 PA V2 max: 99.0 cm/sec Med Peak E' Warren: 7.5 cm/sec PA V2 mean: 67.7 cm/sec E/E' med: 9.7 PA mean P.0 mmHg Lat Peak E' Warren: 6.3 cm/sec E/E' lat: 11.6 E/e' average: 10.6 MV dec time: 0.20 sec MVA(VTI): 2.6 cm2 MV V2 mean: 48.7 cm/sec SV(LVOT): 83.2 ml MV mean P.0 mmHg MV V2 VTI: 31.8 cm AV VR_phl: 0.88 PATRICIO(VTI)/BSA_phl: 2.0 Reading Physician:05:50 PM
== END ==
PROVIDERS: PCP Family Medicine; Referring Provider Nurse Practitioner; Visit Provider Nurse Practitioner
DX: I08.1 Rheumatic disorders of both mitral and tricuspid valves (principal); I31.39 Other pericardial effusion (noninflammatory); I48.0 Paroxysmal atrial fibrillation; I77.89 Other specified disorders of arteries and arterioles
CPT/HCPCS: 93306

== ENCOUNTER → 2022-05-27 13:03 | Outpatient (CLI) | payer MEDICARE, OTHER, SELFPAY ==
[2021-05-27 14:22] VITALS: BMI 32.1
== END ==
PROVIDERS: PCP Family Medicine; Referring Provider Specialist; Visit Provider Nurse Practitioner Family
DX: S31.000A Unspecified open wound of lower back and pelvis without penetration into retroperitoneum, initial encounter (principal); S31.109A Unspecified open wound of abdominal wall, unspecified quadrant without penetration into peritoneal cavity, initial encounter; T81.89XA Other complications of procedures, not elsewhere classified, initial encounter; S31.839A Unspecified open wound of anus, initial encounter
CPT/HCPCS: 97605

== ENCOUNTER 2022-05-27 15:41 | Emergency (ER) | payer MEDICARE, OTHER, SELFPAY ==
[2021-05-27 14:22] VITALS: BMI 32.1
[2022-05-27 15:57] VITALS: BP 117/72; PULSE 75; RESP 16; TEMP 36.4; O2SAT 99; BMI 25.5
--- NOTE | 2022-05-27 16:11 | ED.MALEGU ---
HPI - Male Genitourinary <Sridevi Izaguirre PA-C - Last Filed: 05/27/22 17:49> General Chief complaint: Urogenital-Male Stated complaint: Catheter not working Time Seen by Provider: 05/27/22 16:01 History of Present Illness HPI Narrative: Patient is a 77-year-old male reporting to the emergency department for urine catheter replacement and evaluation of urinary retention. He noticed urine stopped entering his catheter bag for the last 4 hours before coming to the ED. He noticed intraurethral pain starting 2 hours ago. He reports urge to urinate x 1.5 hours. His last catheter change was May 05. He is due for a new catheter June 08, but is requesting a change today. He reports a history of anal cancer diagnosed last December. He follows up regularly with Dr. Aaron who was his surgeon. He reports that he has a drain and a colostomy since the surgery. He reports to wound care twice weekly. He was seen today, and is due to return Monday. He denies fever, chills, abdominal pain other than full bladder tenderness. He has noticed that his penis is tender at the tip on the outside as well, and he has just noticed some bleeding from the tip. He reports he is taking Eliquis for atrial fibrillation. He denies allergies to medications. He reports a history of UTIs. Results have been noted in the chart with previous klebsiella pneumoniae infection October 2021. Related Data Home Medications Medication Instructions Recorded Confirmed acetaminophen 650 mg 1,300 mg PO Q8H PRN Pain (Scale 10/31/18 05/17/22 tablet,extended release Score 4-6) atorvastatin 20 mg tablet 20 mg PO DAILY 10/31/18 05/17/22 turmeric root extract 500 mg 1,500 mg PO BID 10/31/18 05/17/22 capsule vit C 250 mg-vit E 90 mg-zinc 40 2 cap PO BID 10/31/18 05/17/22 mg-copper 1 [id number] capsule (PreserVision AREDS-2) finasteride 5 mg tablet 5 mg PO DAILY 06/17/19 05/17/22 vitamin B complex 2 tab PO DAILY 06/17/19 05/17/22 metoprolol succinate 25 mg 12.5 mg PO DAILY 09/23/20 05/17/22 tablet,extended release 24 hr d-mannose 500 mg capsule 1,500 mg PO BID 11/04/20 05/17/22 calcium 500 mg tablet 500 mg DAILY 07/28/21 05/17/22 multivitamin 1 tab PO DAILY 07/28/21 05/17/22 apixaban 5 mg tablet (Eliquis) 5 mg PO BID 10/13/21 05/17/22 tranexamic acid 650 mg tablet 650 mg PO TID PRN Bleeding 10/13/21 05/17/22 Previous Rx's Medication Instructions Recorded tamsulosin 0.4 mg capsule 0.4 mg PO DAILY Nephrolithiasis, 10/24/18 Bladder outlet syndrome #10 caps olanzapine 5 mg tablet 5 mg PO Q12H PRN Nausea #30 tabs 09/23/20 ondansetron 8 mg disintegrating 8 mg PO Q8H PRN Nausea #30 tabs 09/23/20 tablet Disabled Parking Permit #1 ea 04/07/21 lidocaine-prilocaine 2.5 %-2.5 % See Rx Instructions .Route 09/29/21 topical cream .COMPLEX PRN skin discomfort #30 grams hydrocodone 10 mg-acetaminophen 1 tab PO Q6H PRN Pain (Scale Score 12/08/21 325 mg tablet 4-6) #60 tabs morphine 15 mg tablet,extended 15 mg PO Q12H #60 tabs 05/18/22 release (MS Contin) ciprofloxacin HCl 500 mg tablet 500 mg PO BID UTI 5 days #9 tabs 05/27/22 ciprofloxacin HCl 500 mg tablet 500 mg PO BID 5 days #10 tabs 05/27/22 (Cipro) clotrimazole 1 % topical cream 1 applic topical BID Nasima 05/27/22 balanitis 1 week #30 grams Allergies Allergy/AdvReac Type Severity Reaction Status Date / Time No Known Drug Allergies Allergy Unknown Verified 05/10/22 10:13 [NO KNOWN DRUG ALLERGIES] Review of Systems <Sridevi Izaguirre PA-C - Last Filed: 05/27/22 17:49> Review of Systems Narrative: Same as noted in HPI Gastrointestinal Gastrointestinal: Reports as per HPI Genitourinary Genitourinary: Reports difficulty urinating and Reports penile discharge (blood) Comments: No groin lumps Patient History <Sridevi Izaguirre PA-C - Last Filed: 05/27/22 17:49> Medical History Acute GI bleeding Anal fistula Bladder atony (~2017) BPH (benign prostatic hyperplasia) Cellulitis Constipation Coronary artery disease CVA (cerebral vascular accident) Essential hypertension (08/15/17) Hemorrhoids Hyperlipidemia Iron deficiency anemia Kidney stones Laceration of finger of left hand Paroxysmal atrial fibrillation Personal history of colonic polyps Rectal cancer Self-catheterizes urinary bladder Sleep apnea Transient ischemic attack (~2016) Surgical History History of angioplasty (~2013) History of colonoscopy History of esophagogastroduodenoscopy (EGD) History of gastric bypass (2013) History of knee replacement History of knee replacement History of kyphoplasty History of loop recorder (06/2017) Family History Father Hypertension Cancer Social History marital status: household members: spouse occupational status: previously employed Smoking Status: Former smoker alcohol intake: current substance use type: does not use Smoking Status: Former smoker alcohol intake frequency: a few times a month Substance Use Type: does not use Exam <Sridevi Izaguirre PA-C - Last Filed: 05/27/22 17:49> Initial Vital Signs Initial Vital Signs: Vital Signs Temperature 97.6 F 05/27/22 15:57 Pulse Rate 75 05/27/22 15:57 Respiratory Rate 16 05/27/22 15:57 Blood Pressure 117/72 05/27/22 15:57 Pulse Oximetry 99 05/27/22 15:57 Oxygen Delivery Method 05/27/22 15:57 Const General: cooperative, healthy appearing, comfortable and well developed GI Other: No abdominal distension, mild discomfort to palpation suprapubically related to full bladder. Other: No inguinal lymphadenopathy palpated. Some possible white yeast noted at head of penis when foreskin is pulled back. Some blood noted at urethral opening. Foreskin is swollen dorsally. Mildly tender to palpation. Catheter in place. Skin Other: Warm and dry over abdomen. Surgical scar noted vertically inferior to umbilicus. Colostomy bag in place. Drain to right of umbilicus. <She Bowen DO - Last Filed: 05/29/22 08:03> Initial Vital Signs Initial Vital Signs: Vital Signs Temperature 97.6 F 05/27/22 15:57 Pulse Rate 75 05/27/22 15:57 Respiratory Rate 16 05/27/22 15:57 Blood Pressure 117/72 05/27/22 15:57 Pulse Oximetry 99 05/27/22 15:57 Oxygen Delivery Method 05/27/22 15:57 Course <Sridevi Izaguirre PA-C - Last Filed: 05/27/22 17:49> Orders Ordered: Discontinued Medications Ciprofloxacin (Ciprofloxacin 250 Mg Tablet) 500 mg PO NOW ONE Stop: 05/27/22 17:10 Last Admin: 05/27/22 17:32 Dose: 500 mg Documented By: MEGHAN Lidocaine HCl (Lidocaine 2% (Glydo) 6 Ml Gel) 6 ml TOP NOW ONE Stop: 05/27/22 16:05 Last Admin: 05/27/22 16:12 Dose: 6 ml Documented By: MEHGAN Reevaluation(s) Reevaluation #1: Patient reports he is much relieved after catheter replacement by RN. He reports urge to urinate has left. Roughly 550 mL of urine in bag. Vital Signs Vital signs: Vital Signs - 8 hr 05/27/22 15:57 05/27/22 16:50 Temperature 97.6 F Pulse Rate 75 75 Respiratory Rate 16 17 Blood Pressure 117/72 110/70 Pulse Oximetry 99 99 Oxygen Delivery Method Room Air <She Bowen DO - Last Filed: 05/29/22 08:03> Orders Ordered: Discontinued Medications Ciprofloxacin (Ciprofloxacin 250 Mg Tablet) 500 mg PO NOW ONE Stop: 05/27/22 17:10 Last Admin: 05/27/22 17:32 Dose: 500 mg Documented By: MEGHAN Lidocaine HCl (Lidocaine 2% (Glydo) 6 Ml Gel) 6 ml TOP NOW ONE Stop: 05/27/22 16:05 Last Admin: 05/27/22 16:12 Dose: 6 ml Documented By: MEGHAN Vital Signs Vital signs: Vital Signs - 8 hr 05/27/22 15:57 05/27/22 16:50 Temperature 97.6 F Pulse Rate 75 75 Respiratory Rate 16 17 Blood Pressure 117/72 110/70 Pulse Oximetry 99 99 Oxygen Delivery Method Room Air MDM - Male Genitourinary <Sridevi Izaguirre PA-C - Last Filed: 05/27/22 17:49> Lab Data Labs: Lab Results 05/27/22 Range/Units 16:15 Urine Color Lt. yellow Urine Appearance Sl cloudy Urine pH 6.0 (4.5-8.0) Ur Specific Mcgrady 1.020 (1.000-1.035) Urine Protein 1+ H (Negative) Urine Glucose (UA) Negative (Negative) g/dL Urine Ketones Negative (NEGATIVE) Urine Occult Blood 3+ H (Negative) Urine Nitrate Negative (Negative) Urine Bilirubin Negative (NEGATIVE) Urine Urobilinogen 0.2 (0.2) E.U./dL Ur Leukocyte Esterase 3+ H (NEGATIVE) Urine RBC 30-100/hpf H (0-5/HPF) Urine WBC 30-100/hpf H (0-5/HPF) Urine Bacteria Moderate (10-30) H (None) Ur Culture Indicated? Specimen cultured MDM Narrative Medical decision making narrative: Patient is a 77-year-old male reporting to the emergency department for urine catheter replacement. He noticed urine stopped entering his catheter bag for the last 4 hours. He noticed intraurethral pain starting 2 hours ago. He reports urge to urinate x1 0.5 hours. His last catheter change was May 05. He is due for a new catheter June 08, but is requesting a change today. UA showed evidence of bacteria in urine. He was treated with one dose of cipro 500mg P.O tonight with a rx sent to [facility] pharmacy. Multiple etiologies for patient's symptoms considered including, but not limited to: [Urinary tract infection, paraphimosis, functional urinary obstruction, pyelonephritis, kidney stone] Prior Charts reviewed: y, hx of klebsiella pneumoniae most recently October 2021. Labs reviewed and interpreted by myself: UA Consultations: Patient will be seeing Dr. Rosales and was referred to by Dr. Aaron and Dr. Acuna of [facility]. 1640: RN changed Al catheter, and pulled around 550mL 1700: UA showed moderate bacteria, RBC and WBC, culture is pending. Will treat for UTI with history of Klebsiella pneumoniae with Cipro as last urine culture shows susceptibility. We will treat for 10 days due to chronic UTI history. Patient and family aware, he has scheduled follow-up with Dr. Rosales and will follow up accordingy. His Al catheter was exchanged today and and is draining without obstruction. Patient's symptoms improved over duration of stay with above-stated therapies. Findings and discharge diagnosis discussed with patient/family followed by verbalization of understanding Return precautions discussed with patient/family whom verbalize understanding of diagnosis and plan <She Bowen, DO - Last Filed: 05/29/22 08:03> Lab Data Labs: Lab Results 05/27/22 Range/Units 16:15 Urine Color Lt. yellow Urine Appearance Sl cloudy Urine pH 6.0 (4.5-8.0) Ur Specific Mcgrady 1.020 (1.000-1.035) Urine Protein 1+ H (Negative) Urine Glucose (UA) Negative (Negative) g/dL Urine Ketones Negative (NEGATIVE) Urine Occult Blood 3+ H (Negative) Urine Nitrate Negative (Negative) Urine Bilirubin Negative (NEGATIVE) Urine Urobilinogen 0.2 (0.2) E.U./dL Ur Leukocyte Esterase 3+ H (NEGATIVE) Urine RBC 30-100/hpf H (0-5/HPF) Urine WBC 30-100/hpf H (0-5/HPF) Urine Bacteria Moderate (10-30) H (None) Ur Culture Indicated? Specimen cultured Discharge Plan Departure Patient Disposition: Home Clinical Impression: Acute urinary retention, Acute UTI (urinary tract infection) Al catheter problem Qualifiers: Encounter type: initial encounter Qualified Code(s): T83.9XXA - Unspecified complication of genitourinary prosthetic device, implant and graft, initial encounter Instructions: How to Care for Your Al Catheter -- Male, DI for Urinary Tract Infection (UTI), DI for Balanitis Activity Restrictions/Additional Instructions: *You have been diagnosed with Al catheter problem, UTI, and Nasima balanitis *What to do: *Please continue to take your regular medications as directed. [ x] New medication prescriptions sent to your pharmacy: Apply clotrimazole 1% twice daily x1 week. And ciprofloxacin as prescribed for your urinary tract infection twice a day for the next 10 days. Please follow-up with Dr. Rosales as scheduled *Please follow up with Dr. Rosales as scheduled. Let them know you were seen in the Emergency Department and that we ask that you be seen in follow up. *Return to Emergency Department if you should have any new, worsening or concerning symptoms, such as fever greater than 101 F, shaking chills, worsening pain, persistent vomiting or other bothersome symptoms or return of penile pain, bleeding or return of urinary retention. You had your catheter replaced today in the emergency department. We incidentally noted a yeast infection of the tip of your penis called candidal balanitis. We have prescribed to your pharmacy a prescription of an antifungal medication called clotrimazole. Please apply this medication twice daily for 1 week. When cleaning your penis, gently pull back the foreskin and rinse with saline, or use mild soap and water. This will help to reduce incidence of recurrent yeast infections. Additionally, we have noted bacteria in your urine. We have treated with one dose of 500mg ciprofloxacin here in the ED. 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 We discussed risk of tendon rupture with fluoroquinalones. Please avoid strenuous activity while on this medicine. Please make sure to follow-up as scheduled with your surgeon. Thank you for coming to us for your care today. We have discussed these discharge precautions and instructions. Prescriptions: New clotrimazole 1 % cream 1 applic topical BID 7 Days Qty: 30 0RF Rx Instructions: May continue up to 2 weeks if symptoms persist ciprofloxacin HCl 500 mg tablet 500 mg PO BID 5 Days Qty: 9 0RF ciprofloxacin HCl [Cipro] 500 mg tablet 500 mg PO BID 5 Days Qty: 10 0RF No Action acetaminophen 650 mg tablet extended release 1,300 mg PO Q8H PRN (Reason: Pain (Scale Score 4-6)) atorvastatin 20 mg tablet 20 mg PO DAILY turmeric root extract 500 mg capsule 1,500 mg PO BID PreserVision AREDS-2 [id number] [id number]-cjmf-di-mg capsule 2 cap PO BID finasteride 5 mg tablet 5 mg PO DAILY vitamin B complex Tablet 2 tab PO DAILY Rx Instructions: VITAMIN B-50 COMPLEX (DME) Disabled Parking Permit See Rx Instructions .ROUTE .MEDSUPPLY Qty: 1 0RF Rx Instructions: I certify that this patient has a condition which qualifies them for disabled parking privileges. tamsulosin 0.4 mg capsule 0.4 mg PO DAILY Qty: 10 0RF metoprolol succinate 25 mg Tablet Extended Release 24 Hr 12.5 mg PO DAILY ondansetron 8 mg Tablet,Disintegrating 8 mg PO Q8H PRN (Reason: Nausea) Qty: 30 2RF olanzapine 5 mg Tablet 5 mg PO Q12H PRN (Reason: Nausea) Qty: 30 2RF Label Comments: Hasn't started taking yet multivitamin Tablet 1 tab PO DAILY calcium 500 mg Tablet 500 mg DAILY lidocaine-prilocaine 2.5-2.5 % Cream See Rx Instructions .ROUTE .COMPLEX PRN (Reason: skin discomfort) Qty: 30 3RF Rx Instructions: Apply small amount (about the size of a quarter) onto your skin twice a day as needed for lucita anal pain Eliquis 5 mg Tablet 5 mg PO BID tranexamic acid 650 mg Tablet 650 mg PO TID PRN (Reason: Bleeding) hydrocodone-acetaminophen 10-325 mg Tablet 1 tab PO Q6H PRN (Reason: Pain (Scale Score 4-6)) Qty: 60 0RF Rx Instructions: take 1 tab every 6-8 hours as needed for pain morphine [MS Contin] 15 mg Tablet Extended Release 15 mg PO Q12H Qty: 60 0RF d-mannose 500 mg Capsule 1,500 mg PO BID Referrals: Alfredo Lu MD [Primary Care Provider] - Obed Acuna DO [Non-Staff] - Muna Rosales MD [Physician] - Stand Alone Forms: Patient Portal/API <She Bowen DO - Last Filed: 05/29/22 08:03> Cosign ED Attending Meeta Attestation: I was immediately available in the department for consultation. Documentation has been reviewed.
[2022-05-27] MEDS: LIDOCAINE 2% (GLYDO) 6 ML GEL TOP (16:12)
--- NOTE | 2022-05-27 16:38 | PC.NURSE ---
changed morrison catheter, removed old catheter, tip intact, small bloody drainaged at tip/from tip of penis; inserted new 18 fr morrison catheter 10cc balloon, sterile procedure. shaft/foreskin excoriated, red, edema with white thick drainage around shaft under foreskin, tender to touch for cleaning/morrison placement. obtained and sent urine sample to lab from new catheter.
[2022-05-27 16:39] LABS: Appearance Urine UA SL CLOUDY; Bilirubin Urine UA NEGATIVE (NEGATIVE); Color Urine UA LT. YELLOW; Glucose Urine UA NEGATIVE (Negative); Ketones Urine UA NEGATIVE (NEGATIVE); Leukocyte Esterase Urine UA 3+ (NEGATIVE); Nitrite Urine UA NEGATIVE (Negative); Occult Blood Urine UA 3+ (Negative); Protein Urine UA 1+ (Negative); Urobilinogen Urine UA 0.2 E.U./dL (0.2)
[2022-05-27 16:45] LABS: Bacteria Urine Moderate (10-30); Culture Indicated Urine Specimen Cultured; RBC Urine 30-100/HPF (0-5/HPF); WBC Urine 30-100/HPF (0-5/HPF)
[2022-05-27 16:50] VITALS: BP 110/70; PULSE 75; RESP 17; O2SAT 99
[2022-05-27] MEDS: CIPROFLOXACIN 250 MG TABLET 500 MG PO (17:32)
== END 2022-05-27 17:35 | disposition home or self-care (01) ==
PROVIDERS: Emergency Provider Physician Assistant; PCP Family Medicine
DX: R33.8 Other retention of urine (principal); N39.0 Urinary tract infection, site not specified; T83.9XXA Unspecified complication of genitourinary prosthetic device, implant and graft, initial encounter; Z79.899 Other long term (current) drug therapy; S31.000A Unspecified open wound of lower back and pelvis without penetration into retroperitoneum, initial encounter; S31.109A Unspecified open wound of abdominal wall, unspecified quadrant without penetration into peritoneal cavity, initial encounter; T81.89XA Other complications of procedures, not elsewhere classified, initial encounter; S31.839A Unspecified open wound of anus, initial encounter
CPT/HCPCS: 81001; 87077; 87086; 87186; 97605; 99283; 99284

== ENCOUNTER → 2022-05-30 09:56 | Outpatient (CLI) | payer MEDICARE, OTHER, SELFPAY ==
[2021-05-27 14:22] VITALS: BMI 32.1
[2022-05-30 11:04] LABS: Hematocrit 31.2 % (41-53); Mean Corpuscular Hemoglobin 22.9 PG (26-34); Mean Corpuscular Volume 71.6 fL (80-100); Platelet Count 258 X10^3/uL (150-400); Red Blood Cell Count 4.36 X10^6/uL (4.5-5.9); Red Cell Distribution Width 20.8 % (11.6-14.8); White Blood Cell Count 3.2 X10^3/uL (4.5-11.0)
[2022-05-30 11:06] LABS: Add Manual Diff / Slide Review YES
[2022-05-30 11:20] LABS: Alanine Aminotransferase 18 IU/L (<50); Albumin 3.2 g/dL (3.5-5.0); Albumin Globulin Ratio 0.9 (1.0-2.8); Alkaline Phosphatase 151 U/L (38-126); Aspartate Aminotransferase 25 IU/L (17-59); BUN Creatinine Ratio 42.6 (6-22); Bilirubin Total 0.4 mg/dL (0.2-1.3); Blood Urea Nitrogen 23 mg/dL (9-20); Calcium 8.5 mg/dL (8.4-10.2); Carbon Dioxide 24 mmol/L (22-32); Chloride 103 mmol/L (98-107); Cholesterol 104 mg/dL (140-199); Estimated Glomerular Filt Rate > 60 mL/min (>60); Globulin 3.4 g/dL (1.7-4.1); Glucose 91 mg/dL (80-110); HDL Cholesterol 38 mg/dL (40-60); HEMOLYSIS < 15 (0-50); LDL Cholesterol Calculated 56 mg/dL (<100); Sodium 137 mmol/L (137-145); Total Protein 6.6 g/dL (6.3-8.2); Triglycerides 52 mg/dL (35-150)
[2022-05-30 11:31] LABS: Microcytosis 2+; Neutrophils Absolute Manual 1856 /uL (3000-5900); Total Cells Counted 100
[2022-05-30 11:32] LABS: Anisocytosis 1+
[2022-05-30 11:33] LABS: Hypochromasia 1+
== END ==
PROVIDERS: PCP Family Medicine; Referring Provider Internal Medicine Cardiovascular Disease; Visit Provider Internal Medicine Cardiovascular Disease
DX: I10 Essential (primary) hypertension (principal); E78.5 Hyperlipidemia, unspecified
CPT/HCPCS: 36415; 80053; 80061; 85007; 85025

== ENCOUNTER → 2022-05-30 14:16 | Outpatient (CLI) | payer MEDICARE, OTHER, SELFPAY ==
[2021-05-27 14:22] VITALS: BMI 32.1
--- NOTE | 2022-05-30 14:20 | DI.RAD.S_ITS ---
PROCEDURE: XR CHEST 2V INDICATIONS: eval for HBO clearance TECHNIQUE: 2 views of the chest were acquired. COMPARISON: [facility], CR, XR CHEST 1 VIEW, 02/22/2022, 9:02. [facility], CR, XR CHEST 1V, 02/08/2021, 14:27. FINDINGS: Surgical changes and devices: Stable positioning of left subclavian chest port with tube tip projected over the mid SVC. Lungs and pleura: Expiratory chest demonstrating bronchovascular crowding and interstitial prominence. No focal opacity, pleural effusion or pneumothorax Mediastinum: Mediastinal contours are normal. Heart size is normal. Bones and chest wall: No suspicious bony abnormalities. Soft tissues appear unremarkable. IMPRESSION: Expiratory chest demonstrating no acute cardiopulmonary disease. Dictated by: Prabhakar CONTRERAS Interpreted: Jay Maier MD on 05/30/2022 at 14:42 Transcribed by: ZOHREH on 05/30/2022 at 14:44 Approved by: Jay Maier M.D. on 05/30/2022 at 20:30
== END ==
PROVIDERS: PCP Family Medicine; Referring Provider Nurse Practitioner Family; Visit Provider Nurse Practitioner Family
DX: Z01.818 Encounter for other preprocedural examination (principal); C20 Malignant neoplasm of rectum; I10 Essential (primary) hypertension; E78.5 Hyperlipidemia, unspecified; Z95.828 Presence of other vascular implants and grafts
CPT/HCPCS: 36415; 71046; 80053; 80061; 85007; 85025

== ENCOUNTER → 2022-05-31 10:54 | Outpatient (CLI) | payer MEDICARE, OTHER, SELFPAY ==
[2021-05-27 14:22] VITALS: BMI 32.1
== END ==
PROVIDERS: PCP Family Medicine; Referring Provider Specialist; Visit Provider Surgery
DX: C20 Malignant neoplasm of rectum (principal); T81.31XS Disruption of external operation (surgical) wound, not elsewhere classified, sequela; Y84.2 Radiological procedure and radiotherapy as the cause of abnormal reaction of the patient, or of later complication, without mention of misadventure at the time of the procedure; L59.8 Other specified disorders of the skin and subcutaneous tissue related to radiation
CPT/HCPCS: 97605; 99183; 99213; G0277

== ENCOUNTER → 2022-06-01 13:12 | Outpatient (CLI) | payer MEDICARE, OTHER, SELFPAY ==
[2021-05-27 14:22] VITALS: BMI 32.1
== END ==
PROVIDERS: PCP Family Medicine; Referring Provider Specialist; Visit Provider Surgery
DX: C20 Malignant neoplasm of rectum (principal); T81.31XS Disruption of external operation (surgical) wound, not elsewhere classified, sequela; Y84.2 Radiological procedure and radiotherapy as the cause of abnormal reaction of the patient, or of later complication, without mention of misadventure at the time of the procedure; L59.8 Other specified disorders of the skin and subcutaneous tissue related to radiation
CPT/HCPCS: 99183; G0277

== ENCOUNTER → 2022-06-02 13:21 | Outpatient (CLI) | payer MEDICARE, OTHER, SELFPAY ==
[2021-05-27 14:22] VITALS: BMI 32.1
== END ==
PROVIDERS: PCP Family Medicine; Referring Provider Urology; Visit Provider Surgery
DX: C20 Malignant neoplasm of rectum (principal); T81.31XS Disruption of external operation (surgical) wound, not elsewhere classified, sequela; Y84.2 Radiological procedure and radiotherapy as the cause of abnormal reaction of the patient, or of later complication, without mention of misadventure at the time of the procedure; L59.8 Other specified disorders of the skin and subcutaneous tissue related to radiation
CPT/HCPCS: 99183; G0277

== ENCOUNTER → 2022-06-03 11:24 | Outpatient (CLI) | payer MEDICARE, OTHER, SELFPAY ==
[2021-05-27 14:22] VITALS: BMI 32.1
== END ==
PROVIDERS: PCP Family Medicine; Referring Provider Family Medicine; Visit Provider Nurse Practitioner Family
DX: C20 Malignant neoplasm of rectum (principal); T81.31XS Disruption of external operation (surgical) wound, not elsewhere classified, sequela; Y84.2 Radiological procedure and radiotherapy as the cause of abnormal reaction of the patient, or of later complication, without mention of misadventure at the time of the procedure; L59.8 Other specified disorders of the skin and subcutaneous tissue related to radiation; S31.000A Unspecified open wound of lower back and pelvis without penetration into retroperitoneum, initial encounter; S31.839A Unspecified open wound of anus, initial encounter; S31.109A Unspecified open wound of abdominal wall, unspecified quadrant without penetration into peritoneal cavity, initial encounter
CPT/HCPCS: 97605; 99183; G0277

== ENCOUNTER → 2022-06-06 13:50 | Outpatient (CLI) | payer MEDICARE, OTHER, SELFPAY ==
[2021-05-27 14:22] VITALS: BMI 32.1
== END ==
PROVIDERS: PCP Family Medicine; Referring Provider Family Medicine; Visit Provider Surgery
DX: C20 Malignant neoplasm of rectum (principal); T81.31XS Disruption of external operation (surgical) wound, not elsewhere classified, sequela; L59.8 Other specified disorders of the skin and subcutaneous tissue related to radiation; Y84.2 Radiological procedure and radiotherapy as the cause of abnormal reaction of the patient, or of later complication, without mention of misadventure at the time of the procedure
CPT/HCPCS: 99183; G0277

== ENCOUNTER → 2022-06-07 10:49 | Outpatient (CLI) | payer MEDICARE, OTHER, SELFPAY ==
[2021-05-27 14:22] VITALS: BMI 32.1
== END ==
PROVIDERS: PCP Family Medicine; Referring Provider Specialist; Visit Provider Surgery
DX: C20 Malignant neoplasm of rectum (principal); T81.31XS Disruption of external operation (surgical) wound, not elsewhere classified, sequela; Y84.2 Radiological procedure and radiotherapy as the cause of abnormal reaction of the patient, or of later complication, without mention of misadventure at the time of the procedure; L59.8 Other specified disorders of the skin and subcutaneous tissue related to radiation; T81.31XA Disruption of external operation (surgical) wound, not elsewhere classified, initial encounter; S31.000A Unspecified open wound of lower back and pelvis without penetration into retroperitoneum, initial encounter; S31.109A Unspecified open wound of abdominal wall, unspecified quadrant without penetration into peritoneal cavity, initial encounter
CPT/HCPCS: 97597; 99183; 99213; G0277

== ENCOUNTER → 2022-06-08 13:14 | Outpatient (CLI) | payer MEDICARE, OTHER, SELFPAY ==
[2021-05-27 14:22] VITALS: BMI 32.1
== END ==
PROVIDERS: PCP Family Medicine; Referring Provider Specialist; Visit Provider Surgery
DX: C20 Malignant neoplasm of rectum (principal); Y84.2 Radiological procedure and radiotherapy as the cause of abnormal reaction of the patient, or of later complication, without mention of misadventure at the time of the procedure; L59.8 Other specified disorders of the skin and subcutaneous tissue related to radiation
CPT/HCPCS: 99183; G0277

== ENCOUNTER → 2022-06-09 13:58 | Outpatient (CLI) | payer MEDICARE, OTHER, SELFPAY ==
[2021-05-27 14:22] VITALS: BMI 32.1
== END ==
PROVIDERS: PCP Family Medicine; Referring Provider Family Medicine; Visit Provider Surgery
DX: C20 Malignant neoplasm of rectum (principal); T81.31XS Disruption of external operation (surgical) wound, not elsewhere classified, sequela; Y84.2 Radiological procedure and radiotherapy as the cause of abnormal reaction of the patient, or of later complication, without mention of misadventure at the time of the procedure; L59.8 Other specified disorders of the skin and subcutaneous tissue related to radiation
CPT/HCPCS: 99183; G0277

== ENCOUNTER → 2022-06-10 11:06 | Outpatient (CLI) | payer MEDICARE, OTHER, SELFPAY ==
[2021-05-27 14:22] VITALS: BMI 32.1
== END ==
PROVIDERS: PCP Family Medicine; Referring Provider Family Medicine; Visit Provider Nurse Practitioner Family
DX: S31.000A Unspecified open wound of lower back and pelvis without penetration into retroperitoneum, initial encounter (principal); S31.109A Unspecified open wound of abdominal wall, unspecified quadrant without penetration into peritoneal cavity, initial encounter; S31.839A Unspecified open wound of anus, initial encounter; C20 Malignant neoplasm of rectum; T81.31XS Disruption of external operation (surgical) wound, not elsewhere classified, sequela; Y84.2 Radiological procedure and radiotherapy as the cause of abnormal reaction of the patient, or of later complication, without mention of misadventure at the time of the procedure; L59.8 Other specified disorders of the skin and subcutaneous tissue related to radiation
CPT/HCPCS: 97605; 99183; G0277

== ENCOUNTER → 2022-06-13 13:12 | Outpatient (CLI) | payer MEDICARE, OTHER, SELFPAY ==
[2022-06-13 11:43] VITALS: BMI 32.1
== END ==
PROVIDERS: PCP Family Medicine; Referring Provider Family Medicine; Visit Provider Surgery
DX: C20 Malignant neoplasm of rectum (principal); T81.31XS Disruption of external operation (surgical) wound, not elsewhere classified, sequela; Y84.2 Radiological procedure and radiotherapy as the cause of abnormal reaction of the patient, or of later complication, without mention of misadventure at the time of the procedure; L59.8 Other specified disorders of the skin and subcutaneous tissue related to radiation; R33.9 Retention of urine, unspecified; N31.2 Flaccid neuropathic bladder, not elsewhere classified; Z87.898 Personal history of other specified conditions
CPT/HCPCS: 99183; 99214; G0277

== ENCOUNTER → 2022-06-14 11:00 | Outpatient (CLI) | payer MEDICARE, OTHER, SELFPAY ==
[2022-06-13 11:43] VITALS: BMI 32.1
== END ==
PROVIDERS: PCP Family Medicine; Referring Provider Specialist; Visit Provider Surgery
DX: C20 Malignant neoplasm of rectum (principal); Y84.2 Radiological procedure and radiotherapy as the cause of abnormal reaction of the patient, or of later complication, without mention of misadventure at the time of the procedure; L59.8 Other specified disorders of the skin and subcutaneous tissue related to radiation; T81.31XA Disruption of external operation (surgical) wound, not elsewhere classified, initial encounter; S31.839A Unspecified open wound of anus, initial encounter; S31.000A Unspecified open wound of lower back and pelvis without penetration into retroperitoneum, initial encounter; S31.109A Unspecified open wound of abdominal wall, unspecified quadrant without penetration into peritoneal cavity, initial encounter
CPT/HCPCS: 11042; 97605; 99183; 99213; 99214; G0277

== ENCOUNTER → 2022-06-15 15:10 | Outpatient (CLI) | payer MEDICARE, OTHER, SELFPAY ==
[2022-06-13 11:43] VITALS: BMI 32.1
== END ==
PROVIDERS: PCP Family Medicine; Referring Provider Specialist; Visit Provider Surgery
DX: C20 Malignant neoplasm of rectum (principal); T81.31XS Disruption of external operation (surgical) wound, not elsewhere classified, sequela; Y84.2 Radiological procedure and radiotherapy as the cause of abnormal reaction of the patient, or of later complication, without mention of misadventure at the time of the procedure; L59.8 Other specified disorders of the skin and subcutaneous tissue related to radiation
CPT/HCPCS: 99183; G0277

== ENCOUNTER → 2022-06-16 12:13 | Outpatient (CLI) | payer MEDICARE, OTHER, SELFPAY ==
[2022-06-13 11:43] VITALS: BMI 32.1
[2022-06-16 13:10] LABS: Add Manual Diff / Slide Review NO; Basophils Absolute Auto 0 /uL (0-100); Basophils Percent Auto 0.7 % (0-2); Eosinophils Absolute Auto 100 /uL (0-450); Eosinophils Percent Auto 2.1 % (2-4); Hemoglobin 9.8 g/dL (13.5-17.5); Lymphocytes Absolute Auto 700 /uL (1100-4500); Lymphocytes Percent Auto 17.4 % (25-40); Mean Corpuscular HGB Conc 31.5 % (30-36); Mean Corpuscular Hemoglobin 22.6 PG (26-34); Mean Corpuscular Volume 71.8 fL (80-100); Monocytes Absolute Auto 300 /uL (0-900); Neutrophils Absolute Auto 2800 /uL (1500-7000); Neutrophils Percent Auto 71.8 % (50-75); Platelet Count 241 X10^3/uL (150-400); Red Blood Cell Count 4.32 X10^6/uL (4.5-5.9); Red Cell Distribution Width 21.1 % (11.6-14.8); White Blood Cell Count 3.9 X10^3/uL (4.5-11.0)
[2022-06-16 13:22] LABS: Anisocytosis 1+; Poikilocytosis 1+
[2022-06-16 14:06] LABS: Alanine Aminotransferase 20 IU/L (<50); Albumin 3.1 g/dL (3.5-5.0); Alkaline Phosphatase 109 U/L (38-126); Aspartate Aminotransferase 28 IU/L (17-59); BUN Creatinine Ratio 51.7 (6-22); Bilirubin Total 0.4 mg/dL (0.2-1.3); Blood Urea Nitrogen 30 mg/dL (9-20); Calcium 8.3 mg/dL (8.4-10.2); Carbon Dioxide 26 mmol/L (22-32); Chloride 102 mmol/L (98-107); Estimated Glomerular Filt Rate > 60 mL/min (>60); Globulin 3.1 g/dL (1.7-4.1); Glucose 76 mg/dL (80-110); HEMOLYSIS < 15 (0-50); Potassium 3.9 mmol/L (3.4-5.1); Sodium 136 mmol/L (137-145); Total Protein 6.2 g/dL (6.3-8.2)
[2022-06-16 14:13] LABS: Prealbumin 12.6 mg/dL (17.6-36.0)
== END ==
PROVIDERS: PCP Family Medicine; Referring Provider Surgery; Visit Provider Surgery
DX: C20 Malignant neoplasm of rectum (principal); L89.154 Pressure ulcer of sacral region, stage 4; Z87.898 Personal history of other specified conditions
CPT/HCPCS: 36415; 80053; 82378; 84134; 85025

== ENCOUNTER → 2022-06-16 15:13 | Outpatient (CLI) | payer MEDICARE, OTHER, SELFPAY ==
[2022-06-13 11:43] VITALS: BMI 32.1
== END ==
PROVIDERS: PCP Family Medicine; Referring Provider Specialist; Visit Provider Surgery
DX: C20 Malignant neoplasm of rectum (principal); T81.31XS Disruption of external operation (surgical) wound, not elsewhere classified, sequela; Y84.2 Radiological procedure and radiotherapy as the cause of abnormal reaction of the patient, or of later complication, without mention of misadventure at the time of the procedure; L59.8 Other specified disorders of the skin and subcutaneous tissue related to radiation; L89.154 Pressure ulcer of sacral region, stage 4; Z87.898 Personal history of other specified conditions
CPT/HCPCS: 36415; 80053; 82378; 84134; 85025; 99183; G0277

== ENCOUNTER → 2022-06-17 11:18 | Outpatient (CLI) | payer MEDICARE, OTHER, SELFPAY ==
[2022-06-13 11:43] VITALS: BMI 32.1
== END ==
PROVIDERS: PCP Family Medicine; Referring Provider Specialist; Visit Provider Nurse Practitioner Family
DX: C20 Malignant neoplasm of rectum (principal); T81.31XS Disruption of external operation (surgical) wound, not elsewhere classified, sequela; Y84.2 Radiological procedure and radiotherapy as the cause of abnormal reaction of the patient, or of later complication, without mention of misadventure at the time of the procedure; L59.8 Other specified disorders of the skin and subcutaneous tissue related to radiation; S31.000A Unspecified open wound of lower back and pelvis without penetration into retroperitoneum, initial encounter; S31.839A Unspecified open wound of anus, initial encounter; S31.109A Unspecified open wound of abdominal wall, unspecified quadrant without penetration into peritoneal cavity, initial encounter
CPT/HCPCS: 97605; 99183; G0277

== ENCOUNTER → 2022-06-20 13:29 | Outpatient (CLI) | payer MEDICARE, OTHER, SELFPAY ==
[2022-06-13 11:43] VITALS: BMI 32.1
== END ==
PROVIDERS: PCP Family Medicine; Referring Provider Specialist; Visit Provider Surgery
DX: C20 Malignant neoplasm of rectum (principal); T81.31XS Disruption of external operation (surgical) wound, not elsewhere classified, sequela; Y84.2 Radiological procedure and radiotherapy as the cause of abnormal reaction of the patient, or of later complication, without mention of misadventure at the time of the procedure; L59.8 Other specified disorders of the skin and subcutaneous tissue related to radiation
CPT/HCPCS: 99183; G0277

== ENCOUNTER → 2022-06-21 11:19 | Outpatient (CLI) | payer MEDICARE, OTHER, SELFPAY ==
[2022-06-13 11:43] VITALS: BMI 32.1
== END ==
PROVIDERS: PCP Family Medicine; Referring Provider Specialist; Visit Provider Surgery
DX: T81.89XA Other complications of procedures, not elsewhere classified, initial encounter (principal); S31.000A Unspecified open wound of lower back and pelvis without penetration into retroperitoneum, initial encounter; S31.109A Unspecified open wound of abdominal wall, unspecified quadrant without penetration into peritoneal cavity, initial encounter; S31.501A Unspecified open wound of unspecified external genital organs, male, initial encounter; L59.8 Other specified disorders of the skin and subcutaneous tissue related to radiation
CPT/HCPCS: 17250; 97605; 99183; 99213; G0277

== ENCOUNTER → 2022-06-22 13:02 | Outpatient (CLI) | payer MEDICARE, OTHER, SELFPAY ==
[2022-06-13 11:43] VITALS: BMI 32.1
== END ==
PROVIDERS: PCP Family Medicine; Referring Provider Family Medicine; Visit Provider Surgery
DX: C20 Malignant neoplasm of rectum (principal); T81.31XS Disruption of external operation (surgical) wound, not elsewhere classified, sequela; Y84.2 Radiological procedure and radiotherapy as the cause of abnormal reaction of the patient, or of later complication, without mention of misadventure at the time of the procedure; L59.8 Other specified disorders of the skin and subcutaneous tissue related to radiation
CPT/HCPCS: 99183; G0277

== ENCOUNTER → 2022-06-23 13:40 | Outpatient (CLI) | payer MEDICARE, OTHER, SELFPAY ==
[2022-06-13 11:43] VITALS: BMI 32.1
== END ==
PROVIDERS: PCP Family Medicine; Referring Provider Specialist; Visit Provider Surgery
DX: C20 Malignant neoplasm of rectum (principal); T81.31XS Disruption of external operation (surgical) wound, not elsewhere classified, sequela; Y84.2 Radiological procedure and radiotherapy as the cause of abnormal reaction of the patient, or of later complication, without mention of misadventure at the time of the procedure; L59.8 Other specified disorders of the skin and subcutaneous tissue related to radiation
CPT/HCPCS: 99183; G0277

== ENCOUNTER → 2022-06-24 11:47 | Outpatient (CLI) | payer MEDICARE, OTHER, SELFPAY ==
[2022-06-13 11:43] VITALS: BMI 32.1
== END ==
PROVIDERS: PCP Family Medicine; Referring Provider Specialist; Visit Provider Nurse Practitioner Family
DX: C20 Malignant neoplasm of rectum (principal); T81.31XS Disruption of external operation (surgical) wound, not elsewhere classified, sequela; Y84.2 Radiological procedure and radiotherapy as the cause of abnormal reaction of the patient, or of later complication, without mention of misadventure at the time of the procedure; L59.8 Other specified disorders of the skin and subcutaneous tissue related to radiation
CPT/HCPCS: 97605; 99183; G0277

== ENCOUNTER → 2022-06-27 13:39 | Outpatient (CLI) | payer MEDICARE, OTHER, SELFPAY ==
[2022-06-13 11:43] VITALS: BMI 32.1
== END ==
PROVIDERS: PCP Family Medicine; Referring Provider Specialist; Visit Provider Surgery
DX: C20 Malignant neoplasm of rectum (principal); T81.31XS Disruption of external operation (surgical) wound, not elsewhere classified, sequela; Y84.2 Radiological procedure and radiotherapy as the cause of abnormal reaction of the patient, or of later complication, without mention of misadventure at the time of the procedure; L59.8 Other specified disorders of the skin and subcutaneous tissue related to radiation
CPT/HCPCS: 99183; G0277

== ENCOUNTER → 2022-06-28 11:16 | Outpatient (CLI) | payer MEDICARE, OTHER, SELFPAY ==
[2022-06-13 11:43] VITALS: BMI 32.1
== END ==
PROVIDERS: PCP Family Medicine; Referring Provider Specialist; Visit Provider Surgery
DX: C20 Malignant neoplasm of rectum (principal); T81.31XS Disruption of external operation (surgical) wound, not elsewhere classified, sequela; Y84.2 Radiological procedure and radiotherapy as the cause of abnormal reaction of the patient, or of later complication, without mention of misadventure at the time of the procedure; L59.8 Other specified disorders of the skin and subcutaneous tissue related to radiation
CPT/HCPCS: 11042; 99183; 99213; G0277

== ENCOUNTER → 2022-06-29 13:09 | Outpatient (CLI) | payer MEDICARE, OTHER, SELFPAY ==
[2022-06-13 11:43] VITALS: BMI 32.1
== END ==
PROVIDERS: PCP Family Medicine; Referring Provider Family Medicine; Visit Provider Surgery
DX: C20 Malignant neoplasm of rectum (principal); T81.31XS Disruption of external operation (surgical) wound, not elsewhere classified, sequela; Y84.2 Radiological procedure and radiotherapy as the cause of abnormal reaction of the patient, or of later complication, without mention of misadventure at the time of the procedure; L59.8 Other specified disorders of the skin and subcutaneous tissue related to radiation
CPT/HCPCS: 99183; G0277

== ENCOUNTER → 2022-06-30 14:33 | Outpatient (CLI) | payer MEDICARE, OTHER, SELFPAY ==
[2022-06-13 11:43] VITALS: BMI 32.1
== END ==
PROVIDERS: PCP Family Medicine; Referring Provider Specialist; Visit Provider Surgery
DX: C20 Malignant neoplasm of rectum (principal); L59.8 Other specified disorders of the skin and subcutaneous tissue related to radiation
CPT/HCPCS: 99183; G0277

== ENCOUNTER → 2022-07-01 14:00 | Outpatient (CLI) | payer MEDICARE, OTHER, SELFPAY ==
[2022-06-13 11:43] VITALS: BMI 32.1
== END ==
PROVIDERS: PCP Family Medicine; Referring Provider Specialist; Visit Provider Nurse Practitioner Family
DX: C20 Malignant neoplasm of rectum (principal); T81.31XS Disruption of external operation (surgical) wound, not elsewhere classified, sequela; Y84.2 Radiological procedure and radiotherapy as the cause of abnormal reaction of the patient, or of later complication, without mention of misadventure at the time of the procedure; L59.8 Other specified disorders of the skin and subcutaneous tissue related to radiation; S31.000A Unspecified open wound of lower back and pelvis without penetration into retroperitoneum, initial encounter; S31.109A Unspecified open wound of abdominal wall, unspecified quadrant without penetration into peritoneal cavity, initial encounter; S31.501A Unspecified open wound of unspecified external genital organs, male, initial encounter; R21 Rash and other nonspecific skin eruption
CPT/HCPCS: 99183; 99214; G0277

== ENCOUNTER → 2022-07-04 11:58 | Outpatient (CLI) | payer MEDICARE, OTHER, SELFPAY ==
[2022-06-13 11:43] VITALS: BMI 32.1
== END ==
LOC: WC 11:59
PROVIDERS: PCP Family Medicine; Referring Provider Specialist; Visit Provider Surgery
DX: C20 Malignant neoplasm of rectum (principal); T81.31XS Disruption of external operation (surgical) wound, not elsewhere classified, sequela; Y84.2 Radiological procedure and radiotherapy as the cause of abnormal reaction of the patient, or of later complication, without mention of misadventure at the time of the procedure; L59.8 Other specified disorders of the skin and subcutaneous tissue related to radiation; S31.000A Unspecified open wound of lower back and pelvis without penetration into retroperitoneum, initial encounter; S31.109A Unspecified open wound of abdominal wall, unspecified quadrant without penetration into peritoneal cavity, initial encounter; S31.501A Unspecified open wound of unspecified external genital organs, male, initial encounter
CPT/HCPCS: 99183; 99213; G0277

== ENCOUNTER → 2022-07-05 11:10 | Outpatient (CLI) | payer MEDICARE, OTHER, SELFPAY ==
[2022-06-13 11:43] VITALS: BMI 32.1
== END ==
PROVIDERS: PCP Family Medicine; Referring Provider Specialist; Visit Provider Surgery
DX: C20 Malignant neoplasm of rectum (principal); T81.31XS Disruption of external operation (surgical) wound, not elsewhere classified, sequela; Y84.2 Radiological procedure and radiotherapy as the cause of abnormal reaction of the patient, or of later complication, without mention of misadventure at the time of the procedure; L59.8 Other specified disorders of the skin and subcutaneous tissue related to radiation; S31.501A Unspecified open wound of unspecified external genital organs, male, initial encounter; S31.000A Unspecified open wound of lower back and pelvis without penetration into retroperitoneum, initial encounter; S31.109A Unspecified open wound of abdominal wall, unspecified quadrant without penetration into peritoneal cavity, initial encounter
CPT/HCPCS: 11042; 17250; 87070; 87075; 87205; 97605; 99183; G0277

== ENCOUNTER → 2022-07-06 13:01 | Outpatient (CLI) | payer MEDICARE, OTHER, SELFPAY ==
[2022-06-13 11:43] VITALS: BMI 32.1
== END ==
PROVIDERS: PCP Family Medicine; Referring Provider Family Medicine; Visit Provider Surgery
DX: C20 Malignant neoplasm of rectum (principal); L59.8 Other specified disorders of the skin and subcutaneous tissue related to radiation; Y84.2 Radiological procedure and radiotherapy as the cause of abnormal reaction of the patient, or of later complication, without mention of misadventure at the time of the procedure
CPT/HCPCS: 99183; G0277

== ENCOUNTER → 2022-07-07 11:43 | Outpatient (CLI) | payer MEDICARE, OTHER, SELFPAY ==
[2022-06-13 11:43] VITALS: BMI 32.1
== END ==
PROVIDERS: PCP Family Medicine; Visit Provider Specialist
DX: R33.9 Retention of urine, unspecified (principal); Z87.898 Personal history of other specified conditions
CPT/HCPCS: 87077; 87086; 87147; 87185; 87186

== ENCOUNTER → 2022-07-07 13:57 | Outpatient (CLI) | payer MEDICARE, OTHER, SELFPAY ==
[2022-06-13 11:43] VITALS: BMI 32.1
== END ==
PROVIDERS: PCP Family Medicine; Referring Provider Family Medicine; Visit Provider Surgery
DX: C20 Malignant neoplasm of rectum (principal); R33.9 Retention of urine, unspecified; Z87.898 Personal history of other specified conditions; T81.31XS Disruption of external operation (surgical) wound, not elsewhere classified, sequela; Y84.2 Radiological procedure and radiotherapy as the cause of abnormal reaction of the patient, or of later complication, without mention of misadventure at the time of the procedure; L59.8 Other specified disorders of the skin and subcutaneous tissue related to radiation
CPT/HCPCS: 51702; 87077; 87086; 87147; 87185; 87186; 99183; G0277

== ENCOUNTER → 2022-07-08 11:13 | Outpatient (CLI) | payer MEDICARE, OTHER, SELFPAY ==
[2022-06-13 11:43] VITALS: BMI 32.1
== END ==
PROVIDERS: PCP Family Medicine; Referring Provider Family Medicine; Visit Provider Surgery
DX: S31.000A Unspecified open wound of lower back and pelvis without penetration into retroperitoneum, initial encounter (principal); S31.109A Unspecified open wound of abdominal wall, unspecified quadrant without penetration into peritoneal cavity, initial encounter; S31.501A Unspecified open wound of unspecified external genital organs, male, initial encounter; C20 Malignant neoplasm of rectum; T81.31XS Disruption of external operation (surgical) wound, not elsewhere classified, sequela; Y84.2 Radiological procedure and radiotherapy as the cause of abnormal reaction of the patient, or of later complication, without mention of misadventure at the time of the procedure; L59.8 Other specified disorders of the skin and subcutaneous tissue related to radiation
CPT/HCPCS: 97605; 99183; G0277

== ENCOUNTER → 2022-07-11 12:57 | Outpatient (CLI) | payer MEDICARE, OTHER, SELFPAY ==
[2022-06-13 11:43] VITALS: BMI 32.1
== END ==
PROVIDERS: PCP Family Medicine; Referring Provider Specialist; Visit Provider Surgery
DX: C20 Malignant neoplasm of rectum (principal); T81.31XS Disruption of external operation (surgical) wound, not elsewhere classified, sequela; Y84.2 Radiological procedure and radiotherapy as the cause of abnormal reaction of the patient, or of later complication, without mention of misadventure at the time of the procedure; L59.8 Other specified disorders of the skin and subcutaneous tissue related to radiation
CPT/HCPCS: 99183; G0277

== ENCOUNTER → 2022-07-12 11:12 | Outpatient (CLI) | payer MEDICARE, OTHER, SELFPAY ==
[2022-06-13 11:43] VITALS: BMI 32.1
== END ==
PROVIDERS: PCP Family Medicine; Referring Provider Specialist; Visit Provider Surgery
DX: L59.8 Other specified disorders of the skin and subcutaneous tissue related to radiation (principal); T81.89XA Other complications of procedures, not elsewhere classified, initial encounter; S31.109A Unspecified open wound of abdominal wall, unspecified quadrant without penetration into peritoneal cavity, initial encounter; S31.000A Unspecified open wound of lower back and pelvis without penetration into retroperitoneum, initial encounter; S31.501A Unspecified open wound of unspecified external genital organs, male, initial encounter; D64.9 Anemia, unspecified
CPT/HCPCS: 11042; 97605; 99183; 99212; 99213; G0277

== ENCOUNTER → 2022-07-13 13:07 | Outpatient (CLI) | payer MEDICARE, OTHER, SELFPAY ==
[2022-06-13 11:43] VITALS: BMI 32.1
== END ==
PROVIDERS: PCP Family Medicine; Referring Provider Specialist; Visit Provider Surgery
DX: L59.8 Other specified disorders of the skin and subcutaneous tissue related to radiation (principal)
CPT/HCPCS: 99183; G0277

== ENCOUNTER → 2022-07-14 12:56 | Outpatient (CLI) | payer MEDICARE, OTHER, SELFPAY ==
[2022-06-13 11:43] VITALS: BMI 32.1
== END ==
PROVIDERS: PCP Family Medicine; Referring Provider Family Medicine; Visit Provider Surgery
DX: C20 Malignant neoplasm of rectum (principal); T81.31XS Disruption of external operation (surgical) wound, not elsewhere classified, sequela; Y84.2 Radiological procedure and radiotherapy as the cause of abnormal reaction of the patient, or of later complication, without mention of misadventure at the time of the procedure; L59.8 Other specified disorders of the skin and subcutaneous tissue related to radiation
CPT/HCPCS: 36415; 80053; 82378; 84134; 85025; 99183; G0277

== ENCOUNTER → 2022-07-14 15:48 | Outpatient (CLI) | payer MEDICARE, OTHER, SELFPAY ==
[2022-06-13 11:43] VITALS: BMI 32.1
[2022-07-14 16:41] LABS: Add Manual Diff / Slide Review NO; Basophils Absolute Auto 0 /uL (0-100); Basophils Percent Auto 0.8 % (0-2); Eosinophils Absolute Auto 100 /uL (0-450); Eosinophils Percent Auto 3.2 % (2-4); Hematocrit 32.1 % (41-53); Hemoglobin 10.1 g/dL (13.5-17.5); Lymphocytes Absolute Auto 1200 /uL (1100-4500); Lymphocytes Percent Auto 27.9 % (25-40); Mean Corpuscular HGB Conc 31.3 % (30-36); Mean Corpuscular Hemoglobin 22.2 PG (26-34); Mean Corpuscular Volume 70.9 fL (80-100); Monocytes Absolute Auto 300 /uL (0-900); Monocytes Percent Auto 7.8 % (3-14); Neutrophils Absolute Auto 2500 /uL (1500-7000); Neutrophils Percent Auto 60.3 % (50-75); Platelet Count 231 X10^3/uL (150-400); Red Blood Cell Count 4.52 X10^6/uL (4.5-5.9); White Blood Cell Count 4.2 X10^3/uL (4.5-11.0)
[2022-07-14 17:00] LABS: Alanine Aminotransferase 17 IU/L (<50); Albumin 3.7 g/dL (3.5-5.0); Albumin Globulin Ratio 1.2 (1.0-2.8); Alkaline Phosphatase 109 U/L (38-126); Aspartate Aminotransferase 29 IU/L (17-59); BUN Creatinine Ratio 57.9 (6-22); Bilirubin Total 0.4 mg/dL (0.2-1.3); Blood Urea Nitrogen 33 mg/dL (9-20); Calcium 8.8 mg/dL (8.4-10.2); Carbon Dioxide 24 mmol/L (22-32); Chloride 100 mmol/L (98-107); Estimated Glomerular Filt Rate > 60 mL/min (>60); Globulin 3.2 g/dL (1.7-4.1); Glucose 105 mg/dL (80-110); HEMOLYSIS < 15 (0-50); Potassium 3.8 mmol/L (3.4-5.1); Sodium 133 mmol/L (137-145); Total Protein 6.9 g/dL (6.3-8.2)
[2022-07-14 17:07] LABS: Prealbumin 13.7 mg/dL (17.6-36.0)
== END ==
PROVIDERS: PCP Family Medicine; Referring Provider Surgery; Visit Provider Surgery
DX: C20 Malignant neoplasm of rectum (principal)
CPT/HCPCS: 36415; 80053; 82378; 84134; 85025

== ENCOUNTER → 2022-07-15 10:55 | Outpatient (CLI) | payer MEDICARE, OTHER, SELFPAY ==
[2022-06-13 11:43] VITALS: BMI 32.1
== END ==
PROVIDERS: PCP Family Medicine; Referring Provider Family Medicine; Visit Provider Nurse Practitioner Family
DX: C20 Malignant neoplasm of rectum (principal); T81.31XS Disruption of external operation (surgical) wound, not elsewhere classified, sequela; Y84.2 Radiological procedure and radiotherapy as the cause of abnormal reaction of the patient, or of later complication, without mention of misadventure at the time of the procedure; L59.8 Other specified disorders of the skin and subcutaneous tissue related to radiation; S31.000A Unspecified open wound of lower back and pelvis without penetration into retroperitoneum, initial encounter
CPT/HCPCS: 97605; 99183; G0277

== ENCOUNTER → 2022-07-18 13:38 | Outpatient (CLI) | payer MEDICARE, OTHER, SELFPAY ==
[2022-06-13 11:43] VITALS: BMI 32.1
== END ==
PROVIDERS: PCP Family Medicine; Referring Provider Family Medicine; Visit Provider Surgery
DX: L59.8 Other specified disorders of the skin and subcutaneous tissue related to radiation (principal); C20 Malignant neoplasm of rectum; T81.31XS Disruption of external operation (surgical) wound, not elsewhere classified, sequela; Y84.2 Radiological procedure and radiotherapy as the cause of abnormal reaction of the patient, or of later complication, without mention of misadventure at the time of the procedure
CPT/HCPCS: 99183; G0277

== ENCOUNTER → 2022-07-19 10:51 | Outpatient (CLI) | payer MEDICARE, OTHER, SELFPAY ==
[2022-06-13 11:43] VITALS: BMI 32.1
== END ==
PROVIDERS: PCP Family Medicine; Referring Provider Family Medicine; Visit Provider Surgery
DX: C20 Malignant neoplasm of rectum (principal); T81.31XS Disruption of external operation (surgical) wound, not elsewhere classified, sequela; Y84.2 Radiological procedure and radiotherapy as the cause of abnormal reaction of the patient, or of later complication, without mention of misadventure at the time of the procedure; L59.8 Other specified disorders of the skin and subcutaneous tissue related to radiation
CPT/HCPCS: 97605; 99183; 99213; G0277

== ENCOUNTER → 2022-07-20 14:55 | Outpatient (CLI) | payer MEDICARE, OTHER, SELFPAY ==
[2022-06-13 11:43] VITALS: BMI 32.1
== END ==
PROVIDERS: PCP Family Medicine; Referring Provider Family Medicine; Visit Provider Surgery
DX: L59.8 Other specified disorders of the skin and subcutaneous tissue related to radiation (principal); C20 Malignant neoplasm of rectum; Y84.2 Radiological procedure and radiotherapy as the cause of abnormal reaction of the patient, or of later complication, without mention of misadventure at the time of the procedure
CPT/HCPCS: 99183; G0277

== ENCOUNTER → 2022-07-21 13:11 | Outpatient (CLI) | payer MEDICARE, OTHER, SELFPAY ==
[2022-06-13 11:43] VITALS: BMI 32.1
== END ==
PROVIDERS: PCP Family Medicine; Referring Provider Family Medicine; Visit Provider Surgery
DX: L59.8 Other specified disorders of the skin and subcutaneous tissue related to radiation (principal); C20 Malignant neoplasm of rectum; T81.31XS Disruption of external operation (surgical) wound, not elsewhere classified, sequela; Y84.2 Radiological procedure and radiotherapy as the cause of abnormal reaction of the patient, or of later complication, without mention of misadventure at the time of the procedure
CPT/HCPCS: 99183; G0277

== ENCOUNTER → 2022-07-22 10:56 | Outpatient (CLI) | payer MEDICARE, OTHER, SELFPAY ==
[2022-06-13 11:43] VITALS: BMI 32.1
== END ==
PROVIDERS: PCP Family Medicine; Referring Provider Family Medicine; Visit Provider Nurse Practitioner Family
DX: L59.8 Other specified disorders of the skin and subcutaneous tissue related to radiation (principal); C20 Malignant neoplasm of rectum; Y84.2 Radiological procedure and radiotherapy as the cause of abnormal reaction of the patient, or of later complication, without mention of misadventure at the time of the procedure
CPT/HCPCS: 97605; 99183; G0277

== ENCOUNTER → 2022-07-25 12:56 | Outpatient (CLI) | payer MEDICARE, OTHER, SELFPAY ==
[2022-06-13 11:43] VITALS: BMI 32.1
== END ==
PROVIDERS: PCP Family Medicine; Referring Provider Family Medicine; Visit Provider Surgery
DX: L59.8 Other specified disorders of the skin and subcutaneous tissue related to radiation (principal); C20 Malignant neoplasm of rectum; T81.31XS Disruption of external operation (surgical) wound, not elsewhere classified, sequela; Y84.2 Radiological procedure and radiotherapy as the cause of abnormal reaction of the patient, or of later complication, without mention of misadventure at the time of the procedure
CPT/HCPCS: 99183; G0277

== ENCOUNTER → 2022-07-26 11:05 | Outpatient (CLI) | payer MEDICARE, OTHER, SELFPAY ==
[2022-06-13 11:43] VITALS: BMI 32.1
== END ==
PROVIDERS: PCP Family Medicine; Referring Provider Family Medicine; Visit Provider Surgery
DX: S31.000A Unspecified open wound of lower back and pelvis without penetration into retroperitoneum, initial encounter (principal); S31.109A Unspecified open wound of abdominal wall, unspecified quadrant without penetration into peritoneal cavity, initial encounter; S31.501A Unspecified open wound of unspecified external genital organs, male, initial encounter; T81.89XA Other complications of procedures, not elsewhere classified, initial encounter; C20 Malignant neoplasm of rectum; R21 Rash and other nonspecific skin eruption
CPT/HCPCS: 17250; 97597

== ENCOUNTER 2022-07-26 12:45 | Emergency (ER) | payer MEDICARE, OTHER, SELFPAY ==
[2022-06-13 11:43] VITALS: BMI 32.1
[2022-07-26] VITALS (7 sets, daily range): BP systolic 103–169; BP diastolic 70–82; PULSE 52–67; RESP 12–24; TEMP 36.6; O2SAT 98–100; BMI 26.9
--- NOTE | 2022-07-26 13:06 | DI.RAD.S_ITS ---
PROCEDURE: XR CHEST 1V INDICATIONS: chest pain TECHNIQUE: One view of the chest was acquired. COMPARISON: [facility], CR, XR CHEST 1V, 02/08/2021, 14:27. FINDINGS: Surgical changes and devices: Left chest wall Port-A-Cath. Lungs and pleura: Lungs are clear. No pleural effusions or pneumothorax. Mediastinum: Mediastinal contours appear normal. Heart size is normal. Bones and chest wall: No suspicious bony lesions. Overlying soft tissues appear unremarkable. IMPRESSION: No acute cardiopulmonary disease process. Dictated by: More Joy MD, PhD on 07/26/2022 at 14:39 Approved by: More Joy MD, PhD on 07/26/2022 at 14:39
--- NOTE | 2022-07-26 13:31 | DI.RAD.S_ITS ---
PROCEDURE: XR LUMBAR SPINE 2-3V INDICATIONS: LBP with hx of cancer TECHNIQUE: 3 views of the lumbar spine were acquired. COMPARISON: None. FINDINGS: Bones: 5 [id number] vertebrae are present. There is normal bony alignment. Mild convex left lumbar spine scoliosis. Prior L1 percutaneous vertebroplasty/kyphoplasty. No acute vertebral body compression fractures. No suspicious bony lesions. Mild degenerative disc changes noted throughout the lumbar spine. Mild facet hypertrophy throughout the lumbar spine. 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 Soft tissues: Overlying bowel gas pattern is normal. No suspicious soft tissue calcifications. IMPRESSION: 1. Multilevel degenerative disc disease. 2. Multilevel facet arthropathy. 3. No acute fracture. No acute osseous lesion. If symptoms and/or clinical suspicion for pathology persists, evaluation with MRI should be considered for further assessment. Dictated by: More Joy MD, PhD on 07/26/2022 at 14:39 Approved by: More Joy MD, PhD on 07/26/2022 at 14:41
--- NOTE | 2022-07-26 13:31 | ED_ITS ---
HPI - Chest Pain General Chief Complaint: Chest Pain Stated Complaint: fluttering in heart/back pain Time Seen by Provider: 07/26/22 13:09 Source: patient Mode of arrival: Ambulatory Limitations: no limitations History of Present Illness HPI narrative: Patient is a 77-year-old male. Is on anticoagulation. Has a history of atrial fibrillation. Also has a history of rectal cancer. The end of last year he had a colostomy. He is recovering from this. He is scheduled to start chemotherapy this week. He is here for evaluation of a couple days of feeling like his heart is fluttering. When the event occurs it lasts seconds/minutes and then completely resolves. He does have a small amount of chest discomfort with the symptoms. Is not lightheaded. He states that it occurs most often when he is sitting up. He is also had lower back pain. This does not appear to be new symptoms but has been going on the past couple days. He is not specifically talked about this with his oncologist. He does have pain medication at home. He has been taking all his medications as directed. Is not currently having his palpitations symptoms. Related Data Home Medications Medication Instructions Recorded Confirmed acetaminophen 650 mg 1,300 mg PO Q8H PRN Pain (Scale 10/31/18 06/22/22 tablet,extended release Score 4-6) atorvastatin 20 mg tablet 20 mg PO DAILY 10/31/18 06/22/22 turmeric root extract 500 mg 1,500 mg PO BID 10/31/18 06/22/22 capsule vit C 250 mg-vit E 90 mg-zinc 40 2 cap PO BID 10/31/18 06/22/22 mg-copper 1 [id number] capsule (PreserVision AREDS-2) vitamin B complex 2 tab PO DAILY 06/17/19 06/22/22 metoprolol succinate 25 mg 12.5 mg PO DAILY 09/23/20 06/22/22 tablet,extended release 24 hr multivitamin 1 tab PO DAILY 07/28/21 06/22/22 apixaban 5 mg tablet (Eliquis) 5 mg PO BID 10/13/21 06/22/22 Previous Rx's Medication Instructions Recorded tamsulosin 0.4 mg capsule 0.4 mg PO DAILY Nephrolithiasis, 10/24/18 Bladder outlet syndrome #10 caps olanzapine 5 mg tablet 5 mg PO Q12H PRN Nausea #30 tabs 09/23/20 ondansetron 8 mg disintegrating 8 mg PO Q8H PRN Nausea #30 tabs 09/23/20 tablet Disabled Parking Permit #1 ea 04/07/21 lidocaine-prilocaine 2.5 %-2.5 % See Rx Instructions .Route 09/29/21 topical cream .COMPLEX PRN skin discomfort #30 grams hydrocodone 10 mg-acetaminophen 1 tab PO Q6H PRN Pain (Scale Score 12/08/21 325 mg tablet 4-6) #60 tabs finasteride 5 mg tablet 5 mg PO DAILY #90 tabs 07/08/22 hydrocodone 10 mg-acetaminophen 1 tab PO Q6H PRN Pain (Scale Score 07/13/22 325 mg tablet 1-3) #60 tabs morphine 15 mg tablet,extended 15 mg PO Q12H pain #60 tabs 07/20/22 release (MS Contin) Allergies Allergy/AdvReac Type Severity Reaction Status Date / Time No Known Drug Allergies Allergy Unknown Verified 07/07/22 11:37 [NO KNOWN DRUG ALLERGIES] Review of Systems Review of Systems ROS Unobtainable: All systems reviewed & are unremarkable except as noted in HPI and below Patient History Medical History Acute GI bleeding Anal fistula Bladder atony (~2017) BPH (benign prostatic hyperplasia) Cellulitis Constipation Coronary artery disease CVA (cerebral vascular accident) Essential hypertension (08/15/17) Hemorrhoids History of urinary retention Hyperlipidemia Iron deficiency anemia Kidney stones Laceration of finger of left hand Paroxysmal atrial fibrillation Personal history of colonic polyps Rectal cancer Self-catheterizes urinary bladder Sleep apnea Transient ischemic attack (~2016) Urinary retention Surgical History History of angioplasty (~2013) History of colonoscopy History of esophagogastroduodenoscopy (EGD) History of gastric bypass (2013) History of knee replacement History of knee replacement History of kyphoplasty History of loop recorder (06/2017) Family History Father Hypertension Cancer Social History marital status: household members: spouse occupational status: previously employed Smoking Status: Former smoker alcohol intake: current substance use type: does not use Smoking Status: Former smoker alcohol intake frequency: a few times a month Substance Use Type: does not use Exam Initial Vital Signs Initial Vital Signs: Vital Signs Temperature 97.9 F 07/26/22 12:49 Pulse Rate 60 07/26/22 12:49 Respiratory Rate 16 07/26/22 12:49 Blood Pressure 103/70 07/26/22 12:49 Pulse Oximetry 100 07/26/22 12:49 Oxygen Delivery Method Room Air 07/26/22 12:49 Const General: cooperative and No acute distress HENMT Head: normal to inspection and normocephalic Resp Effort & Inspection: normal respiratory effort Auscultation: clear to auscultation bilaterally Cardio Rate: regular rate Rhythm: regular rhythm GI Inspection: non-distended Skin General: no rashes or lesions noted Neuro General: patient alert, patient awake and moves all extremities Extrem General: capillary refill normal Course Orders Ordered: ED Orders 07/26/22 13:06 XR chest 1V Stat 07/26/22 13:12 EKG-12 Lead Stat 07/26/22 13:22 Complete Blood Count AUTO DIFF Stat Comprehensive Metabolic Panel Stat Lipase Stat Magnesium Stat PTT Partial Thromboplastin Soham Stat Prothrombin Time INR Stat Troponin & CK Cardiac Panel Stat 07/26/22 13:31 XR lumbar spine 2-3V Stat 07/26/22 13:31 CEA [Carcinoembryonic Antigen] Stat Discontinued Medications Aspirin (Aspirin 81 Mg Chew Tab) 324 mg PO NOW ONE Stop: 07/26/22 13:07 Vital Signs Vital signs: Vital Signs - 8 hr 07/26/22 12:49 Temperature 97.9 F Pulse Rate 60 Respiratory Rate 16 Blood Pressure 103/70 Pulse Oximetry 100 Oxygen Delivery Method Room Air MDM - Chest Pain Medical Records Data Attestation: I reviewed the patient's medical records. Lab Data Attestation: I reviewed the patient's lab results. 07/26/22 13:22 07/26/22 13:22 Labs: Lab Results 07/26/22 07/26/22 07/26/22 Range/Units 13:22 13:22 13:22 WBC 4.7 (4.5-11.0) X10^3/uL RBC 4.43 L (4.5-5.9) X10^6/uL Hgb 9.9 L (13.5-17.5) g/dL Hct 32.0 L (41-53) % MCV 72.1 L (80-100) fL MCH 22.4 L (26-34) PG MCHC 31.1 (30-36) % RDW 20.9 H (11.6-14.8) % Plt Count 208 (150-400) X10^3/uL Neut % (Auto) 72.8 (50-75) % Lymph % (Auto) 14.8 L (25-40) % Fountain % (Auto) 9.4 (3-14) % Eos % (Auto) 2.4 (2-4) % Baso % (Auto) 0.6 (0-2) % Neut # (Auto) 3400 (1837-0163) /uL Lymph # (Auto) 700 L (0229-5191) /uL Fountain # (Auto) 400 (0-900) /uL Eos # (Auto) 100 (0-450) /uL Baso # (Auto) 0 (0-100) /uL RBC Morphology See below Hypochromasia 1+ H Poikilocytosis 1+ H Anisocytosis 1+ H Microcytosis 1+ H PT 16.0 H (10.1-12.7) SECONDS INR 1.4 H (0.9-1.3) APTT 33 (26-36) SECONDS Sodium 134 L (137-145) mmol/L Potassium 4.1 (3.4-5.1) mmol/L Chloride 101 (98-107) mmol/L Carbon Dioxide 26 (22-32) mmol/L BUN 32 H (9-20) mg/dL Creatinine 0.56 L (0.66-1.25) mg/dL Estimated GFR > 60 (>60) mL/min BUN/Creatinine Ratio 57.1 H (6-22) Glucose 90 (80-110) mg/dL Calcium 8.5 (8.4-10.2) mg/dL Magnesium 2.0 (1.6-2.3) mg/dL Total Bilirubin 0.3 (0.2-1.3) mg/dL AST 27 (17-59) IU/L ALT 17 (<50) IU/L Alkaline Phosphatase 98 (38-126) U/L Total Creatine Kinase 45 L (55-170) U/L CK-MB (CK-2) TNP CK-MB (CK-2) Rel Index TNP Troponin I < 0.012 (0.01-0.034) ng/mL Total Protein 6.6 (6.3-8.2) g/dL Albumin 3.5 (3.5-5.0) g/dL Globulin 3.1 (1.7-4.1) g/dL Albumin/Globulin Ratio 1.1 (1.0-2.8) Lipase 43 (23-300) U/L Carcinoembryonic Ag (0.1-3.0) ng/mL 07/26/22 Range/Units 13:31 WBC (4.5-11.0) X10^3/uL RBC (4.5-5.9) X10^6/uL Hgb (13.5-17.5) g/dL Hct (41-53) % MCV (80-100) fL MCH (26-34) PG MCHC (30-36) % RDW (11.6-14.8) % Plt Count (150-400) X10^3/uL Neut % (Auto) (50-75) % Lymph % (Auto) (25-40) % Fountain % (Auto) (3-14) % Eos % (Auto) (2-4) % Baso % (Auto) (0-2) % Neut # (Auto) (5596-2115) /uL Lymph # (Auto) (1995-5628) /uL Fountain # (Auto) (0-900) /uL Eos # (Auto) (0-450) /uL Baso # (Auto) (0-100) /uL RBC Morphology Hypochromasia Poikilocytosis Anisocytosis Microcytosis PT (10.1-12.7) SECONDS INR (0.9-1.3) APTT (26-36) SECONDS Sodium (137-145) mmol/L Potassium (3.4-5.1) mmol/L Chloride (98-107) mmol/L Carbon Dioxide (22-32) mmol/L BUN (9-20) mg/dL Creatinine (0.66-1.25) mg/dL Estimated GFR (>60) mL/min BUN/Creatinine Ratio (6-22) Glucose (80-110) mg/dL Calcium (8.4-10.2) mg/dL Magnesium (1.6-2.3) mg/dL Total Bilirubin (0.2-1.3) mg/dL AST (17-59) IU/L ALT (<50) IU/L Alkaline Phosphatase (38-126) U/L Total Creatine Kinase (55-170) U/L CK-MB (CK-2) CK-MB (CK-2) Rel Index Troponin I (0.01-0.034) ng/mL Total Protein (6.3-8.2) g/dL Albumin (3.5-5.0) g/dL Globulin (1.7-4.1) g/dL Albumin/Globulin Ratio (1.0-2.8) Lipase (23-300) U/L Carcinoembryonic Ag 2860.0 H (0.1-3.0) ng/mL Imaging Data Chest x-ray: Radiologist's Impression: PROCEDURE:? XR CHEST 1V ? INDICATIONS:? chest pain ? TECHNIQUE:? One view of the chest was acquired.? ? COMPARISON:? [facility], , XR CHEST 1V, 02/08/2021, 14:27. ? FINDINGS:? ? Surgical changes and devices:? Left chest wall Port-A-Cath. ? Lungs and pleura:? Lungs are clear.? No pleural effusions or pneumothorax.? ? Mediastinum:? Mediastinal contours appear normal.? Heart size is normal.? ? Bones and chest wall:? No suspicious bony lesions.? Overlying soft tissues appear unremarkable.? ? IMPRESSION:? No acute cardiopulmonary disease process. lumbar spine x-ray: Radiologist's Impression: PROCEDURE:? XR LUMBAR SPINE 2-3V ? INDICATIONS:? LBP with hx of cancer ? TECHNIQUE:? 3 views of the lumbar spine were acquired.? ? COMPARISON:? None. ? FINDINGS:? ? Bones:? 5 [id number] vertebrae are present.? There is normal bony alignment.? Mild convex left lumbar spine scoliosis.? Prior L1 percutaneous vertebroplasty/kyphoplasty.? No acute vertebral body compression fractures.? No suspicious bony lesions.? Mild degenerative disc changes noted throughout the lumbar spine.? Mild facet hypertrophy throughout the lumbar spine.? 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 ? Soft tissues:? Overlying bowel gas pattern is normal.? No suspicious soft tissue calcifications.? ? ? IMPRESSION:? ? 1. Multilevel degenerative disc disease. ? 2. Multilevel facet arthropathy. ? 3. No acute fracture. No acute osseous lesion. If symptoms and/or clinical suspicion for pathology persists, evaluation with MRI should be considered for further assess ment. ECG Data Attestation: I personally reviewed and interpreted this ECG as follows: Interpretation: Sinus bradycardia Ventricular rate of 55 Normal axis Normal QRS Normal QTC No ST T wave changes MDM Narrative Medical decision making narrative: Patient's workup here in the emergency department is unremarkable he is had no ectopy on the monitor. His heart rate is in the 50s which she states is baseline for him. His electrolytes are unremarkable. Some of the labs were ordered today were for a follow-up that he has tomorrow with Oncology. He was instructed that he needs to talk with his oncologist about the results of these. This was in an effort to prevent another blood draw. No fevers. The x-ray of his lumbar spine is unremarkable. Advised that he talk with his oncologist about this as well to see whether not he needs further advanced imaging. We would a long discussion about his pain management regimen. He is not been taking the hydrocodone every 6 hours which was recommended by his oncologist who advised that he start doing this. Will discharge patient home. 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 He was given return precautions. He expressed understanding and agreement with plan. Discharge Plan Departure Patient Disposition: Home Clinical Impression: Palpitations, Back pain Instructions: DI for Palpitations Activity Restrictions/Additional Instructions: I do recommend that you take your medications as directed. Keep your scheduled appointment that you have with oncology tomorrow. Return to the emergency department for any new or worsening symptoms. Prescriptions: No Action acetaminophen 650 mg tablet extended release 1,300 mg PO Q8H PRN (Reason: Pain (Scale Score 4-6)) atorvastatin 20 mg tablet 20 mg PO DAILY turmeric root extract 500 mg capsule 1,500 mg PO BID PreserVision AREDS-2 [phone] wu-[id number]-[id number]-mg capsule 2 cap PO BID vitamin B complex Tablet 2 tab PO DAILY Rx Instructions: VITAMIN B-50 COMPLEX (DME) Disabled Parking Permit See Rx Instructions .ROUTE .MEDSULY Qty: 1 0RF Rx Instructions: I certify that this patient has a condition which qualifies them for disabled parking privileges. finasteride 5 mg tablet 5 mg PO DAILY Qty: 90 3RF tamsulosin 0.4 mg capsule 0.4 mg PO DAILY Qty: 10 0RF metoprolol succinate 25 mg Tablet Extended Release 24 Hr 12.5 mg PO DAILY ondansetron 8 mg Tablet,Disintegrating 8 mg PO Q8H PRN (Reason: Nausea) Qty: 30 2RF olanzapine 5 mg Tablet 5 mg PO Q12H PRN (Reason: Nausea) Qty: 30 2RF Patient Comments: Hasn't started taking yet multivitamin Tablet 1 tab PO DAILY lidocaine-prilocaine 2.5-2.5 % Cream See Rx Instructions .ROUTE .COMPLEX PRN (Reason: skin discomfort) Qty: 30 3RF Rx Instructions: Apply small amount (about the size of a quarter) onto your skin twice a day as needed for lucita anal pain Eliquis 5 mg Tablet 5 mg PO BID hydrocodone-acetaminophen 10-325 mg Tablet 1 tab PO Q6H PRN (Reason: Pain (Scale Score 4-6)) Qty: 60 0RF Rx Instructions: take 1 tab every 6-8 hours as needed for pain morphine [MS Contin] 15 mg Tablet Extended Release 15 mg PO Q12H Qty: 60 0RF Rx Instructions: take once every 12 hours hydrocodone-acetaminophen 10-325 mg Tablet 1 tab PO Q6H PRN (Reason: Pain (Scale Score 1-3)) Qty: 60 0RF Referrals: Alfredo Lu MD [Primary Care Provider] - Stand Alone Forms: Patient Portal/API
[2022-07-26 13:40] LABS: Add Manual Diff / Slide Review NO; Basophils Absolute Auto 0 /uL (0-100); Basophils Percent Auto 0.6 % (0-2); Eosinophils Absolute Auto 100 /uL (0-450); Eosinophils Percent Auto 2.4 % (2-4); Hemoglobin 9.9 g/dL (13.5-17.5); Lymphocytes Absolute Auto 700 /uL (1100-4500); Lymphocytes Percent Auto 14.8 % (25-40); Mean Corpuscular HGB Conc 31.1 % (30-36); Mean Corpuscular Hemoglobin 22.4 PG (26-34); Mean Corpuscular Volume 72.1 fL (80-100); Monocytes Absolute Auto 400 /uL (0-900); Monocytes Percent Auto 9.4 % (3-14); Neutrophils Absolute Auto 3400 /uL (1500-7000); Neutrophils Percent Auto 72.8 % (50-75); Platelet Count 208 X10^3/uL (150-400); Red Blood Cell Count 4.43 X10^6/uL (4.5-5.9); Red Cell Distribution Width 20.9 % (11.6-14.8); White Blood Cell Count 4.7 X10^3/uL (4.5-11.0)
[2022-07-26 13:44] LABS: INR 1.4 (0.9-1.3)
[2022-07-26 13:47] LABS: PTT Partial Thromboplastin Tim 33 SECONDS (26-36)
[2022-07-26 13:50] LABS: Alanine Aminotransferase 17 IU/L (<50); Albumin 3.5 g/dL (3.5-5.0); Albumin Globulin Ratio 1.1 (1.0-2.8); Alkaline Phosphatase 98 U/L (38-126); Aspartate Aminotransferase 27 IU/L (17-59); BUN Creatinine Ratio 57.1 (6-22); Bilirubin Total 0.3 mg/dL (0.2-1.3); Blood Urea Nitrogen 32 mg/dL (9-20); Calcium 8.5 mg/dL (8.4-10.2); Carbon Dioxide 26 mmol/L (22-32); Chloride 101 mmol/L (98-107); Creatine Kinase 45 U/L (55-170); Estimated Glomerular Filt Rate > 60 mL/min (>60); Globulin 3.1 g/dL (1.7-4.1); Glucose 90 mg/dL (80-110); HEMOLYSIS < 15 (0-50); Lipase 43 U/L (23-300); Potassium 4.1 mmol/L (3.4-5.1); Sodium 134 mmol/L (137-145); Total Protein 6.6 g/dL (6.3-8.2)
--- NOTE | 2022-07-26 13:53 | PC.NURSE ---
Reports 3-4days of palpitations. Only happens when he sits up straight or stands. 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 Denies chest pain. Reporting lumbar back pain and occasional left shoulder pain.
[2022-07-26 14:02] LABS: Troponin I < 0.012 ng/mL (0.01-0.034)
[2022-07-26 14:14] LABS: Anisocytosis 1+
[2022-07-26 14:15] LABS: Hypochromasia 1+; Microcytosis 1+
[2022-07-26 14:16] LABS: Poikilocytosis 1+
--- NOTE | 2022-07-26 14:56 | PC.NURSE ---
RN was with patient when he was taken to Xray with a transport monitor to assess if he had any changes when standing. Patient had no changes when at xray.
== END 2022-07-26 15:34 | disposition home or self-care (01) ==
PROVIDERS: Internal Medicine Medical Oncology; Emergency Provider Emergency Medicine; PCP Family Medicine
DX: C20 Malignant neoplasm of rectum (principal); R00.2 Palpitations; R07.9 Chest pain, unspecified; M54.50 Low back pain, unspecified; S31.000A Unspecified open wound of lower back and pelvis without penetration into retroperitoneum, initial encounter; S31.109A Unspecified open wound of abdominal wall, unspecified quadrant without penetration into peritoneal cavity, initial encounter; S31.501A Unspecified open wound of unspecified external genital organs, male, initial encounter; T81.89XA Other complications of procedures, not elsewhere classified, initial encounter; R21 Rash and other nonspecific skin eruption
CPT/HCPCS: 17250; 71045; 72100; 80053; 82378; 82550; 83690; 83735; 84484; 85025; 85610; 85730; 93005; 97597; 99283; 99284

== ENCOUNTER → 2022-07-29 12:17 | Outpatient (CLI) | payer MEDICARE, OTHER, SELFPAY ==
[2022-06-13 11:43] VITALS: BMI 32.1
== END ==
PROVIDERS: PCP Family Medicine; Referring Provider Family Medicine; Visit Provider Nurse Practitioner Family
DX: S31.000A Unspecified open wound of lower back and pelvis without penetration into retroperitoneum, initial encounter (principal); S31.109A Unspecified open wound of abdominal wall, unspecified quadrant without penetration into peritoneal cavity, initial encounter; T81.89XA Other complications of procedures, not elsewhere classified, initial encounter; R21 Rash and other nonspecific skin eruption
CPT/HCPCS: 97605; 99213

== ENCOUNTER → 2022-08-02 13:31 | Outpatient (CLI) | payer MEDICARE, OTHER, SELFPAY ==
[2022-06-13 11:43] VITALS: BMI 32.1
== END ==
PROVIDERS: PCP Family Medicine; Referring Provider Family Medicine; Visit Provider Surgery
DX: L59.8 Other specified disorders of the skin and subcutaneous tissue related to radiation (principal); S31.000A Unspecified open wound of lower back and pelvis without penetration into retroperitoneum, initial encounter; S31.109A Unspecified open wound of abdominal wall, unspecified quadrant without penetration into peritoneal cavity, initial encounter; S31.501A Unspecified open wound of unspecified external genital organs, male, initial encounter; R21 Rash and other nonspecific skin eruption; C20 Malignant neoplasm of rectum; Z79.01 Long term (current) use of anticoagulants
CPT/HCPCS: 11042; 87070; 87075; 87205; 97597; 97605

== ENCOUNTER → 2022-08-05 11:25 | Outpatient (CLI) | payer MEDICARE, OTHER, SELFPAY ==
[2022-06-13 11:43] VITALS: BMI 32.1
--- NOTE | 2022-08-05 | DI.CT.S_ITS ---
PROCEDURE: CT CHEST ABD PEL W CON INDICATIONS: Other diseases of mediastinum TECHNIQUE: After the administration of oral and intravenous contrast, axial sections acquired from the supraclavicular neck to the pubic symphysis. Coronal and sagittal reformats were performed. For radiation dose reduction, the following was used: automated exposure control, adjustment of mA and/or kV according to patient size. COMPARISON: [facility], CT, CT CHEST ABD PEL W CON, 11/03/2020, 13:52. FINDINGS: Image quality: Excellent. CHEST: Lower Neck: No enlarged lymph nodes. Thyroid: Within normal limits. Axillae: No enlarged lymph nodes. Chest Wall: Unremarkable. Lungs and Airways: Focus of architectural distortion without measurable nodule in the left lung apex (3/49). New 3-4 millimeter nodule in the posterior right upper lobe (3/112). A couple smaller pulmonary nodules in the right middle lobe (3/185 and 171) are stable from prior and most likely benign. Pleura: No pneumothorax or pleural effusions. Heart: Heart size is normal. No pericardial effusion. Thoracic Vessels: The aorta and pulmonary arteries demonstrate normal size. Mediastinum and Mckenzie: New mediastinal and hilar adenopathy. Examples include (short axis reported): -1.6 centimeter right lower paratracheal node with heterogeneous attenuation (2/24). -1.3 centimeter left hilar nodule with low attenuation (2/25). Esophagus: No wall thickening. Small hiatal hernia. ABDOMEN: Liver: Unremarkable. Gallbladder: Distended. No stones. Biliary ducts: Unremarkable. Pancreas: Unremarkable. Spleen: Unremarkable. Adrenal Glands: Unremarkable. Kidneys and Ureters: Small burden of nonobstructing stones on the left. No complex renal cystic lesions which require follow-up. Stomach and Bowel: Prior proctectomy. Similar fluid attenuation in the pelvis, presumably a postoperative seroma. Left lower quadrant colostomy without complication. Peritoneum: No abnormal intraperitoneal fluid. No free air. Ventral Wall: No hernia. Abdominal Nodes: No retroperitoneal or mesenteric adenopathy by size criteria. Vessels: Aorta and inferior vena cava are normal in size. PELVIS: Pelvic Organs: Unremarkable. Bladder: Bladder wall diverticulum containing stones. Diffusely thickened urinary bladder wall, decompressed around a Al catheter. Pelvic Nodes: No enlarged lymph nodes. Miscellaneous: No inguinal hernias are seen. Bones: L1 kyphoplasty. IMPRESSION: 1. Prior proctectomy. Similar fluid attenuation within the pelvis, presumably a postoperative seroma. 2. New, centrally necrotic right lower paratracheal node and left hilar node. Findings are concerning for malignancy. 3. New 3-4 millimeter solid nodule in the posterior right upper lobe. Attention on follow-up. 4. Bladder wall diverticulum containing stones. Dictated by: Andrew Carlos M.D. on 08/05/2022 at 14:52 Approved by: Andrew Carols M.D. on 08/05/2022 at 15:08
== END ==
PROVIDERS: PCP Family Medicine; Referring Provider Internal Medicine Cardiovascular Disease; Visit Provider Internal Medicine Cardiovascular Disease
DX: J98.59 Other diseases of mediastinum, not elsewhere classified (principal); R91.8 Other nonspecific abnormal finding of lung field; K44.9 Diaphragmatic hernia without obstruction or gangrene; N32.3 Diverticulum of bladder; N20.0 Calculus of kidney; R59.0 Localized enlarged lymph nodes; Z90.79 Acquired absence of other genital organ(s); Z93.3 Colostomy status
CPT/HCPCS: 71260; 74177; Q9967

== ENCOUNTER → 2022-08-05 14:12 | Outpatient (CLI) | payer MEDICARE, OTHER, SELFPAY ==
[2022-06-13 11:43] VITALS: BMI 32.1
== END ==
PROVIDERS: PCP Family Medicine; Referring Provider Specialist; Visit Provider Surgery
DX: J98.59 Other diseases of mediastinum, not elsewhere classified (principal); R71.8 Other abnormality of red blood cells; K44.9 Diaphragmatic hernia without obstruction or gangrene; N32.3 Diverticulum of bladder; N20.0 Calculus of kidney; R59.0 Localized enlarged lymph nodes; Z90.79 Acquired absence of other genital organ(s); Z93.3 Colostomy status; S31.000A Unspecified open wound of lower back and pelvis without penetration into retroperitoneum, initial encounter; S31.109A Unspecified open wound of abdominal wall, unspecified quadrant without penetration into peritoneal cavity, initial encounter; S31.501A Unspecified open wound of unspecified external genital organs, male, initial encounter
CPT/HCPCS: 71260; 74177; 97605; Q9967

== ENCOUNTER → 2022-08-09 13:10 | Outpatient (CLI) | payer MEDICARE, OTHER, SELFPAY ==
[2022-06-13 11:43] VITALS: BMI 32.1
== END ==
PROVIDERS: PCP Family Medicine; Referring Provider Family Medicine; Visit Provider Surgery
DX: S31.000A Unspecified open wound of lower back and pelvis without penetration into retroperitoneum, initial encounter (principal); R21 Rash and other nonspecific skin eruption
CPT/HCPCS: 97605; 99212

== ENCOUNTER → 2022-08-12 13:27 | Outpatient (CLI) | payer MEDICARE, OTHER, SELFPAY ==
[2022-06-13 11:43] VITALS: BMI 32.1
== END ==
PROVIDERS: PCP Family Medicine; Referring Provider Specialist; Visit Provider Nurse Practitioner Family
DX: S31.000A Unspecified open wound of lower back and pelvis without penetration into retroperitoneum, initial encounter (principal); S31.109A Unspecified open wound of abdominal wall, unspecified quadrant without penetration into peritoneal cavity, initial encounter; S31.501A Unspecified open wound of unspecified external genital organs, male, initial encounter
CPT/HCPCS: 97605

== ENCOUNTER → 2022-08-16 10:24 | Outpatient (CLI) | payer MEDICARE, OTHER, SELFPAY ==
[2022-06-13 11:43] VITALS: BMI 32.1
== END ==
PROVIDERS: PCP Internal Medicine; Referring Provider Family Medicine; Visit Provider Surgery
DX: S31.000A Unspecified open wound of lower back and pelvis without penetration into retroperitoneum, initial encounter (principal); S31.501A Unspecified open wound of unspecified external genital organs, male, initial encounter; L59.8 Other specified disorders of the skin and subcutaneous tissue related to radiation; C20 Malignant neoplasm of rectum; Y84.2 Radiological procedure and radiotherapy as the cause of abnormal reaction of the patient, or of later complication, without mention of misadventure at the time of the procedure; S31.109D Unspecified open wound of abdominal wall, unspecified quadrant without penetration into peritoneal cavity, subsequent encounter; L53.9 Erythematous condition, unspecified; R21 Rash and other nonspecific skin eruption
CPT/HCPCS: 11042; 97605; 99212; 99213

== ENCOUNTER → 2022-08-19 13:29 | Outpatient (CLI) | payer MEDICARE, OTHER, SELFPAY ==
[2022-06-13 11:43] VITALS: BMI 32.1
== END ==
PROVIDERS: PCP Internal Medicine; Referring Provider Internal Medicine; Visit Provider Nurse Practitioner Family
DX: S31.000A Unspecified open wound of lower back and pelvis without penetration into retroperitoneum, initial encounter (principal); L53.9 Erythematous condition, unspecified; R21 Rash and other nonspecific skin eruption
CPT/HCPCS: 97605

== ENCOUNTER → 2022-08-23 11:07 | Outpatient (CLI) | payer MEDICARE, OTHER, SELFPAY ==
[2022-06-13 11:43] VITALS: BMI 32.1
== END ==
PROVIDERS: PCP Internal Medicine; Referring Provider Family Medicine; Visit Provider Surgery
DX: S31.000A Unspecified open wound of lower back and pelvis without penetration into retroperitoneum, initial encounter (principal); L59.8 Other specified disorders of the skin and subcutaneous tissue related to radiation; C20 Malignant neoplasm of rectum
CPT/HCPCS: 15271; Q4110

== ENCOUNTER → 2022-08-26 13:00 | Outpatient (CLI) | payer MEDICARE, OTHER, SELFPAY ==
[2022-06-13 11:43] VITALS: BMI 32.1
== END ==
PROVIDERS: PCP Internal Medicine; Referring Provider Internal Medicine; Visit Provider Nurse Practitioner Family
DX: S31.000A Unspecified open wound of lower back and pelvis without penetration into retroperitoneum, initial encounter (principal); T81.89XA Other complications of procedures, not elsewhere classified, initial encounter
CPT/HCPCS: 97605

== ENCOUNTER → 2022-08-30 12:58 | Outpatient (CLI) | payer MEDICARE, OTHER, SELFPAY ==
[2022-06-13 11:43] VITALS: BMI 32.1
== END ==
PROVIDERS: PCP Internal Medicine; Referring Provider Family Medicine; Visit Provider Surgery
DX: L59.8 Other specified disorders of the skin and subcutaneous tissue related to radiation (principal); S31.000A Unspecified open wound of lower back and pelvis without penetration into retroperitoneum, initial encounter; C20 Malignant neoplasm of rectum; C72.0 Malignant neoplasm of spinal cord
CPT/HCPCS: 15271; Q4110

== ENCOUNTER → 2022-08-31 11:56 | Outpatient (CLI) | payer MEDICARE, OTHER, SELFPAY ==
[2022-06-13 11:43] VITALS: BMI 32.1
== END ==
PROVIDERS: PCP Internal Medicine; Visit Provider Specialist
DX: N40.1 Benign prostatic hyperplasia with lower urinary tract symptoms (principal); N13.8 Other obstructive and reflux uropathy; N31.2 Flaccid neuropathic bladder, not elsewhere classified; R33.9 Retention of urine, unspecified; Z97.8 Presence of other specified devices
CPT/HCPCS: 87077; 87086; 87147; 87186

== ENCOUNTER → 2022-09-02 13:05 | Outpatient (CLI) | payer MEDICARE, OTHER, SELFPAY ==
[2022-06-13 11:43] VITALS: BMI 32.1
== END ==
PROVIDERS: PCP Internal Medicine; Referring Provider Internal Medicine; Visit Provider Nurse Practitioner Family
DX: S31.000A Unspecified open wound of lower back and pelvis without penetration into retroperitoneum, initial encounter (principal)
CPT/HCPCS: 97605

== ENCOUNTER → 2022-09-06 13:10 | Outpatient (CLI) | payer MEDICARE, OTHER, SELFPAY ==
[2022-06-13 11:43] VITALS: BMI 32.1
== END ==
PROVIDERS: PCP Internal Medicine; Referring Provider Family Medicine; Visit Provider Surgery
DX: T81.31XS Disruption of external operation (surgical) wound, not elsewhere classified, sequela (principal); S31.000A Unspecified open wound of lower back and pelvis without penetration into retroperitoneum, initial encounter; L59.8 Other specified disorders of the skin and subcutaneous tissue related to radiation; C20 Malignant neoplasm of rectum
CPT/HCPCS: 11042; 87070; 87075; 87077; 87147; 87205; 97605; 99213

== ENCOUNTER → 2022-09-09 13:47 | Outpatient (CLI) | payer MEDICARE, OTHER, SELFPAY ==
[2022-06-13 11:43] VITALS: BMI 32.1
== END ==
PROVIDERS: PCP Internal Medicine; Referring Provider Family Medicine; Visit Provider Nurse Practitioner Family
DX: S31.000A Unspecified open wound of lower back and pelvis without penetration into retroperitoneum, initial encounter (principal)
CPT/HCPCS: 97605

== ENCOUNTER → 2022-09-13 13:07 | Outpatient (CLI) | payer MEDICARE, OTHER, SELFPAY ==
[2022-06-13 11:43] VITALS: BMI 32.1
== END ==
PROVIDERS: PCP Internal Medicine; Referring Provider Specialist; Visit Provider Surgery
DX: L59.8 Other specified disorders of the skin and subcutaneous tissue related to radiation (principal); S31.000A Unspecified open wound of lower back and pelvis without penetration into retroperitoneum, initial encounter; C20 Malignant neoplasm of rectum
CPT/HCPCS: 11042; 97605; 99212; 99213

== ENCOUNTER → 2022-09-16 13:15 | Outpatient (CLI) | payer MEDICARE, OTHER, SELFPAY ==
[2022-06-13 11:43] VITALS: BMI 32.1
== END ==
PROVIDERS: PCP Internal Medicine; Referring Provider Family Medicine; Visit Provider Nurse Practitioner Family
DX: L89.150 Pressure ulcer of sacral region, unstageable (principal)
CPT/HCPCS: 97605

== ENCOUNTER 2022-09-20 17:44 | Emergency (ER) | payer MEDICARE, OTHER, SELFPAY ==
[2022-06-13 11:43] VITALS: BMI 32.1
[2022-09-20] VITALS (10 sets, daily range): BP systolic 130–144; BP diastolic 72–81; PULSE 59–66; RESP 16; O2SAT 91–99; BMI 20.5
--- NOTE | 2022-09-20 18:03 | ED.GENADULT ---
HPI - General Adult <Gutierrez Rankin - Last Filed: 09/24/22 08:07> General Chief complaint: Back Pain/Injury Stated complaint: Back and Hip Pain, 3 days in bed Time Seen by Provider: 09/20/22 18:03 History of Present Illness HPI narrative: 77-year-old male former smoker with history of coronary artery disease, hypertension, paroxysmal atrial fibrillation on anticoagulation, rectal cancer, bladder atony presents with worsening low back and hip pain in the absence of a known or obvious injury. He denies any numbness or weakness, denies any loss of control of bowel or bladder, has had no fever or chills. He did have a PET scan on August 17 as ordered by his oncology team that notes metastasis to his transverse process of T4 as well as the iliac bones bilaterally and was scheduled to start radiation therapy at [facility] yesterday but was in too much pain to make it. He talked to his oncologist today who instructed him to present here for pain control and further treatment and stabilization. He has little to no pain while at rest and significant worsening with any motion. It does radiate down from just left of the midline of his lower lumbar spine into his left hip and lateral thigh Related Data Home Medications Medication Instructions Recorded Confirmed atorvastatin 20 mg tablet 20 mg PO DAILY 10/31/18 09/09/22 turmeric root extract 500 mg 1,500 mg PO BID 10/31/18 09/09/22 capsule vit C 250 mg-vit E 90 mg-zinc 40 2 cap PO BID 10/31/18 09/09/22 mg-copper 1 [id number] capsule (PreserVision AREDS-2) vitamin B complex 2 tab PO DAILY 06/17/19 09/09/22 metoprolol succinate 25 mg 12.5 mg PO DAILY 09/23/20 09/09/22 tablet,extended release 24 hr multivitamin 1 tab PO DAILY 07/28/21 09/09/22 apixaban 5 mg tablet (Eliquis) 5 mg PO BID 10/13/21 09/09/22 Previous Rx's Medication Instructions Recorded tamsulosin 0.4 mg capsule 0.4 mg PO DAILY Nephrolithiasis, 10/24/18 Bladder outlet syndrome #10 caps olanzapine 5 mg tablet 5 mg PO Q12H PRN Nausea #30 tabs 05/19/21 ondansetron 8 mg disintegrating 8 mg PO Q8H PRN Nausea #30 tabs 09/23/20 tablet Disabled Parking Permit #1 ea 04/07/21 finasteride 5 mg tablet 5 mg PO DAILY #90 tabs 07/08/22 morphine 30 mg capsule,extended 30 mg PO BID #60 caps 08/12/22 release 24 hr multiphase hydrocodone 10 mg-acetaminophen 1 tab PO Q6H PRN Pain (Scale Score 09/09/22 325 mg tablet 4-6) #120 tabs morphine 60 mg tablet,extended 60 mg PO Q12H #60 tabs 09/09/22 release Allergies Allergy/AdvReac Type Severity Reaction Status Date / Time No Known Drug Allergies Allergy Unknown Verified 09/09/22 12:11 [NO KNOWN DRUG ALLERGIES] Review of Systems <Gutierrez Rankin DO - Last Filed: 09/24/22 08:07> Review of Systems Narrative: GENERAL: Denies chills, fatigue, malaise, fever, sweats. HEENT: Denies sinus pain, ear pain, sore throat, difficulty swallowing, dizziness. RESPIRATORY: Denies dyspnea, cough, wheezing, hemoptysis, sputum. CARDIOVASCULAR: Denies chest pain, palpitations, orthopnea, edema, GASTROINTESTINAL: Denies nausea, vomiting, abdominal pain, diarrhea, constipation, melena. : Denies dysuria, frequency, incontinence, hematuria, urinary retention. MUSCULOSKELETAL: See HPI SKIN: Denies rash, skin lesions, or other NEUROLOGIC: Denies weakness, headache, numbness, change in speech, confusion, seizures, incoordination. PSYCHIATRIC: No concerning psychosocial issues. 12 point review of systems is negative except for those stated above Patient History <Gutierrez Rankin DO - Last Filed: 09/24/22 08:07> Medical History Acute GI bleeding Anal fistula Bladder atony (~2018) BPH w urinary obs/LUTS Cellulitis Cerebrovascular disease Chronic anticoagulation Chronic indwelling Al catheter Chronic, continuous use of opioids Colostomy in place Constipation Coronary artery disease CVA (cerebral vascular accident) Essential hypertension (08/15/17) Hemorrhoids History of DVT (deep vein thrombosis) Iron deficiency anemia Kidney stones Laceration of finger of left hand Mixed hyperlipidemia Obstructive sleep apnea Paroxysmal atrial fibrillation Personal history of colonic polyps Rectal cancer Self-catheterizes urinary bladder Sleep apnea Transient ischemic attack (~2016) Urinary retention Venous (peripheral) insufficiency Surgical History History of angioplasty (~2013) History of colonoscopy History of esophagogastroduodenoscopy (EGD) History of gastric bypass (2013) History of knee replacement History of knee replacement History of kyphoplasty History of loop recorder (06/2017) Family History Father Hypertension Cancer Social History marital status: details: (Nicki), one daughter (other ), 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 Well-developed patient, in obviously uncommon. HEAD: Atraumatic. Normocephalic. EYES: Pupils equal round and reactive. Extraocular motions intact. No scleral icterus. No injection or drainage. ENT: Nose without bleeding, purulent drainage. Throat without erythema, tonsillar hypertrophy or exudate. Airway patent. NECK: Trachea midline. Non tender CARDIOVASCULAR: Regular rate and rhythm without murmurs, gallops, or rubs. RESPIRATORY: Clear to auscultation. Breath sounds equal bilaterally. No wheezes, rales, or rhonchi. GASTROINTESTINAL: Abdomen soft, non-tender, nondistended. EXTREMITIES: No edema or joint tenderness. BACK: buoy tender but free of any obvious external abnormalities. Patient exam notes decreased range of motion and muscle spasm, but no CVA tenderness, or vertebral point tenderness. There are no symptoms of cauda equina such as saddle anesthesia, and decreased reflexes, decreased sensation or strength. NEURO: AOx3. SKIN: No rash or erythema of visible areas Initial Vital Signs Initial Vital Signs: Vital Signs Pulse Rate 66 09/20/22 17:46 Respiratory Rate 16 09/20/22 17:46 Blood Pressure 142/75 H 09/20/22 17:46 Pulse Oximetry 99 09/20/22 17:46 Oxygen Delivery Method Room Air 09/20/22 17:46 <Tyshawn Pemberton DO - Last Filed: 09/21/22 18:51> Initial Vital Signs Initial Vital Signs: Vital Signs Pulse Rate 66 09/20/22 17:46 Respiratory Rate 16 09/20/22 17:46 Blood Pressure 142/75 H 09/20/22 17:46 Pulse Oximetry 99 09/20/22 17:46 Oxygen Delivery Method Room Air 09/20/22 17:46 <Jesús Meza MD - Last Filed: 09/22/22 05:29> Initial Vital Signs Initial Vital Signs: Vital Signs Pulse Rate 66 09/20/22 17:46 Respiratory Rate 16 09/20/22 17:46 Blood Pressure 142/75 H 09/20/22 17:46 Pulse Oximetry 99 09/20/22 17:46 Oxygen Delivery Method Room Air 09/20/22 17:46 Course <Gutierrez Rankin DO - Last Filed: 09/24/22 08:07> Orders Ordered: Discontinued Medications Apixaban (Apixaban 5 Mg Tablet) 5 mg PO NOW ONE Stop: 09/21/22 17:42 Last Admin: 09/21/22 18:06 Dose: 5 mg Documented By: RONAL Atorvastatin Calcium (Atorvastatin 20 Mg Tablet) 20 mg PO NOW ONE Stop: 09/21/22 17:42 Last Admin: 09/21/22 18:06 Dose: 20 mg Documented By: RONAL Finasteride (Finasteride 5 Mg Tablet) 5 mg PO NOW ONE Stop: 09/21/22 17:42 Last Admin: 09/21/22 18:07 Dose: 5 mg Documented By: RONAL Hydromorphone HCl (Hydromorphone 0.5 Mg Inj) 0.5 mg IV NOW ONE Stop: 09/20/22 18:05 Last Admin: 09/20/22 18:28 Dose: 0.5 mg Documented By: RONAL Hydromorphone HCl (Hydromorphone 0.5 Mg Inj) 0.5 mg IV NOW ONE Stop: 09/20/22 23:25 Last Admin: 09/20/22 23:36 Dose: 0.5 mg Documented By: ROSE Hydromorphone HCl (Hydromorphone 0.5 Mg Inj) 0.5 mg IV NOW ONE Stop: 09/21/22 07:27 Last Admin: 09/21/22 07:30 Dose: 0.5 mg Documented By: MEGHAN Hydromorphone HCl (Hydromorphone 0.5 Mg Inj) 0.5 mg IV NOW ONE Stop: 09/21/22 13:11 Last Admin: 09/21/22 13:17 Dose: 0.5 mg Documented By: RONAL Hydromorphone HCl (Hydromorphone 2 Mg Tablet) 2 mg PO NOW ONE Stop: 09/21/22 17:42 Last Admin: 09/21/22 18:15 Dose: 2 mg Documented By: RONAL Hydromorphone HCl (Hydromorphone 2 Mg Tablet) 2 mg PO NOW ONE Stop: 09/21/22 22:23 Last Admin: 09/21/22 22:43 Dose: 2 mg Documented By: EDE Hydromorphone HCl (Hydromorphone 2 Mg Tablet) 2 mg PO NOW ONE Stop: 09/22/22 03:22 Last Admin: 09/22/22 03:32 Dose: 2 mg Documented By: BELLA Hydromorphone HCl (Hydromorphone 1 Mg Inj) 1 mg IV NOW ONE Stop: 09/22/22 04:31 Last Admin: 09/22/22 04:40 Dose: 1 mg Documented By: BELLA Metoprolol Succinate (Metoprolol Er 25 Mg Tablet) 12.5 mg PO NOW ONE Stop: 09/21/22 17:42 Last Admin: 09/21/22 18:07 Dose: 12.5 mg Documented By: RONAL Ondansetron HCl (Ondansetron 4 Mg/2 Ml Inj) 4 mg IV NOW ONE Stop: 09/20/22 18:05 Last Admin: 09/21/22 08:54 Dose: Not Given Documented By: MEGHAN Tamsulosin HCl (Tamsulosin 0.4 Mg Capsule) 0.4 mg PO NOW ONE Stop: 09/21/22 17:42 Last Admin: 09/21/22 18:07 Dose: 0.4 mg Documented By: RONAL Consultations Consultation #1: discussed with educational coordinator oncology at [facility] ([facility] Currently [facility] has no beds and we are on the waitlist. We discussed if there would be benefit in pushing for transfer in order for patient to going access to radiation therapy, if there was likelihood of short order benefit and he does request that we pursue transfer some patients have relatively quick response Vital Signs Vital signs: Vital Signs - 8 hr 09/21/22 21:30 09/21/22 21:30 09/21/22 22:00 Pulse Rate 63 60 Respiratory Rate Blood Pressure 136/83 Pulse Oximetry 98 96 09/21/22 22:30 09/21/22 22:30 09/21/22 23:00 Pulse Rate 54 L Respiratory Rate Blood Pressure 140/77 158/80 H Pulse Oximetry 95 09/21/22 23:00 09/21/22 23:30 09/21/22 23:31 Pulse Rate 58 L 61 Respiratory Rate Blood Pressure 139/84 Pulse Oximetry 96 95 09/21/22 23:31 09/22/22 00:00 09/22/22 00:00 Pulse Rate 57 L 56 L Respiratory Rate 18 Blood Pressure 120/75 Pulse Oximetry 97 95 09/22/22 00:34 09/22/22 00:35 09/22/22 00:35 Pulse Rate 60 58 L Respiratory Rate Blood Pressure 117/78 Pulse Oximetry 98 98 09/22/22 01:00 09/22/22 01:01 09/22/22 01:01 Pulse Rate 55 L 55 L Respiratory Rate Blood Pressure 149/77 H Pulse Oximetry 98 98 09/22/22 01:30 09/22/22 02:00 09/22/22 02:00 Pulse Rate 51 L 55 L Respiratory Rate Blood Pressure 137/75 Pulse Oximetry 99 99 09/22/22 02:30 09/22/22 03:00 09/22/22 03:00 Pulse Rate 59 L 52 L Respiratory Rate Blood Pressure 148/78 H Pulse Oximetry 98 98 09/22/22 03:30 09/22/22 04:00 09/22/22 04:00 Pulse Rate 64 58 L Respiratory Rate Blood Pressure 143/80 H Pulse Oximetry 98 98 09/22/22 04:30 09/22/22 04:40 09/22/22 04:40 Pulse Rate 60 58 L Respiratory Rate Blood Pressure 162/67 H Pulse Oximetry 97 98 <Tyshawn Pemberton DO - Last Filed: 09/21/22 18:51> Orders Ordered: Discontinued Medications Apixaban (Apixaban 5 Mg Tablet) 5 mg PO NOW ONE Stop: 09/21/22 17:42 Last Admin: 09/21/22 18:06 Dose: 5 mg Documented By: RONAL Atorvastatin Calcium (Atorvastatin 20 Mg Tablet) 20 mg PO NOW ONE Stop: 09/21/22 17:42 Last Admin: 09/21/22 18:06 Dose: 20 mg Documented By: RONAL Finasteride (Finasteride 5 Mg Tablet) 5 mg PO NOW ONE Stop: 09/21/22 17:42 Last Admin: 09/21/22 18:07 Dose: 5 mg Documented By: RONAL Hydromorphone HCl (Hydromorphone 0.5 Mg Inj) 0.5 mg IV NOW ONE Stop: 09/20/22 18:05 Last Admin: 09/20/22 18:28 Dose: 0.5 mg Documented By: RONAL Hydromorphone HCl (Hydromorphone 0.5 Mg Inj) 0.5 mg IV NOW ONE Stop: 09/20/22 23:25 Last Admin: 09/20/22 23:36 Dose: 0.5 mg Documented By: ROSE Hydromorphone HCl (Hydromorphone 0.5 Mg Inj) 0.5 mg IV NOW ONE Stop: 09/21/22 07:27 Last Admin: 09/21/22 07:30 Dose: 0.5 mg Documented By: MEGHAN Hydromorphone HCl (Hydromorphone 0.5 Mg Inj) 0.5 mg IV NOW ONE Stop: 09/21/22 13:11 Last Admin: 09/21/22 13:17 Dose: 0.5 mg Documented By: RONAL Hydromorphone HCl (Hydromorphone 2 Mg Tablet) 2 mg PO NOW ONE Stop: 09/21/22 17:42 Last Admin: 09/21/22 18:15 Dose: 2 mg Documented By: RONAL Hydromorphone HCl (Hydromorphone 2 Mg Tablet) 2 mg PO NOW ONE Stop: 09/21/22 22:23 Last Admin: 09/21/22 22:43 Dose: 2 mg Documented By: EDE Hydromorphone HCl (Hydromorphone 2 Mg Tablet) 2 mg PO NOW ONE Stop: 09/22/22 03:22 Last Admin: 09/22/22 03:32 Dose: 2 mg Documented By: BS Hydromorphone HCl (Hydromorphone 1 Mg Inj) 1 mg IV NOW ONE Stop: 09/22/22 04:31 Last Admin: 09/22/22 04:40 Dose: 1 mg Documented By: BELLA Metoprolol Succinate (Metoprolol Er 25 Mg Tablet) 12.5 mg PO NOW ONE Stop: 09/21/22 17:42 Last Admin: 09/21/22 18:07 Dose: 12.5 mg Documented By: RONAL Ondansetron HCl (Ondansetron 4 Mg/2 Ml Inj) 4 mg IV NOW ONE Stop: 09/20/22 18:05 Last Admin: 09/21/22 08:54 Dose: Not Given Documented By: MEGHAN Tamsulosin HCl (Tamsulosin 0.4 Mg Capsule) 0.4 mg PO NOW ONE Stop: 09/21/22 17:42 Last Admin: 09/21/22 18:07 Dose: 0.4 mg Documented By: RONAL Vital Signs Vital signs: Vital Signs - 8 hr 09/21/22 21:30 09/21/22 21:30 09/21/22 22:00 Pulse Rate 63 60 Respiratory Rate Blood Pressure 136/83 Pulse Oximetry 98 96 09/21/22 22:30 09/21/22 22:30 09/21/22 23:00 Pulse Rate 54 L Respiratory Rate Blood Pressure 140/77 158/80 H Pulse Oximetry 95 09/21/22 23:00 09/21/22 23:30 09/21/22 23:31 Pulse Rate 58 L 61 Respiratory Rate Blood Pressure 139/84 Pulse Oximetry 96 95 09/21/22 23:31 09/22/22 00:00 09/22/22 00:00 Pulse Rate 57 L 56 L Respiratory Rate 18 Blood Pressure 120/75 Pulse Oximetry 97 95 09/22/22 00:34 09/22/22 00:35 09/22/22 00:35 Pulse Rate 60 58 L Respiratory Rate Blood Pressure 117/78 Pulse Oximetry 98 98 09/22/22 01:00 09/22/22 01:01 09/22/22 01:01 Pulse Rate 55 L 55 L Respiratory Rate Blood Pressure 149/77 H Pulse Oximetry 98 98 09/22/22 01:30 09/22/22 02:00 09/22/22 02:00 Pulse Rate 51 L 55 L Respiratory Rate Blood Pressure 137/75 Pulse Oximetry 99 99 09/22/22 02:30 09/22/22 03:00 09/22/22 03:00 Pulse Rate 59 L 52 L Respiratory Rate Blood Pressure 148/78 H Pulse Oximetry 98 98 09/22/22 03:30 09/22/22 04:00 09/22/22 04:00 Pulse Rate 64 58 L Respiratory Rate Blood Pressure 143/80 H Pulse Oximetry 98 98 09/22/22 04:30 09/22/22 04:40 09/22/22 04:40 Pulse Rate 60 58 L Respiratory Rate Blood Pressure 162/67 H Pulse Oximetry 97 98 <Jesús Meza MD - Last Filed: 09/22/22 05:29> Course Course Narrative: September 21, 2022 at 6:00 p.m.. Derrick: Sign out Dr Pemberton, patient has been here for 25 hours. Awaiting for bed at [facility] for Radiation Oncology. However patient only here for pain control. Patient may benefit from Dilaudid orally for pain control and would be appropriate for discharge home and follow up with oncology services. 7:00 p.m.. I spoke with patient, at this time he states Dilaudid is working. His pain is much better. He is on hydrocodone and morphine at home. He is never had oral Dilaudid before. I will re-evaluate him later to see if Dilaudid is controlling his pain, he would like to be discharged home if it is effective. Orders Ordered: Discontinued Medications Apixaban (Apixaban 5 Mg Tablet) 5 mg PO NOW ONE Stop: 09/21/22 17:42 Last Admin: 09/21/22 18:06 Dose: 5 mg Documented By: RONAL Atorvastatin Calcium (Atorvastatin 20 Mg Tablet) 20 mg PO NOW ONE Stop: 09/21/22 17:42 Last Admin: 09/21/22 18:06 Dose: 20 mg Documented By: RONAL Finasteride (Finasteride 5 Mg Tablet) 5 mg PO NOW ONE Stop: 09/21/22 17:42 Last Admin: 09/21/22 18:07 Dose: 5 mg Documented By: RONAL Hydromorphone HCl (Hydromorphone 0.5 Mg Inj) 0.5 mg IV NOW ONE Stop: 09/20/22 18:05 Last Admin: 09/20/22 18:28 Dose: 0.5 mg Documented By: RONAL Hydromorphone HCl (Hydromorphone 0.5 Mg Inj) 0.5 mg IV NOW ONE Stop: 09/20/22 23:25 Last Admin: 09/20/22 23:36 Dose: 0.5 mg Documented By: ROSE Hydromorphone HCl (Hydromorphone 0.5 Mg Inj) 0.5 mg IV NOW ONE Stop: 09/21/22 07:27 Last Admin: 09/21/22 07:30 Dose: 0.5 mg Documented By: MEGHAN Hydromorphone HCl (Hydromorphone 0.5 Mg Inj) 0.5 mg IV NOW ONE Stop: 09/21/22 13:11 Last Admin: 09/21/22 13:17 Dose: 0.5 mg Documented By: RONAL Hydromorphone HCl (Hydromorphone 2 Mg Tablet) 2 mg PO NOW ONE Stop: 09/21/22 17:42 Last Admin: 09/21/22 18:15 Dose: 2 mg Documented By: RONAL Hydromorphone HCl (Hydromorphone 2 Mg Tablet) 2 mg PO NOW ONE Stop: 09/21/22 22:23 Last Admin: 09/21/22 22:43 Dose: 2 mg Documented By: EDE Hydromorphone HCl (Hydromorphone 2 Mg Tablet) 2 mg PO NOW ONE Stop: 09/22/22 03:22 Last Admin: 09/22/22 03:32 Dose: 2 mg Documented By: BELLA Hydromorphone HCl (Hydromorphone 1 Mg Inj) 1 mg IV NOW ONE Stop: 09/22/22 04:31 Last Admin: 09/22/22 04:40 Dose: 1 mg Documented By: BELLA Metoprolol Succinate (Metoprolol Er 25 Mg Tablet) 12.5 mg PO NOW ONE Stop: 09/21/22 17:42 Last Admin: 09/21/22 18:07 Dose: 12.5 mg Documented By: RONAL Ondansetron HCl (Ondansetron 4 Mg/2 Ml Inj) 4 mg IV NOW ONE Stop: 09/20/22 18:05 Last Admin: 09/21/22 08:54 Dose: Not Given Documented By: MEGHAN Tamsulosin HCl (Tamsulosin 0.4 Mg Capsule) 0.4 mg PO NOW ONE Stop: 09/21/22 17:42 Last Admin: 09/21/22 18:07 Dose: 0.4 mg Documented By: RONAL Vital Signs Vital signs: Vital Signs - 8 hr 09/21/22 21:30 09/21/22 21:30 09/21/22 22:00 Pulse Rate 63 60 Respiratory Rate Blood Pressure 136/83 Pulse Oximetry 98 96 09/21/22 22:30 09/21/22 22:30 09/21/22 23:00 Pulse Rate 54 L Respiratory Rate Blood Pressure 140/77 158/80 H Pulse Oximetry 95 09/21/22 23:00 09/21/22 23:30 09/21/22 23:31 Pulse Rate 58 L 61 Respiratory Rate Blood Pressure 139/84 Pulse Oximetry 96 95 09/21/22 23:31 09/22/22 00:00 09/22/22 00:00 Pulse Rate 57 L 56 L Respiratory Rate 18 Blood Pressure 120/75 Pulse Oximetry 97 95 09/22/22 00:34 09/22/22 00:35 09/22/22 00:35 Pulse Rate 60 58 L Respiratory Rate Blood Pressure 117/78 Pulse Oximetry 98 98 09/22/22 01:00 09/22/22 01:01 09/22/22 01:01 Pulse Rate 55 L 55 L Respiratory Rate Blood Pressure 149/77 H Pulse Oximetry 98 98 09/22/22 01:30 09/22/22 02:00 09/22/22 02:00 Pulse Rate 51 L 55 L Respiratory Rate Blood Pressure 137/75 Pulse Oximetry 99 99 09/22/22 02:30 09/22/22 03:00 09/22/22 03:00 Pulse Rate 59 L 52 L Respiratory Rate Blood Pressure 148/78 H Pulse Oximetry 98 98 09/22/22 03:30 09/22/22 04:00 09/22/22 04:00 Pulse Rate 64 58 L Respiratory Rate Blood Pressure 143/80 H Pulse Oximetry 98 98 09/22/22 04:30 09/22/22 04:40 09/22/22 04:40 Pulse Rate 60 58 L Respiratory Rate Blood Pressure 162/67 H Pulse Oximetry 97 98 Medical Decision Making <Gutierrez Rankin DO - Last Filed: 05/20/23 08:07> Lab Data 09/20/22 18:25 09/20/22 18:25 Labs: Lab Results 09/20/22 09/20/22 09/20/22 Range/Units 18:25 18:25 18:25 WBC 4.2 L (4.5-11.0) X10^3/uL RBC 4.36 L (4.5-5.9) X10^6/uL Hgb 10.7 L (13.5-17.5) g/dL Hct 32.6 L (41-53) % MCV 74.7 L (80-100) fL MCH 24.5 L (26-34) PG MCHC 32.8 (30-36) % RDW 26.8 H (11.6-14.8) % Plt Count 208 (150-400) X10^3/uL Neut % (Auto) 66.8 (50-75) % Lymph % (Auto) 17.2 L (25-40) % [place] % (Auto) 11.1 (3-14) % Eos % (Auto) 3.6 (2-4) % Baso % (Auto) 1.3 (0-2) % Neut # (Auto) 2800 (9843-3238) /uL Lymph # (Auto) 700 L (5072-1839) /uL [place] # (Auto) 500 (0-900) /uL Eos # (Auto) 200 (0-450) /uL Baso # (Auto) 100 (0-100) /uL RBC Morphology Not Reportable Poikilocytosis 1+ H Anisocytosis 2+ H PT 15.3 H (10.1-12.7) SECONDS INR 1.3 (0.9-1.3) Sodium 133 L (137-145) mmol/L Potassium 4.3 (3.4-5.1) mmol/L Chloride 100 (98-107) mmol/L Carbon Dioxide 25 (22-32) mmol/L BUN 33 H (9-20) mg/dL Creatinine 0.54 L (0.66-1.25) mg/dL Estimated GFR > 60 (>60) mL/min BUN/Creatinine Ratio 61.1 H (6-22) Glucose 96 (80-110) mg/dL Calcium 8.5 (8.4-10.2) mg/dL Magnesium 2.2 (1.6-2.3) mg/dL Total Bilirubin 0.4 (0.2-1.3) mg/dL AST 28 (17-59) IU/L ALT 16 (<50) IU/L Alkaline Phosphatase 126 (38-126) U/L Total Protein 6.3 (6.3-8.2) g/dL Albumin 3.3 L (3.5-5.0) g/dL Globulin 3.0 (1.7-4.1) g/dL Albumin/Globulin Ratio 1.1 (1.0-2.8) SARS-CoV-2 (PCR) (Negative) 09/20/22 Range/Units 18:32 WBC (4.5-11.0) X10^3/uL RBC (4.5-5.9) X10^6/uL Hgb (13.5-17.5) g/dL Hct (41-53) % MCV (80-100) fL MCH (26-34) PG MCHC (30-36) % RDW (11.6-14.8) % Plt Count (150-400) X10^3/uL Neut % (Auto) (50-75) % Lymph % (Auto) (25-40) % [place] % (Auto) (3-14) % Eos % (Auto) (2-4) % Baso % (Auto) (0-2) % Neut # (Auto) (7725-5911) /uL Lymph # (Auto) (5343-4918) /uL [place] # (Auto) (0-900) /uL Eos # (Auto) (0-450) /uL Baso # (Auto) (0-100) /uL RBC Morphology Poikilocytosis Anisocytosis PT (10.1-12.7) SECONDS INR (0.9-1.3) Sodium (137-145) mmol/L Potassium (3.4-5.1) mmol/L Chloride (98-107) mmol/L Carbon Dioxide (22-32) mmol/L BUN (9-20) mg/dL Creatinine (0.66-1.25) mg/dL Estimated GFR (>60) mL/min BUN/Creatinine Ratio (6-22) Glucose (80-110) mg/dL Calcium (8.4-10.2) mg/dL Magnesium (1.6-2.3) mg/dL Total Bilirubin (0.2-1.3) mg/dL AST (17-59) IU/L ALT (<50) IU/L Alkaline Phosphatase (38-126) U/L Total Protein (6.3-8.2) g/dL Albumin (3.5-5.0) g/dL Globulin (1.7-4.1) g/dL Albumin/Globulin Ratio (1.0-2.8) SARS-CoV-2 (PCR) Negative (Negative) MDM Narrative Medical decision making narrative: CC: 77-year-old male with severe left lower back pain and radiation to his left hip Complicating co-morbidities: Age, anticoagulation, known rectal cancer with bony metastasis Data collected from: Patient Medical records reviewed: Prior notes reviewed in our EMR Differential considered, but not limited to: Metastatic pain, lumbar radiculopathy, epidural hematoma versus abscess versus other Exam documented above, pertinent findings include: In obvious severe pain, no measurable weakness, no saddle anesthesia, no depressed reflexes Lab Test results independently reviewed as above. Pertinent findings: Independently reviewed EKG as above Imaging studies independently reviewed: X-rays of lumbar spine and pelvis with hip are without any acute findings, MRI ordered to rule out neurosurgical emergency Consults: Dr. Suarez (Oncology) see details above Treatments: Dilaudid Re-evaluations: Patient feeling much better Discussion: 0700 - patient doing well overnight. [facility] [employer]ice hopeful for bed available today. Patient signed out to Dr. Pemberton for final disposition <Tyshawn Pemberton DO - Last Filed: 09/21/22 18:51> Lab Data Labs: Lab Results 09/20/22 09/20/22 09/20/22 Range/Units 18:25 18:25 18:25 WBC 4.2 L (4.5-11.0) X10^3/uL RBC 4.36 L (4.5-5.9) X10^6/uL Hgb 10.7 L (13.5-17.5) g/dL Hct 32.6 L (41-53) % MCV 74.7 L (80-100) fL MCH 24.5 L (26-34) PG MCHC 32.8 (30-36) % RDW 26.8 H (11.6-14.8) % Plt Count 208 (150-400) X10^3/uL Neut % (Auto) 66.8 (50-75) % Lymph % (Auto) 17.2 L (25-40) % [place] % (Auto) 11.1 (3-14) % Eos % (Auto) 3.6 (2-4) % Baso % (Auto) 1.3 (0-2) % Neut # (Auto) 2800 (3274-6233) /uL Lymph # (Auto) 700 L (5109-9079) /uL [place] # (Auto) 500 (0-900) /uL Eos # (Auto) 200 (0-450) /uL Baso # (Auto) 100 (0-100) /uL RBC Morphology Not Reportable Poikilocytosis 1+ H Anisocytosis 2+ H PT 15.3 H (10.1-12.7) SECONDS INR 1.3 (0.9-1.3) Sodium 133 L (137-145) mmol/L Potassium 4.3 (3.4-5.1) mmol/L Chloride 100 (98-107) mmol/L Carbon Dioxide 25 (22-32) mmol/L BUN 33 H (9-20) mg/dL Creatinine 0.54 L (0.66-1.25) mg/dL Estimated GFR > 60 (>60) mL/min BUN/Creatinine Ratio 61.1 H (6-22) Glucose 96 (80-110) mg/dL Calcium 8.5 (8.4-10.2) mg/dL Magnesium 2.2 (1.6-2.3) mg/dL Total Bilirubin 0.4 (0.2-1.3) mg/dL AST 28 (17-59) IU/L ALT 16 (<50) IU/L Alkaline Phosphatase 126 (38-126) U/L Total Protein 6.3 (6.3-8.2) g/dL Albumin 3.3 L (3.5-5.0) g/dL Globulin 3.0 (1.7-4.1) g/dL Albumin/Globulin Ratio 1.1 (1.0-2.8) SARS-CoV-2 (PCR) (Negative) 09/20/22 Range/Units 18:32 WBC (4.5-11.0) X10^3/uL RBC (4.5-5.9) X10^6/uL Hgb (13.5-17.5) g/dL Hct (41-53) % MCV (80-100) fL MCH (26-34) PG MCHC (30-36) % RDW (11.6-14.8) % Plt Count (150-400) X10^3/uL Neut % (Auto) (50-75) % Lymph % (Auto) (25-40) % [place] % (Auto) (3-14) % Eos % (Auto) (2-4) % Baso % (Auto) (0-2) % Neut # (Auto) (0696-7649) /uL Lymph # (Auto) (0826-0075) /uL [place] # (Auto) (0-900) /uL Eos # (Auto) (0-450) /uL Baso # (Auto) (0-100) /uL RBC Morphology Poikilocytosis Anisocytosis PT (10.1-12.7) SECONDS INR (0.9-1.3) Sodium (137-145) mmol/L Potassium (3.4-5.1) mmol/L Chloride (98-107) mmol/L Carbon Dioxide (22-32) mmol/L BUN (9-20) mg/dL Creatinine (0.66-1.25) mg/dL Estimated GFR (>60) mL/min BUN/Creatinine Ratio (6-22) Glucose (80-110) mg/dL Calcium (8.4-10.2) mg/dL Magnesium (1.6-2.3) mg/dL Total Bilirubin (0.2-1.3) mg/dL AST (17-59) IU/L ALT (<50) IU/L Alkaline Phosphatase (38-126) U/L Total Protein (6.3-8.2) g/dL Albumin (3.5-5.0) g/dL Globulin (1.7-4.1) g/dL Albumin/Globulin Ratio (1.0-2.8) SARS-CoV-2 (PCR) Negative (Negative) MDM Narrative Medical decision making narrative: CC: 77-year-old male with severe left lower back pain and radiation to his left hip Complicating co-morbidities: Age, anticoagulation, known rectal cancer with bony metastasis Data collected from: Patient Medical records reviewed: Prior notes reviewed in our EMR Differential considered, but not limited to: Metastatic pain, lumbar radiculopathy, epidural hematoma versus abscess versus other Exam documented above, pertinent findings include: In obvious severe pain, no measurable weakness, no saddle anesthesia, no depressed reflexes Lab Test results independently reviewed as above. Pertinent findings: Independently reviewed EKG as above Imaging studies independently reviewed: X-rays of lumbar spine and pelvis with hip are without any acute findings, MRI ordered to rule out neurosurgical emergency Consults: Dr. Suarez (Oncology) see details above Treatments: Dilaudid Re-evaluations: Patient feeling much better Discussion: 0700 - patient doing well overnight. [facility] [employer] hopeful for bed available today. Patient signed out to Dr. Pemberton for final disposition Dr pemberton: Assumed care patient. Reviewed patient's history and physical and workup up to this point. Performed my own independent exam. Patient's pain has been moderately controlled today with Dilaudid. He seems to feel somewhat better with just lying but has quite a bit of discomfort even sort of movement. Wound care did evaluate the patient today in the did change his bandages. Had a discussion with the patient. He is here in the emergency department for pain control and transfer for pain control given his oncologic process. He was given oral Dilaudid. Potentially if he improves with the oral Dilaudid than he could be discharged home on this. Care turned over to Dr. Meza to continue to observe until disposition. <Jesús Meza MD - Last Filed: 09/22/22 05:29> Lab Data Labs: Lab Results 09/20/22 09/20/22 09/20/22 Range/Units 18:25 18:25 18:25 WBC 4.2 L (4.5-11.0) X10^3/uL RBC 4.36 L (4.5-5.9) X10^6/uL Hgb 10.7 L (13.5-17.5) g/dL Hct 32.6 L (41-53) % MCV 74.7 L (80-100) fL MCH 24.5 L (26-34) PG MCHC 32.8 (30-36) % RDW 26.8 H (11.6-14.8) % Plt Count 208 (150-400) X10^3/uL Neut % (Auto) 66.8 (50-75) % Lymph % (Auto) 17.2 L (25-40) % [place] % (Auto) 11.1 (3-14) % Eos % (Auto) 3.6 (2-4) % Baso % (Auto) 1.3 (0-2) % Neut # (Auto) 2800 (9224-6793) /uL Lymph # (Auto) 700 L (8392-0048) /uL [place] # (Auto) 500 (0-900) /uL Eos # (Auto) 200 (0-450) /uL Baso # (Auto) 100 (0-100) /uL RBC Morphology Not Reportable Poikilocytosis 1+ H Anisocytosis 2+ H PT 15.3 H (10.1-12.7) SECONDS INR 1.3 (0.9-1.3) Sodium 133 L (137-145) mmol/L Potassium 4.3 (3.4-5.1) mmol/L Chloride 100 (98-107) mmol/L Carbon Dioxide 25 (22-32) mmol/L BUN 33 H (9-20) mg/dL Creatinine 0.54 L (0.66-1.25) mg/dL Estimated GFR > 60 (>60) mL/min BUN/Creatinine Ratio 61.1 H (6-22) Glucose 96 (80-110) mg/dL Calcium 8.5 (8.4-10.2) mg/dL Magnesium 2.2 (1.6-2.3) mg/dL Total Bilirubin 0.4 (0.2-1.3) mg/dL AST 28 (17-59) IU/L ALT 16 (<50) IU/L Alkaline Phosphatase 126 (38-126) U/L Total Protein 6.3 (6.3-8.2) g/dL Albumin 3.3 L (3.5-5.0) g/dL Globulin 3.0 (1.7-4.1) g/dL Albumin/Globulin Ratio 1.1 (1.0-2.8) SARS-CoV-2 (PCR) (Negative) 09/20/22 Range/Units 18:32 WBC (4.5-11.0) X10^3/uL RBC (4.5-5.9) X10^6/uL Hgb (13.5-17.5) g/dL Hct (41-53) % MCV (80-100) fL MCH (26-34) PG MCHC (30-36) % RDW (11.6-14.8) % Plt Count (150-400) X10^3/uL Neut % (Auto) (50-75) % Lymph % (Auto) (25-40) % [place] % (Auto) (3-14) % Eos % (Auto) (2-4) % Baso % (Auto) (0-2) % Neut # (Auto) (4041-9213) /uL Lymph # (Auto) (8514-6685) /uL Cost[place] # (Auto) (0-900) /uL Eos # (Auto) (0-450) /uL Baso # (Auto) (0-100) /uL RBC Morphology Poikilocytosis Anisocytosis PT (10.1-12.7) SECONDS INR (0.9-1.3) Sodium (137-145) mmol/L Potassium (3.4-5.1) mmol/L Chloride (98-107) mmol/L Carbon Dioxide (22-32) mmol/L BUN (9-20) mg/dL Creatinine (0.66-1.25) mg/dL Estimated GFR (>60) mL/min BUN/Creatinine Ratio (6-22) Glucose (80-110) mg/dL Calcium (8.4-10.2) mg/dL Magnesium (1.6-2.3) mg/dL Total Bilirubin (0.2-1.3) mg/dL AST (17-59) IU/L ALT (<50) IU/L Alkaline Phosphatase (38-126) U/L Total Protein (6.3-8.2) g/dL Albumin (3.5-5.0) g/dL Globulin (1.7-4.1) g/dL Albumin/Globulin Ratio (1.0-2.8) SARS-CoV-2 (PCR) Negative (Negative) MDM Narrative Medical decision making narrative: CC: 77-year-old male with severe left lower back pain and radiation to his left hip Complicating co-morbidities: Age, anticoagulation, known rectal cancer with bony metastasis Data collected from: Patient Medical records reviewed: Prior notes reviewed in our EMR Differential considered, but not limited to: Metastatic pain, lumbar radiculopathy, epidural hematoma versus abscess versus other Exam documented above, pertinent findings include: In obvious severe pain, no measurable weakness, no saddle anesthesia, no depressed reflexes Lab Test results independently reviewed as above. Pertinent findings: Independently reviewed EKG as above Imaging studies independently reviewed: X-rays of lumbar spine and pelvis with hip are without any acute findings, MRI ordered to rule out neurosurgical emergency Consults: Dr. Suarez (Oncology) see details above September 22, 2022 at 2:40 a.m.. Spoke with [facility] hospitalist, dr gillespie, she will accept pt Treatments: Dilaudid Re-evaluations: Patient feeling much better September 22, 2022 2:50 a.m.. Patient agrees with treatment plan for transfer. Pain control at this time. Discussion: Appropriate for transfer. Patient will need continuity of care with his oncology team. Plan in place for radiation therapy that may benefit is low back pain. Patient neurologically intact otherwise. Has been hemodynamically stable. Patient agrees with treatment plan. 0700 - patient doing well overnight. [facility] [employer] hopeful for bed available today. Patient signed out to Dr. Pemberton for final disposition Dr pemberton: Assumed care patient. Reviewed patient's history and physical and workup up to this point. Performed my own independent exam. Patient's pain has been moderately controlled today with Dilaudid. He seems to feel somewhat better with just lying but has quite a bit of discomfort even sort of movement. Wound care did evaluate the patient today in the did change his bandages. Had a discussion with the patient. He is here in the emergency department for pain control and transfer for pain control given his oncologic process. He was given oral Dilaudid. Potentially if he improves with the oral Dilaudid than he could be discharged home on this. Care turned over to Dr. Meza to continue to observe until disposition. Discharge Plan Departure Patient Disposition: [facility] Clinical Impression: Intractable low back pain Prescriptions: No Action atorvastatin 20 mg tablet 20 mg PO DAILY turmeric root extract 500 mg capsule 1,500 mg PO BID PreserVision AREDS-2 [id number] re-lftq-zz-mg capsule 2 cap PO BID vitamin B complex Tablet 2 tab PO DAILY Rx Instructions: VITAMIN B-50 COMPLEX (DME) Disabled Parking Permit See Rx Instructions .ROUTE .MEDSUPPLY Qty: 1 0RF Rx Instructions: I certify that this patient has a condition which qualifies them for disabled parking privileges. finasteride 5 mg tablet 5 mg PO DAILY Qty: 90 3RF morphine 30 mg capsule, ER multiphase 24 hr 30 mg PO BID Qty: 60 0RF morphine 60 mg tablet extended release 60 mg PO Q12H Qty: 60 0RF Rx Instructions: Please fill now (replaces 30mg dose) hydrocodone-acetaminophen 10-325 mg tablet 1 tab PO Q6H PRN (Reason: Pain (Scale Score 4-6)) Qty: 120 0RF Rx Instructions: take 1 tab every 6-8 hours as needed for pain tamsulosin 0.4 mg capsule 0.4 mg PO DAILY Qty: 10 0RF metoprolol succinate 25 mg Tablet Extended Release 24 Hr 12.5 mg PO DAILY ondansetron 8 mg Tablet,Disintegrating 8 mg PO Q8H PRN (Reason: Nausea) Qty: 30 2RF olanzapine 5 mg Tablet 5 mg PO Q12H PRN (Reason: Nausea) Qty: 30 2RF Patient Comments: Hasn't started taking yet multivitamin Tablet 1 tab PO DAILY Eliquis 5 mg Tablet 5 mg PO BID Referrals: Tyler Mckay MD [Primary Care Provider] -
--- NOTE | 2022-09-20 18:04 | DI.RAD.S_ITS ---
PROCEDURE: XR HIP W PEL IF DONE LT 2V INDICATIONS: pain, can't walk, mets TECHNIQUE: AP pelvis with lateral view(s) of the right hip(s). COMPARISON: [facility], CR, XR LUMBAR SPINE 2-3V, 09/20/2022, 18:05. FINDINGS: Bones: The right hip has severe degenerative changes with joint space narrowing and subchondral sclerosis. No fractures or dislocations. Pelvic ring appears intact. No suspicious bony lesions. Soft tissues: The visualized bowel gas pattern is normal. No suspicious soft tissue calcifications. IMPRESSION: 1. No acute traumatic abnormality of left hip. If there is persistent pain, recommend CT. 2. Severe degenerative changes of the right hip. Dictated by: Crow Kennedy M.D. on 09/20/2022 at 18:31 Approved by: Crow Kennedy M.D. on 09/20/2022 at 18:33
--- NOTE | 2022-09-20 18:04 | DI.RAD.S_ITS ---
PROCEDURE: XR LUMBAR SPINE 2-3V INDICATIONS: severe pain, can't walk, mets TECHNIQUE: 3 views of the lumbar spine were acquired. COMPARISON: [facility], CR, XR LUMBAR SPINE 2-3V, 07/26/2022, 14:10. FINDINGS: Bones: Facet arthrosis of the lower lumbar spine. Degenerative disc disease at L4-5. 5 [id number] vertebrae are present. There is normal bony alignment. No vertebral body compression fractures. No suspicious bony lesions. Vertebroplasty L1 is seen. Leftward curvature of the lumbar spine. Soft tissues: Overlying bowel gas pattern is normal. No suspicious soft tissue calcifications. IMPRESSION: 1. No acute traumatic abnormality of the lumbar spine. 2. Degenerative disc disease at L4-5 and facet arthrosis. Dictated by: Crow Kennedy M.D. on 09/20/2022 at 18:33 Approved by: Crow Kennedy M.D. on 09/20/2022 at 18:35
[2022-09-20] MEDS: HYDROMORPHONE 0.5 MG INJ IV ×2 (18:28→23:36)
[2022-09-20 18:37] LABS: Add Manual Diff / Slide Review NO; Basophils Absolute Auto 100 /uL (0-100); Basophils Percent Auto 1.3 % (0-2); Eosinophils Absolute Auto 200 /uL (0-450); Eosinophils Percent Auto 3.6 % (2-4); Hematocrit 32.6 % (41-53); Hemoglobin 10.7 g/dL (13.5-17.5); Lymphocytes Absolute Auto 700 /uL (1100-4500); Lymphocytes Percent Auto 17.2 % (25-40); Mean Corpuscular HGB Conc 32.8 % (30-36); Mean Corpuscular Hemoglobin 24.5 PG (26-34); Mean Corpuscular Volume 74.7 fL (80-100); Monocytes Absolute Auto 500 /uL (0-900); Monocytes Percent Auto 11.1 % (3-14); Neutrophils Absolute Auto 2800 /uL (1500-7000); Neutrophils Percent Auto 66.8 % (50-75); Platelet Count 208 X10^3/uL (150-400); Red Blood Cell Count 4.36 X10^6/uL (4.5-5.9); Red Cell Distribution Width 26.8 % (11.6-14.8); White Blood Cell Count 4.2 X10^3/uL (4.5-11.0)
[2022-09-20 18:44] LABS: INR 1.3 (0.9-1.3); Prothrombin Time 15.3 SECONDS (10.1-12.7)
[2022-09-20 18:48] LABS: Anisocytosis 2+; Poikilocytosis 1+
[2022-09-20 18:49] LABS: Alanine Aminotransferase 16 IU/L (<50); Albumin 3.3 g/dL (3.5-5.0); Albumin Globulin Ratio 1.1 (1.0-2.8); Alkaline Phosphatase 126 U/L (38-126); Aspartate Aminotransferase 28 IU/L (17-59); BUN Creatinine Ratio 61.1 (6-22); Bilirubin Total 0.4 mg/dL (0.2-1.3); Blood Urea Nitrogen 33 mg/dL (9-20); Calcium 8.5 mg/dL (8.4-10.2); Carbon Dioxide 25 mmol/L (22-32); Chloride 100 mmol/L (98-107); Estimated Glomerular Filt Rate > 60 mL/min (>60); Glucose 96 mg/dL (80-110); HEMOLYSIS < 15 (0-50); Magnesium 2.2 mg/dL (1.6-2.3); Potassium 4.3 mmol/L (3.4-5.1); Sodium 133 mmol/L (137-145); Total Protein 6.3 g/dL (6.3-8.2)
[2022-09-20 18:50] LABS: COVID19 -Nasal RAPID Negative (Negative)
--- NOTE | 2022-09-20 19:18 | DI.MRI.S_ITS ---
PROCEDURE: MR LUMBAR SPINE WO/W CON INDICATIONS: Severe lumbar pain with radiculopathy, on eliquis. History of metastatic rectal cancer. TECHNIQUE: Noncontrast sagittal T1 spin echo and T2 fast echo, sagittal STIR, and T2 fast spin echo through the lumbar spine. In cases with scoliosis, additional coronal T2 fast spin echo may be performed. COMPARISON: [facility], CR, XR LUMBAR SPINE 2-3V, 07/26/2022, 14:10. [facility], CT, CT CHEST ABD PEL W CON, 08/05/2022, 13:14. [facility], NM, NM PET CT FUSION SKULL 2 THIGH, 08/17/2022, 11:00. [facility], CR, XR HIP W PEL IF DONE LT 2V, 09/20/2022, 18:05. [facility], CR, XR LUMBAR SPINE 2-3V, 09/20/2022, 18:05. FINDINGS: Image quality: There is motion artifact limiting evaluation. Alignment and Curvature: There is minimal anterolisthesis at L4-5. Bone Marrow: Marrow is of normal overall signal. There are bilateral sacral insufficiency fractures within the sacral ala. No acute vertebral body compression fractures. There is a chronic mild to moderate superior endplate compression deformity of the L1 vertebral body with associated bone cement placement redemonstrated. Mild scalloping of the inferior endplate of L5 also redemonstrated with associated sclerosis. Spinal Cord: Conus medullaris terminates at the L1 level. Visualized cord demonstrates normal signal and size. Paraspinous Soft Tissues: No paravertebral masses or epidural hematoma collections. There are confluent enlarged aortocaval retroperitoneal nodes redemonstrated as seen on the prior PET-CT. There is presacral soft tissue thickening also redemonstrated. There is a right posterolateral bladder diverticulum. The bladder demonstrates concentric wall thickening and mucosal enhancement consistent with a cystitis. There is a Al catheter present. T12-L1: No spinal canal or neural foraminal narrowing. L1-L2: No spinal canal or neural foraminal narrowing. L2-L3: Disc desiccation with mild loss of disc height posteriorly with a small annular fissure. There is a small broad-based disc bulge with mild facet arthropathy and ligamentum flavum hypertrophy contributing to mild spinal canal narrowing. There is minimal bilateral neural foraminal narrowing. L3-L4: Disc desiccation with mild loss of disc height and a small posterior annular fissure. There is moderate facet joint arthropathy with small joint effusions as well as prominent ligamentum flavum hypertrophy. The findings contribute to moderate to severe spinal canal narrowing. There is moderate bilateral neural foraminal narrowing also demonstrated. L4-L5: Disc desiccation with mild loss of disc height with a small broad-based disc bulge. There is moderate to severe facet joint arthropathy with prominent ligamentum flavum hypertrophy. Findings contribute to severe spinal canal narrowing with moderate to severe right and moderate left neural foraminal narrowing. L5-S1: Mild loss of disc height posteriorly with mild facet arthropathy. No spinal canal narrowing. There is moderate left and mild right neural foraminal narrowing. IMPRESSION: 1. No epidural hematoma collections or paravertebral masses. 2. Bilateral sacral insufficiency fractures in the sacral ala. 3. Chronic compression deformities of the L1 and L5 vertebral bodies redemonstrated. 4. Multilevel degenerative changes in the lumbar spine with associated severe spinal canal narrowing at L4-5 and moderate to severe narrowing at L3-L4. 5. Multilevel neural foraminal narrowing also demonstrated including moderate to severe narrowing on the right at L4-5. 6. Retroperitoneal lymphadenopathy consistent with metastatic disease redemonstrated as seen on the prior PET-CT. 7. Irregular nonspecific presacral soft tissue thickening redemonstrated. 8. Bladder wall thickening and enhancement consistent with cystitis. Dictated by: Alfonso Torres M.D. on 09/20/2022 at 20:39 Approved by: Alfonso Torres M.D. on 09/20/2022 at 20:52
--- NOTE | 2022-09-20 23:46 | PC.NURSE ---
Medicated for pain and assisted to reposition for comfort. Encouraged pt to use call light for further needs. Pt verbalized understanding.
[2022-09-21] VITALS (54 sets, daily range): BP systolic 116–158; BP diastolic 61–94; PULSE 52–79; RESP 18; O2SAT 95–100
[2022-09-21] MEDS: HYDROMORPHONE 0.5 MG INJ IV ×2 (07:30→13:17)
--- NOTE | 2022-09-21 07:44 | PC.NURSE ---
Left voicemail for [facility] [phone] regarding pts appt this morning at 1100.
--- NOTE | 2022-09-21 08:19 | PC.NURSE ---
Spoke to Sol @ [facility] rad/onc this am. Pt appt. cancelled.
[2022-09-21] MEDS: APIXABAN 5 MG TABLET PO (18:06)
[2022-09-21] MEDS: ATORVASTATIN 20 MG TABLET PO (18:06)
[2022-09-21] MEDS: METOPROLOL ER 25 MG TABLET 12.5 MG PO (18:07)
[2022-09-21] MEDS: FINASTERIDE 5 MG TABLET PO (18:07)
[2022-09-21] MEDS: TAMSULOSIN 0.4 MG CAPSULE PO (18:07)
[2022-09-21] MEDS: HYDROMORPHONE 2 MG TABLET PO ×2 (18:15→22:43)
[2022-09-22] VITALS (13 sets, daily range): BP systolic 117–162; BP diastolic 67–80; PULSE 51–64; O2SAT 95–99
--- NOTE | 2022-09-22 01:08 | PC.NURSE ---
2000 Spoke with Machine Stripper Cutter @ [facility] about bed status, no bed at this time possibly after midnight. 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
[2022-09-22] MEDS: HYDROMORPHONE 2 MG TABLET PO (03:32)
[2022-09-22] MEDS: HYDROMORPHONE 1 MG INJ IV (04:40)
== END 2022-09-22 04:58 | disposition short-term general hospital (02) ==
PROVIDERS: Emergency Medicine; Emergency Provider Emergency Medicine; PCP Internal Medicine
DX: M54.50 Low back pain, unspecified (principal); M25.552 Pain in left hip; C20 Malignant neoplasm of rectum; Z20.822 Contact with and (suspected) exposure to COVID-19
CPT/HCPCS: 36415; 72100; 72158; 73502; 80053; 83735; 85025; 85610; 87635; 96374; 96376; 99284; C9803; A9579; J1170